=== PATIENT | female | born 1975 | race American Indian/Alaskan Native ===

== ENCOUNTER 2017-11-25 07:09 | Emergency (ER) | payer SELFPAY ==
[2017-11-25] MEDS ORDERED: ZOFRAN ONE (07:28)
[2017-11-25] MEDS ORDERED: ZOFRAN IV ONE ×2 (07:34→10:17)
[2017-11-25 08:11] LABS: Mean Corpuscular HGB Conc 28 % (30-34); Red Blood Count 4.53 M/mm3 (3.65-5.03)
[2017-11-25 08:12] LABS: Hemoglobin 8.2 gm/dl (10.1-14.3); Mean Corpuscular Hemoglobin 18 pg (28-32); Mean Corpuscular Volume 64 fl (79-97); Red Cell Distribution Width 37.1 % (13.2-15.2)
[2017-11-25 08:18] LABS: Platelet Count 347 K/mm3 (140-440)
[2017-11-25 08:20] LABS: INR 0.92 (0.87-1.13)
[2017-11-25 08:36] LABS: Alanine Aminotransferase 6 units/L (7-56); Albumin 2.3 g/dL (3.9-5); BUN/Creatinine Ratio 25; Blood Urea Nitrogen 15 mg/dL (7-17); Hemolysis Index 5
[2017-11-25 09:10] LABS: Basophils % (Manual) 0 % (0.0-1.8); Eosinophils % (Manual) 0 % (0.0-4.3); Total Cells Counted 100
[2017-11-25 09:11] LABS: Anisocytosis 3+; Hypochromasia 2+; Platelet Estimate Consistent w Auto; Schistocytes Few
[2017-11-25 10:11] LABS: Bilirubin,Urine NEG (Negative); Blood,Urine SM (Negative); Color,Urine Yellow (Yellow); Hyaline Casts,Urine 1 /LPF; Mucus,Urine FEW /HPF; Urobilinogen,Urine < 2.0 mg/dL (<2.0)
[2017-11-25 10:12] LABS: Protein,Urine >500 mg/dL (Negative)
[2017-11-25] MEDS ORDERED: BENADRYL IV ONE (10:17)
[2017-11-25] MEDS ORDERED: SUBLIMAZE IV ONE (10:17)
--- NOTE | 2017-11-25 10:25 | Emergency Department Report ---
HPI - General Chief Complaint: Headache Time Seen by Provider: 11/25/17 10:14 - HPI HPI: Room 4 The patient is a 42-year-old female presenting with a chief complaint of headache. Patient states her symptoms began this morning at approximately 05: 40 severe pain to the right head. Patient denies any preceding trauma. Patient denies any history of fever. Patient admits to nausea and vomiting. Patient gives her pain score of 10/10 Location: Head Duration: Constant since 05:40 Quality: Headache Severity: 10/10 Modifying factors: [see above] Context: [see above] Mode of transportation: [not driving] ED Past Medical Hx - Past Medical History Previous Medical History?: Yes Additional medical history: Fibroids - Surgical History Past Surgical History?: No - Family History Family history: no significant - Social History Smoking Status: Current Every Day Smoker (1/3 pack per day) Substance Use Type: None (denies illicit drug use) - Medications Home Medications: Home Medications Medication Instructions Recorded Confirmed Last Taken Type Butalb/Acetamin/Caff 50-325-40 2 tab PO Q8HR PRN #20 tablet 11/25/17 Unknown Rx [Fioricet] Promethazine [Phenergan TAB] 25 mg PO Q6HR PRN #20 tab 11/25/17 Unknown Rx Promethazine [Phenergan] 25 mg [place] Q6HR PRN #5 supp.rect 11/25/17 Unknown Rx Sulfamethoxazole/Trimethoprim 1 each PO BID #14 tablet 11/25/17 Unknown Rx [Bactrim DS TAB] predniSONE [Deltasone] 80 mg PO QDAY #20 tab 11/25/17 Unknown Rx ED Review of Systems ROS: Stated complaint: R SIDE HEAD PAIN Other details as noted in HPI Constitutional: denies: fever Gastrointestinal: nausea, vomiting Neurological: headache Physical Exam - Physical Exam Vital Signs: Vital Signs 11/25/17 11/25/17 11/25/17 07:43 07:51 08:00 Temperature 97.5 F L 97.5 F L Pulse Rate 55 L 55 L Respiratory 16 16 16 Rate Blood Pressure 185/76 Blood Pressure 185/76 [Right] O2 Sat by Pulse 99 99 99 Oximetry Physical Exam: GENERAL: The patient is well-developed well-nourished female bending over cleaning on bed. Pain moderate discomfort. [] HEENT: Normocephalic. Atraumatic. Extraocular motions are intact. Patient has moist mucous membranes. No nystagmus. There is mild tenderness to palpation in the right temporal region NECK: Supple. No meningitic signs are noted. Trachea midline CHEST/LUNGS: Clear to auscultation. There is no respiratory distress noted. HEART/CARDIOVASCULAR: Regular. There is no tachycardia. There is no gallop rub or murmur. ABDOMEN: Abdomen is soft, nontender. Patient has normal bowel sounds. There is no abdominal distention. SKIN: There is no rash. There is no edema. There is no diaphoresis. NEURO: The patient is awake, alert, and oriented. The patient is cooperative. The patient has no focal neurologic deficits. The patient has normal speech. Cranial nerves II through XII grossly intact, no drift MUSCULOSKELETAL: There is no evidence of acute injury. ED Course Vital Signs 11/25/17 11/25/17 11/25/17 07:43 07:51 08:00 Temperature 97.5 F L 97.5 F L Pulse Rate 55 L 55 L Respiratory 16 16 16 Rate Blood Pressure 185/76 Blood Pressure 185/76 [Right] O2 Sat by Pulse 99 99 99 Oximetry - Reevaluation(s) Reevaluation #1: 11/25/17 13:26 Patient states her pain is improved and she is comfortable enough to go home. Potential diagnosis of temporal arteritis discussed with patient and the importance of follow-up with ophthalmology and compliance with steroid medication stressed. Patient verbalized understanding ED Medical Decision Making - Lab Data Result diagrams: 11/25/17 07:56 11/25/17 07:56 Laboratory Tests 11/25/17 11/25/17 11/25/17 07:56 07:56 07:56 WBC 10.2 RBC 4.53 Hgb 8.2 L Hct 29.0 L MCV 64 L MCH 18 L MCHC 28 L RDW 37.1 H Plt Count 347 Add Manual Diff Complete Total Counted 100 Seg Neuts % (Manual) 88.0 H Band Neutrophils % 0 Lymphocytes % (Manual) 8.0 L Reactive Lymphs % (Man) 0 Monocytes % (Manual) 4.0 Eosinophils % (Manual) 0 Basophils % (Manual) 0 Metamyelocytes % 0 Myelocytes % 0 Promyelocytes % 0 Blast Cells % 0 Nucleated RBC % Not Reportable Seg Neutrophils # Man 9.0 H Band Neutrophils # 0.0 Lymphocytes # (Manual) 0.8 L Abs React Lymphs (Man) 0.0 Monocytes # (Manual) 0.4 Eosinophils # (Manual) 0.0 Basophils # (Manual) 0.0 Metamyelocytes # 0.0 Myelocytes # 0.0 Promyelocytes # 0.0 Blast Cells # 0.0 WBC Morphology Not Reportable Hypersegmented Neuts Not Reportable Hyposegmented Neuts Not Reportable Hypogranular Neuts Not Reportable Smudge Cells Not Reportable Toxic Granulation Not Reportable Toxic Vacuolation Not Reportable Dohle Bodies Not Reportable Pelger-Huet Anomaly Not Reportable Kaela Rods Not Reportable Platelet Estimate Consistent w auto Clumped Platelets Not Reportable Plt Clumps, EDTA Not Reportable Large Platelets Not Reportable Giant Platelets Not Reportable Platelet Satelliting Not Reportable Plt Morphology Comment Not Reportable RBC Morphology Not Reportable Dimorphic RBCs Not Reportable Polychromasia Not Reportable Hypochromasia 2+ Poikilocytosis Not Reportable Anisocytosis 3+ Microcytosis 2+ Macrocytosis Not Reportable Spherocytes Not Reportable Pappenheimer Bodies Not Reportable Sickle Cells Not Reportable Target Cells Not Reportable Tear Drop Cells Not Reportable Ovalocytes Not Reportable Helmet Cells Not Reportable Hernanedz-Oral Bodies Not Reportable [place] Rings Not Reportable Malabar Cells Not Reportable Bite Cells Not Reportable Crenated Cell Not Reportable Elliptocytes Not Reportable Acanthocytes (Spur) Not Reportable Rouleaux Not Reportable Hemoglobin C Crystals Not Reportable Schistocytes Few Malaria parasites Not Reportable Ignacio Bodies Not Reportable Hem Pathologist Commnt No PT 12.8 INR 0.92 Sodium 141 Potassium 3.6 Chloride 105.6 Carbon Dioxide 23 Anion Gap 16 BUN 15 Creatinine 0.6 L Estimated GFR > 60 BUN/Creatinine Ratio 25 Glucose 117 H Calcium 8.0 L Total Bilirubin 0.30 AST 12 ALT 6 L Alkaline Phosphatase 72 Total Protein 6.3 Albumin 2.3 L Albumin/Globulin Ratio 0.6 HCG, Qual Urine Color Urine Turbidity Urine pH Ur Specific Dingess Urine Protein Urine Glucose (UA) Urine Ketones Urine Blood Urine Nitrite Urine Bilirubin Urine Urobilinogen Ur Leukocyte Esterase Urine WBC (Auto) Urine RBC (Auto) U Epithel Cells (Auto) Hyaline Casts Urine Mucus 11/25/17 11/25/17 07:56 09:26 WBC RBC Hgb Hct MCV MCH MCHC RDW Plt Count Add Manual Diff Total Counted Seg Neuts % (Manual) Band Neutrophils % Lymphocytes % (Manual) Reactive Lymphs % (Man) Monocytes % (Manual) Eosinophils % (Manual) Basophils % (Manual) Metamyelocytes % Myelocytes % Promyelocytes % Blast Cells % Nucleated RBC % Seg Neutrophils # Man Band Neutrophils # Lymphocytes # (Manual) Abs React Lymphs (Man) Monocytes # (Manual) Eosinophils # (Manual) Basophils # (Manual) Metamyelocytes # Myelocytes # Promyelocytes # Blast Cells # WBC Morphology Hypersegmented Neuts Hyposegmented Neuts Hypogranular Neuts Smudge Cells Toxic Granulation Toxic Vacuolation Dohle Bodies Pelger-Huet Anomaly Kaela Rods Platelet Estimate Clumped Platelets Plt Clumps, EDTA Large Platelets Giant Platelets Platelet Satelliting Plt Morphology Comment RBC Morphology Dimorphic RBCs Polychromasia Hypochromasia Poikilocytosis Anisocytosis Microcytosis Macrocytosis Spherocytes Pappenheimer Bodies Sickle Cells Target Cells Tear Drop Cells Ovalocytes Helmet Cells Hernandez-Oral Bodies [place] Rings Malabar Cells Bite Cells Crenated Cell Elliptocytes Acanthocytes (Spur) Rouleaux Hemoglobin C Crystals Schistocytes Malaria parasites Ignacio Bodies Hem Pathologist Commnt PT INR Sodium Potassium Chloride Carbon Dioxide Anion Gap BUN Creatinine Estimated GFR BUN/Creatinine Ratio Glucose Calcium Total Bilirubin AST ALT Alkaline Phosphatase Total Protein Albumin Albumin/Globulin Ratio HCG, Qual Negative Urine Color Yellow Urine Turbidity Clear Urine pH 6.0 Ur Specific Dingess 1.028 Urine Protein >500 Urine Glucose (UA) Neg Urine Ketones Neg Urine Blood Sm Urine Nitrite Neg Urine Bilirubin Neg Urine Urobilinogen < 2.0 Ur Leukocyte Esterase Tr Urine WBC (Auto) 16.0 H Urine RBC (Auto) 26.0 U Epithel Cells (Auto) 3.0 Hyaline Casts 1 Urine Mucus Few - Radiology Data Radiology results: report reviewed (CT head), image reviewed (CT head) [facility] [address] [place] [address] Cat Scan Report Signed Patient: REGLA TALBERT MR#: [id number] : 1975 Acct:[id number] Age/Sex: 42 / F ADM Date: 11/25/17 Loc: ED Attending Dr: Ordering Physician: RIAN SARGENT MD Date of Service: 11/25/17 Procedure(s): CT head/brain wo con Accession Number(s): [id number] cc: RIAN SARGENT MD CT HEAD WITHOUT CONTRAST INDICATION: Headache, HTN. COMPARISON: None similar at this institution. FINDINGS: Noncontrast head CT demonstrates normal ventricles and sulci without acute or recent infarct, hemorrhage, mass effect or midline shift. No abnormal extra-axial fluid collections. Posterior fossa structures and basilar cisterns appear within normal limits. Symmetric eye globes. Hypoplastic/aplastic frontal sinuses laterally. Clear aerated paranasal sinuses and mastoid air cells. Intact calvarium. Normal overlying scalp soft tissues. Small radiopaque dental material incidentally noted. CONCLUSION: No acute intracranial CT abnormality, as described. Thank you for the opportunity to participate in this patient's care. Transcribed By: RS Dictated By: CONSUELO HEART MD Electronically Authenticated By: CONSUELO HEART MD Signed Date/Time: 11/25/17 1022 DD/ 1021 TD/TT: 11/25/17 1022 - Differential Diagnosis ICH, migraine, headache, Critical care attestation.: If time is entered above; I have spent that time in minutes in the direct care of this critically ill patient, excluding procedure time. ED Disposition Clinical Impression: Headache, UTI (urinary tract infection) Disposition: DC- TO HOME OR SELFCARE Is pt being admited?: No Does the pt Need Aspirin: No Condition: Stable Instructions: Temporal Arteritis (ED), Migraine Headache (ED) Additional Instructions: Return to the emergency department immediately should you develop worsening symptoms, fever, inability to tolerate food or liquid or any other concerns. Prescriptions: Butalb/Acetamin/Caff 50-325-40 [Fioricet] 2 tab PO Q8HR PRN #20 tablet PRN Reason: Headache predniSONE [Deltasone] 80 mg PO QDAY #20 tab Promethazine [Phenergan TAB] 25 mg PO Q6HR PRN #20 tab PRN Reason: Nausea Promethazine [Phenergan] 25 mg [place] Q6HR PRN #5 supp.rect PRN Reason: Vomiting Sulfamethoxazole/Trimethoprim [Bactrim DS TAB] 1 each PO BID #14 tablet Referrals: PRESTON MARRERO MD [Staff Physician] - JOANN (Dr. Marrero is an shingle packer. It is important that you follow-up with him for further evaluation before U complete your prescription for prednisone) RICK GARCIA MD [Staff Physician] - 2-3 Days (Dr. Garcia is a neurologist. Please follow up with him for further evaluation) Time of Disposition: 13:35
--- NOTE | 2017-11-25 10:28 | Cat Scan Report ---
CT HEAD WITHOUT CONTRAST INDICATION: Headache, HTN. COMPARISON: None similar at this institution. FINDINGS: Noncontrast head CT demonstrates normal ventricles and sulci without acute or recent infarct, hemorrhage, mass effect or midline shift. No abnormal extra-axial fluid collections. Posterior fossa structures and basilar cisterns appear within normal limits. Symmetric eye globes. Hypoplastic/aplastic frontal sinuses laterally. Clear aerated paranasal sinuses and mastoid air cells. Intact calvarium. Normal overlying scalp soft tissues. Small radiopaque dental material incidentally noted. CONCLUSION: No acute intracranial CT abnormality, as described. Thank you for the opportunity to participate in this patient's care.
[2017-11-25] MEDS ORDERED: CATAPRES PO ONE (10:42)
[2017-11-25] MEDS ORDERED: FIORICET PO ONE (11:56)
[2017-11-25] MEDS ORDERED: APRESOLINE IV ONE (12:04)
[2017-11-25 13:38] VITALS: BP 168/84
== END 2017-11-25 13:59 | disposition home or self-care (01) ==
LOC: ED 07:09
DX: N39.0 Urinary tract infection, site not specified (principal); R51 Headache; F17.200 Nicotine dependence, unspecified, uncomplicated
CPT/HCPCS: 36415; 70450; 80053; 81001; 84703; 85007; 85025; 85610; 85652; 96374; 96375; 96376; 99285; J0360; J1200; J2405; J3010

== ENCOUNTER 2017-11-26 18:51 | Emergency (ER) | payer SELFPAY ==
[2017-11-26 19:58] LABS: Mean Corpuscular HGB Conc 29 % (30-34); Red Blood Count 4.58 M/mm3 (3.65-5.03)
[2017-11-26 19:59] LABS: Hematocrit 28.8 % (30.3-42.9); Hemoglobin 8.3 gm/dl (10.1-14.3); Mean Corpuscular Hemoglobin 18 pg (28-32); Mean Corpuscular Volume 63 fl (79-97); Red Cell Distribution Width 37.6 % (13.2-15.2)
[2017-11-26 20:00] LABS: Platelet Count 328 K/mm3 (140-440)
[2017-11-26] MEDS ORDERED: KEPPRA 1,000 MG/NS 0.75% 100ML 1,000 MG/100 ML BAG IV SCH (20:00)
[2017-11-26 20:31] LABS: BUN/Creatinine Ratio 20; Blood Urea Nitrogen 14 mg/dL (7-17); Calcium 7.8 mg/dL (8.4-10.2); Hemolysis Index 4
[2017-11-26] MEDS ORDERED: KEPPRA 1,000 MG/NS 0.75% 100ML 1,000 MG/100 ML BAG IV ONE (20:31)
--- NOTE | 2017-11-26 20:46 | Emergency Department Report ---
ED Seizure HPI - General Chief Complaint: Seizure Stated Complaint: SEIZURE Time Seen by Provider: 11/26/17 20:03 Source: patient, EMS Mode of arrival: Stretcher Limitations: No Limitations - History of Present Illness Initial Comments: pt. had another seizure which was witnessed by EMS and they gave versed 5mg. pt. was seen yesterday for temporal arteritis,migraine and uti and placed on prednisone and bactrim and fioricet.she says that when she sits next to the tv she gets headache yesterday and tioday before she came in however she denies any headache presently MD Complaint: seizure -: Sudden Time: 18:30 Description of Episode: loss of consciousness, tonic-clonic movement Duration of Episode: 1 (min) -: minutes(s) Witnessed:: Yes Trauma: No Seizure History: none Place: home Possible Precipitating Event: none Associated Symptoms: tongue injury Treatments Prior to Arrival: benzodiazepines - Related Data Previous Rx's Medication Instructions Recorded Last Taken Type Butalb/Acetamin/Caff 50-325-40 2 tab PO Q8HR PRN #20 tablet 11/25/17 Unknown Rx [Fioricet] Promethazine [Phenergan TAB] 25 mg PO Q6HR PRN #20 tab 11/25/17 Unknown Rx Promethazine [Phenergan] 25 mg [place] Q6HR PRN #5 supp.rect 11/25/17 Unknown Rx Sulfamethoxazole/Trimethoprim 1 each PO BID #14 tablet 11/25/17 Unknown Rx [Bactrim DS TAB] predniSONE [Deltasone] 80 mg PO QDAY #20 tab 11/25/17 Unknown Rx levETIRAcetam [Keppra] 500 mg PO BID #60 tablet 11/26/17 Unknown Rx Allergies Allergy/AdvReac Type Severity Reaction Status Date / Time No Known Allergies Allergy Verified 11/25/17 07:42 ED Review of Systems ROS: Stated complaint: SEIZURE Other details as noted in HPI Comment: All other systems reviewed and negative ED Past Medical Hx - Past Medical History Previous Medical History?: Yes Additional medical history: Fibroids - Social History Smoking Status: Current Every Day Smoker Substance Use Type: None - Medications Home Medications: Home Medications Medication Instructions Recorded Confirmed Last Taken Type Butalb/Acetamin/Caff 50-325-40 2 tab PO Q8HR PRN #20 tablet 11/25/17 Unknown Rx [Fioricet] Promethazine [Phenergan TAB] 25 mg PO Q6HR PRN #20 tab 11/25/17 Unknown Rx Promethazine [Phenergan] 25 mg [place] Q6HR PRN #5 supp.rect 11/25/17 Unknown Rx Sulfamethoxazole/Trimethoprim 1 each PO BID #14 tablet 11/25/17 Unknown Rx [Bactrim DS TAB] predniSONE [Deltasone] 80 mg PO QDAY #20 tab 11/25/17 Unknown Rx levETIRAcetam [Keppra] 500 mg PO BID #60 tablet 11/26/17 Unknown Rx ED Physical Exam - General Limitations: No Limitations General appearance: alert, in no apparent distress - Eye Eye exam: Present: normal appearance - ENT ENT exam: Present: mucous membranes moist, other (brusing of the tongue) - Neck Neck exam: Present: normal inspection - Respiratory Respiratory exam: Present: normal lung sounds bilaterally. Absent: respiratory distress - Cardiovascular Cardiovascular Exam: Present: regular rate, normal rhythm. Absent: systolic murmur, diastolic murmur, rubs, gallop - GI/Abdominal GI/Abdominal exam: Present: soft, normal bowel sounds - Rectal Rectal exam: Present: deferred - Extremities Exam Extremities exam: Present: normal inspection - Back Exam Back exam: Present: normal inspection - Neurological Exam Neurological exam: Present: alert, oriented X3, CN II-XII intact - Psychiatric Psychiatric exam: Present: normal affect, normal mood - Skin Skin exam: Present: warm, dry, intact, normal color. Absent: rash ED Course Vital Signs 11/26/17 11/26/17 11/26/17 19:22 19:29 19:30 Temperature 97.2 F L Pulse Rate 94 H 90 86 Respiratory 21 18 21 Rate Blood Pressure 144/87 144/87 Blood Pressure 144/87 [Right] O2 Sat by Pulse 99 98 98 Oximetry 11/26/17 11/26/17 11/26/17 19:46 20:00 20:09 Temperature Pulse Rate 85 84 Respiratory 20 24 18 Rate Blood Pressure 137/80 137/80 Blood Pressure [Right] O2 Sat by Pulse 99 99 98 Oximetry 11/26/17 11/26/17 11/26/17 20:16 20:30 20:45 Temperature Pulse Rate 73 76 68 Respiratory 14 21 21 Rate Blood Pressure 147/86 147/86 169/93 Blood Pressure [Right] O2 Sat by Pulse 100 100 100 Oximetry 11/26/17 11/26/17 21:00 21:15 Temperature Pulse Rate 64 70 Respiratory 19 17 Rate Blood Pressure 169/93 167/94 Blood Pressure [Right] O2 Sat by Pulse 100 100 Oximetry ED Medical Decision Making - Lab Data Result diagrams: 11/26/17 19:45 11/26/17 19:45 - Radiology Data Radiology results: report reviewed (ct head done yesterday) - Medical Decision Making patient hemoglobin is similar to yesterday result.will ahve her follow up with outpatient neurology and they can determine if they will like to continue keppra Critical care attestation.: If time is entered above; I have spent that time in minutes in the direct care of this critically ill patient, excluding procedure time. ED Disposition Clinical Impression: Seizure Disposition: DC-01 TO HOME OR SELFCARE Is pt being admited?: No Does the pt Need Aspirin: No Condition: Stable Instructions: New-Onset Seizure in Adults (ED) Additional Instructions: avoid driving or operating heavy machinery until given clearance by neurologists. continue the medications you were prescribed yesterday Prescriptions: levETIRAcetam [Keppra] 500 mg PO BID #60 tablet Referrals: ANDREA LANGFORD MD [Primary Care Provider] - 3-5 Days JUS LYMAN MD [Staff Physician] - 3-5 Days Time of Disposition: 22:59 Print Language: INDONESIAN
[2017-11-26] MEDS ORDERED: NACL 0.9% 1000 ML 1,000 ML IV ONE (21:35)
[2017-11-26] MEDS ORDERED: KEPPRA 1,000 MG in D5W 100 ML IV SCH (22:00)
[2017-11-26 22:52] LABS: Albumin 2.2 g/dL (3.9-5)
[2017-11-26 23:09] VITALS: BP 176/101
== END 2017-11-26 23:21 | disposition home or self-care (01) ==
LOC: ED 18:51
DX: R56.9 Unspecified convulsions (principal); D21.9 Benign neoplasm of connective and other soft tissue, unspecified; F17.200 Nicotine dependence, unspecified, uncomplicated; G43.909 Migraine, unspecified, not intractable, without status migrainosus
CPT/HCPCS: 36415; 80048; 82040; 83735; 84100; 85027; 96361; 96365; 99284; J1953; J7030

== ENCOUNTER 2021-03-09 10:44 | Inpatient (IN) | payer MEDICAID ==
[2021-03-09] MEDS ORDERED: LORazepam 2 MG/ML VIAL IV ONE (11:13)
--- NOTE | 2021-03-09 11:21 | Cat Scan Report ---
CT HEAD WITHOUT CONTRAST INDICATION / CLINICAL INFORMATION: CODE STROKE Stroke symptoms PT IS UNRESPONSIVE #[id number]. TECHNIQUE: All CT scans at this location are performed using CT dose reduction for ALARA by means of automated e xposure control. COMPARISON: 12/17/2019 FINDINGS: No acute intracranial hemorrhage. Ventricles are normal in size without midline shift or mass effect. No extra-axial fluid collection is seen. There is some encephalitis along the cortex and left pariet al lobe. All left basal ganglia infarct. ADDITIONAL FINDINGS: None. IMPRESSION: 1. No acute findings. Chronic changes in the left parietal lobe and basal ganglia region. CODE STROKE: Time of Communication (MEDICAL ASSISTANT PER DIEM/CDT): 1015 Licensed Practitioner Receiving Report: Sahni Signer Name: Jose Tirado MD Signed: 03/09/2021 11:16 AM Workstation Name: [id number]
[2021-03-09 11:30] LABS: Hematocrit 39.7 % (30.3-42.9); Hemoglobin 12.7 gm/dl (10.1-14.3); Mean Corpuscular HGB Conc 32 % (30-34); Mean Corpuscular Volume 81 fl (79-97); Platelet Count 203 K/mm3 (140-440); Red Blood Count 4.93 M/mm3 (3.65-5.03); Red Cell Distribution Width 19.8 % (13.2-15.2)
[2021-03-09 11:44] LABS: INR 1.01 (0.87-1.13)
[2021-03-09 11:45] LABS: Partial Thromboplastin Time 34.2 Sec. (24.2-36.6); Thrombin Time 20.6 Sec. (15.1-19.6)
[2021-03-09 11:46] LABS: Creatine Kinase MB 8.4 ng/mL (0.0-4.0)
[2021-03-09 11:47] LABS: Albumin 3.7 g/dL (3.9-5); Calcium 11.6 mg/dL (8.4-10.2)
--- NOTE | 2021-03-09 12:53 | Emergency Department Report ---
Blank Doc - Documentation Documentation: [facility] Consult Note # Demographics Consult Type: Acute Stroke Level 2 (4.5-24 hrs) Patient Location: Emergency Room First Name: nina Last Name: emily Gender: Female Time of Initial Page ( Time): 03/09/2021, 10:58 Time of Return Call ( Time): 03/09/2021, 10:58 # HPI History: pt found unresponsive. her left eye is pulled in, her head is turned to the left. she was last normal last night. Last Known Normal: I have collected independent history specific to time last normal or last known well. We have collaborated with the provider and at this time, we have the most current timeline with the information that is available. # Scores Time of exam and NIHSS ( Time): 03/09/2021, 11:02 Level of Consciousness 1a: [0] = Alert; keenly responsive LOC Questions 1b: [2] = Answers neither correctly LOC Commands 1c: [2] = Performs neither correctly Best Gaze 2: [0] = Normal Visual 3: [0] = No visual loss Facial Palsy 4: [0] = Normal symmetrical movements Motor Arm Left 5a: [3] = No effort against gravity Motor Arm Right 5b: [4] = No movement Motor Leg Left 6a: [0] = No drift Motor Leg Right 6b: [4] = No movement Limb Ataxia 7: [0] = Absent Sensory 8: [2] = Severe to total sensory loss Best Language 9: [3] = Mute Dysarthria 10: [2] = Severe dysarthria Extinction and Inattention 11: [0] = No abnormality NIHSS Total: 22 # PMH-FH-SH Past Medical History: seizure SLE Medications: chemo. unknown AEDs # Assessment Impression: seizure vs stroke # Plan Thrombolytic/Intervention: NOT IV Thrombolysis or IA Intervention candidate Thrombolytic Exclusion: > 4.5 hours Intraarterial Exclusion: clinically consistent with small vessel disease Imaging: (urgency: STAT): CT Angiogram Head and CT Angiogram Neck AND call back with results if abnormal Diagnostic Test: EEG Medication: ativan 2mg now while CTA being done. if negative needs aggressive treatment for seizure (fosphenytoin 20mg/kg load) Other: seizure precautions I have discussed my recommendations with the referring provider Disposition: admit # Logistics Telemedicine: Interactive 2 way audio and visual telecommunication technology was utilized during this visit
--- NOTE | 2021-03-09 13:45 | Cat Scan Report ---
CT angio neck HISTORY: severe stroke symptoms OMNIPAQUE 350 100ML COMPARISON: CT head same day. TECHNIQUE: CTA of the neck and head is performed after IV contrast. 3-D/MIP reformats were postproces sed. Percentage stenosis is determined by direct quantitative measurements of diseased internal stroud tid artery diameter compared with normal distal internal carotid artery reference segments or by crit eria similar to NASCET where applicable. All CT scans at this location are performed using CT dose re duction for ALARA by means of automated exposure control. FINDINGS: CTA NECK: Aortic arch: No significant abnormality. Cervical vertebral arteries: No occlusion or hemodynamically significant stenosis. Common Carotid arteries: No occlusion or hemodynamically significant stenosis. Internal carotid arteries: No occlusion or hemodynamically significant stenosis. CTA HEAD: Intracranial internal carotid arteries: No occlusion or significant stenosis. Anterior cerebral arteries: No occlusion or significant stenosis. Middle cerebral arteries: No occlusion or significant stenosis. Intracranial vertebral arteries: No occlusion or significant stenosis. Basilar artery: No occlusion or significant stenosis. Posterior cerebral arteries: No occlusion or significant stenosis. No aneurysm. Additional findings: CC CT head for intracranial findings.. IMPRESSION: 1. CTA NECK: No occlusion or significant stenosis of the carotid or vertebral arteries. 2. CTA HEAD: No occlusion or significant stenosis of the major intracranial vasculature. Signer Name: Víctor Ac MD Signed: 03/09/2021 1:41 PM Workstation Name: [id number]
[2021-03-09 13:46] LABS: Mucus,Urine FEW /HPF
--- NOTE | 2021-03-09 13:46 | Cat Scan Report ---
CT angio head HISTORY: severe stroke symptoms #[id number] COMPARISON: CT head same day. TECHNIQUE: CTA of the neck and head is performed after IV contrast. 3-D/MIP reformats were postproces sed. Percentage stenosis is determined by direct quantitative measurements of diseased internal stroud tid artery diameter compared with normal distal internal carotid artery reference segments or by crit eria similar to NASCET where applicable. All CT scans at this location are performed using CT dose re duction for ALARA by means of automated exposure control. FINDINGS: CTA NECK: Aortic arch: No significant abnormality. Cervical vertebral arteries: No occlusion or hemodynamically significant stenosis. Common Carotid arteries: No occlusion or hemodynamically significant stenosis. Internal carotid arteries: No occlusion or hemodynamically significant stenosis. CTA HEAD: Intracranial internal carotid arteries: No occlusion or significant stenosis. Anterior cerebral arteries: No occlusion or significant stenosis. Middle cerebral arteries: No occlusion or significant stenosis. Intracranial vertebral arteries: No occlusion or significant stenosis. Basilar artery: No occlusion or significant stenosis. Posterior cerebral arteries: No occlusion or significant stenosis. No aneurysm. Additional findings: CC CT head for intracranial findings.. IMPRESSION: 1. CTA NECK: No occlusion or significant stenosis of the carotid or vertebral arteries. 2. CTA HEAD: No occlusion or significant stenosis of the major intracranial vasculature. Signer Name: Víctor Ac MD Signed: 03/09/2021 1:42 PM Workstation Name: [id number]
[2021-03-09 13:47] LABS: Bilirubin,Urine NEG (Negative); Blood,Urine MOD (Negative); Color,Urine Amber (Yellow); Protein,Urine >500 mg/dL (Negative); Urobilinogen,Urine < 2.0 mg/dL (<2.0)
--- NOTE | 2021-03-09 14:06 | Emergency Department Report ---
ED Neuro Deficit HPI - General Chief Complaint: Neuro Symptoms/Deficit Stated Complaint: POSS CVA Time Seen by Provider: 03/09/21 10:53 Source: EMS Mode of arrival: Stretcher Limitations: Altered Mental Status, Physical Limitation - History of Present Illness Initial Comments: Patient is a 45-year-old F [place] female with past medical history of hyper tension end-stage renal disease who is on dialysis Wednesday and Wednesday who also has had a previous CVA but normally walks and talks without issue presenting with altered mental status. Last known well time was approximately 10PM last night. She was found today at 10AM lying on the ground unresponsive. Patient's eyes are open but her eyes are deviated to the left. She does have a left-sided facial droop and is showing complete neglect of her right side. Patient is nonverbal at this time. No other history is known at this time what transpired in between 10 PM and 10 AM. During her chart review it appears as though the patient has a history of seizures as well. Uncertain which medication the patient takes if she takes any at all. Patient had a witnessed tonic-clonic seizure during 2019 and received Ativan. At the time did not appear as though the patient was on dialysis. - Related Data Home Medications: Home Medications Medication Instructions Recorded Confirmed Last Taken Hydromorphone HCl [Exalgo] 8 mg PO 12/18/19 Unknown NIFEdipine [Nifedipine ER] 60 mg PO 12/18/19 Unknown Torsemide [Demadex] 12/18/19 Unknown Venlafaxine [Effexor 37.5mg tab] 12/18/19 Unknown chlorproMAZINE [Thorazine] 25 mg PO Q4H PRN 12/18/19 12/18/19 Unknown oxyCODONE /ACETAMINOPHEN [Percocet 1 tab PO Q6HR PRN 12/18/19 12/18/19 Unknown 5/325 mg] Previous Rx's Medication Instructions Recorded Last Taken Type Butalb/Acetamin/Caff 50-325-40 2 tab PO Q8HR PRN #20 tablet 11/25/17 Unknown Rx [Fioricet 50-325-40] predniSONE [Deltasone] 80 mg PO QDAY #20 tab 11/25/17 Unknown Rx Metoprolol [Lopressor TAB] 100 mg PO BID #60 tablet 12/20/19 Unknown Rx Nystas/Diphen/Xyl Visc/Mylanta 30 ml MM Q4H PRN 14 Days 12/20/19 Unknown Rx [Magic Mouthwash] hydrALAZINE [Apresoline TAB] 25 mg PO Q8HR #90 tablet 12/20/19 Unknown Rx levETIRAcetam [Keppra TAB] 500 mg PO BID #60 tablet 12/20/19 Unknown Rx oxyCODONE /ACETAMINOPHEN [Percocet 1 tab PO QHS PRN #7 tablet 12/20/19 Unknown Rx 5/325] Allergies/Adverse Reactions: Allergies Allergy/AdvReac Type Severity Reaction Status Date / Time No Known Allergies Allergy Verified 03/09/21 13:06 ED Review of Systems ROS: Stated complaint: POSS CVA Other details as noted in HPI Comment: Unobtainable due to pts medical conditions ED Past Medical Hx - Past Medical History Hx Hypertension: Yes Hx CVA: Yes Hx Diabetes: Yes Hx Seizures: Yes Additional medical history: Fibroids, lupus - Social History Smoking Status: Never Smoker - Medications Home Medications: Home Medications Medication Instructions Recorded Confirmed Last Taken Type Butalb/Acetamin/Caff 50-325-40 2 tab PO Q8HR PRN #20 tablet 11/25/17 Unknown Rx [Fioricet 50-325-40] predniSONE [Deltasone] 80 mg PO QDAY #20 tab 11/25/17 Unknown Rx Hydromorphone HCl [Exalgo] 8 mg PO 12/18/19 Unknown History NIFEdipine [Nifedipine ER] 60 mg PO 12/18/19 Unknown History Torsemide [Demadex] 12/18/19 Unknown History Venlafaxine [Effexor 37.5mg tab] 12/18/19 Unknown History chlorproMAZINE [Thorazine] 25 mg PO Q4H PRN 12/18/19 12/18/19 Unknown History oxyCODONE /ACETAMINOPHEN [Percocet 1 tab PO Q6HR PRN 12/18/19 12/18/19 Unknown History 5/325 mg] Metoprolol [Lopressor TAB] 100 mg PO BID #60 tablet 12/20/19 Unknown Rx Nystas/Diphen/Xyl Visc/Mylanta 30 ml MM Q4H PRN 14 Days 12/20/19 Unknown Rx [Magic Mouthwash] hydrALAZINE [Apresoline TAB] 25 mg PO Q8HR #90 tablet 12/20/19 Unknown Rx levETIRAcetam [Keppra TAB] 500 mg PO BID #60 tablet 12/20/19 Unknown Rx oxyCODONE /ACETAMINOPHEN [Percocet 1 tab PO QHS PRN #7 tablet 12/20/19 Unknown Rx 5/325] ED Neuro Physical Exam - General Limitations: Altered Mental Status, Physical Limitation General appearance: alert, in no apparent distress Suspected Stroke: Yes - Head Head exam: Present: normocephalic. Absent: atraumatic (Patient with blood around her mouth from a possible in her mouth abrasion. ) - Eye Eye exam: Absent: normal appearance (Right eye appears normal left eye does have some scleral edema and a subconjunctival hemorrhage no hyphema present. Eyes are fixated to the left.) - ENT ENT exam: Present: mucous membranes moist - Neck Neck exam: Present: normal inspection - Respiratory Respiratory exam: Present: normal lung sounds bilaterally, other (Right subclavian line which appears to be used for dialysis). Absent: respiratory distress, wheezes, rales, rhonchi - Cardiovascular Cardiovascular Exam: Present: regular rate, normal rhythm, normal heart sounds. Absent: systolic murmur, diastolic murmur, rubs, gallop - GI/Abdominal GI/Abdominal exam: Present: soft, normal bowel sounds. Absent: distended, tenderness, guarding - Extremities Exam Extremities exam: Present: normal inspection - Back Exam Back exam: Present: normal inspection - Neurological Exam Neurological exam: Present: altered, motor sensory deficit - NIHSS Assessment Interval: Baseline 1a. Level of Consciousness: arousable/minor stimuli (Patient will move her left arm to pain) 1b. LOC Questions: answers no questions correctly 1c. LOC Commands: performs no tasks correctly 2. Best Gaze: forced deviation 3. Visual: no visual loss 4. Facial Palsy: minor paralysis 5b. Motor Arm Right: no movement 5a. Motor Arm Left: some gravity effort 6a. Motor Leg Left: no gravity effort (We will move her feet spontaneously bilaterally) 6b. Motor Leg Right: no gravity effort 7. Limb Ataxia: absent 8. Sensory: severe/total sensory loss 9. Best Language: mute/global aphasia 10. Dysarthria: mute/anarrthric 11. Extinction/Inattention: no abnormality Total Score: 27 Stroke Severity: Severe Stroke - Psychiatric Psychiatric exam: Present: normal affect, normal mood - Skin Skin exam: Present: warm, dry, intact, normal color. Absent: rash ED Course Vital Signs 03/09/21 03/09/21 03/09/21 10:53 11:30 12:16 Temperature 97.9 F Pulse Rate 74 90 Respiratory 14 22 Rate Blood Pressure 170/110 Blood Pressure 183/108 [Left] O2 Sat by Pulse 98 96 97 Oximetry 03/09/21 03/09/21 03/09/21 12:30 13:10 13:16 Temperature Pulse Rate 82 92 H 90 Respiratory 21 21 Rate Blood Pressure 170/110 174/115 172/104 Blood Pressure [Left] O2 Sat by Pulse 95 94 Oximetry 03/09/21 03/09/21 03/09/21 13:30 13:46 14:00 Temperature Pulse Rate 85 84 87 Respiratory 15 18 23 Rate Blood Pressure 164/103 174/115 175/116 Blood Pressure [Left] O2 Sat by Pulse 97 96 97 Oximetry - Lab Data Result diagrams: 03/09/21 11:21 03/09/21 11:21 Lab Results 03/09/21 03/09/21 03/09/21 Range/Units 11:21 11:21 11:21 WBC 13.0 H (4.5-11.0) K/mm3 RBC 4.93 (3.65-5.03) M/mm3 Hgb 12.7 (10.1-14.3) gm/dl Hct 39.7 (30.3-42.9) % MCV 81 (79-97) fl MCH 26 L (28-32) pg MCHC 32 (30-34) % RDW 19.8 H (13.2-15.2) % Plt Count 203 (140-440) K/mm3 PT 13.9 (12.2-14.9) Sec. INR 1.01 (0.87-1.13) APTT 34.2 (24.2-36.6) Sec. Thrombin Time 20.6 H (15.1-19.6) Sec. Sodium 145 (137-145) mmol/L Potassium 3.4 L (3.6-5.0) mmol/L Chloride 97.2 L (98-107) mmol/L Carbon Dioxide 25 (22-30) mmol/L Anion Gap 26 mmol/L BUN 41 H (7-17) mg/dL Creatinine 6.5 H (0.6-1.2) mg/dL Estimated GFR 8 ml/min BUN/Creatinine Ratio 6 % Glucose 79 (65-100) mg/dL Calcium 11.6 H (8.4-10.2) mg/dL Total Bilirubin 0.20 (0.1-1.2) mg/dL AST 29 (5-40) units/L ALT 9 (7-56) units/L Alkaline Phosphatase 157 H (35-129) units/L Total Creatine Kinase 403 H (30-135) units/L CK-MB (CK-2) 8.4 H (0.0-4.0) ng/mL CK-MB (CK-2) Rel Index 2.0 (0-4) Troponin T 0.473 H* (0.00-0.029) ng/mL Total Protein 7.7 (6.3-8.2) g/dL Albumin 3.7 L (3.9-5) g/dL Albumin/Globulin Ratio 0.9 % Urine Color (Yellow) Urine Turbidity (Clear) Urine pH (5.0-7.0) Ur Specific Gardner (1.003-1.030) Urine Protein (Negative) mg/dL Urine Glucose (UA) (Negative) mg/dL Urine Ketones (Negative) mg/dL Urine Blood (Negative) Urine Nitrite (Negative) Ur Reducing Substances Urine Bilirubin (Negative) Urine Ictotest Urine Urobilinogen (<2.0) mg/dL Ur Leukocyte Esterase (Negative) Urine WBC (Auto) (0.0-6.0) /HPF Urine RBC (Auto) (0.0-6.0) /HPF U Epithel Cells (Auto) (0-13.0) /HPF Urine WBC Clumps /HPF Urine Mucus /HPF Urine Yeast (Budding) /HPF Plasma/Serum Alcohol (0-0.07) % 03/09/21 03/09/21 Range/Units 11:21 11:50 WBC (4.5-11.0) K/mm3 RBC (3.65-5.03) M/mm3 Hgb (10.1-14.3) gm/dl Hct (30.3-42.9) % MCV (79-97) fl MCH (28-32) pg MCHC (30-34) % RDW (13.2-15.2) % Plt Count (140-440) K/mm3 PT (12.2-14.9) Sec. INR (0.87-1.13) APTT (24.2-36.6) Sec. Thrombin Time (15.1-19.6) Sec. Sodium (137-145) mmol/L Potassium (3.6-5.0) mmol/L Chloride (98-107) mmol/L Carbon Dioxide (22-30) mmol/L Anion Gap mmol/L BUN (7-17) mg/dL Creatinine (0.6-1.2) mg/dL Estimated GFR ml/min BUN/Creatinine Ratio % Glucose (65-100) mg/dL Calcium (8.4-10.2) mg/dL Total Bilirubin (0.1-1.2) mg/dL AST (5-40) units/L ALT (7-56) units/L Alkaline Phosphatase (35-129) units/L Total Creatine Kinase (30-135) units/L CK-MB (CK-2) (0.0-4.0) ng/mL CK-MB (CK-2) Rel Index (0-4) Troponin T (0.00-0.029) ng/mL Total Protein (6.3-8.2) g/dL Albumin (3.9-5) g/dL Albumin/Globulin Ratio % Urine Color Farnaz (Yellow) Urine Turbidity Cloudy (Clear) Urine pH 5.0 (5.0-7.0) Ur Specific Gardner 1.023 (1.003-1.030) Urine Protein >500 (Negative) mg/dL Urine Glucose (UA) Neg (Negative) mg/dL Urine Ketones Tr (Negative) mg/dL Urine Blood Mod (Negative) Urine Nitrite Neg (Negative) Ur Reducing Substances Not Reportable Urine Bilirubin Neg (Negative) Urine Ictotest Not Reportable Urine Urobilinogen < 2.0 (<2.0) mg/dL Ur Leukocyte Esterase Neg (Negative) Urine WBC (Auto) 20.0 H (0.0-6.0) /HPF Urine RBC (Auto) 9.0 (0.0-6.0) /HPF U Epithel Cells (Auto) 2.0 (0-13.0) /HPF Urine WBC Clumps 2+ /HPF Urine Mucus Few /HPF Urine Yeast (Budding) 3+ /HPF Plasma/Serum Alcohol < 0.01 (0-0.07) % - EKG Data -: EKG Interpreted by Me EKG shows normal: sinus rhythm, axis, intervals, QRS complexes, ST-T waves Rate: normal Interpretation: normal EKG - Radiology Data [facility] [address] [place] [address] Cat Scan Report Signed Patient: REGLA TALBERT MR# : [id number] : 1975 Acct:[id number] Age/Sex: 45 / F ADM Date: 03/09/21 Loc: ED Attending Dr: Ordering Physician: DANUTA ROBIN MD Date of Service: 03/09/21 Procedure(s): CT head/brain wo con Accession Number(s): [id number] cc: DANUTA ROBIN MD CT HEAD WITHOUT CONTRAST INDICATION / CLINICAL INFORMATION: CODE STROKE Stroke symptoms PT IS UNRESPONSIVE #[id number]. TECHNIQUE: All CT scans at this location are performed using CT dose reduction for ALARA by means of automated exposure control. COMPARISON: 12/17/2019 FINDINGS: No acute intracranial hemorrhage. Ventricles are normal in size without midline shift or mass effect. No extra-axial fluid collection is seen. There is some encephalitis along the cortex and left parietal lobe. All left basal ganglia infarct. ADDITIONAL FINDINGS: None. IMPRESSION: 1. No acute findings. Chronic changes in the left parietal lobe and basal ganglia region. CODE STROKE: Time of Communication (TUNNEL HEADING INSPECTOR/CDT): 1015 Licensed Practitioner Receiving Report: Bora Signer Name: Jose Tirado MD Signed: 03/09/2021 11:16 AM Workstation Name: [id number] CT angio head HISTORY: severe stroke symptoms #[id number] COMPARISON: CT head same day. TECHNIQUE: CTA of the neck and head is performed after IV contrast. 3-D/MIP reformats were postprocessed. Percentage stenosis is determined by direct quantitative measurements of diseased internal carotid artery diameter compared with normal distal internal carotid artery reference segments or by criteria similar to NASCET where applicable. All CT scans at this location are performed using CT dose reduction for ALARA by means of automated exposure control. FINDINGS: CTA NECK: Aortic arch: No significant abnormality. Cervical vertebral arteries: No occlusion or hemodynamically significant stenosis. Common Carotid arteries: No occlusion or hemodynamically significant stenosis. Internal carotid arteries: No occlusion or hemodynamically significant stenosi s. CTA HEAD: Intracranial internal carotid arteries: No occlusion or significant stenosis. Anterior cerebral arteries: No occlusion or significant stenosis. Middle cerebral arteries: No occlusion or significant stenosis. Intracranial vertebral arteries: No occlusion or significant stenosis. Basilar artery: No occlusion or significant stenosis. Posterior cerebral arteries: No occlusion or significant stenosis. No aneurysm. Additional findings: CC CT head for intracranial findings.. IMPRESSION: 1. CTA NECK: No occlusion or significant stenosis of the carotid or vertebral arteries. 2. CTA HEAD: No occlusion or significant stenosis of the major intracranial vasculature. Signer Name: Víctor Ac MD Signed: 03/09/2021 1:42 PM Workstation Name: [id number] - Medical Decision Making Patient is a 45-year-old F [place] female with lupus history of seizures who is presenting with significant strokelike symptoms. Patient appears "locked in". She has left gaze preference is only moving the left arm with pain. Patient completely nonverbal and mute. There also appears to be some facial droop as well. She is spontaneously moving both feet but will not keep her legs off of the bed and has had no effort against gravity on either leg off of the bed. No hemorrhage was seen on CT. CTAs were negative for acute occlusion. We have allowed permissive hypertension. Patient does not appear to be seizing at this time but is a precaution we have loaded the patient with Dilantin. Patient will be admitted to the hospitalist service for further management. - Thrombolytic Inclusion/Exclusion Thrombolytic Exclusion Criteria: Symptom Onset > 3 Hours Critical care attestation.: If time is entered above; I have spent that time in minutes in the direct care of this critically ill patient, excluding procedure time. ED Disposition Clinical Impression: Acute CVA (cerebrovascular accident), ESRD (end stage renal disease), Elevated troponin, Hypertensive urgency, malignant Disposition: -09 OP ADMIT IP TO THIS HOSP Is pt being admited?: Yes Does the pt Need Aspirin: No Condition: Stable Time of Disposition: 14:27
[2021-03-09] MEDS ORDERED: PHENYTOIN 1,000 MG in SODIUM CHLORIDE 0.9% 250ML 250 ML IV ONE (14:17)
--- NOTE | 2021-03-09 14:25 | History and Physical Report ---
History of Present Illness Chief complaint: She is getting weaker History of present illness: 45 YO Female with HTN, Seizure Disorder, SLE, Nicotine Dependence, Malnutrition presents to ED for evaluation. Patient is nonverbal with diminished cognition and is unable to provide history at the time my evaluation. Patient history taken from EMS staff, ED staff, as well as the patient's family who was made available by telephone interview. As per family the patient was found to have increased confusion as well as 2 witnessed seizures while at home. EMS was notified and upon arrival the patient was found to be in distress with a neurologic deficit. A code stroke was called and the patient was subsequently transported to [facility] for further care and evaluation of the aforementioned symptoms. The patient was seen and evaluated in the emergency department. All lab and imaging studies reviewed. Patient found to have clinical symptoms consistent with CVA, as well as UTI, volume depletion, metabolic encephalopathy, end-stage renal disease, and accelerated hypertension. Patient placed in observation status and admitted to telemetry and initiated on stroke protocol. Teleneurology team consulted in ED. Nephrology team consulted in ED. No further history is obtainable. No reports of fever, chills, chest pain, palpitation, productive cough, skin rash, recent ill contacts, or known exposure to COVID-19. Prior admission on 12/18/2019 reviewed. All medication listed at time of admission has been reconciled. Advanced care planning conducted in ED. Past History Past Medical History: ESRD, hypertension, seizures, other (See HPI) Past Surgical History: Other (Dialysis access) Social history: single, smoking. denies: alcohol abuse, prescription drug abuse Family history: diabetes, hypertension Medications and Allergies Allergies Allergy/AdvReac Type Severity Reaction Status Date / Time No Known Allergies Allergy Verified 03/09/21 13:06 Home Medications Medication Instructions Recorded Confirmed Last Taken Type Butalb/Acetamin/Caff 50-325-40 2 tab PO Q8HR PRN #20 tablet 11/25/17 Unknown Rx [Fioricet 50-325-40] predniSONE [Deltasone] 80 mg PO QDAY #20 tab 11/25/17 Unknown Rx Hydromorphone HCl [Exalgo] 8 mg PO 12/18/19 Unknown History NIFEdipine [Nifedipine ER] 60 mg PO 12/18/19 Unknown History Torsemide [Demadex] 12/18/19 Unknown History Venlafaxine [Effexor 37.5mg tab] 12/18/19 Unknown History chlorproMAZINE [Thorazine] 25 mg PO Q4H PRN 12/18/19 12/18/19 Unknown History oxyCODONE /ACETAMINOPHEN [Percocet 1 tab PO Q6HR PRN 12/18/19 12/18/19 Unknown History 5/325 mg] Metoprolol [Lopressor TAB] 100 mg PO BID #60 tablet 12/20/19 Unknown Rx Nystas/Diphen/Xyl Visc/Mylanta 30 ml MM Q4H PRN 14 Days 12/20/19 Unknown Rx [Magic Mouthwash] hydrALAZINE [Apresoline TAB] 25 mg PO Q8HR #90 tablet 12/20/19 Unknown Rx levETIRAcetam [Keppra TAB] 500 mg PO BID #60 tablet 12/20/19 Unknown Rx oxyCODONE /ACETAMINOPHEN [Percocet 1 tab PO QHS PRN #7 tablet 12/20/19 Unknown Rx 5/325] Active Meds: Active Medications Phenytoin 1,000 mg/ Sodium (Chloride) 270 mls @ 500 mls/hr IV ONCE ONE Stop: 03/09/21 14:49 Review of Systems ROS unobtainable: due to mental status Exam - Constitutional Vitals: Temp Pulse Resp BP Pulse Ox 97.9 F 87 23 175/116 97 03/09/21 10:53 03/09/21 14:00 03/09/21 14:00 03/09/21 14:00 03/09/21 14:00 General appearance: Present: mild distress, cachectic - EENT Eyes: Present: PERRL ENT: clear oral mucosa, hearing decreased - Neck Neck: Present: supple, normal ROM - Respiratory Respiratory effort: normal Respiratory: bilateral: CTA - Cardiovascular Heart Sounds: Present: S1 & S2. Absent: rub, click - Extremities Extremities: pulses symmetrical, No edema Peripheral Pulses: within normal limits - Abdominal General gastrointestinal: Present: soft, non-tender, non-distended, normal bowel sounds Female genitourinary: Present: normal - Rectal Rectal Exam: normal exam-external/orifice - Integumentary Integumentary: Present: clear, warm, dry - Musculoskeletal Musculoskeletal: gait normal, strength equal bilaterally - Psychiatric Psychiatric: no appropriate mood/affect, no intact judgment & insight, no memory intact, other (Nonverbal) - Neurologic Neurologic: CNII-XII intact, moves all extremities, no gait normal HEART Score - HEART Score Troponin: Troponin T 0.473 ng/mL (0.00-0.029) H* 03/09/21 11:21 Results - Labs CBC & Chem 7: 03/09/21 11:21 03/09/21 11:21 Labs: Abnormal lab results 03/09/21 03/09/21 03/09/21 Range/Units 11:21 11:21 11:21 WBC 13.0 H (4.5-11.0) K/mm3 MCH 26 L (28-32) pg RDW 19.8 H (13.2-15.2) % Thrombin Time 20.6 H (15.1-19.6) Sec. Potassium 3.4 L (3.6-5.0) mmol/L Chloride 97.2 L (98-107) mmol/L BUN 41 H (7-17) mg/dL Creatinine 6.5 H (0.6-1.2) mg/dL Calcium 11.6 H (8.4-10.2) mg/dL Alkaline Phosphatase 157 H (35-129) units/L Total Creatine Kinase 403 H (30-135) units/L CK-MB (CK-2) 8.4 H (0.0-4.0) ng/mL Troponin T 0.473 H* (0.00-0.029) ng/mL Albumin 3.7 L (3.9-5) g/dL Urine WBC (Auto) (0.0-6.0) /HPF 03/09/21 Range/Units 11:50 WBC (4.5-11.0) K/mm3 MCH (28-32) pg RDW (13.2-15.2) % Thrombin Time (15.1-19.6) Sec. Potassium (3.6-5.0) mmol/L Chloride (98-107) mmol/L BUN (7-17) mg/dL Creatinine (0.6-1.2) mg/dL Calcium (8.4-10.2) mg/dL Alkaline Phosphatase (35-129) units/L Total Creatine Kinase (30-135) units/L CK-MB (CK-2) (0.0-4.0) ng/mL Troponin T (0.00-0.029) ng/mL Albumin (3.9-5) g/dL Urine WBC (Auto) 20.0 H (0.0-6.0) /HPF Assessment and Plan - Patient Problems (1) Acute CVA (cerebrovascular accident) Current Visit: Yes Status: Acute Plan to address problem: CVA protocol: CT head, CTA head, CTA neck, carotid Doppler, echocardiogram, antiplatelet therapy, physical therapy consulted, Occupational Therapy consulted, speech therapy consulted, telemetry neurology consulted in ED, lipid panel, antiplatelet therapy, permissive hypertension overnight. (2) UTI (urinary tract infection) Current Visit: Yes Status: Acute Qualifiers: Encounter type: initial encounter Plan to address problem: CBC, urinalysis, IV antibiotic therapy, supportive care (3) Metabolic encephalopathy Current Visit: Yes Status: Acute Plan to address problem: CT head, neuro check, seizure precautions, supportive care. (4) ESRD (end stage renal disease) Current Visit: Yes Status: Acute Plan to address problem: Nephrology team consulted in ED. Dialysis and further care as per nephrology team. (5) Hypertensive urgency, malignant Current Visit: Yes Status: Acute Plan to address problem: Monitor blood pressure every shift, continue medical management, urgent dialysis. (6) Severe malnutrition Current Visit: Yes Status: Acute Plan to address problem: Increase protein intake when awake and alert only, dietary supplementation (7) Acute kidney injury Current Visit: No Status: Acute Plan to address problem: IV fluid resuscitation therapy as clinically indicated, BMP, repeat BMP in a.m., strict I's/O, monitor fluid balance. (8) DVT prophylaxis Current Visit: No Status: Acute Plan to address problem: SCD to bilateral lower extremities while in bed, prophylactic anticoagulation (9) Advance care planning Current Visit: Yes Status: Acute Plan to address problem: Disease education conducted, care plan discussed, diagnosis discussed, prognosis discussed, patient family knowledges understanding agree with care plan, case management consulted for discharge planning/assisted with placement.
[2021-03-09] MEDS ORDERED: MAGIC MOUTHWASH 30ML MM PRN (14:28)
[2021-03-09 14:38] LABS: Hypochromasia 1+; Platelet Estimate Consistent w Auto; Total Cells Counted 100
[2021-03-09 14:39] LABS: Schistocytes Rare; Tear Drop Cells Rare
[2021-03-09] MEDS ORDERED: METOCLOPRAMIDE 10 MG TAB PO PRN (14:52)
[2021-03-09] MEDS ORDERED: HYDROcodone/ACETAMINOPHEN 5-325 MG TAB PO PRN (14:52)
[2021-03-09] MEDS ORDERED: ONDANSETRON 4 MG/2 ML INJ IV PRN (14:52)
[2021-03-09] MEDS ORDERED: MAGNESIUM HYDROXIDE (MOM) ORAL LIQD UDC PO PRN (14:52)
[2021-03-09] MEDS ORDERED: PROMETHAZINE 25 MG RECT SUPP PR PRN (14:52)
[2021-03-09] MEDS: cefTRIAXone/NS 1 GM/50 ML 1 GM/50 ML BAG IV SCH (14:56)
--- NOTE | 2021-03-09 15:07 | XRay Report ---
CHEST 1 VIEW 1433 INDICATION / CLINICAL INFORMATION: stroke assessment COMPARISON: None available. FINDINGS: SUPPORT DEVICES: A large more central line is seen on the right with tip appearing to be in near the right atrium HEART / MEDIASTINUM: No significant abnormality. LUNGS / PLEURA: No significant pulmonary or pleural abnormality. No pneumothorax. ADDITIONAL FINDINGS: No significant additional findings. IMPRESSION: No significant acute abnormality Signer Name: Delmer Oliveira MD Signed: 03/09/2021 3:02 PM Workstation Name: [id number]
[2021-03-09] MEDS ORDERED: levETIRAcetam 500 MG TAB PO SCH (22:00)
[2021-03-09] MEDS: HEPARIN 5,000 UNIT/1 ML VIAL SUB-Q SCH (23:18)
[2021-03-09] MEDS: levETIRAcetam 500 MG in DEXTROSE 5% IN WATER 100 ML IV SCH (23:52)
--- NOTE | 2021-03-10 08:23 | Progress Note ---
Assessment and Plan The patient is a 45 YO female with history significant for HTN, Seizure Disorder, SLE, Nicotine Dependence, Malnutrition and ESRD on hemodialysis (MWF) who presented to [facility] ED 03/09 with increased confusion as well as 2 witnessed seizures while at home. A code stroke was called and the patient was subsequently transported to [facility] for further care. The patient was found to have UTI, metabolic encephalopathy, end-stage renal disease, and accelerated hypertension. Patient was admitted to telemetry and initiated on stroke protocol. Teleneurology team consulted in ED. Nephrology team consulted for ESRD management. A/P -- Acute CVA (cerebrovascular accident) Admitted with CVA protocol: CT head, CTA head, CTA neck, showed no acute process ordered antiplatelet and statin therapy, physical therapy consulted, Occupational Therapy consulted, speech therapy consulted, telemetry neurology consulted in ED, s/p permissive hypertension overnight. MRI brain is pending -we will follow result Patient unable to speak and has significant dysphagia clinically: We will place on D10W until cleared by speech -- UTI (urinary tract infection) IV antibiotic therapy, supportive care --Seizure disorder Continue IV Keppra, await for MRI result --SIRS, with elevated white count, tachycardia and tachypnea cont to monitor for now, likely aspiration pneumonitis -- Metabolic encephalopathy Likely due to acute seizure and possible CVA, continue neuro check, seizure precautions, supportive care. -- ESRD (end stage renal disease) Nephrology team consulted in ED. Dialysis and further care as per nephrology team. -- Hypertensive urgency, malignant Monitor blood pressure every shift, continue medical management, adjust with medications as needed -- Severe malnutrition Increase protein intake when awake and alert only, dietary supplementation D10W for now -- DVT prophylaxis SCD to bilateral lower extremities while in bed, prophylactic anticoagulation --Full CODE STATUS Daily clinical course: 03/10/21: Patient with significant aphasia/nonverbal, unable to move right side, wait for nephrology evaluation for hemodialysis, MRI pending, will initiate D10W at 42 mils per hour as patient with history of end-stage dialysis will minimize IV fluid. Ordered for speech PT OT eval. will consult neurology following MRI results. Patient is unable to swallow so we will change aspirin per rectal. Subjective Date of service: 03/10/21 Interval history: Patient seen and examined patient nonverbal and unable to provide any history MRI pending Discussed plan of care at bedside with RN Objective - Exam Narrative Exam: General appearance: Present: mild distress, cachectic - EENT Eyes: Present: PERRL ENT: clear oral mucosa, hearing decreased - Neck Neck: Present: supple, normal ROM - Respiratory Respiratory effort: normal Respiratory: bilateral: CTA - Cardiovascular Heart Sounds: Present: S1 & S2. Absent: rub, click - Extremities Extremities: pulses symmetrical, No edema Peripheral Pulses: within normal limits - Abdominal General gastrointestinal: Present: soft, non-tender, non-distended, normal bowel sounds Female genitourinary: Present: normal - Rectal Rectal Exam: normal exam-external/orifice - Integumentary Integumentary: Present: clear, warm, dry - Musculoskeletal Musculoskeletal: no joint swelling - Psychiatric Psychiatric: no appropriate mood/affect, no intact judgment & insight, no memory intact, other (Nonverbal) - Neurologic Neurologic: noted right sided weakness, no gait normal - Constitutional Vitals: Vital Signs - 12hr 03/09/21 03/10/21 03/10/21 21:27 04:52 07:59 Temperature 99.5 F 98.5 F 98.6 F Pulse Rate 90 84 Respiratory 17 16 20 Rate Blood Pressure 176/112 181/120 201/118 O2 Sat by Pulse 95 94 Oximetry - Labs CBC & Chem 7: 03/10/21 10:46 03/10/21 10:46 Labs: Abnormal lab results 03/09/21 03/09/21 03/09/21 Range/Units 11:21 11:21 11:21 WBC 13.0 H (4.5-11.0) K/mm3 MCH 26 L (28-32) pg RDW 19.8 H (13.2-15.2) % Seg Neuts % (Manual) 89.0 H (40.0-70.0) % Lymphocytes % (Manual) 9.0 L (13.4-35.0) % Seg Neutrophils # Man 11.6 H (1.8-7.7) K/mm3 Thrombin Time 20.6 H (15.1-19.6) Sec. Potassium 3.4 L (3.6-5.0) mmol/L Chloride 97.2 L (98-107) mmol/L BUN 41 H (7-17) mg/dL Creatinine 6.5 H (0.6-1.2) mg/dL Calcium 11.6 H (8.4-10.2) mg/dL Alkaline Phosphatase 157 H (35-129) units/L Total Creatine Kinase 403 H (30-135) units/L CK-MB (CK-2) 8.4 H (0.0-4.0) ng/mL Troponin T 0.473 H* (0.00-0.029) ng/mL Albumin 3.7 L (3.9-5) g/dL Urine WBC (Auto) (0.0-6.0) /HPF 03/09/21 Range/Units 11:50 WBC (4.5-11.0) K/mm3 MCH (28-32) pg RDW (13.2-15.2) % Seg Neuts % (Manual) (40.0-70.0) % Lymphocytes % (Manual) (13.4-35.0) % Seg Neutrophils # Man (1.8-7.7) K/mm3 Thrombin Time (15.1-19.6) Sec. Potassium (3.6-5.0) mmol/L Chloride (98-107) mmol/L BUN (7-17) mg/dL Creatinine (0.6-1.2) mg/dL Calcium (8.4-10.2) mg/dL Alkaline Phosphatase (35-129) units/L Total Creatine Kinase (30-135) units/L CK-MB (CK-2) (0.0-4.0) ng/mL Troponin T (0.00-0.029) ng/mL Albumin (3.9-5) g/dL Urine WBC (Auto) 20.0 H (0.0-6.0) /HPF HEART Score - HEART Score Troponin: Troponin T 0.473 ng/mL (0.00-0.029) H* 03/09/21 11:21
[2021-03-10 11:26] LABS: Hematocrit 40.2 % (30.3-42.9); Hemoglobin 12.8 gm/dl (10.1-14.3); Mean Corpuscular HGB Conc 32 % (30-34); Mean Corpuscular Volume 81 fl (79-97); Platelet Count 203 K/mm3 (140-440); Red Blood Count 4.96 M/mm3 (3.65-5.03); Red Cell Distribution Width 19.9 % (13.2-15.2)
[2021-03-10 11:38] LABS: Calcium 10.7 mg/dL (8.4-10.2)
--- NOTE | 2021-03-10 11:52 | Electrocardiograph Report ---
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
[2021-03-10] MEDS ORDERED: DEXTROSE 50% IN WATER (25GM) 50 ML SYRINGE IV ONE (12:19)
[2021-03-10] MEDS ORDERED: DEXTROSE 50% IN WATER (25GM) 50 ML VIAL IV ONE (12:25)
[2021-03-10] MEDS: levETIRAcetam 500 MG in DEXTROSE 5% IN WATER 100 ML IV SCH ×2 (12:30→22:01)
[2021-03-10] MEDS: ASPIRIN 325 MG TAB PO SCH (12:37)
[2021-03-10] MEDS: HEPARIN 5,000 UNIT/1 ML VIAL SUB-Q SCH ×2 (12:37→22:01)
[2021-03-10] MEDS ORDERED: hydrALAZINE 20 MG/1 ML INJ IV ONE (13:00)
--- NOTE | 2021-03-10 17:17 | Vascular Lab Report ---
DUPLEX DOPPLER ULTRASOUND CAROTID, BILATERAL INDICATION / CLINICAL INFORMATION: stroke. COMPARISON: None available. FINDINGS: RIGHT CAROTID: - PLAQUE ESTIMATE (%): < 50% - CCA velocity: 69 cm/sec. - ICA peak systolic velocity: 61 cm/sec. - ICA/CCA PSV Ratio: 0.89 Right Vertebral Artery: Antegrade flow. LEFT CAROTID: - PLAQUE ESTIMATE: < 50% - CCA velocity: 64 cm/sec. - ICA peak systolic velocity: 58 cm/sec. - ICA/CCA PSV Ratio: 0.91 Left Vertebral Artery: Antegrade flow. IMPRESSION: 1. Right Internal Carotid Artery: Less than 50% diameter stenosis. 2. Left Internal Carotid Artery: Less than 50% diameter stenosis. Velocity criteria are extrapolated from diameter data as defined by the Society of Radiologists in [employer] [facility] [employer] Consensus Conference, Radiology 2003; 229;340-346. NO STENOSIS (NORMAL) * Plaque = none; ICA PSV < 125 cm/sec; ICA/CCA PSV Ratio < 2.0 <50% STENOSIS * Plaque < 50%; ICA PSV < 125 cm/sec; ICA/CCA PSV Ratio < 2.0 50-69% STENOSIS * Plaque > 50%; ICA PSV = 125-230 cm/sec; ICA/CCA PSV Ratio = 2.0-4.0 >70% BUT <100% STENOSIS * Plaque > 50%; ICA PSV > 230 cm/sec; ICA/CCA PSV Ratio > 4.0 NEAR OCCLUSION * Plaque = visible lumen; ICA PSV = high/low/none; ICA/CCA PSV Ratio = variable TOTAL OCCLUSION * Plaque = no lumen; ICA PSV = none; ICA/CCA PSV Ratio = N/A Signer Name: Jose Tirado MD Signed: 03/10/2021 5:13 PM Workstation Name: [id number]
[2021-03-10] MEDS: cefTRIAXone/NS 1 GM/50 ML 1 GM/50 ML BAG IV SCH (17:57)
[2021-03-10] MEDS: hydrALAZINE 20 MG/1 ML INJ IV PRN (22:01)
[2021-03-11] MEDS: hydrALAZINE 20 MG/1 ML INJ IV PRN ×2 (05:50→15:38)
--- NOTE | 2021-03-11 10:48 | Magnetic Resonance Report ---
MR brain wo con INDICATION / CLINICAL INFORMATION: possible CVA. TECHNIQUE: Multiplanar, multisequence MR images of the brain were obtained. COMPARISON: None available March 09, 2021. FINDINGS: INTRACRANIAL: Slight DWI hyperintensity with associated T2 signal hyperintensity involving the left t halamus and medial left temporal lobe. ADC is normalized. Encephalomalacia from remote left putamen a nd parietal infarctions. There are couple of foci of hemosiderin seen within the left basal ganglia a nd left parietal lobe in the regions of encephalomalacia. There is also hemosiderin seen in the high right parietal lobe. Ventricular caliber is normal. No extra-axial collection. No mass. No herniatio n. Major intracranial vascular flow voids are preserved. ORBITS: No significant abnormality of visualized orbits. SINUSES / MASTOIDS: No significant abnormality of visualized sinuses and mastoid air cells. ADDITIONAL FINDINGS: None. IMPRESSION: 1. Findings suggesting subacute infarction in the left thalamus and medial left temporal lobe. No acu te abnormality identified. Signer Name: Víctor Ac MD Signed: 03/11/2021 10:43 AM Workstation Name: [id number]
[2021-03-11] MEDS: levETIRAcetam 500 MG in DEXTROSE 5% IN WATER 100 ML IV SCH ×2 (11:23→22:03)
[2021-03-11] MEDS: ASPIRIN 325 MG TAB PO SCH (11:23)
[2021-03-11] MEDS: HEPARIN 5,000 UNIT/1 ML VIAL SUB-Q SCH ×2 (11:23→22:04)
[2021-03-11] MEDS: ASPIRIN 300 MG RECT SUPP PR SCH (14:04)
--- NOTE | 2021-03-11 14:22 | Consultation ---
History of Present Illness - Reason for Consult Consult date: 03/11/21 end stage renal disease - History of Present Illness The patient is a 45 YO female with history significant for HTN, Seizure Disorder, SLE, Nicotine Dependence, Malnutrition and ESRD on hemodialysis (MWF) who presented to [facility] ED 03/09 with increased confusion as well as 2 witnessed seizures while at home. Patient is nonverbal with diminished cognition and is unable to provide history at the time my evaluation. A code stroke was called and the patient was subsequently transported to [facility] for further care. The patient was found to have UTI, metabolic encephalopathy, end-stage renal disease, and accelerated hypertension. Patient was admitted to telemetry and initiated on stroke protocol. Teleneurology team consulted in ED. MRI showed L thalamus and L temporal area subacute infarct. Nephrology team consulted for ESRD management. Past History Past Medical History: ESRD, hypertension, seizures, other (See HPI) Past Surgical History: Other (Dialysis access) Social history: single, smoking. denies: alcohol abuse, prescription drug abuse Family history: diabetes, hypertension Medications and Allergies Allergies Allergy/AdvReac Type Severity Reaction Status Date / Time No Known Allergies Allergy Verified 03/09/21 13:06 Home Medications Medication Instructions Recorded Confirmed Last Taken Type Butalb/Acetamin/Caff 50-325-40 2 tab PO Q8HR PRN #20 tablet 11/25/17 Unknown Rx [Fioricet 50-325-40] predniSONE [Deltasone] 80 mg PO QDAY #20 tab 11/25/17 Unknown Rx Hydromorphone HCl [Exalgo] 8 mg PO 12/18/19 Unknown History NIFEdipine [Nifedipine ER] 60 mg PO 12/18/19 Unknown History Torsemide [Demadex] 12/18/19 Unknown History Venlafaxine [Effexor 37.5mg tab] 12/18/19 Unknown History chlorproMAZINE [Thorazine] 25 mg PO Q4H PRN 12/18/19 12/18/19 Unknown History oxyCODONE /ACETAMINOPHEN [Percocet 1 tab PO Q6HR PRN 12/18/19 12/18/19 Unknown History 5/325 mg] Metoprolol [Lopressor TAB] 100 mg PO BID #60 tablet 12/20/19 Unknown Rx Nystas/Diphen/Xyl Visc/Mylanta 30 ml MM Q4H PRN 14 Days 12/20/19 Unknown Rx [Magic Mouthwash] hydrALAZINE [Apresoline TAB] 25 mg PO Q8HR #90 tablet 12/20/19 Unknown Rx levETIRAcetam [Keppra TAB] 500 mg PO BID #60 tablet 12/20/19 Unknown Rx oxyCODONE /ACETAMINOPHEN [Percocet 1 tab PO QHS PRN #7 tablet 12/20/19 Unknown Rx 5/325] Active Meds: Active Medications Acetaminophen (Acetaminophen 325 Mg Tab) 650 mg PO Q4H PRN PRN Reason: Pain, Mild (1-3) Acetaminophen/Butalbital/Caffeine (Butalb/Acetaminophen/Caffeine Tab) 2 tab PO Q8H PRN PRN Reason: Headache Hydrocodone Bitart/Acetaminophen (Hydrocodone/Acetaminophen 5-325 Mg Tab) 1 each PO Q12H PRN PRN Reason: Pain, Moderate (4-6) Aspirin (Aspirin 325 Mg Tab) 325 mg PO QDAY [facility] Last Admin: 03/11/21 11:23 Dose: 325 mg Documented by: Aspirin (Aspirin 300 Mg Rect Supp) 300 mg MO QDAY [facility] Last Admin: 03/11/21 14:04 Dose: Not Given Documented by: Atorvastatin Calcium (Atorvastatin 40 Mg Tab) 40 mg PO QHS [facility] Last Admin: 03/10/21 22:01 Dose: 40 mg Documented by: Bisacodyl (Bisacodyl 10 Mg Rect Supp) 10 mg MO QDAY PRN PRN Reason: Constipation Clonidine HCl (Clonidine Tts 0.3 Mg/24 Hr Patch) 0.3 mg TD Mo [facility] Heparin Sodium (Porcine) (Heparin 5,000 Unit/1 Ml Vial) 5,000 unit SUB-Q Q12HR [facility] Last Admin: 03/11/21 11:23 Dose: 5,000 unit Documented by: Hydralazine HCl (Hydralazine 20 Mg/1 Ml Inj) 10 mg IV Q30MIN PRN PRN Reason: Hypertension Last Admin: 03/11/21 05:50 Dose: 10 mg Documented by: Hydromorphone HCl (Hydromorphone 1 Mg/1 Ml Inj) 0.5 mg IV Q12H PRN PRN Reason: Pain , Severe (7-10) Ceftriaxone Sodium (Rocephin/Ns 1 Gm/50 Ml) 1 gm in 50 mls @ 100 mls/hr IV Q24H [facility]; Protocol Stop: 03/15/21 15:29 Last Admin: 03/10/21 17:57 Dose: 100 mls/hr Documented by: Levetiracetam 500 mg/ Dextrose 105 mls @ 400 mls/hr IV BID [facility] Last Admin: 03/11/21 11:23 Dose: 400 mls/hr Documented by: Dextrose (D10w) 1,000 mls @ 42 mls/hr IV DIRECT [facility] Lidocaine HCl (Magic Mouthwash 30ml) 30 ml MM Q4H PRN PRN Reason: Sore Throat Magnesium Hydroxide (Magnesium Hydroxide (Mom) Oral Liqd Udc) 30 ml PO Q4H PRN PRN Reason: Constipation Metoclopramide HCl (Metoclopramide 10 Mg Tab) 10 mg PO Q6H PRN PRN Reason: Nausea And Vomiting Ondansetron HCl (Ondansetron 4 Mg/2 Ml Inj) 4 mg IV Q8H PRN PRN Reason: Nausea And Vomiting Promethazine HCl (Promethazine 25 Mg Rect Supp) 25 mg MO Q6H PRN PRN Reason: Nausea And Vomiting Sodium Chloride (Sodium Chloride 0.9% 10 Ml Flush Syringe) 10 ml IV PRN PRN PRN Reason: LINE FLUSH Last Admin: 03/10/21 12:22 Dose: 10 ml Documented by: Review of Systems ROS unobtainable: due to mental status Exam - Vital Signs Vital signs: Vital Signs Temp Pulse Resp BP Pulse Ox 97.9 F 74 14 183/108 98 03/09/21 10:53 03/09/21 10:53 03/09/21 10:53 03/09/21 10:53 03/09/21 10:53 Results - Lab Results 03/10/21 10:46 03/10/21 10:46 Most recent lab results Calcium 10.7 mg/dL (8.4-10.2) H 03/10/21 10:46 Assessment and Plan 1. ESRD: Patient is on maintenance hemodialysis three times a week, MWF schedule. Meds dosage based on GFR. Hemodialysis: 03/11. 2. FEN: Hypercalemia, low Ca bath with HD. Monitor lytes and volume status. 3. Acute metabolic encephalopathy, POA: Likely 2/2 CVA. Monitor. 4. Acute CVA: Per primary. 5. UTI, POA: Abx. Follow cultures. 6. Hypertensive urgency: Adjust meds. Monitor BP. 7. Malnutrition / AFTT. 8. Hypoglycemia. Subjective: Patient was seen and examined at the bedside. General Appearance: General appearance: well-developed, appears stated age, appears emaciated, not in distress HEENT: ATNC, pupils equal, b/l conjunctival erythema noted Neck: trachea midline Respiratory: ctab Heart: regular, S1S2, no murmur Abdomen: soft, bowel sounds heard, not tender Integumentary: no rash, warm and dry Neurologic: lethargic, not following any command, not conversing Ext: no edema Hemodialysis access: R IJ tunnel catheter
[2021-03-11] MEDS ORDERED: SODIUM CHLORIDE 0.9% 100 ML IV PRN (14:25)
[2021-03-11] MEDS ORDERED: HEPARIN 10,000 UNITS/10 ML VIAL IV PRN (14:25)
[2021-03-11] MEDS: cefTRIAXone/NS 1 GM/50 ML 1 GM/50 ML BAG IV SCH (14:48)
--- NOTE | 2021-03-11 16:53 | Progress Note ---
Assessment and Plan The patient is a 45 YO female with history significant for HTN, Seizure Disorder, SLE, Nicotine Dependence, Malnutrition and ESRD on hemodialysis (MWF) who presented to [facility] ED 03/09 with increased confusion as well as 2 witnessed seizures while at home. A code stroke was called and the patient was found to have UTI, metabolic encephalopathy, end-stage renal disease, and accelerated hypertension. Patient was admitted to telemetry and initiated on stroke protocol. Teleneurology team consulted in ED. Nephrology team consulted for ESR D management. A/P -- Acute CVA (cerebrovascular accident) Admitted with CVA protocol: CT head, CTA head, CTA neck, showed no acute process MRI showed L thalamus and L temporal area subacute infarct. 2d echo showed preserved EF, carotid doppler showed <50% ordered antiplatelet and statin therapy, physical therapy consulted, Occupational Therapy consulted, speech therapy consulted, telemetry neurology consulted in ED, s/p permissive hypertension overnight. Patient unable to speak and has significant dysphagia clinically: We will place on D10W until cleared by speech -- UTI (urinary tract infection) IV antibiotic therapy, supportive care --Seizure disorder Continue IV Keppra, await for MRI result --SIRS, with elevated white count, tachycardia and tachypnea cont to monitor for now, likely aspiration pneumonitis -- Metabolic encephalopathy Likely due to acute seizure and possible CVA, continue neuro check, seizure precautions, supportive care. -- ESRD (end stage renal disease) Nephrology team consulted in ED. Dialysis and further care as per nephrology team. -- Hypertensive urgency, malignant Monitor blood pressure every shift, continue medical management, adjust with medications as needed -- Severe malnutrition Increase protein intake when awake and alert only, dietary supplementation D10W for now -- DVT prophylaxis SCD to bilateral lower extremities while in bed, prophylactic anticoagulation --Full CODE STATUS Daily clinical course: 03/10/21: Patient with significant aphasia/nonverbal, unable to move right side, wait for nephrology evaluation for hemodialysis, MRI pending, will initiate D10W at 42 mils per hour as patient with history of end-stage dialysis will minimize IV fluid. Ordered for speech PT OT eval. will consult neurology following MRI results. Patient is unable to swallow so we will change aspirin per rectal. 03/11/21: MRI showed L thalamus and L temporal area subacute infarct. pending speech eval. cont iv fluid, order for Tf and dobhoff if fails speech eval. neuro consult. continue supportive care. HD per renal. monitor BP -adjust meds, follow BMP/CBC Subjective Date of service: 03/11/21 Interval history: Patient seen and examined patient nonverbal and unable to provide any history MRI pending Discussed plan of care at bedside with RN Objective - Exam Narrative Exam: General appearance: Present: mild distress, cachectic - EENT Eyes: Present: PERRL, congested conjunctiva ENT: clear oral mucosa, hearing decreased - Neck Neck: Present: supple, normal ROM - Respiratory Respiratory effort: normal Respiratory: bilateral: CTA - Cardiovascular Heart Sounds: Present: S1 & S2. Absent: rub, click - Extremities Extremities: pulses symmetrical, No edema Peripheral Pulses: within normal limits - Abdominal General gastrointestinal: Present: soft, non-tender, non-distended, normal bowel sounds Female genitourinary: Present: normal - Rectal Rectal Exam: normal exam-external/orifice - Integumentary Integumentary: Present: clear, warm, dry - Musculoskeletal Musculoskeletal: no joint swelling - Psychiatric Psychiatric: no appropriate mood/affect, no intact judgment & insight, no memory intact, other (Nonverbal) - Neurologic Neurologic: noted right sided weakness, no gait normal - Constitutional Vitals: Vital Signs - 12hr 03/11/21 03/11/21 03/11/21 05:14 07:47 09:02 Temperature 100.3 F H 98.9 F Pulse Rate 90 120 H Respiratory 14 20 Rate Blood Pressure 175/115 188/122 O2 Sat by Pulse 92 96 94 Oximetry 03/11/21 03/11/21 03/11/21 15:29 15:38 16:28 Temperature 98.0 F Pulse Rate 121 H 123 H 122 H Respiratory 20 Rate Blood Pressure 194/130 194/130 168/109 O2 Sat by Pulse 98 Oximetry - Labs CBC & Chem 7: 03/10/21 10:46 03/10/21 10:46 Labs: Abnormal lab results 03/10/21 03/11/21 03/11/21 Range/Units 21:17 09:18 12:20 POC Glucose 116 H 128 H 135 H (70-105) mg/dL HEART Score - HEART Score Troponin: Troponin T 0.473 ng/mL (0.00-0.029) H* 03/09/21 11:21
[2021-03-11 18:45] LABS: Hepatitis B Surface Antigen Reactive (Negative); Hepatitis C Virus Antibody Non-Reactive (NonReactive)
[2021-03-12] MEDS: DEXTROSE 10% IN WATER 1,000 ML IV SCH (01:20)
[2021-03-12] MEDS: hydrALAZINE 20 MG/1 ML INJ IV PRN ×2 (05:38→16:00)
[2021-03-12] MEDS ORDERED: LIPASE 10,500/PROTEASE 25,000/AMYLASE 43,750 (UNITS) DR CAP FEEDTUBE PRN (12:04)
[2021-03-12] MEDS ORDERED: SODIUM BICARBONATE 325 MG TAB FEEDTUBE PRN (12:04)
[2021-03-12] MEDS ORDERED: SIMPLE SYRUP 15 ML FEEDTUBE PRN ×2 (12:04)
--- NOTE | 2021-03-12 12:16 | Progress Note ---
Assessment and Plan 1. ESRD: Patient is on maintenance hemodialysis three times a week, MWF schedule. Meds dosage based on GFR. Hemodialysis: 03/11. 2. FEN: Hypercalemia, low Ca bath with HD. Monitor lytes and volume status. 3. Acute metabolic encephalopathy, POA: Likely 2/2 CVA. Monitor. 4. Acute CVA: Seen by Neuro. Per primary. 5. UTI, POA: Abx. Follow cultures. 6. Hypertensive urgency: Adjust meds. Monitor BP. 7. Malnutrition / AFTT. 8. Hypoglycemia. Subjective: Patient was seen and examined at the bedside. General Appearance: General appearance: well-developed, appears stated age, appears emaciated, not in distress HEENT: ATNC, pupils equal, b/l conjunctival erythema noted Neck: trachea midline Respiratory: ctab Heart: regular, S1S2, no murmur Abdomen: soft, bowel sounds heard, not tender Integumentary: no rash, warm and dry Neurologic: lethargic, not following any command, not conversing Ext: no edema Hemodialysis access: R IJ tunnel catheter Subjective Date of service: 03/12/21 Objective - Vital Signs Vital signs: Vital Signs - 12hr 03/12/21 03/12/21 03/12/21 01:54 03:32 07:30 Temperature 98.2 F 98.8 F Pulse Rate 115 H 120 H Respiratory 20 18 18 Rate Blood Pressure 191/126 177/108 O2 Sat by Pulse 100 96 92 Oximetry - Lab 03/10/21 10:46 03/10/21 10:46 Most recent lab results Calcium 10.7 mg/dL (8.4-10.2) H 03/10/21 10:46 Medications & Allergies - Medications Allergies/Adverse Reactions: Allergies No Known Allergies Allergy (Verified 03/09/21 13:06) Home Medications: Home Medications Medication Instructions Recorded Confirmed Last Taken Type Butalb/Acetamin/Caff 50-325-40 2 tab PO Q8HR PRN #20 tablet 11/25/17 Unknown Rx [Fioricet 50-325-40] predniSONE [Deltasone] 80 mg PO QDAY #20 tab 11/25/17 Unknown Rx Hydromorphone HCl [Exalgo] 8 mg PO 12/18/19 Unknown History NIFEdipine [Nifedipine ER] 60 mg PO 12/18/19 Unknown History Torsemide [Demadex] 12/18/19 Unknown History Venlafaxine [Effexor 37.5mg tab] 12/18/19 Unknown History chlorproMAZINE [Thorazine] 25 mg PO Q4H PRN 12/18/19 12/18/19 Unknown History oxyCODONE /ACETAMINOPHEN [Percocet 1 tab PO Q6HR PRN 12/18/19 12/18/19 Unknown History 5/325 mg] Metoprolol [Lopressor TAB] 100 mg PO BID #60 tablet 12/20/19 Unknown Rx Nystas/Diphen/Xyl Visc/Mylanta 30 ml MM Q4H PRN 14 Days 12/20/19 Unknown Rx [Magic Mouthwash] hydrALAZINE [Apresoline TAB] 25 mg PO Q8HR #90 tablet 12/20/19 Unknown Rx levETIRAcetam [Keppra TAB] 500 mg PO BID #60 tablet 12/20/19 Unknown Rx oxyCODONE /ACETAMINOPHEN [Percocet 1 tab PO QHS PRN #7 tablet 12/20/19 Unknown Rx 5/325] Active Medications: Generic Name Dose Route Start Last Admin Trade Name Freq PRN Reason Stop Dose Admin Acetaminophen 650 mg 03/09/21 14:52 Acetaminophen 325 Mg Tab PO Q4H PRN Pain, Mild (1-3) Acetaminophen/Butalbital/Caffeine 2 tab 03/09/21 14:28 Butalb/Acetaminophen/Caffeine Tab PO Q8H PRN Headache Hydrocodone Bitart/Acetaminophen 1 each 03/09/21 14:52 Hydrocodone/Acetaminophen 5-325 Mg Tab PO Q12H PRN Pain, Moderate (4-6) Lipase/Protease/Amylase 1 each 03/12/21 12:04 Lipase 10,500/Protease 25,000/Amylase 43,750 (Units) Dr Jesus BARNHARTTUBE PRN PRN For Clogged Feeding Tube Aspirin 325 mg 03/10/21 10:00 03/11/21 11:23 Aspirin 325 Mg Tab PO 325 mg QDAY LEOLA Administration Aspirin 300 mg 03/11/21 11:00 03/11/21 14:04 Aspirin 300 Mg Rect Supp ID Not Given QDAY LEOLA Atorvastatin Calcium 40 mg 03/09/21 22:00 03/11/21 22:04 Atorvastatin 40 Mg Tab PO 40 mg QHS LEOLA Administration Bisacodyl 10 mg 03/09/21 15:52 Bisacodyl 10 Mg Rect Supp ID QDAY PRN Constipation Clonidine HCl 0.3 mg 03/17/21 10:00 Clonidine Tts 0.3 Mg/24 Hr Patch TD Mo LEOLA Heparin Sodium (Porcine) 5,000 unit 03/09/21 22:00 03/11/21 22:04 Heparin 5,000 Unit/1 Ml Vial SUB-Q 5,000 unit Q12HR LEOLA Administration Heparin Sodium (Porcine) 2,000 unit 03/11/21 14:25 Heparin 10,000 Units/10 Ml Vial IV JUAN C PRN hemodialysis Hydralazine HCl 10 mg 03/10/21 13:00 03/12/21 05:38 Hydralazine 20 Mg/1 Ml Inj IV 10 mg Q30MIN PRN Administration Hypertension Hydromorphone HCl 0.5 mg 03/09/21 14:52 Hydromorphone 1 Mg/1 Ml Inj IV Q12H PRN Pain , Severe (7-10) Ceftriaxone Sodium 1 gm in 50 mls @ 100 mls/hr 03/09/21 15:00 03/11/21 14:48 Rocephin/Ns 1 Gm/50 Ml IV 03/15/21 15:29 100 mls/hr Q24H LEOLA Administration Protocol Levetiracetam 500 mg/ Dextrose 105 mls @ 400 mls/hr 03/09/21 23:21 03/11/21 22:03 IV 400 mls/hr BID LEOLA Administration Dextrose 1,000 mls @ 42 mls/hr 03/10/21 14:00 03/12/21 01:20 D10w IV 42 mls/hr DIRECT LEOLA Administration Sodium Chloride 100 mls @ 999 mls/hr 03/11/21 14:25 Nacl 0.9% IV JUAN C PRN Hypotension Lidocaine HCl 30 ml 03/09/21 14:28 Magic Mouthwash 30ml MM Q4H PRN Sore Throat Magnesium Hydroxide 30 ml 03/09/21 14:52 Magnesium Hydroxide (Mom) Oral Liqd Udc PO Q4H PRN Constipation Metoclopramide HCl 10 mg 03/09/21 14:52 Metoclopramide 10 Mg Tab PO Q6H PRN Nausea And Vomiting Ondansetron HCl 4 mg 03/09/21 14:52 Ondansetron 4 Mg/2 Ml Inj IV Q8H PRN Nausea And Vomiting Promethazine HCl 25 mg 03/09/21 14:52 Promethazine 25 Mg Rect Supp ID Q6H PRN Nausea And Vomiting Simple Syrup 15 ml 03/12/21 12:04 Simple Syrup 15 Ml FEEDTUBE PRN PRN Hypoglycemia Simple Syrup 30 ml 03/12/21 12:04 Simple Syrup 15 Ml FEEDTUBE PRN PRN Hypoglycemia Sodium Bicarbonate 325 mg 03/12/21 12:04 Sodium Bicarbonate 325 Mg Tab FEEDTUBE PRN PRN For Clogged Feeding Tube Sodium Chloride 10 ml 03/09/21 14:52 03/11/21 15:39 Sodium Chloride 0.9% 10 Ml Flush Syringe IV 10 ml PRN PRN Administration LINE FLUSH
--- NOTE | 2021-03-12 15:17 | History and Physical Report ---
History of Present Illness Date of examination: 03/12/21 Date of admission: 03/10/21 13:48 Chief complaint: Patient is a 45-year-old F [place] female with past medical history of hypertension end-stage renal disease who is on dialysis Wednesday and Wednesday who also has had a previous CVA but normally walks and talks without issue presenting with altered mental status. Last known well time was approximately 10PM last night. She was found today at 10AM lying on the ground unresponsive. Patient's eyes are open but her eyes are deviated to the left. She does have a left-sided facial droop and is showing complete neglect of her right side. Patient is nonverbal at this time. No other history is known at this time what transpired in between 10 PM and 10 AM. During her chart review it appears as though the patient has a history of seizures as well. Uncertain which medication the patient takes if she takes any at all. Patient had a witnessed tonic-clonic seizure during 2019 and received Ativan. At the time did not appear as though the patient was on dialysis. Overall no improvement in the last 24 hours , there is right sided weakness . Past History Past Medical History: ESRD, hypertension, seizures, other (See HPI) Past Surgical History: Other (Dialysis access) Social history: single, smoking. denies: alcohol abuse, prescription drug abuse Family history: diabetes, hypertension Medications and Allergies Allergies Allergy/AdvReac Type Severity Reaction Status Date / Time No Known Allergies Allergy Verified 03/09/21 13:06 Home Medications Medication Instructions Recorded Confirmed Last Taken Type Butalb/Acetamin/Caff 50-325-40 2 tab PO Q8HR PRN #20 tablet 11/25/17 Unknown Rx [Fioricet 50-325-40] predniSONE [Deltasone] 80 mg PO QDAY #20 tab 11/25/17 Unknown Rx Hydromorphone HCl [Exalgo] 8 mg PO 12/18/19 Unknown History NIFEdipine [Nifedipine ER] 60 mg PO 12/18/19 Unknown History Torsemide [Demadex] 12/18/19 Unknown History Venlafaxine [Effexor 37.5mg tab] 12/18/19 Unknown History chlorproMAZINE [Thorazine] 25 mg PO Q4H PRN 12/18/19 12/18/19 Unknown History oxyCODONE /ACETAMINOPHEN [Percocet 1 tab PO Q6HR PRN 12/18/19 12/18/19 Unknown History 5/325 mg] Metoprolol [Lopressor TAB] 100 mg PO BID #60 tablet 12/20/19 Unknown Rx Nystas/Diphen/Xyl Visc/Mylanta 30 ml MM Q4H PRN 14 Days 12/20/19 Unknown Rx [Magic Mouthwash] hydrALAZINE [Apresoline TAB] 25 mg PO Q8HR #90 tablet 12/20/19 Unknown Rx levETIRAcetam [Keppra TAB] 500 mg PO BID #60 tablet 12/20/19 Unknown Rx oxyCODONE /ACETAMINOPHEN [Percocet 1 tab PO QHS PRN #7 tablet 12/20/19 Unknown Rx 5/325] Active Meds: Active Medications Acetaminophen (Acetaminophen 325 Mg Tab) 650 mg PO Q4H PRN PRN Reason: Pain, Mild (1-3) Acetaminophen/Butalbital/Caffeine (Butalb/Acetaminophen/Caffeine Tab) 2 tab PO Q8H PRN PRN Reason: Headache Hydrocodone Bitart/Acetaminophen (Hydrocodone/Acetaminophen 5-325 Mg Tab) 1 each PO Q12H PRN PRN Reason: Pain, Moderate (4-6) Lipase/Protease/Amylase (Lipase 10,500/Protease 25,000/Amylase 43,750 (Units) Dr Lee) 1 each FEEDTUBE PRN PRN PRN Reason: For Clogged Feeding Tube Aspirin (Aspirin 325 Mg Tab) 325 mg PO QDAY [facility] Last Admin: 03/11/21 11:23 Dose: 325 mg Documented by: Aspirin (Aspirin 300 Mg Rect Supp) 300 mg PA QDAY [facility] Last Admin: 03/11/21 14:04 Dose: Not Given Documented by: Atorvastatin Calcium (Atorvastatin 40 Mg Tab) 40 mg PO QHS [facility] Last Admin: 03/11/21 22:04 Dose: 40 mg Documented by: Bisacodyl (Bisacodyl 10 Mg Rect Supp) 10 mg PA QDAY PRN PRN Reason: Constipation Clonidine HCl (Clonidine Tts 0.3 Mg/24 Hr Patch) 0.3 mg TD Mo [facility] Heparin Sodium (Porcine) (Heparin 5,000 Unit/1 Ml Vial) 5,000 unit SUB-Q Q12HR [facility] Last Admin: 03/11/21 22:04 Dose: 5,000 unit Documented by: Heparin Sodium (Porcine) (Heparin 10,000 Units/10 Ml Vial) 2,000 unit IV JUAN C PRN PRN Reason: hemodialysis Hydralazine HCl (Hydralazine 20 Mg/1 Ml Inj) 10 mg IV Q30MIN PRN PRN Reason: Hypertension Last Admin: 03/12/21 05:38 Dose: 10 mg Documented by: Hydromorphone HCl (Hydromorphone 1 Mg/1 Ml Inj) 0.5 mg IV Q12H PRN PRN Reason: Pain , Severe (7-10) Ceftriaxone Sodium (Rocephin/Ns 1 Gm/50 Ml) 1 gm in 50 mls @ 100 mls/hr IV Q24H LEOLA; Protocol Stop: 03/15/21 15:29 Last Admin: 03/11/21 14:48 Dose: 100 mls/hr Documented by: Levetiracetam 500 mg/ Dextrose 105 mls @ 400 mls/hr IV BID [facility] Last Admin: 03/11/21 22:03 Dose: 400 mls/hr Documented by: Dextrose (D10w) 1,000 mls @ 42 mls/hr IV DIRECT LEOLA Last Admin: 03/12/21 01:20 Dose: 42 mls/hr Documented by: Sodium Chloride (Nacl 0.9%) 100 mls @ 999 mls/hr IV JUAN C PRN PRN Reason: Hypotension Lidocaine HCl (Magic Mouthwash 30ml) 30 ml MM Q4H PRN PRN Reason: Sore Throat Magnesium Hydroxide (Magnesium Hydroxide (Mom) Oral Liqd Udc) 30 ml PO Q4H PRN PRN Reason: Constipation Metoclopramide HCl (Metoclopramide 10 Mg Tab) 10 mg PO Q6H PRN PRN Reason: Nausea And Vomiting Metoprolol Tartrate (Metoprolol Tartrate 50 Mg Tab) 50 mg PO BID [facility] Ondansetron HCl (Ondansetron 4 Mg/2 Ml Inj) 4 mg IV Q8H PRN PRN Reason: Nausea And Vomiting Promethazine HCl (Promethazine 25 Mg Rect Supp) 25 mg PA Q6H PRN PRN Reason: Nausea And Vomiting Simple Syrup (Simple Syrup 15 Ml) 15 ml FEEDTUBE PRN PRN PRN Reason: Hypoglycemia Simple Syrup (Simple Syrup 15 Ml) 30 ml FEEDTUBE PRN PRN PRN Reason: Hypoglycemia Sodium Bicarbonate (Sodium Bicarbonate 325 Mg Tab) 325 mg FEEDTUBE PRN PRN PRN Reason: For Clogged Feeding Tube Sodium Chloride (Sodium Chloride 0.9% 10 Ml Flush Syringe) 10 ml IV PRN PRN PRN Reason: LINE FLUSH Last Admin: 03/11/21 15:39 Dose: 10 ml Documented by: Physical Examination - Vital Signs Vital Signs: Vital Signs Temp Pulse Resp BP Pulse Ox 97.9 F 74 14 183/108 98 03/09/21 10:53 03/09/21 10:53 03/09/21 10:53 03/09/21 10:53 03/09/21 10:53 - Physical Exam Narrative exam: There is no major verbal communication, there is profound weakness in the right upper and lower extremity, there is movement seen in the left upper extremity . Results - Laboratory Findings CBC and BMP: 03/10/21 10:46 03/10/21 10:46 Abnormal Lab Findings: Abnormal Labs 03/09/21 03/09/21 03/09/21 11:21 11:21 11:21 WBC 13.0 H MCH 26 L RDW 19.8 H Seg Neuts % (Manual) 89.0 H Lymphocytes % (Manual) 9.0 L Seg Neutrophils # Man 11.6 H Thrombin Time 20.6 H Potassium 3.4 L Chloride 97.2 L BUN 41 H Creatinine 6.5 H POC Glucose Calcium 11.6 H Alkaline Phosphatase 157 H Total Creatine Kinase 403 H CK-MB (CK-2) 8.4 H Troponin T 0.473 H* Albumin 3.7 L Urine WBC (Auto) 03/09/21 03/10/21 03/10/21 11:50 10:46 10:46 WBC 14.0 H MCH 26 L RDW 19.9 H Seg Neuts % (Manual) Lymphocytes % (Manual) Seg Neutrophils # Man Thrombin Time Potassium Chloride 96.8 L BUN 50 H Creatinine 7.7 H POC Glucose Calcium 10.7 H Alkaline Phosphatase Total Creatine Kinase CK-MB (CK-2) Troponin T Albumin Urine WBC (Auto) 20.0 H 03/10/21 03/10/21 03/10/21 11:56 16:33 21:17 WBC MCH RDW Seg Neuts % (Manual) Lymphocytes % (Manual) Seg Neutrophils # Man Thrombin Time Potassium Chloride BUN Creatinine POC Glucose 57 L 109 H 116 H Calcium Alkaline Phosphatase Total Creatine Kinase CK-MB (CK-2) Troponin T Albumin Urine WBC (Auto) 03/11/21 03/11/21 09:18 12:20 WBC MCH RDW Seg Neuts % (Manual) Lymphocytes % (Manual) Seg Neutrophils # Man Thrombin Time Potassium Chloride BUN Creatinine POC Glucose 128 H 135 H Calcium Alkaline Phosphatase Total Creatine Kinase CK-MB (CK-2) Troponin T Albumin Urine WBC (Auto) Assessment and Plan 1. CVA ( given the CTA Brain and Neck is normal and MRI Suggestive of Left MCA territory CVA my clinical suspicion is more towards embolic CVA ). 2. Needs Out patient Holter / Event moniter . 3. Needs Inpatient PT / Speech / OT ./ 4. Continue Current Medications. 5. EEG is recommended . 6. Strongly Recommend Dual Therapt ( ASA 81 mg + Plavix 75 mg ). 7. Call Back with Questions . Dr. Vidal MEADE
[2021-03-12] MEDS: cefTRIAXone/NS 1 GM/50 ML 1 GM/50 ML BAG IV SCH (15:56)
[2021-03-12] MEDS: ASPIRIN 325 MG TAB PO SCH (16:05)
[2021-03-12] MEDS: BUTALB/ACETAMINOPHEN/CAFFEINE TAB PO PRN (16:05)
[2021-03-12] MEDS: levETIRAcetam 500 MG in DEXTROSE 5% IN WATER 100 ML IV SCH ×2 (16:07→23:51)
[2021-03-12] MEDS: HEPARIN 5,000 UNIT/1 ML VIAL SUB-Q SCH ×2 (16:08→23:53)
--- NOTE | 2021-03-12 16:52 | Progress Note ---
Assessment and Plan The patient is a 45 YO female with history significant for HTN, Seizure Disorder, SLE, Nicotine Dependence, Malnutrition and ESRD on hemodialysis (MWF) who presented [facility] with increased confusion as well as 2 witnessed seizures while at home. A code stroke was called and the patient was found to have UTI, metabolic encephalopathy, end-stage renal disease, and accelerated hypertension. Patient was admitted to telemetry and initiated on stroke protocol. Teleneurology team consulted in ED. Nephrology team consulted for ESR D management. A/P -- Acute CVA (cerebrovascular accident) Admitted with CVA protocol: CT head, CTA head, CTA neck, showed no acute process MRI showed L thalamus and L temporal area subacute infarct. 2d echo showed preserved EF, carotid doppler showed <50% ordered antiplatelet and statin therapy, physical therapy consulted, Occupational Therapy consulted, speech therapy consulted, telemetry neurology consulted in ED, s/p permissive hypertension overnight. --Dysphagia Patient unable to speak and has significant dysphagia clinically: placed on D10W Speech recommended PEG: GI consulted -- UTI (urinary tract infection) IV antibiotic therapy, supportive care --Seizure disorder Continue IV Keppra, await for MRI result --SIRS, with elevated white count, tachycardia and tachypnea cont to monitor for now, likely aspiration pneumonitis -- Metabolic encephalopathy Likely due to acute seizure and possible CVA, continue neuro check, seizure precautions, supportive care. -- ESRD (end stage renal disease) Nephrology team consulted in ED. Dialysis and further care as per nephrology team. -- Hypertensive urgency, malignant Monitor blood pressure every shift, continue medical management, adjust with medications as needed -- Severe malnutrition Increase protein intake when awake and alert only, dietary supplementation D10W for now, consulted GI for PEG placement --bacterial conjuctivitis: ordered erythromycin ointment -- DVT prophylaxis SCD to bilateral lower extremities while in bed, prophylactic anticoagulation --Full CODE STATUS Daily clinical course: 03/10/21: Patient with significant aphasia/nonverbal, unable to move right side, wait for nephrology evaluation for hemodialysis, MRI pending, will initiate D10W at 42 mils per hour as patient with history of end-stage dialysis will minimize IV fluid. Ordered for speech PT OT eval. will consult neurology following MRI results. Patient is unable to swallow so we will change aspirin per rectal. 03/11/21: MRI showed L thalamus and L temporal area subacute infarct. pending speech eval. cont iv fluid, order for Tf and dobhoff if fails speech eval. neuro consult. continue supportive care. HD per renal. monitor BP -adjust meds, follow BMP/CBC 03/12/21: pending TF, noted neuro recommendation: initiate aspirin with plavix. cont CO aspirin till dobhoff/peg placemnet. CM working on placement. Updated daughter for details by phone. follow BMP. monitor vitals Subjective Date of service: 03/12/21 Interval history: Patient seen and examined patient nonverbal and unable to provide any history TF has not started yet Discussed plan of care at bedside with RN Objective - Exam Narrative Exam: General appearance: Present: mild distress, cachectic - EENT Eyes: Present: PERRL, congested conjunctiva ENT: clear oral mucosa, hearing decreased - Neck Neck: Present: supple, normal ROM - Respiratory Respiratory effort: normal Respiratory: bilateral: CTA - Cardiovascular Heart Sounds: Present: S1 & S2. Absent: rub, click - Extremities Extremities: pulses symmetrical, No edema Peripheral Pulses: within normal limits - Abdominal General gastrointestinal: Present: soft, non-tender, non-distended, normal bowel sounds Female genitourinary: Present: normal - Rectal Rectal Exam: normal exam-external/orifice - Integumentary Integumentary: Present: clear, warm, dry. rightsided permcath - Musculoskeletal Musculoskeletal: no joint swelling - Psychiatric Psychiatric: no appropriate mood/affect, no intact judgment & insight, no memory intact, other (Nonverbal) - Neurologic Neurologic: noted right sided weakness, no gait normal - Constitutional Vitals: Vital Signs - 12hr 03/12/21 03/12/21 03/12/21 07:30 11:56 15:26 Temperature 98.8 F 99.3 F 98.7 F Pulse Rate 120 H 115 H 107 H Respiratory 18 18 18 Rate Blood Pressure 177/108 166/87 197/101 O2 Sat by Pulse 92 100 100 Oximetry 03/12/21 16:00 Temperature Pulse Rate 123 H Respiratory Rate Blood Pressure 181/98 O2 Sat by Pulse Oximetry - Labs CBC & Chem 7: 03/10/21 10:46 03/10/21 10:46 HEART Score - HEART Score Troponin: Troponin T 0.473 ng/mL (0.00-0.029) H* 03/09/21 11:21
[2021-03-12] MEDS ORDERED: ERYTHROMYCIN 5 MG/1 GM OPHTH OINT OU ONE (17:00)
[2021-03-12] MEDS: ASPIRIN 300 MG RECT SUPP PR SCH (18:03)
[2021-03-12] MEDS: METOPROLOL TARTRATE 50 MG TAB PO SCH ×2 (18:03→23:52)
--- NOTE | 2021-03-12 19:10 | XRay Report ---
ABDOMEN 1 VIEW(S) INDICATION / CLINICAL INFORMATION: gastric tube placement.. COMPARISON: None available. FINDINGS: TUBES / LINES: Feeding tube tip at the distal stomach. BOWEL GAS PATTERN: No significant abnormality. ADDITIONAL FINDINGS: No significant additional findings. Signer Name: Refugio Fang MD Signed: 03/12/2021 7:06 PM Workstation Name: [id number]
[2021-03-12] MEDS: ACETAMINOPHEN 325 MG TAB PO PRN (23:53)
--- NOTE | 2021-03-13 07:49 | XRay Report ---
ABDOMEN 1 VIEW(S) INDICATION / CLINICAL INFORMATION: dobhoff placement. COMPARISON: Yesterday FINDINGS: TUBES / LINES: Feeding tube appears unchanged terminating in the distal stomach. BOWEL GAS PATTERN: No significant abnormality. FREE AIR / EXTRALUMINAL GAS: None seen. ADDITIONAL FINDINGS: No significant additional findings. IMPRESSION: No significant abnormality. The feeding tube terminates in the distal stomach, no significant change since since yesterday. Signer Name: Harish Da Silva Jr, MD Signed: 03/13/2021 7:45 AM Workstation Name: [id number]
[2021-03-13 07:58] LABS: Hematocrit 35.4 % (30.3-42.9); Hemoglobin 11.3 gm/dl (10.1-14.3); Mean Corpuscular HGB Conc 32 % (30-34); Mean Corpuscular Volume 82 fl (79-97); Platelet Count 176 K/mm3 (140-440); Red Cell Distribution Width 19.9 % (13.2-15.2)
[2021-03-13 08:20] LABS: Calcium 10.8 mg/dL (8.4-10.2)
[2021-03-13] MEDS ORDERED: ASPIRIN 81 MG TAB CHEW PO SCH (10:00)
[2021-03-13] MEDS ORDERED: CLOPIDOGREL 75 MG TAB PO SCH (10:00)
[2021-03-13] MEDS: levETIRAcetam 500 MG in DEXTROSE 5% IN WATER 100 ML IV SCH (10:41)
[2021-03-13] MEDS: METOPROLOL TARTRATE 50 MG TAB PO SCH (10:42)
[2021-03-13] MEDS: HEPARIN 5,000 UNIT/1 ML VIAL SUB-Q SCH (10:42)
[2021-03-13] MEDS ORDERED: SODIUM CHLORIDE 0.9% 1000 ML 1,000 ML IV SCH (11:00)
[2021-03-13 11:14] LABS: Total Cells Counted 100
[2021-03-13 11:15] LABS: Anisocytosis 2+; Platelet Estimate Consistent w Auto
--- NOTE | 2021-03-13 12:02 | Progress Note ---
Assessment and Plan 1. ESRD: Patient on maintenance hemodialysis three times a week, outpatinet schedule, MWF. Meds dosage based on GFR. Hemodialysis: 03/11, 03/13. 2. FEN: Hypercalemia, low Ca bath with HD. Monitor lytes and volume status. 3. Acute metabolic encephalopathy, POA: Likely 2/2 CVA. Monitor. 4. Acute CVA: Seen by Neuro. Per primary. 5. UTI, POA: Abx. Follow cultures. 6. Hypertensive urgency: Adjust meds. Monitor BP. 7. Malnutrition / AFTT. 8. Hypoglycemia. Subjective: Patient was seen and examined at the bedside. General Appearance: General appearance: well-developed, appears stated age, appears emaciated, not in distress HEENT: ATNC, pupils equal, b/l conjunctival erythema noted Neck: trachea midline Respiratory: ctab Heart: regular, S1S2, no murmur Abdomen: soft, bowel sounds heard, not tender Integumentary: no rash, warm and dry Neurologic: lethargic, not following any command, not conversing Ext: no edema Hemodialysis access: R IJ tunnel catheter Subjective Date of service: 03/13/21 Objective - Vital Signs Vital signs: Vital Signs - 12hr 03/13/21 03/13/21 03/13/21 00:57 01:00 04:07 Temperature 100.9 F H 99.8 F H Pulse Rate 84 129 H 103 H Respiratory 18 17 Rate Blood Pressure 145/100 145/96 O2 Sat by Pulse 97 94 Oximetry O2 Sat by Pulse Oximetry [ Bilateral] 03/13/21 03/13/21 03/13/21 08:24 09:30 09:45 Temperature 98.6 F 98.6 F Pulse Rate 91 H 84 84 Respiratory 20 16 Rate Blood Pressure 139/90 168/108 168/108 O2 Sat by Pulse 100 Oximetry O2 Sat by Pulse 2 L Oximetry [ Bilateral] 03/13/21 03/13/21 03/13/21 10:00 10:15 10:30 Temperature Pulse Rate 97 H 96 H 101 H Respiratory Rate Blood Pressure 167/106 166/106 162/103 O2 Sat by Pulse Oximetry O2 Sat by Pulse Oximetry [ Bilateral] 03/13/21 03/13/21 03/13/21 10:45 11:00 11:15 Temperature Pulse Rate 75 91 H 90 Respiratory Rate Blood Pressure 136/70 167/93 159/96 O2 Sat by Pulse Oximetry O2 Sat by Pulse Oximetry [ Bilateral] 03/13/21 03/13/21 11:30 11:45 Temperature Pulse Rate 76 98 H Respiratory Rate Blood Pressure 122/64 179/97 O2 Sat by Pulse Oximetry O2 Sat by Pulse Oximetry [ Bilateral] - Lab 03/13/21 07:37 03/13/21 07:37 Most recent lab results Calcium 10.8 mg/dL (8.4-10.2) H 03/13/21 07:37 Phosphorus 5.90 mg/dL (2.5-4.5) H 03/13/21 07:37 Medications & Allergies - Medications Allergies/Adverse Reactions: Allergies No Known Allergies Allergy (Verified 03/09/21 13:06) Home Medications: Home Medications Medication Instructions Recorded Confirmed Last Taken Type Butalb/Acetamin/Caff 50-325-40 2 tab PO Q8HR PRN #20 tablet 11/25/17 Unknown Rx [Fioricet 50-325-40] predniSONE [Deltasone] 80 mg PO QDAY #20 tab 11/25/17 Unknown Rx Hydromorphone HCl [Exalgo] 8 mg PO 12/18/19 Unknown History NIFEdipine [Nifedipine ER] 60 mg PO 12/18/19 Unknown History Torsemide [Demadex] 12/18/19 Unknown History Venlafaxine [Effexor 37.5mg tab] 12/18/19 Unknown History chlorproMAZINE [Thorazine] 25 mg PO Q4H PRN 12/18/19 12/18/19 Unknown History oxyCODONE /ACETAMINOPHEN [Percocet 1 tab PO Q6HR PRN 12/18/19 12/18/19 Unknown History 5/325 mg] Metoprolol [Lopressor TAB] 100 mg PO BID #60 tablet 12/20/19 Unknown Rx Nystas/Diphen/Xyl Visc/Mylanta 30 ml MM Q4H PRN 14 Days 12/20/19 Unknown Rx [Magic Mouthwash] hydrALAZINE [Apresoline TAB] 25 mg PO Q8HR #90 tablet 12/20/19 Unknown Rx levETIRAcetam [Keppra TAB] 500 mg PO BID #60 tablet 12/20/19 Unknown Rx oxyCODONE /ACETAMINOPHEN [Percocet 1 tab PO QHS PRN #7 tablet 12/20/19 Unknown Rx 5/325] Active Medications: Generic Name Dose Route Start Last Admin Trade Name Freq PRN Reason Stop Dose Admin Acetaminophen 650 mg 03/09/21 14:52 03/12/21 23:53 Acetaminophen 325 Mg Tab PO 650 mg Q4H PRN Administration Pain, Mild (1-3) Acetaminophen/Butalbital/Caffeine 2 tab 03/09/21 14:28 03/12/21 16:05 Butalb/Acetaminophen/Caffeine Tab PO 2 tab Q8H PRN Administration Headache Lipase/Protease/Amylase 1 each 03/12/21 12:04 Lipase 10,500/Protease 25,000/Amylase 43,750 (Units) Dr Lee FEEDTUBE PRN PRN For Clogged Feeding Tube Atorvastatin Calcium 40 mg 03/09/21 22:00 03/12/21 23:52 Atorvastatin 40 Mg Tab PO 40 mg QHS LEOLA Administration Bisacodyl 10 mg 03/09/21 15:52 03/12/21 16:11 Bisacodyl 10 Mg Rect Supp CA 10 mg QDAY PRN Administration Constipation Clonidine HCl 0.3 mg 03/17/21 10:00 Clonidine Tts 0.3 Mg/24 Hr Patch TD Mo LEOLA Heparin Sodium (Porcine) 5,000 unit 03/09/21 22:00 03/13/21 10:42 Heparin 5,000 Unit/1 Ml Vial SUB-Q Not Given Q12HR [facility] Heparin Sodium (Porcine) 2,000 unit 03/11/21 14:25 Heparin 10,000 Units/10 Ml Vial IV JUAN C PRN hemodialysis Hydralazine HCl 10 mg 03/10/21 13:00 03/12/21 16:00 Hydralazine 20 Mg/1 Ml Inj IV 10 mg Q30MIN PRN Administration Hypertension Hydromorphone HCl 0.5 mg 03/09/21 14:52 Hydromorphone 1 Mg/1 Ml Inj IV Q12H PRN Pain , Severe (7-10) Ceftriaxone Sodium 1 gm in 50 mls @ 100 mls/hr 03/09/21 15:00 03/12/21 15:56 Rocephin/Ns 1 Gm/50 Ml IV 03/15/21 15:29 100 mls/hr Q24H LEOLA Administration Protocol Levetiracetam 500 mg/ Dextrose 105 mls @ 400 mls/hr 03/09/21 23:21 03/13/21 10:41 IV Not Given BID LEOLA Dextrose 1,000 mls @ 42 mls/hr 03/10/21 14:00 03/12/21 01:20 D10w IV 42 mls/hr DIRECT LEOLA Administration Sodium Chloride 100 mls @ 999 mls/hr 03/11/21 14:25 Nacl 0.9% IV JUAN C PRN Hypotension Cefazolin Sodium 2 gm in 20 mls @ 80 mls/hr 03/13/21 12:30 Ancef/Sterile Water 2 Gm/20 Ml IV 03/13/21 16:00 PREOP NR Protocol Sodium Chloride 1,000 mls @ 50 mls/hr 03/13/21 11:00 Nacl 0.9% 1000 Ml IV DIRECT LEOLA Lidocaine HCl 30 ml 03/09/21 14:28 Magic Mouthwash 30ml MM Q4H PRN Sore Throat Magnesium Hydroxide 30 ml 03/09/21 14:52 Magnesium Hydroxide (Mom) Oral Liqd Udc PO Q4H PRN Constipation Metoclopramide HCl 10 mg 03/09/21 14:52 Metoclopramide 10 Mg Tab PO Q6H PRN Nausea And Vomiting Metoprolol Tartrate 50 mg 03/12/21 13:00 03/13/21 10:42 Metoprolol Tartrate 50 Mg Tab PO Not Given BID LEOLA Ondansetron HCl 4 mg 03/09/21 14:52 Ondansetron 4 Mg/2 Ml Inj IV Q8H PRN Nausea And Vomiting Promethazine HCl 25 mg 03/09/21 14:52 Promethazine 25 Mg Rect Supp CA Q6H PRN Nausea And Vomiting Simple Syrup 15 ml 03/12/21 12:04 Simple Syrup 15 Ml FEEDTUBE PRN PRN Hypoglycemia Simple Syrup 30 ml 03/12/21 12:04 Simple Syrup 15 Ml FEEDTUBE PRN PRN Hypoglycemia Sodium Bicarbonate 325 mg 03/12/21 12:04 Sodium Bicarbonate 325 Mg Tab FEEDTUBE PRN PRN For Clogged Feeding Tube Sodium Chloride 10 ml 03/09/21 14:52 03/11/21 15:39 Sodium Chloride 0.9% 10 Ml Flush Syringe IV 10 ml PRN PRN Administration LINE FLUSH
[2021-03-13] MEDS ORDERED: ceFAZolin/Water 2 GM/20 ML 2 GM/20 ML SYRINGE IV NR (12:30)
[2021-03-13] MEDS ORDERED: LIDOCAINE MPF (2%) 20 MG/1 ML VIAL 5 ML ONE (14:48)
[2021-03-13] MEDS ORDERED: propofoL 200 MG/20 ML VIAL IV ONE ×2 (14:49→16:07)
[2021-03-13] MEDS: cefTRIAXone/NS 1 GM/50 ML 1 GM/50 ML BAG IV SCH (15:30)
--- NOTE | 2021-03-13 15:50 | Anesthesia Day of Surgery ---
Anesthesia Day of Surgery - Day of Surgery Patient Examined: Yes Patient H&P Reviewed: Yes Patient is NPO: Yes
--- NOTE | 2021-03-13 15:50 | Progress Note ---
Assessment and Plan - Acute CVA (cerebrovascular accident) Admitted with CVA protocol: CT head, CTA head, CTA neck, showed no acute process MRI showed L thalamus and L temporal area subacute infarct. 2d echo showed preserved EF, carotid doppler showed <50% ordered antiplatelet and statin therapy, physical therapy consulted, Occupational Therapy consulted, speech therapy consulted, telemetry neurology consulted in ED, s/p permissive hypertension overnight. Now could be more aggressive with BP. PT to evaluate for half-way facility --Dysphagia Patient unable to speak and has significant dysphagia clinically: placed on D10W Patient to receive PEG tube today. Will be to give medications via PEG. Still with significant dysphagia -- UTI (urinary tract infection) IV antibiotic therapy, supportive care --Seizure disorder Continue IV Keppra, No active seizure. Increased risk secondary to CVA. --SIRS, with elevated white count, tachycardia and tachypnea cont to monitor for now, likely aspiration pneumonitis No evidence of sepsis at this time. -- Metabolic encephalopathy Secondary to CVA continue neuro check, seizure precautions, supportive care. Remains encephalopathic at this time. Will follow with eyes not speaking. -- ESRD (end stage renal disease) Nephrology team consulted in ED. Patient actively being dialyzed today.. Was complicated by episode of hypotension requiring a bolus. -- Hypertensive urgency, malignant Should improve medical management once PEG tube has been placed we can use metoprolol through the tube. Should improve. Did not add any medication secondary to hypotension today after hemodialysis. -- Severe malnutrition Increase protein intake when awake and alert only, dietary supplementation D10W for now, consulted GI for PEG placement --bacterial conjuctivitis: ordered erythromycin ointment -- DVT prophylaxis SCD to bilateral lower extremities while in bed, prophylactic anticoagulation Subjective Date of service: 03/13/21 Principal diagnosis: CVA Interval history: The patient is a 45 YO female with history significant for HTN, Seizure Disorder, SLE, Nicotine Dependence, Malnutrition and ESRD on hemodialysis (MWF) who presented to [facility] ED 03/09 with increased confusion as well as 2 witnessed s eizures while at home. A code stroke was called and the patient was found to have UTI, metabolic encephalopathy, end-stage renal disease, and accelerated hypertension. Patient was admitted to telemetry and initiated on stroke protocol. At present patient actively being hemodialyzed. Still evidence of increased confusion. Patient found to have urinary tract infection actively being treated. : Patient with significant aphasia/nonverbal, unable to move right side, wait for nephrology evaluation for hemodialysis, MRI pending, will initiate D10W at 42 mils per hour as patient with history of end-stage dialysis will minimize IV fluid. Ordered for speech PT OT eval. will consult neurology following MRI results. Patient is unable to swallow so we will change aspirin per rectal. 03/11/21: MRI showed L thalamus and L temporal area subacute infarct. pending speech eval. cont iv fluid, order for Tf and dobhoff if fails speech eval. neuro consult. continue supportive care. HD per renal. monitor BP -adjust meds, follow BMP/CBC 03/12/21: pending TF, noted neuro recommendation: initiate aspirin with plavix. cont VT aspirin till dobhoff/peg placemnet. CM working on placement. Updated brian joaquin for details by phone. follow BMP. monitor vitals 03/13/2021 patient today actively receiving hemodialysis. Patient was nonverbal not answering any questions. Could not complete hemodialysis secondary to hypotension in which patient required a bolus. Patient is now planning on going down to receive PEG placement. Will update daughter after procedure complete. Objective - Constitutional Vitals: Vital Signs - 12hr 03/13/21 03/13/21 03/13/21 04:07 08:24 09:30 Temperature 99.8 F H 98.6 F 98.6 F Pulse Rate 103 H 91 H 84 Respiratory 17 20 16 Rate Blood Pressure 145/96 139/90 168/108 O2 Sat by Pulse 94 100 Oximetry O2 Sat by Pulse 2 L Oximetry [ Bilateral] 03/13/21 03/13/21 03/13/21 09:45 10:00 10:15 Temperature Pulse Rate 84 97 H 96 H Respiratory Rate Blood Pressure 168/108 167/106 166/106 O2 Sat by Pulse Oximetry O2 Sat by Pulse Oximetry [ Bilateral] 03/13/21 03/13/21 03/13/21 10:30 10:45 11:00 Temperature Pulse Rate 101 H 75 91 H Respiratory Rate Blood Pressure 162/103 136/70 167/93 O2 Sat by Pulse Oximetry O2 Sat by Pulse Oximetry [ Bilateral] 03/13/21 03/13/21 03/13/21 11:15 11:30 11:45 Temperature Pulse Rate 90 76 98 H Respiratory Rate Blood Pressure 159/96 122/64 179/97 O2 Sat by Pulse Oximetry O2 Sat by Pulse Oximetry [ Bilateral] 03/13/21 03/13/21 03/13/21 12:00 12:15 12:30 Temperature Pulse Rate 98 H 103 H 83 Respiratory Rate Blood Pressure 198/99 155/99 166/85 O2 Sat by Pulse Oximetry O2 Sat by Pulse Oximetry [ Bilateral] 03/13/21 03/13/21 12:45 12:58 Temperature 98.6 F Pulse Rate 81 81 Respiratory 16 Rate Blood Pressure 165/90 174/98 O2 Sat by Pulse Oximetry O2 Sat by Pulse 2 L Oximetry [ Bilateral] General appearance: Present: no acute distress - EENT Eyes: PERRL, EOM intact ENT: hearing intact, clear oral mucosa - Neck Neck: supple, normal ROM - Respiratory Respiratory effort: normal Respiratory: bilateral: rhonchi (Basis only) - Cardiovascular Rhythm: regular Heart Sounds: Present: S1 & S2. Absent: gallop, rub Extremity abnormal: other (Right side permacath moves extremities) - Gastrointestinal General gastrointestinal: Present: soft, non-tender, non-distended, normal bowel sounds - Integumentary Integumentary: clear, warm, dry - Musculoskeletal Musculoskeletal: right sided weakness - Neurologic Neurologic: focal deficits, other (Nonverbal) - Psychiatric Psychiatric: other (Nonverbal. Patient will just look around.) - Labs CBC & Chem 7: 03/13/21 07:37 03/13/21 07:37 Labs: Abnormal lab results 03/13/21 03/13/21 Range/Units 07:37 07:37 MCH 26 L (28-32) pg RDW 19.9 H (13.2-15.2) % Seg Neuts % (Manual) 77.0 H (40.0-70.0) % Lymphocytes # (Manual) 1.0 L (1.2-5.4) K/mm3 Sodium 132 L D (137-145) mmol/L Potassium 3.1 L D (3.6-5.0) mmol/L Chloride 89.6 L (98-107) mmol/L BUN 39 H (7-17) mg/dL Creatinine 7.0 H (0.6-1.2) mg/dL Calcium 10.8 H (8.4-10.2) mg/dL Phosphorus 5.90 H (2.5-4.5) mg/dL HEART Score - HEART Score Troponin: Troponin T 0.473 ng/mL (0.00-0.029) H* 03/09/21 11:21
--- NOTE | 2021-03-13 15:52 | Anesthesia Consultation ---
Anesthesia Consult and Med Hx Date of service: 03/13/21 - Airway Anesthetic Teeth Evaluation: Poor ROM Head & Neck: Adequate Mental/Hyoid Distance: Adequate Mallampati Class: Class II Intubation Access Assessment: Probably Good - Pre-Operative Health Status ASA Pre-Surgery Classification: ASA4 Proposed Anesthetic Plan: MAC - Pulmonary Hx Smoking: Yes - Cardiovascular System Hx Hypertension: Yes - Central Nervous System Hx Seizures: Yes CVA: Yes (Nonverbal) Hx Psychiatric Problems: No - Endocrine Hx Renal Disease: Yes (SLE (lupus)) Hx End Stage Renal Disease: Yes (HD this AM) - Hematic Hx Anemia: No - Other Systems Hx Obesity: No
--- NOTE | 2021-03-13 16:27 | Post Operative Note ---
Pre-op diagnosis: dysphagia Post-op diagnosis: same Findings: EGD: hiatal; hernia - mild gastritis - negative other - 20 F pull peg placed, bumper at 3 cm Procedure: EGD/peg Anesthesia: MAC Surgeon: BRITTANEY VENTURA Estimated blood loss: none Pathology: list Specimen disposition: to lab Condition: stable Disposition: floor
--- NOTE | 2021-03-13 16:57 | Post Anesthesia Evaluation ---
- Post Anesthesia Evaluation Patient Participated: Yes Airway Patent: Yes Stable Respiratory Function: Yes Nausea/Vomiting: No Temp > 96.8F: Yes Pain Manageable: Yes Adequeate Hydration: Yes Anesthesia Complications: No Block Receding Appropriately: Not Applicable Patient on Ventilator: No
[2021-03-13] MEDS ORDERED: DEXTROSE 50% IN WATER (25GM) 50 ML SYRINGE IV ONE ×2 (17:06→17:12)
--- NOTE | 2021-03-13 18:35 | Operative Report ---
DATE OF SURGERY: 03/13/2021 PROCEDURE: EGD with PEG tube placement. INDICATION: 1. Dysphagia. 2. Weight loss. 3. Malnutrition. MEDICATION: Propofol per HOSPITAL INSURANCE REPRESENTATIVE. COMPLICATION: None. DESCRIPTION OF PROCEDURE: The patient was brought to the procedure suite. The patient had the procedure discussed with her family at length. All risks, complications, and benefits were discussed after which consent was given for the procedure to be performed. The patient was placed in supine position. Mouth block placed in the patient's oral cavity. After adequate sedation with medication as above, the endoscope placed in the mouth and brought to the level of the second portion of duodenum. Retroflexion view performed. The patient's vital signs remained stable during the procedure. FINDINGS: Small hiatal hernia at the GE junction. The esophagus otherwise appeared to be normal. Mild gastritis in the stomach. Stomach otherwise appeared to be normal. Duodenum appeared to be normal. Retroflexion view performed in the stomach revealed no other pathology other than noted above. After this inspection, using standard technique and transillumination, the area for adequate placement of the PEG tube was found in the gastric body. Using standard technique, a 20-Kyrgy[place] pull PEG was then placed. Bumper was noted to be at 3 cm. Postprocedure appearance was satisfactory. The patient tolerated the procedure well. No complications during this procedure. IMPRESSION: 1. Hiatal hernia. 2. Mild gastritis. 3. Otherwise, normal esophagogastroduodenoscopy. 4. Percutaneous endoscopic gastrostomy tube placed without obvious complications. RECOMMENDATIONS: 1. Standard PEG tube orders, see chart. 2. Watch for signs of bleeding or infection. 3. Nutrition consult. 4. We will follow up in a.m. TID: [id number] RECEIPT: [id number] [facility]
[2021-03-14] MEDS: METOPROLOL TARTRATE 100 MG TAB PO SCH ×3 (00:26→22:06)
[2021-03-14] MEDS: hydrALAZINE 20 MG/1 ML INJ IV PRN (00:33)
[2021-03-14] MEDS: levETIRAcetam 500 MG in DEXTROSE 5% IN WATER 100 ML IV SCH ×3 (00:34→22:10)
[2021-03-14] MEDS: HEPARIN 5,000 UNIT/1 ML VIAL SUB-Q SCH ×3 (00:34→22:05)
--- NOTE | 2021-03-14 02:00 | Consultation ---
DATE OF CONSULTATION: 03/12/2021 REFERRING PHYSICIAN: Dr. Willi Guy INDICATION: 1. Dysphagia. 2. Malnutrition. HISTORY OF PRESENT ILLNESS: The patient is a 45-year-old female with history of seizure disorder, SLE, nicotine dependence, end-stage renal disease, on dialysis now with poor p.o. intake and has been seen for PEG tube placement. The patient is status post recent CVA, unable to eat. The patient unable to speak at this time and unable to eat. Reported weight loss. No other specific complaints. PAST MEDICAL HISTORY: Includes hypertension, end-stage renal disease on dialysis, seizure disorder. MEDICATIONS: Reviewed and updated in chart. ALLERGIES: No known drug allergies. SOCIAL HISTORY: Denies alcohol. Positive tobacco. FAMILY HISTORY: Negative for colon cancer. PHYSICAL EXAMINATION: GENERAL: Weakness. HEENT: No visual complaints or tinnitus. PULMONARY: Rhonchi. CARDIAC: Regular rate and rhythm. Normal S1, S2. ABDOMEN: Soft. SKIN: No rashes. LABORATORY DATA: Pertinent for white count 6.9, hemoglobin and hematocrit of 11.3 and 35.4, platelet count of 176. Chem-7, sodium 132, potassium 3.1, chloride 90, CO2 of 24, BUN and creatinine 39 and 7. Coags within normal limits. ASSESSMENT: A 45-year-old status post recent cerebrovascular accident with multiple medical problems, now for PEG tube placement. PLAN: 1. N.p.o. after midnight. 2. Avoid NSAIDs and aspirin. 3. Hold heparin. 4. Plan PEG tube in a.m. TID: [id number] RECEIPT: [id number] [facility]
[2021-03-14 06:02] LABS: Calcium 10.5 mg/dL (8.4-10.2)
[2021-03-14 06:25] LABS: Hematocrit 40.3 % (30.3-42.9); Hemoglobin 12.5 gm/dl (10.1-14.3); Mean Corpuscular HGB Conc 31 % (30-34); Mean Corpuscular Volume 82 fl (79-97); Platelet Count 226 K/mm3 (140-440); Red Blood Count 4.91 M/mm3 (3.65-5.03); Red Cell Distribution Width 19.7 % (13.2-15.2)
[2021-03-14 06:59] LABS: Band Neutrophils # (Manual) 0.1 K/mm3; Hypochromasia 1+; Total Cells Counted 100; Toxic Granulation 1+
[2021-03-14 07:00] LABS: Anisocytosis 1+; Poikilocytosis 1+
[2021-03-14 07:01] LABS: Platelet Estimate Consistent w Auto
[2021-03-14] MEDS ORDERED: POTASSIUM CHLORIDE 20 MEQ PACKET FEEDTUBE SCH (09:00)
[2021-03-14] MEDS: predniSONE 20 MG TAB PO SCH (09:27)
[2021-03-14] MEDS: DEXTROSE 10% IN WATER 1,000 ML IV SCH (11:45)
--- NOTE | 2021-03-14 13:14 | Progress Note ---
Assessment and Plan 1. ESRD: Patient on maintenance hemodialysis three times a week, outpatinet schedule, MWF. Meds dosage based on GFR. Hemodialysis: 03/11, 03/13. 2. FEN: Hypercalemia, low Ca bath with HD. Low PTH level. Monitor lytes and volume status. 3. Acute metabolic encephalopathy, POA: Likely 2/2 CVA. Monitor. 4. Acute CVA: Seen by Neuro. Per primary. 5. UTI, POA: Abx. Follow cultures. 6. Hypertensive urgency: Adjust meds. Monitor BP. 7. Dysphagia / Malnutrition / AFTT: S/p PEG tube. 8. Hypoglycemia. Subjective: Patient was seen and examined at the bedside. Father at the bedside. General Appearance: General appearance: well-developed, appears stated age, appears emaciated, not in distress HEENT: ATNC, pupils equal, b/l conjunctival erythema noted Neck: trachea midline Respiratory: ctab Heart: regular, S1S2, no murmur Abdomen: soft, bowel sounds heard, not tender, PEG tube Integumentary: no rash, warm and dry Neurologic: lethargic, not following any command, not conversing, moving legs and L UE Ext: no edema Hemodialysis access: R IJ tunnel catheter Subjective Date of service: 03/14/21 Principal diagnosis: CVA Objective - Vital Signs Vital signs: Vital Signs - 12hr 03/14/21 03/14/21 03/14/21 01:18 05:29 08:24 Temperature 98.3 F 97.8 F Pulse Rate 97 H 91 H Respiratory 18 18 Rate Blood Pressure 159/95 156/103 Blood Pressure [Left] O2 Sat by Pulse 99 98 100 Oximetry 03/14/21 03/14/21 08:39 10:55 Temperature 98.7 F Pulse Rate 82 Respiratory 20 Rate Blood Pressure 165/100 Blood Pressure 165/100 [Left] O2 Sat by Pulse 98 Oximetry - Lab 03/14/21 05:33 03/14/21 05:33 Most recent lab results Calcium 10.5 mg/dL (8.4-10.2) H 03/14/21 05:33 Phosphorus 5.90 mg/dL (2.5-4.5) H 03/13/21 07:37 Medications & Allergies - Medications Allergies/Adverse Reactions: Allergies No Known Allergies Allergy (Verified 03/09/21 13:06) Home Medications: Home Medications Medication Instructions Recorded Confirmed Last Taken Type Butalb/Acetamin/Caff 50-325-40 2 tab PO Q8HR PRN #20 tablet 11/25/17 Unknown Rx [Fioricet 50-325-40] predniSONE [Deltasone] 80 mg PO QDAY #20 tab 11/25/17 Unknown Rx Hydromorphone HCl [Exalgo] 8 mg PO 12/18/19 Unknown History NIFEdipine [Nifedipine ER] 60 mg PO 12/18/19 Unknown History Torsemide [Demadex] 12/18/19 Unknown History Venlafaxine [Effexor 37.5mg tab] 12/18/19 Unknown History chlorproMAZINE [Thorazine] 25 mg PO Q4H PRN 12/18/19 12/18/19 Unknown History oxyCODONE /ACETAMINOPHEN [Percocet 1 tab PO Q6HR PRN 12/18/19 12/18/19 Unknown History 5/325 mg] Metoprolol [Lopressor TAB] 100 mg PO BID #60 tablet 12/20/19 Unknown Rx Nystas/Diphen/Xyl Visc/Mylanta 30 ml MM Q4H PRN 14 Days 12/20/19 Unknown Rx [Magic Mouthwash] hydrALAZINE [Apresoline TAB] 25 mg PO Q8HR #90 tablet 12/20/19 Unknown Rx levETIRAcetam [Keppra TAB] 500 mg PO BID #60 tablet 12/20/19 Unknown Rx oxyCODONE /ACETAMINOPHEN [Percocet 1 tab PO QHS PRN #7 tablet 12/20/19 Unknown Rx 5/325] Active Medications: Generic Name Dose Route Start Last Admin Trade Name Freq PRN Reason Stop Dose Admin Acetaminophen 650 mg 03/09/21 14:52 03/12/21 23:53 Acetaminophen 325 Mg Tab PO 650 mg Q4H PRN Administration Pain, Mild (1-3) Acetaminophen/Butalbital/Caffeine 2 tab 03/09/21 14:28 03/12/21 16:05 Butalb/Acetaminophen/Caffeine Tab PO 2 tab Q8H PRN Administration Headache Lipase/Protease/Amylase 1 each 03/12/21 12:04 Lipase 10,500/Protease 25,000/Amylase 43,750 (Units) Dr Lee FEEDTUBE PRN PRN For Clogged Feeding Tube Atorvastatin Calcium 40 mg 03/09/21 22:00 03/14/21 00:27 Atorvastatin 40 Mg Tab PO Not Given QHS LEOLA Bisacodyl 10 mg 03/09/21 15:52 03/12/21 16:11 Bisacodyl 10 Mg Rect Supp SC 10 mg QDAY PRN Administration Constipation Clonidine HCl 0.3 mg 03/17/21 10:00 Clonidine Tts 0.3 Mg/24 Hr Patch TD Mo LEOLA Heparin Sodium (Porcine) 5,000 unit 03/09/21 22:00 03/14/21 10:55 Heparin 5,000 Unit/1 Ml Vial SUB-Q 5,000 unit Q12HR LEOLA Administration Heparin Sodium (Porcine) 2,000 unit 03/11/21 14:25 Heparin 10,000 Units/10 Ml Vial IV JUAN C PRN hemodialysis Hydralazine HCl 10 mg 03/10/21 13:00 03/14/21 00:33 Hydralazine 20 Mg/1 Ml Inj IV 10 mg Q30MIN PRN Administration Hypertension Hydromorphone HCl 0.5 mg 03/09/21 14:52 Hydromorphone 1 Mg/1 Ml Inj IV Q12H PRN Pain , Severe (7-10) Ceftriaxone Sodium 1 gm in 50 mls @ 100 mls/hr 03/09/21 15:00 03/13/21 15:30 Rocephin/Ns 1 Gm/50 Ml IV 03/15/21 15:29 Not Given Q24H [facility] Protocol Levetiracetam 500 mg/ Dextrose 105 mls @ 400 mls/hr 03/09/21 23:21 03/14/21 11:30 IV 400 mls/hr BID LEOLA Administration Dextrose 1,000 mls @ 42 mls/hr 03/10/21 14:00 03/14/21 11:45 D10w IV 42 mls/hr DIRECT LEOLA Administration Sodium Chloride 100 mls @ 999 mls/hr 03/11/21 14:25 Nacl 0.9% IV JUAN C PRN Hypotension Sodium Chloride 1,000 mls @ 50 mls/hr 03/13/21 11:00 Nacl 0.9% 1000 Ml IV DIRECT LEOLA Lidocaine HCl 30 ml 03/09/21 14:28 Magic Mouthwash 30ml MM Q4H PRN Sore Throat Magnesium Hydroxide 30 ml 03/09/21 14:52 Magnesium Hydroxide (Mom) Oral Liqd Udc PO Q4H PRN Constipation Metoclopramide HCl 10 mg 03/09/21 14:52 Metoclopramide 10 Mg Tab PO Q6H PRN Nausea And Vomiting Metoprolol Tartrate 100 mg 03/13/21 18:00 03/14/21 10:55 Metoprolol Tartrate 100 Mg Tab PO 100 mg BID LEOLA Administration Ondansetron HCl 4 mg 03/09/21 14:52 Ondansetron 4 Mg/2 Ml Inj IV Q8H PRN Nausea And Vomiting Prednisone 80 mg 03/14/21 10:00 03/14/21 09:27 Prednisone 20 Mg Tab PO 80 mg QDAY LEOLA Administration Promethazine HCl 25 mg 03/09/21 14:52 Promethazine 25 Mg Rect Supp SC Q6H PRN Nausea And Vomiting Simple Syrup 15 ml 03/12/21 12:04 03/14/21 05:38 Simple Syrup 15 Ml FEEDTUBE 15 ml PRN PRN Administration Hypoglycemia Simple Syrup 30 ml 03/12/21 12:04 Simple Syrup 15 Ml FEEDTUBE PRN PRN Hypoglycemia Sodium Bicarbonate 325 mg 03/12/21 12:04 Sodium Bicarbonate 325 Mg Tab FEEDTUBE PRN PRN For Clogged Feeding Tube Sodium Chloride 10 ml 03/09/21 14:52 03/14/21 00:34 Sodium Chloride 0.9% 10 Ml Flush Syringe IV 10 ml PRN PRN Administration LINE FLUSH
[2021-03-14] MEDS: cefTRIAXone/NS 1 GM/50 ML 1 GM/50 ML BAG IV SCH (14:10)
[2021-03-14] MEDS ORDERED: amLODIPine 5 MG TAB PO ONE (14:26)
--- NOTE | 2021-03-14 14:26 | Progress Note ---
Assessment and Plan - Acute CVA (cerebrovascular accident) Admitted with CVA protocol: CT head, CTA head, CTA neck, showed no acute process MRI showed L thalamus and L temporal area subacute infarct. 2d echo showed preserved EF, carotid doppler showed <50% ordered antiplatelet and statin therapy, physical therapy consulted, Occupational Therapy consulted, speech therapy consulted, telemetry neurology consulted in ED, s/p permissive hypertension overnight. Now could be more aggressive with BP. PT to evaluate for snf facility --Dysphagia Patient unable to speak and has significant dysphagia clinically: placed on D10W Patient to receive PEG tube today. Patient tolerating PEG tube feedings well. -- UTI (urinary tract infection) IV antibiotic therapy, supportive care --Seizure disorder Continue IV Keppra, No active seizure. Increased risk secondary to CVA. --SIRS, with elevated white count, tachycardia and tachypnea cont to monitor for now, likely aspiration pneumonitis No evidence of sepsis at this time. Has resolved now. -- Metabolic encephalopathy Secondary to CVA continue neuro check, seizure precautions, supportive care. Remains encephalopathic at this time. Will follow with eyes not speaking. -- ESRD (end stage renal disease) Nephrology team consulted in ED. Patient actively being dialyzed today.. Was complicated by episode of hypotension requiring a bolus. -- Hypertensive urgency, malignant Should improve medical management once PEG tube has been placed we can use metoprolol through the tube. Remain suboptimal will advance metoprolol. Add amlodipine. After hemodialysis. -- Severe malnutrition Increase protein intake when awake and alert only, dietary supplementation D10W for now, consulted GI for PEG placement --bacterial conjuctivitis: ordered erythromycin ointment -- DVT prophylaxis SCD to bilateral lower extremities while in bed, prophylactic anticoagulation Subjective Date of service: 03/14/21 Principal diagnosis: CVA Interval history: The patient is a 45 YO female with history significant for HTN, Seizure Disorder, SLE, Nicotine Dependence, Malnutrition and ESRD on hemodialysis (MWF) who presented to [facility] ED 03/09 with increased confusion as well as 2 witnessed seizures while at home. A code stroke was called and the patient was found to have UTI, metabolic encephalopathy, end-stage renal disease, and accelerated hypertension. Patient was admitted to telemetry and initiated on stroke protocol. At present patient actively being hemodialyzed. Still evidence of increased confusion. Patient found to have urinary tract infection actively being treated. : Patient with significant aphasia/nonverbal, unable to move right side, wait for nephrology evaluation for hemodialysis, MRI pending, will initiate D10W at 42 mils per hour as patient with history of end-stage dialysis will minimize IV fluid. Ordered for speech PT OT eval. will consult neurology following MRI results. Patient is unable to swallow so we will change aspirin per rectal. 03/11/21: MRI showed L thalamus and L temporal area subacute infarct. pending speech eval. cont iv fluid, order for Tf and dobhoff if fails speech eval. neuro consult. continue supportive care. HD per renal. monitor BP -adjust meds, follow BMP/CBC 03/12/21: pending TF, noted neuro recommendation: initiate aspirin with plavix. cont [place] aspirin till dobhoff/peg placemnet. CM working on placement. Updated daughter for details by phone. follow BMP. monitor vitals 03/13/2021 patient today actively receiving hemodialysis. Patient was nonverbal not answering any questions. Could not complete hemodialysis secondary to hypotension in which patient required a bolus. Patient is now planning on going down to receive PEG placement. Will update daughter after procedure complete. 03/14/2021. Patient remains nonverbal encephalopathic today. Does move all extremities. Tolerated PEG tube feedings well. Objective - Constitutional Vitals: Vital Signs - 12hr 03/14/21 03/14/21 03/14/21 05:29 08:24 08:39 Temperature 97.8 F 98.7 F Pulse Rate 91 H 82 Respiratory 18 20 Rate Blood Pressure 156/103 Blood Pressure 165/100 [Left] O2 Sat by Pulse 98 100 98 Oximetry 03/14/21 10:55 Temperature Pulse Rate Respiratory Rate Blood Pressure 165/100 Blood Pressure [Left] O2 Sat by Pulse Oximetry General appearance: Present: no acute distress, well-nourished - EENT Eyes: PERRL, EOM intact ENT: hearing intact, clear oral mucosa Ears: bilateral: normal - Neck Neck: supple, normal ROM - Respiratory Respiratory effort: normal Respiratory: bilateral: CTA - Breasts Breasts: normal - Cardiovascular Rhythm: regular Heart Sounds: Present: S1 & S2. Absent: gallop, rub Extremities: pulses intact, No edema, normal color, Full ROM Extremity abnormal: edema - Gastrointestinal General gastrointestinal: Present: soft, non-tender, non-distended, normal bowel sounds, other (PEG tube functional) - Genitourinary Female genitourinary: normal - Integumentary Integumentary: clear, warm, dry - Musculoskeletal Musculoskeletal: 1, strength equal bilaterally - Neurologic Neurologic: moves all extremities - Psychiatric Psychiatric: other (Encephalopathic.) - Labs CBC & Chem 7: 03/14/21 05:33 03/14/21 05:33 Labs: Abnormal lab results 03/13/21 03/13/21 03/14/21 Range/Units 17:04 17:43 05:31 MCH (28-32) pg RDW (13.2-15.2) % Seg Neuts % (Manual) (40.0-70.0) % Lymphocytes % (Manual) (13.4-35.0) % Lymphocytes # (Manual) (1.2-5.4) K/mm3 Potassium (3.6-5.0) mmol/L Chloride (98-107) mmol/L BUN (7-17) mg/dL Creatinine (0.6-1.2) mg/dL POC Glucose 49 L 181 H 63 L (70-105) mg/dL Calcium (8.4-10.2) mg/dL 03/14/21 03/14/21 Range/Units 05:33 05:33 MCH 26 L (28-32) pg RDW 19.7 H (13.2-15.2) % Seg Neuts % (Manual) 81.0 H (40.0-70.0) % Lymphocytes % (Manual) 8.0 L (13.4-35.0) % Lymphocytes # (Manual) 0.7 L (1.2-5.4) K/mm3 Potassium 3.1 L (3.6-5.0) mmol/L Chloride 96.0 L (98-107) mmol/L BUN 18 H (7-17) mg/dL Creatinine 4.7 H (0.6-1.2) mg/dL POC Glucose (70-105) mg/dL Calcium 10.5 H (8.4-10.2) mg/dL HEART Score - HEART Score Troponin: Troponin T 0.473 ng/mL (0.00-0.029) H* 03/09/21 11:21
--- NOTE | 2021-03-14 16:27 | Gastroenterology Progress Note ---
Assessment and Plan 1. GI: s/p peg placement w/o obvious complications - ok to use as needed - no need further GI input at this time, call if needed Subjective Date of service: 03/14/21 Principal diagnosis: CVA Interval history: - no GI issues overnight after Epeg placement Objective - Constitutional Vitals: Temp Pulse Resp BP Pulse Ox 97.8 F 76 22 167/107 98 03/14/21 14:51 03/14/21 14:51 03/14/21 14:51 03/14/21 14:51 03/14/21 14:51 General appearance: no acute distress - EENT Eyes: PERRL - Respiratory Respiratory: bilateral: CTA - Cardiovascular Rhythm: regular Heart Sounds: Present: S1 & S2 - Gastrointestinal General gastrointestinal: Present: soft, non-tender, non-distended - Labs CBC & Chem 7: 03/14/21 05:33 03/14/21 05:33 Labs: Laboratory Results - last 24 hr 03/13/21 03/13/21 03/13/21 08:30 17:04 17:43 WBC RBC Hgb Hct MCV MCH MCHC RDW Plt Count Add Manual Diff Total Counted Seg Neuts % (Manual) Band Neutrophils % Lymphocytes % (Manual) Monocytes % (Manual) Eosinophils % (Manual) Nucleated RBC % Seg Neutrophils # Man Band Neutrophils # Lymphocytes # (Manual) Abs React Lymphs (Man) Monocytes # (Manual) Eosinophils # (Manual) Basophils # (Manual) Metamyelocytes # Myelocytes # Promyelocytes # Blast Cells # WBC Morphology Hypersegmented Neuts Hyposegmented Neuts Hypogranular Neuts Smudge Cells Toxic Granulation Toxic Vacuolation Dohle Bodies Pelger-Huet Anomaly Kaela Rods Platelet Estimate Clumped Platelets Plt Clumps, EDTA Large Platelets Giant Platelets Platelet Satelliting Plt Morphology Comment RBC Morphology Dimorphic RBCs Polychromasia Hypochromasia Poikilocytosis Anisocytosis Microcytosis Macrocytosis Spherocytes Pappenheimer Bodies Sickle Cells Target Cells Tear Drop Cells Ovalocytes Helmet Cells [place] Bodies [place] Rings Kervin Cells Bite Cells Crenated Cell Elliptocytes Acanthocytes (Spur) Rouleaux Hemoglobin C Crystals Schistocytes Malaria parasites Ignacio Bodies Hem Pathologist Commnt Sodium Potassium Chloride Carbon Dioxide Anion Gap BUN Creatinine Estimated GFR BUN/Creatinine Ratio Glucose POC Glucose 49 L 181 H Calcium PTH Intact Coronavirus (PCR) Negative 03/14/21 03/14/21 03/14/21 00:53 04:38 05:31 WBC RBC Hgb Hct MCV MCH MCHC RDW Plt Count Add Manual Diff Total Counted Seg Neuts % (Manual) Band Neutrophils % Lymphocytes % (Manual) Monocytes % (Manual) Eosinophils % (Manual) Nucleated RBC % Seg Neutrophils # Man Band Neutrophils # Lymphocytes # (Manual) Abs React Lymphs (Man) Monocytes # (Manual) Eosinophils # (Manual) Basophils # (Manual) Metamyelocytes # Myelocytes # Promyelocytes # Blast Cells # WBC Morphology Hypersegmented Neuts Hyposegmented Neuts Hypogranular Neuts Smudge Cells Toxic Granulation Toxic Vacuolation Dohle Bodies Pelger-Huet Anomaly Kaela Rods Platelet Estimate Clumped Platelets Plt Clumps, EDTA Large Platelets Giant Platelets Platelet Satelliting Plt Morphology Comment RBC Morphology Dimorphic RBCs Polychromasia Hypochromasia Poikilocytosis Anisocytosis Microcytosis Macrocytosis Spherocytes Pappenheimer Bodies Sickle Cells Target Cells Tear Drop Cells Ovalocytes Helmet Cells Hernandez[place] Bodies [place] Rings [place] Cells Bite Cells Crenated Cell Elliptocytes Acanthocytes (Spur) Rouleaux Hemoglobin C Crystals Schistocytes Malaria parasites Ignacio Bodies Hem Pathologist Commnt Sodium Potassium Chloride Carbon Dioxide Anion Gap BUN Creatinine Estimated GFR BUN/Creatinine Ratio Glucose POC Glucose 74 63 L Calcium PTH Intact 19.00 Coronavirus (PCR) 03/14/21 03/14/21 03/14/21 05:33 05:33 06:59 WBC 8.7 RBC 4.91 Hgb 12.5 Hct 40.3 MCV 82 MCH 26 L MCHC 31 RDW 19.7 H Plt Count 226 Add Manual Diff Complete Total Counted 100 Seg Neuts % (Manual) 81.0 H Band Neutrophils % 1.0 Lymphocytes % (Manual) 8.0 L Monocytes % (Manual) 6.0 Eosinophils % (Manual) 4.0 Nucleated RBC % Not Reportable Seg Neutrophils # Man 7.0 Band Neutrophils # 0.1 Lymphocytes # (Manual) 0.7 L Abs React Lymphs (Man) 0.0 Monocytes # (Manual) 0.5 Eosinophils # (Manual) 0.3 Basophils # (Manual) 0.0 Metamyelocytes # 0.0 Myelocytes # 0.0 Promyelocytes # 0.0 Blast Cells # 0.0 WBC Morphology Not Reportable Hypersegmented Neuts Not Reportable Hyposegmented Neuts Not Reportable Hypogranular Neuts Not Reportable Smudge Cells Not Reportable Toxic Granulation 1+ Toxic Vacuolation Not Reportable Dohle Bodies Not Reportable Pelger-Huet Anomaly Not Reportable Kaela Rods Not Reportable Platelet Estimate Consistent w auto Clumped Platelets Not Reportable Plt Clumps, EDTA Not Reportable Large Platelets Not Reportable Giant Platelets Not Reportable Platelet Satelliting Not Reportable Plt Morphology Comment Not Reportable RBC Morphology Not Reportable Dimorphic RBCs Not Reportable Polychromasia Not Reportable Hypochromasia 1+ Poikilocytosis 1+ Anisocytosis 1+ Microcytosis Few Macrocytosis Not Reportable Spherocytes Not Reportable Pappenheimer Bodies Not Reportable Sickle Cells Not Reportable Target Cells Not Reportable Tear Drop Cells Not Reportable Ovalocytes Not Reportable Helmet Cells Not Reportable Hernandez-[place] Bodies Not Reportable [place] Rings Not Reportable [place] Cells Not Reportable Bite Cells Not Reportable Crenated Cell Not Reportable Elliptocytes Not Reportable Acanthocytes (Spur) Not Reportable Rouleaux Not Reportable Hemoglobin C Crystals Not Reportable Schistocytes Not Reportable Malaria parasites Not Reportable Ignacio Bodies Not Reportable Hem Pathologist Commnt No Sodium 138 Potassium 3.1 L Chloride 96.0 L Carbon Dioxide 23 Anion Gap 22 BUN 18 H Creatinine 4.7 H Estimated GFR 12 BUN/Creatinine Ratio 4 Glucose 71 POC Glucose 73 Calcium 10.5 H PTH Intact Coronavirus (PCR) 03/14/21 14:27 WBC RBC Hgb Hct MCV MCH MCHC RDW Plt Count Add Manual Diff Total Counted Seg Neuts % (Manual) Band Neutrophils % Lymphocytes % (Manual) Monocytes % (Manual) Eosinophils % (Manual) Nucleated RBC % Seg Neutrophils # Man Band Neutrophils # Lymphocytes # (Manual) Abs React Lymphs (Man) Monocytes # (Manual) Eosinophils # (Manual) Basophils # (Manual) Metamyelocytes # Myelocytes # Promyelocytes # Blast Cells # WBC Morphology Hypersegmented Neuts Hyposegmented Neuts Hypogranular Neuts Smudge Cells Toxic Granulation Toxic Vacuolation Dohle Bodies Pelger-Huet Anomaly Kaela Rods Platelet Estimate Clumped Platelets Plt Clumps, EDTA Large Platelets Giant Platelets Platelet Satelliting Plt Morphology Comment RBC Morphology Dimorphic RBCs Polychromasia Hypochromasia Poikilocytosis Anisocytosis Microcytosis Macrocytosis Spherocytes Pappenheimer Bodies Sickle Cells Target Cells Tear Drop Cells Ovalocytes Helmet Cells Hernandez[place] Bodies [place] Rings Kervin Cells Bite Cells Crenated Cell Elliptocytes Acanthocytes (Spur) Rouleaux Hemoglobin C Crystals Schistocytes Malaria parasites Ignacio Bodies Hem Pathologist Commnt Sodium Potassium Chloride Carbon Dioxide Anion Gap BUN Creatinine Estimated GFR BUN/Creatinine Ratio Glucose POC Glucose 124 H Calcium PTH Intact Coronavirus (PCR)
[2021-03-14] MEDS: ACETAMINOPHEN 325 MG TAB PO PRN (22:04)
[2021-03-14] MEDS: BUTALB/ACETAMINOPHEN/CAFFEINE TAB PO PRN (22:10)
--- NOTE | 2021-03-15 09:54 | Progress Note ---
Assessment and Plan 1. ESRD: Patient on maintenance hemodialysis three times a week, outpatinet schedule, MWF. Meds dosage based on GFR. Hemodialysis: 03/11, 03/13, 03/15. 2. FEN: Hypercalemia, low Ca bath with HD. Low PTH level. Monitor lytes and volume status. 3. Acute metabolic encephalopathy, POA: Likely 2/2 CVA. Monitor. 4. Acute CVA: Seen by Neuro. Per primary. 5. UTI, POA: Abx. Follow cultures. 6. Hypertensive urgency: Adjust meds. Monitor BP. 7. Dysphagia / Malnutrition / AFTT: S/p PEG tube. 8. Hypoglycemia. Subjective: Patient was seen and examined at the bedside. Dialysis nurse at the bedside. General Appearance: General appearance: well-developed, appears stated age, appears emaciated, not in distress HEENT: ATNC, pupils equal, b/l conjunctival erythema noted Neck: trachea midline Respiratory: ctab Heart: regular, S1S2, no murmur Abdomen: soft, bowel sounds heard, not tender, PEG tube Integumentary: no rash, warm and dry Neurologic: lethargic, not following any command, not conversing, moving LEs and L UE Ext: no edema Hemodialysis access: R IJ tunnel catheter Subjective Date of service: 03/15/21 Principal diagnosis: CVA Objective - Vital Signs Vital signs: Vital Signs - 12hr 03/14/21 03/14/21 03/14/21 22:00 22:04 22:06 Temperature Pulse Rate 94 H Respiratory 16 18 Rate Blood Pressure 166/112 O2 Sat by Pulse 99 Oximetry 03/14/21 03/15/21 03/15/21 22:10 00:42 01:00 Temperature 98.4 F Pulse Rate 66 66 Respiratory 20 18 Rate Blood Pressure 175/118 O2 Sat by Pulse 95 Oximetry 03/15/21 03/15/21 03/15/21 05:17 08:23 09:08 Temperature 98.0 F 97.5 F L Pulse Rate 71 72 Respiratory 16 18 Rate Blood Pressure 165/105 177/115 O2 Sat by Pulse 100 98 97 Oximetry - Lab 03/14/21 05:33 03/14/21 05:33 Most recent lab results Calcium 10.5 mg/dL (8.4-10.2) H 03/14/21 05:33 Phosphorus 5.90 mg/dL (2.5-4.5) H 03/13/21 07:37 Medications & Allergies - Medications Allergies/Adverse Reactions: Allergies No Known Allergies Allergy (Verified 03/09/21 13:06) Home Medications: Home Medications Medication Instructions Recorded Confirmed Last Taken Type Butalb/Acetamin/Caff 50-325-40 2 tab PO Q8HR PRN #20 tablet 11/25/17 Unknown Rx [Fioricet 50-325-40] predniSONE [Deltasone] 80 mg PO QDAY #20 tab 11/25/17 Unknown Rx Hydromorphone HCl [Exalgo] 8 mg PO 12/18/19 Unknown History NIFEdipine [Nifedipine ER] 60 mg PO 12/18/19 Unknown History Torsemide [Demadex] 12/18/19 Unknown History Venlafaxine [Effexor 37.5mg tab] 12/18/19 Unknown History chlorproMAZINE [Thorazine] 25 mg PO Q4H PRN 12/18/19 12/18/19 Unknown History oxyCODONE /ACETAMINOPHEN [Percocet 1 tab PO Q6HR PRN 12/18/19 12/18/19 Unknown History 5/325 mg] Metoprolol [Lopressor TAB] 100 mg PO BID #60 tablet 12/20/19 Unknown Rx Nystas/Diphen/Xyl Visc/Mylanta 30 ml MM Q4H PRN 14 Days 12/20/19 Unknown Rx [Magic Mouthwash] hydrALAZINE [Apresoline TAB] 25 mg PO Q8HR #90 tablet 12/20/19 Unknown Rx levETIRAcetam [Keppra TAB] 500 mg PO BID #60 tablet 12/20/19 Unknown Rx oxyCODONE /ACETAMINOPHEN [Percocet 1 tab PO QHS PRN #7 tablet 12/20/19 Unknown Rx 5/325] Active Medications: Generic Name Dose Route Start Last Admin Trade Name Freq PRN Reason Stop Dose Admin Acetaminophen 650 mg 03/09/21 14:52 03/14/21 22:04 Acetaminophen 325 Mg Tab PO 650 mg Q4H PRN Administration Pain, Mild (1-3) Acetaminophen/Butalbital/Caffeine 2 tab 03/09/21 14:28 03/14/21 22:10 Butalb/Acetaminophen/Caffeine Tab PO 2 tab Q8H PRN Administration Headache Lipase/Protease/Amylase 1 each 03/12/21 12:04 Lipase 10,500/Protease 25,000/Amylase 43,750 (Units) Dr Lee FEEDTUBE PRN PRN For Clogged Feeding Tube Atorvastatin Calcium 40 mg 03/09/21 22:00 03/14/21 22:06 Atorvastatin 40 Mg Tab PO 40 mg QHS LEOLA Administration Bisacodyl 10 mg 03/09/21 15:52 03/12/21 16:11 Bisacodyl 10 Mg Rect Supp AR 10 mg QDAY PRN Administration Constipation Clonidine HCl 0.3 mg 03/17/21 10:00 Clonidine Tts 0.3 Mg/24 Hr Patch TD Mo LEOLA Heparin Sodium (Porcine) 5,000 unit 03/09/21 22:00 03/14/21 22:05 Heparin 5,000 Unit/1 Ml Vial SUB-Q 5,000 unit Q12HR LEOLA Administration Heparin Sodium (Porcine) 2,000 unit 03/11/21 14:25 Heparin 10,000 Units/10 Ml Vial IV JUAN C PRN hemodialysis Hydralazine HCl 10 mg 03/10/21 13:00 03/14/21 00:33 Hydralazine 20 Mg/1 Ml Inj IV 10 mg Q30MIN PRN Administration Hypertension Hydromorphone HCl 0.5 mg 03/09/21 14:52 Hydromorphone 1 Mg/1 Ml Inj IV Q12H PRN Pain , Severe (7-10) Ceftriaxone Sodium 1 gm in 50 mls @ 100 mls/hr 03/09/21 15:00 03/14/21 14:10 Rocephin/Ns 1 Gm/50 Ml IV 03/15/21 15:29 100 mls/hr Q24H LEOLA Administration Protocol Levetiracetam 500 mg/ Dextrose 105 mls @ 400 mls/hr 03/09/21 23:21 03/14/21 22:10 IV 400 mls/hr BID LEOLA Administration Dextrose 1,000 mls @ 42 mls/hr 03/10/21 14:00 03/14/21 11:45 D10w IV 42 mls/hr DIRECT LEOLA Administration Sodium Chloride 100 mls @ 999 mls/hr 03/11/21 14:25 Nacl 0.9% IV JUAN C PRN Hypotension Sodium Chloride 1,000 mls @ 50 mls/hr 03/13/21 11:00 Nacl 0.9% 1000 Ml IV DIRECT LEOLA Lidocaine HCl 30 ml 03/09/21 14:28 Magic Mouthwash 30ml MM Q4H PRN Sore Throat Magnesium Hydroxide 30 ml 03/09/21 14:52 Magnesium Hydroxide (Mom) Oral Liqd Udc PO Q4H PRN Constipation Metoclopramide HCl 10 mg 03/09/21 14:52 Metoclopramide 10 Mg Tab PO Q6H PRN Nausea And Vomiting Metoprolol Tartrate 100 mg 03/13/21 18:00 03/14/21 22:06 Metoprolol Tartrate 100 Mg Tab PO 100 mg BID LEOLA Administration Ondansetron HCl 4 mg 03/09/21 14:52 Ondansetron 4 Mg/2 Ml Inj IV Q8H PRN Nausea And Vomiting Prednisone 80 mg 03/14/21 10:00 03/14/21 09:27 Prednisone 20 Mg Tab PO 80 mg QDAY LEOLA Administration Promethazine HCl 25 mg 03/09/21 14:52 Promethazine 25 Mg Rect Supp AR Q6H PRN Nausea And Vomiting Simple Syrup 15 ml 03/12/21 12:04 03/14/21 05:38 Simple Syrup 15 Ml FEEDTUBE 15 ml PRN PRN Administration Hypoglycemia Simple Syrup 30 ml 03/12/21 12:04 Simple Syrup 15 Ml FEEDTUBE PRN PRN Hypoglycemia Sodium Bicarbonate 325 mg 03/12/21 12:04 Sodium Bicarbonate 325 Mg Tab FEEDTUBE PRN PRN For Clogged Feeding Tube Sodium Chloride 10 ml 03/09/21 14:52 03/14/21 22:13 Sodium Chloride 0.9% 10 Ml Flush Syringe IV 10 ml PRN PRN Administration LINE FLUSH
[2021-03-15] MEDS: predniSONE 20 MG TAB PO SCH (12:02)
[2021-03-15] MEDS: METOPROLOL TARTRATE 100 MG TAB PO SCH ×2 (12:02→22:21)
[2021-03-15] MEDS: HEPARIN 5,000 UNIT/1 ML VIAL SUB-Q SCH ×2 (12:03→22:21)
[2021-03-15] MEDS: levETIRAcetam 500 MG in DEXTROSE 5% IN WATER 100 ML IV SCH (12:03)
--- NOTE | 2021-03-15 12:17 | Progress Note ---
Assessment and Plan - Acute CVA (cerebrovascular accident) Admitted with CVA protocol: CT head, CTA head, CTA neck, showed no acute process MRI showed L thalamus and L temporal area subacute infarct. 2d echo showed preserved EF, carotid doppler showed <50% ordered antiplatelet and statin therapy, physical therapy consulted, Occupational Therapy consulted, speech therapy consulted, telemetry neurology consulted in ED, s/p permissive hypertension overnight. Now could be more aggressive with BP. PT to evaluate for shelter facility --Dysphagia Patient unable to speak and has significant dysphagia clinically: placed on D10W Patient to receive PEG tube today. Patient tolerating PEG tube feedings well. No abdominal pain bowel sounds unremarkable. -- UTI (urinary tract infection) IV antibiotic therapy, resolved. Stable to go to nursing facility without antibiotics. --Seizure disorder Continue Keppra can change to p.o. now No active seizure. Increased risk secondary to CVA. --SIRS, with elevated white count, tachycardia and tachypnea cont to monitor for now, likely aspiration pneumonitis No evidence of sepsis at this time. Has resolved now. -- Metabolic encephalopathy Secondary to CVA continue neuro check, seizure precautions, supportive care. Remains encephalopathic at this time. Will follow with eyes not speaking. -- ESRD (end stage renal disease) Nephrology team consulted in ED. Patient actively being dialyzed today.. Was complicated by episode of hypotension requiring a bolus. -- Hypertensive urgency, malignant Should improve medical management once PEG tube has been placed we can use metoprolol through the tube. Remain suboptimal will advance metoprolol. Add amlodipine. After hemodialysis. -- Severe malnutrition Increase protein intake when awake and alert only, dietary supplementation D10W for now, consulted GI for PEG placement --bacterial conjuctivitis: ordered erythromycin ointment -- DVT prophylaxis SCD to bilateral lower extremities while in bed, prophylactic anticoagulation Subjective Date of service: 03/15/21 Principal diagnosis: CVA Interval history: The patient is a 45 YO female with history significant for HTN, Seizure Disorder, SLE, Nicotine Dependence, Malnutrition and ESRD on hemodialysis (MWF) who presented to [facility] ED 03/09 with increased confusion as well as 2 witnessed seizures while at home. A code stroke was called and the patient was found to have UTI, metabolic encephalopathy, end-stage renal disease, and accelerated hypertension. Patient was admitted to telemetry and initiated on stroke protocol. At present patient actively being hemodialyzed. Still evidence of increased confusion. Patient found to have urinary tract infection actively being treated. : Patient with significant aphasia/nonverbal, unable to move right side, wait for nephrology evaluation for hemodialysis, MRI pending, will initiate D10W at 42 mils per hour as patient with history of end-stage dialysis will minimize IV fluid. Ordered for speech PT OT eval. will consult neurology following MRI results. Patient is unable to swallow so we will change aspirin per rectal. 03/11/21: MRI showed L thalamus and L temporal area subacute infarct. pending speech eval. cont iv fluid, order for Tf and dobhoff if fails speech eval. neuro consult. continue supportive care. HD per renal. monitor BP -adjust meds, follow BMP/CBC 03/12/21: pending TF, noted neuro recommendation: initiate aspirin with plavix. cont [place] aspirin till dobhoff/peg placemnet. CM working on placement. Updated daughter for details by phone. follow BMP. monitor vitals 03/13/2021 patient today actively receiving hemodialysis. Patient was nonverbal not answering any questions. Could not complete hemodialysis secondary to hypotension in which patient required a bolus. Patient is now planning on going down to receive PEG placement. Will update daughter after procedure complete. 03/14/2021. Patient remains nonverbal encephalopathic today. Does move all extremities. Tolerated PEG tube feedings well. 03/15/21 patient actively being dialyzed today. Remains encephalopathic. A bit more attentive today. Patient did follow me with eyes. PEG tube functioning well. Objective - Constitutional Vitals: Vital Signs - 12hr 03/15/21 03/15/21 03/15/21 00:42 01:00 05:17 Temperature 98.4 F 98.0 F Pulse Rate 66 66 71 Respiratory 18 16 Rate Blood Pressure 175/118 165/105 O2 Sat by Pulse 95 100 Oximetry 03/15/21 03/15/21 08:23 09:08 Temperature 97.5 F L Pulse Rate 72 Respiratory 18 Rate Blood Pressure 177/115 O2 Sat by Pulse 98 97 Oximetry General appearance: Present: no acute distress - EENT Eyes: PERRL, EOM intact - Respiratory Respiratory: bilateral: CTA - Breasts Breasts: normal - Cardiovascular Rhythm: regular Extremities: pulses intact, No edema, normal color, Full ROM - Gastrointestinal General gastrointestinal: Present: soft, non-tender, non-distended, normal bowel sounds, other (PEG tube) - Musculoskeletal Musculoskeletal: right sided weakness, generalized weakness - Neurologic Neurologic: other (Encephalopathic) - Labs CBC & Chem 7: 03/14/21 05:33 03/14/21 05:33 Labs: Abnormal lab results 03/14/21 03/14/21 Range/Units 14:27 17:18 POC Glucose 124 H 110 H (70-105) mg/dL HEART Score - HEART Score Troponin: Troponin T 0.473 ng/mL (0.00-0.029) H* 03/09/21 11:21
[2021-03-15] MEDS: levETIRAcetam 500 MG/5 ML ORAL LIQD PO SCH ×2 (13:57→22:21)
[2021-03-15] MEDS: cefTRIAXone/NS 1 GM/50 ML 1 GM/50 ML BAG IV SCH (15:18)
[2021-03-16] MEDS: hydrALAZINE 20 MG/1 ML INJ IV PRN (06:12)
[2021-03-16] MEDS: hydrALAZINE 25 MG TAB PO SCH ×3 (06:21→22:25)
[2021-03-16] MEDS: levETIRAcetam 500 MG/5 ML ORAL LIQD PO SCH ×2 (10:55→22:22)
[2021-03-16] MEDS: METOPROLOL TARTRATE 100 MG TAB PO SCH ×2 (10:55→22:25)
[2021-03-16] MEDS: HEPARIN 5,000 UNIT/1 ML VIAL SUB-Q SCH ×2 (10:55→22:22)
[2021-03-16] MEDS: predniSONE 20 MG TAB PO SCH (10:55)
[2021-03-16] MEDS: NIFEdipine XL 60 MG TAB PO SCH (10:55)
--- NOTE | 2021-03-16 11:05 | Progress Note ---
Assessment and Plan 1. ESRD: Patient on maintenance hemodialysis three times a week, outpatinet schedule, MWF. Meds dosage based on GFR. Hemodialysis: 03/11, 03/13, 03/15. 2. FEN: Hypercalemia, low Ca bath with HD. Low PTH level. Monitor lytes and volume status. 3. Acute metabolic encephalopathy, POA: Likely 2/2 CVA. Monitor. 4. Acute CVA: Seen by Neuro. Per primary. 5. UTI, POA: S/p Abx. 6. Hypertensive urgency: Adjust meds. Monitor BP. 7. Dysphagia / Malnutrition / AFTT: S/p PEG tube. 8. Hypoglycemia. Subjective: Patient was seen and examined at the bedside. General Appearance: General appearance: well-developed, appears stated age, appears emaciated, not in distress HEENT: ATNC, pupils equal, b/l conjunctival erythema noted Neck: trachea midline Respiratory: ctab Heart: regular, S1S2, no murmur Abdomen: soft, bowel sounds heard, not tender, PEG tube Integumentary: no rash, warm and dry Neurologic: lethargic, not following any command, not conversing, moving LEs and L UE Ext: no edema Hemodialysis access: R IJ tunnel catheter Subjective Date of service: 03/16/21 Principal diagnosis: CVA Objective - Vital Signs Vital signs: Vital Signs - 12hr 03/16/21 03/16/21 03/16/21 02:00 04:28 05:03 Temperature 98.6 F Pulse Rate 76 63 Respiratory 18 Rate Blood Pressure 187/117 Blood Pressure 187/117 [Left] O2 Sat by Pulse 89 Oximetry 03/16/21 03/16/21 07:56 10:55 Temperature 98.3 F Pulse Rate 90 90 Respiratory 20 Rate Blood Pressure 159/99 159/99 Blood Pressure [Left] O2 Sat by Pulse 98 Oximetry - Lab 03/14/21 05:33 03/14/21 05:33 Most recent lab results Calcium 10.5 mg/dL (8.4-10.2) H 03/14/21 05:33 Phosphorus 5.90 mg/dL (2.5-4.5) H 03/13/21 07:37 Medications & Allergies - Medications Allergies/Adverse Reactions: Allergies No Known Allergies Allergy (Verified 03/09/21 13:06) Home Medications: Home Medications Medication Instructions Recorded Confirmed Last Taken Type predniSONE [Deltasone] 80 mg PO QDAY #20 tab 11/25/17 Unknown Rx Hydromorphone HCl [Exalgo] 8 mg PO 12/18/19 Unknown History Torsemide [Demadex] 12/18/19 Unknown History Venlafaxine [Effexor 37.5mg tab] 12/18/19 Unknown History Nystas/Diphen/Xyl Visc/Mylanta 30 ml MM Q4H PRN 14 Days 12/20/19 Unknown Rx [Magic Mouthwash] levETIRAcetam [Keppra TAB] 500 mg PO BID #60 tablet 12/20/19 Unknown Rx oxyCODONE /ACETAMINOPHEN [Percocet 1 tab PO QHS PRN #7 tablet 12/20/19 Unknown Rx 5/325 mg] AtorvaSTATin [Lipitor] 40 mg PO QHS #30 tablet 03/16/21 Unknown Rx Butalb/Acetamin/Caff 50-325-40 2 tab PO Q8HR PRN #20 tablet 03/16/21 Unknown Rx [Fioricet 50-325-40] Metoclopramide [Reglan TAB] 10 mg PO Q6H PRN #14 tablet 03/16/21 Unknown Rx Metoprolol [Lopressor TAB] 100 mg PO BID #60 tablet 03/16/21 Unknown Rx NIFEdipine XL [Procardia Xl] 60 mg PO DAILY #30 tablet 03/16/21 Unknown Rx bisacodyL [Dulcolax suppos] 10 mg MI QDAY PRN #10 supp.rect 03/16/21 Unknown Rx chlorproMAZINE [Thorazine] 25 mg PO Q4H PRN #10 03/16/21 Unknown Rx hydrALAZINE [Apresoline TAB] 50 mg PO Q8HR #90 tablet 03/16/21 Unknown Rx levETIRAcetam [Keppra] 500 mg PO BID 30 Days oral.liqd 03/16/21 Unknown Rx oxyCODONE /ACETAMINOPHEN [Percocet 1 tab PO Q6HR PRN #14 03/16/21 Unknown Rx 5/325 mg] Active Medications: Generic Name Dose Route Start Last Admin Trade Name Freq PRN Reason Stop Dose Admin Acetaminophen 650 mg 03/09/21 14:52 03/14/21 22:04 Acetaminophen 325 Mg Tab PO 650 mg Q4H PRN Administration Pain, Mild (1-3) Acetaminophen/Butalbital/Caffeine 2 tab 03/09/21 14:28 03/14/21 22:10 Butalb/Acetaminophen/Caffeine Tab PO 2 tab Q8H PRN Administration Headache Lipase/Protease/Amylase 1 each 03/12/21 12:04 Lipase 10,500/Protease 25,000/Amylase 43,750 (Units) Dr Lee FEEDTUBE PRN PRN For Clogged Feeding Tube Atorvastatin Calcium 40 mg 03/09/21 22:00 03/15/21 22:21 Atorvastatin 40 Mg Tab PO 40 mg QHS LEOLA Administration Bisacodyl 10 mg 03/09/21 15:52 03/12/21 16:11 Bisacodyl 10 Mg Rect Supp MI 10 mg QDAY PRN Administration Constipation Clonidine HCl 0.3 mg 03/17/21 10:00 Clonidine Tts 0.3 Mg/24 Hr Patch TD Mo LEOLA Heparin Sodium (Porcine) 5,000 unit 03/09/21 22:00 03/16/21 10:55 Heparin 5,000 Unit/1 Ml Vial SUB-Q 5,000 unit Q12HR LEOLA Administration Heparin Sodium (Porcine) 2,000 unit 03/11/21 14:25 Heparin 10,000 Units/10 Ml Vial IV JUAN C PRN hemodialysis Hydralazine HCl 10 mg 03/16/21 05:41 03/16/21 06:12 Hydralazine 20 Mg/1 Ml Inj IV 10 mg Q6HR PRN Administration Hypertension Hydralazine HCl 25 mg 03/16/21 06:00 03/16/21 06:21 Hydralazine 25 Mg Tab PO Not Given Q8HR LEOLA Hydromorphone HCl 0.5 mg 03/09/21 14:52 Hydromorphone 1 Mg/1 Ml Inj IV Q12H PRN Pain , Severe (7-10) Sodium Chloride 100 mls @ 999 mls/hr 03/11/21 14:25 Nacl 0.9% IV JUAN C PRN Hypotension Sodium Chloride 1,000 mls @ 50 mls/hr 03/13/21 11:00 03/15/21 12:09 Nacl 0.9% 1000 Ml IV 50 mls/hr DIRECT LELOA Administration Levetiracetam 500 mg 03/15/21 13:00 03/16/21 10:55 Levetiracetam 500 Mg/5 Ml Oral Liqd PO 500 mg BID LEOLA Administration Lidocaine HCl 30 ml 03/09/21 14:28 Magic Mouthwash 30ml MM Q4H PRN Sore Throat Magnesium Hydroxide 30 ml 03/09/21 14:52 Magnesium Hydroxide (Mom) Oral Liqd Udc PO Q4H PRN Constipation Metoclopramide HCl 10 mg 03/09/21 14:52 Metoclopramide 10 Mg Tab PO Q6H PRN Nausea And Vomiting Metoprolol Tartrate 100 mg 03/13/21 18:00 03/16/21 10:55 Metoprolol Tartrate 100 Mg Tab PO 100 mg BID LEOLA Administration Nifedipine 60 mg 03/16/21 10:00 03/16/21 10:55 Nifedipine Xl 60 Mg Tab PO 60 mg DAILY LEOLA Administration Ondansetron HCl 4 mg 03/09/21 14:52 Ondansetron 4 Mg/2 Ml Inj IV Q8H PRN Nausea And Vomiting Prednisone 80 mg 03/14/21 10:00 03/16/21 10:55 Prednisone 20 Mg Tab PO 80 mg QDAY LEOLA Administration Promethazine HCl 25 mg 03/09/21 14:52 Promethazine 25 Mg Rect Supp MI Q6H PRN Nausea And Vomiting Simple Syrup 15 ml 03/12/21 12:04 03/14/21 05:38 Simple Syrup 15 Ml FEEDTUBE 15 ml PRN PRN Administration Hypoglycemia Simple Syrup 30 ml 03/12/21 12:04 Simple Syrup 15 Ml FEEDTUBE PRN PRN Hypoglycemia Sodium Bicarbonate 325 mg 03/12/21 12:04 Sodium Bicarbonate 325 Mg Tab FEEDTUBE PRN PRN For Clogged Feeding Tube Sodium Chloride 10 ml 03/09/21 14:52 03/14/21 22:13 Sodium Chloride 0.9% 10 Ml Flush Syringe IV 10 ml PRN PRN Administration LINE FLUSH
--- NOTE | 2021-03-16 12:29 | Progress Note ---
Assessment and Plan Assessment and plan: - Acute CVA (cerebrovascular accident) Admitted with CVA protocol: CT head, CTA head, CTA neck, showed no acute process MRI showed L thalamus and L temporal area subacute infarct. 2d echo showed preserved EF, carotid doppler showed <50% ordered antiplatelet and statin therapy, physical therapy consulted, Occupational Therapy consulted, speech therapy consulted, telemetry neurology consulted in ED, s/p permissive hypertension overnight. Now could be more aggressive with BP. PT to evaluate for fpc facility --Dysphagia Patient unable to speak and has significant dysphagia clinically: placed on D10W Patient to receive PEG tube today. Patient tolerating PEG tube feedings well. No abdominal pain bowel sounds unremarkable. -- UTI (urinary tract infection) IV antibiotic therapy, resolved. Stable to go to nursing facility without antibiotics. --Seizure disorder Continue Keppra can change to p.o. now No active seizure. Increased risk secondary to CVA. --SIRS, with elevated white count, tachycardia and tachypnea cont to monitor for now, likely aspiration pneumonitis No evidence of sepsis at this time. Has resolved now. -- Metabolic encephalopathy Secondary to CVA continue neuro check, seizure precautions, supportive care. Remains encephalopathic at this time. Will follow with eyes not speaking. -- ESRD (end stage renal disease) Nephrology team consulted in ED. Patient actively being dialyzed today.. Was complicated by episode of hypotension requiring a bolus. -- Hypertensive urgency, malignant Should improve medical management once PEG tube has been placed we can use metoprolol through the tube. Remain suboptimal will advance metoprolol. Add amlodipine. After hemodialysis. -- Severe malnutrition Increase protein intake when awake and alert only, dietary supplementation D10W for now, consulted GI for PEG placement --bacterial conjuctivitis: ordered erythromycin ointment -- DVT prophylaxis SCD to bilateral lower extremities while in bed, prophylactic anticoagulation The patient is a 45 YO female with history significant for HTN, Seizure Disorder, SLE, Nicotine Dependence, Malnutrition and ESRD on hemodialysis (MWF) who presented to [facility] ED 03/09 with increased confusion as well as 2 witnessed seizures while at home. A code stroke was called and the patient was found to have UTI, metabolic encephalopathy, end-stage renal disease, and accelerated hypertension. Patient was admitted to telemetry and initiated on stroke protocol. At present patient actively being hemodialyzed. Still evidence of increased confusion. Patient found to have urinary tract infection actively being treated. /26/21: Patient with significant aphasia/nonverbal, unable to move right side, wait for nephrology evaluation for hemodialysis, MRI pending, will initiate D10W at 42 mils per hour as patient with history of end-stage dialysis will minimize IV fluid. Ordered for speech PT OT eval. will consult neurology following MRI results. Patient is unable to swallow so we will change aspirin per rectal. 03/11/21: MRI showed L thalamus and L temporal area subacute infarct. pending speech eval. cont iv fluid, order for Tf and dobhoff if fails speech eval. neuro consult. continue supportive care. HD per renal. monitor BP -adjust meds, follow BMP/CBC 03/12/21: pending TF, noted neuro recommendation: initiate aspirin with plavix. cont [place] aspirin till dobhoff/peg placemnet. CM working on placement. Updated daughter for details by phone. follow BMP. monitor vitals 03/13/2021 patient today actively receiving hemodialysis. Patient was nonverbal not answering any questions. Could not complete hemodialysis secondary to hypotension in which patient required a bolus. Patient is now planning on going down to receive PEG placement. Will update daughter after procedure complete. 03/14/2021. Patient remains nonverbal encephalopathic today. Does move all extremities. Tolerated PEG tube feedings well. 03/15/21 patient actively being dialyzed today. Remains encephalopathic. A bit more attentive today. Patient did follow me with eyes. PEG tube functioning well. 03/16: Continue supportive care, awaiting Hospice per family request as documented by case management, repeat BMP AND CBC History Interval history: Patient seen and examined, no new distress. Hospitalist Physical - Physical exam Narrative exam: General appearance: Present: no acute distress - EENT Eyes: PERRL, EOM intact - Respiratory Respiratory: bilateral: CTA - Breasts Breasts: normal - Cardiovascular Rhythm: regular Extremities: pulses intact, No edema, normal color, Full ROM - Gastrointestinal General gastrointestinal: Present: soft, non-tender, non-distended, normal bowel sounds, other (PEG tube) - Musculoskeletal Musculoskeletal: right sided weakness, generalized weakness - Neurologic Neurologic: other (Encephalopathic) - Constitutional Vitals: Temp Pulse Resp BP Pulse Ox 98.3 F 90 20 159/99 98 03/16/21 07:56 03/16/21 10:55 03/16/21 07:56 03/16/21 10:55 03/16/21 07:56 General appearance: Present: no acute distress HEART Score - HEART Score Troponin: Troponin T 0.473 ng/mL (0.00-0.029) H* 03/09/21 11:21 Results - Labs CBC & Chem 7: 03/14/21 05:33 03/14/21 05:33 Labs: Laboratory Last Values WBC 8.7 K/mm3 (4.5-11.0) 03/14/21 05:33 RBC 4.91 M/mm3 (3.65-5.03) 03/14/21 05:33 Hgb 12.5 gm/dl (10.1-14.3) 03/14/21 05:33 Hct 40.3 % (30.3-42.9) 03/14/21 05:33 MCV 82 fl (79-97) 03/14/21 05:33 MCH 26 pg (28-32) L 03/14/21 05:33 MCHC 31 % (30-34) 03/14/21 05:33 RDW 19.7 % (13.2-15.2) H 03/14/21 05:33 Plt Count 226 K/mm3 (140-440) 03/14/21 05:33 Add Manual Diff Complete 03/14/21 05:33 Total Counted 100 03/14/21 05:33 Seg Neuts % (Manual) 81.0 % (40.0-70.0) H 03/14/21 05:33 Band Neutrophils % 1.0 % 03/14/21 05:33 Lymphocytes % (Manual) 8.0 % (13.4-35.0) L 03/14/21 05:33 Monocytes % (Manual) 6.0 % (0.0-7.3) 03/14/21 05:33 Eosinophils % (Manual) 4.0 % (0.0-4.3) 03/14/21 05:33 Nucleated RBC % Not Reportable 03/14/21 05:33 Seg Neutrophils # Man 7.0 K/mm3 (1.8-7.7) 03/14/21 05:33 Band Neutrophils # 0.1 K/mm3 03/14/21 05:33 Lymphocytes # (Manual) 0.7 K/mm3 (1.2-5.4) L 03/14/21 05:33 Abs React Lymphs (Man) 0.0 K/mm3 03/14/21 05:33 Monocytes # (Manual) 0.5 K/mm3 (0.0-0.8) 03/14/21 05:33 Eosinophils # (Manual) 0.3 K/mm3 (0.0-0.4) 03/14/21 05:33 Basophils # (Manual) 0.0 K/mm3 (0.0-0.1) 03/14/21 05:33 Metamyelocytes # 0.0 K/mm3 03/14/21 05:33 Myelocytes # 0.0 K/mm3 03/14/21 05:33 Promyelocytes # 0.0 K/mm3 03/14/21 05:33 Blast Cells # 0.0 K/mm3 03/14/21 05:33 WBC Morphology Not Reportable 03/14/21 05:33 Hypersegmented Neuts Not Reportable 03/14/21 05:33 Hyposegmented Neuts Not Reportable 03/14/21 05:33 Hypogranular Neuts Not Reportable 03/14/21 05:33 Smudge Cells Not Reportable 03/14/21 05:33 Toxic Granulation 1+ 03/14/21 05:33 Toxic Vacuolation Not Reportable 03/14/21 05:33 Dohle Bodies Not Reportable 03/14/21 05:33 Pelger-Huet Anomaly Not Reportable 03/14/21 05:33 Kaela Rods Not Reportable 03/14/21 05:33 Platelet Estimate Consistent w auto 03/14/21 05:33 Clumped Platelets Not Reportable 03/14/21 05:33 Plt Clumps, EDTA Not Reportable 03/14/21 05:33 Large Platelets Not Reportable 03/14/21 05:33 Giant Platelets Not Reportable 03/14/21 05:33 Platelet Satelliting Not Reportable 03/14/21 05:33 Plt Morphology Comment Not Reportable 03/14/21 05:33 RBC Morphology Not Reportable 03/14/21 05:33 Dimorphic RBCs Not Reportable 03/14/21 05:33 Polychromasia Not Reportable 03/14/21 05:33 Hypochromasia 1+ 03/14/21 05:33 Poikilocytosis 1+ 03/14/21 05:33 Anisocytosis 1+ 03/14/21 05:33 Microcytosis Few 03/14/21 05:33 Macrocytosis Not Reportable 03/14/21 05:33 Spherocytes Not Reportable 03/14/21 05:33 Pappenheimer Bodies Not Reportable 03/14/21 05:33 Sickle Cells Not Reportable 03/14/21 05:33 Target Cells Not Reportable 03/14/21 05:33 Tear Drop Cells Not Reportable 03/14/21 05:33 Ovalocytes Not Reportable 03/14/21 05:33 Helmet Cells Not Reportable 03/14/21 05:33 Hernandez-Seeley Bodies Not Reportable 03/14/21 05:33 [place] Rings Not Reportable 03/14/21 05:33 [place] Cells Not Reportable 03/14/21 05:33 Bite Cells Not Reportable 03/14/21 05:33 Crenated Cell Not Reportable 03/14/21 05:33 Elliptocytes Not Reportable 03/14/21 05:33 Acanthocytes (Spur) Not Reportable 03/14/21 05:33 Rouleaux Not Reportable 03/14/21 05:33 Hemoglobin C Crystals Not Reportable 03/14/21 05:33 Schistocytes Not Reportable 03/14/21 05:33 Malaria parasites Not Reportable 03/14/21 05:33 Ignacio Bodies Not Reportable 03/14/21 05:33 Hem Pathologist Commnt No 03/14/21 05:33 PT 13.9 Sec. (12.2-14.9) 03/09/21 11:21 INR 1.01 (0.87-1.13) 03/09/21 11:21 APTT 34.2 Sec. (24.2-36.6) 03/09/21 11:21 Thrombin Time 20.6 Sec. (15.1-19.6) H 03/09/21 11:21 Sodium 138 mmol/L (137-145) 03/14/21 05:33 Potassium 3.1 mmol/L (3.6-5.0) L 03/14/21 05:33 Chloride 96.0 mmol/L (98-107) L 03/14/21 05:33 Carbon Dioxide 23 mmol/L (22-30) 03/14/21 05:33 Anion Gap 22 mmol/L 03/14/21 05:33 BUN 18 mg/dL (7-17) H 03/14/21 05:33 Creatinine 4.7 mg/dL (0.6-1.2) H 03/14/21 05:33 Estimated GFR 12 ml/min 03/14/21 05:33 BUN/Creatinine Ratio 4 % 03/14/21 05:33 Glucose 71 mg/dL (65-100) 03/14/21 05:33 POC Glucose 88 mg/dL (70-105) 03/16/21 10:25 Calcium 10.5 mg/dL (8.4-10.2) H 03/14/21 05:33 Phosphorus 5.90 mg/dL (2.5-4.5) H 03/13/21 07:37 Total Bilirubin 0.20 mg/dL (0.1-1.2) 03/09/21 11:21 AST 29 units/L (5-40) 03/09/21 11:21 ALT 9 units/L (7-56) 03/09/21 11:21 Alkaline Phosphatase 157 units/L (35-129) H 03/09/21 11:21 Total Creatine Kinase 403 units/L (30-135) H 03/09/21 11:21 CK-MB (CK-2) 8.4 ng/mL (0.0-4.0) H 03/09/21 11:21 CK-MB (CK-2) Rel Index 2.0 (0-4) 03/09/21 11:21 Troponin T 0.473 ng/mL (0.00-0.029) H* 03/09/21 11:21 Total Protein 7.7 g/dL (6.3-8.2) 03/09/21 11:21 Albumin 3.7 g/dL (3.9-5) L 03/09/21 11:21 Albumin/Globulin Ratio 0.9 % 03/09/21 11:21 HCG, Qual Negative (Negative) 03/13/21 14:21 PTH Intact 19.00 pg/mL (15-65) 03/14/21 04:38 Urine Color Farnaz (Yellow) 03/09/21 11:50 Urine Turbidity Cloudy (Clear) 03/09/21 11:50 Urine pH 5.0 (5.0-7.0) 03/09/21 11:50 Ur Specific Stewart 1.023 (1.003-1.030) 03/09/21 11:50 Urine Protein >500 mg/dL (Negative) 03/09/21 11:50 Urine Glucose (UA) Neg mg/dL (Negative) 03/09/21 11:50 Urine Ketones Tr mg/dL (Negative) 03/09/21 11:50 Urine Blood Mod (Negative) 03/09/21 11:50 Urine Nitrite Neg (Negative) 03/09/21 11:50 Ur Reducing Substances Not Reportable 03/09/21 11:50 Urine Bilirubin Neg (Negative) 03/09/21 11:50 Urine Ictotest Not Reportable 03/09/21 11:50 Urine Urobilinogen < 2.0 mg/dL (<2.0) 03/09/21 11:50 Ur Leukocyte Esterase Neg (Negative) 03/09/21 11:50 Urine WBC (Auto) 20.0 /HPF (0.0-6.0) H 03/09/21 11:50 Urine RBC (Auto) 9.0 /HPF (0.0-6.0) 03/09/21 11:50 U Epithel Cells (Auto) 2.0 /HPF (0-13.0) 03/09/21 11:50 Urine WBC Clumps 2+ /HPF 03/09/21 11:50 Urine Mucus Few /HPF 03/09/21 11:50 Urine Yeast (Budding) 3+ /HPF 03/09/21 11:50 Plasma/Serum Alcohol < 0.01 % (0-0.07) 03/09/21 11:21 Coronavirus (PCR) Negative (Negative) 03/13/21 08:30 Hepatitis A IgM Ab Non-reactive (NonReactive) 03/11/21 16:28 Hep Bs Antigen Reactive (Negative) 03/11/21 16:28 Hep B Core IgM Ab Non-reactive (NonReactive) 03/11/21 16:28 Hepatitis C Antibody Non-reactive (NonReactive) 03/11/21 16:28 Robertson/IV: Voiding Method Incontinent Active Medications - Current Medications Current Medications: Generic Name Dose Route Start Last Admin Trade Name Freq PRN Reason Stop Dose Admin Acetaminophen 650 mg 03/09/21 14:52 03/14/21 22:04 Acetaminophen 325 Mg Tab PO 650 mg Q4H PRN Administration Pain, Mild (1-3) Acetaminophen/Butalbital/Caffeine 2 tab 03/09/21 14:28 03/14/21 22:10 Butalb/Acetaminophen/Caffeine Tab PO 2 tab Q8H PRN Administration Headache Lipase/Protease/Amylase 1 each 03/12/21 12:04 Lipase 10,500/Protease 25,000/Amylase 43,750 (Units) Dr Lee FEEDTUBE PRN PRN For Clogged Feeding Tube Atorvastatin Calcium 40 mg 03/09/21 22:00 03/15/21 22:21 Atorvastatin 40 Mg Tab PO 40 mg QHS LEOLA Administration Bisacodyl 10 mg 03/09/21 15:52 03/12/21 16:11 Bisacodyl 10 Mg Rect Supp [place] 10 mg QDAY PRN Administration Constipation Clonidine HCl 0.3 mg 03/17/21 10:00 Clonidine Tts 0.3 Mg/24 Hr Patch TD Mo LEOLA Heparin Sodium (Porcine) 5,000 unit 03/09/21 22:00 03/16/21 10:55 Heparin 5,000 Unit/1 Ml Vial SUB-Q 5,000 unit Q12HR LEOLA Administration Heparin Sodium (Porcine) 2,000 unit 03/11/21 14:25 Heparin 10,000 Units/10 Ml Vial IV JUAN C PRN hemodialysis Hydralazine HCl 10 mg 03/16/21 05:41 03/16/21 06:12 Hydralazine 20 Mg/1 Ml Inj IV 10 mg Q6HR PRN Administration Hypertension Hydralazine HCl 25 mg 03/16/21 06:00 03/16/21 06:21 Hydralazine 25 Mg Tab PO Not Given Q8HR LEOLA Hydromorphone HCl 0.5 mg 03/09/21 14:52 Hydromorphone 1 Mg/1 Ml Inj IV Q12H PRN Pain , Severe (7-10) Sodium Chloride 100 mls @ 999 mls/hr 03/11/21 14:25 Nacl 0.9% IV JUAN C PRN Hypotension Sodium Chloride 1,000 mls @ 50 mls/hr 03/13/21 11:00 03/15/21 12:09 Nacl 0.9% 1000 Ml IV 50 mls/hr DIRECT LEOLA Administration Levetiracetam 500 mg 03/15/21 13:00 03/16/21 10:55 Levetiracetam 500 Mg/5 Ml Oral Liqd PO 500 mg BID LEOLA Administration Lidocaine HCl 30 ml 03/09/21 14:28 Magic Mouthwash 30ml MM Q4H PRN Sore Throat Magnesium Hydroxide 30 ml 03/09/21 14:52 Magnesium Hydroxide (Mom) Oral Liqd Udc PO Q4H PRN Constipation Metoclopramide HCl 10 mg 03/09/21 14:52 Metoclopramide 10 Mg Tab PO Q6H PRN Nausea And Vomiting Metoprolol Tartrate 100 mg 03/13/21 18:00 03/16/21 10:55 Metoprolol Tartrate 100 Mg Tab PO 100 mg BID LEOLA Administration Nifedipine 60 mg 03/16/21 10:00 03/16/21 10:55 Nifedipine Xl 60 Mg Tab PO 60 mg DAILY LEOLA Administration Ondansetron HCl 4 mg 03/09/21 14:52 Ondansetron 4 Mg/2 Ml Inj IV Q8H PRN Nausea And Vomiting Prednisone 80 mg 03/14/21 10:00 03/16/21 10:55 Prednisone 20 Mg Tab PO 80 mg QDAY LEOLA Administration Promethazine HCl 25 mg 03/09/21 14:52 Promethazine 25 Mg Rect Supp [place] Q6H PRN Nausea And Vomiting Simple Syrup 15 ml 03/12/21 12:04 03/14/21 05:38 Simple Syrup 15 Ml FEEDTUBE 15 ml PRN PRN Administration Hypoglycemia Simple Syrup 30 ml 03/12/21 12:04 Simple Syrup 15 Ml FEEDTUBE PRN PRN Hypoglycemia Sodium Bicarbonate 325 mg 03/12/21 12:04 Sodium Bicarbonate 325 Mg Tab FEEDTUBE PRN PRN For Clogged Feeding Tube Sodium Chloride 10 ml 03/09/21 14:52 03/14/21 22:13 Sodium Chloride 0.9% 10 Ml Flush Syringe IV 10 ml PRN PRN Administration LINE FLUSH Nutrition/Malnutrition Assess - Dietary Evaluation Nutrition/Malnutrition Findings: Nutrition Notes Start: 03/10/21 14:05 Freq: Status: Active Protocol: Document 03/14/21 14:02 AB (Rec: 03/14/21 14:03 AB [id number]) Nutrition Notes Need for Assessment generated from: MD Order Initial or Follow up Brief Note Current Diagnosis CKD (stage V CKD),Stroke Other Pertinent Diagnosis encephalopathy, SLE, seizure disorder, UTI Current Diet NPO Subjective/Other Information MD order for post PEG. RN states no orders to restart TF . Will reorder TF upon TF consult. Nutrition Intervention Nutrition Support: Nepro at 30 ml/hr with a free water flush of 130 ml q4h Kcal 1,296 Protein (gm) 58 Fluid (mL) 524 Follow-Up By: 03/17/21 Additional Comments FU for TF restart
[2021-03-16] MEDS: HYDROmorphone 1 MG/1 ML INJ IV PRN (16:09)
[2021-03-16] MEDS: BUTALB/ACETAMINOPHEN/CAFFEINE TAB PO PRN (22:22)
[2021-03-17] MEDS: hydrALAZINE 25 MG TAB PO SCH ×4 (06:03→22:37)
[2021-03-17] MEDS: hydrALAZINE 20 MG/1 ML INJ IV PRN (06:04)
--- NOTE | 2021-03-17 08:02 | Discharge Summary ---
Providers - Providers Date of Admission: 03/10/21 13:48 Attending physician: LAUREN CARTWRIGHT MD 03/09/21 14:52 Consult to Case Management [CONS] Routine Services Needed at Discharge: Outside Sales Professional Notified:: in am Additional Physician Instructions: D/C Planning/SNF Placement Occupational Therapy Evaluate and Treat [CONS] Routine Comment: Reason For Exam: Neuro deficits Physical Therapy Evaluation and Treat [CONS] Routine Comment: Reason For Exam: Neuro deficits 03/09/21 14:53 Speech Therapy Evaluation and Treat [CONS] Routine Reason For Exam: swallow eval 03/09/21 17:28 Consult to Physician [CONS] Routine Comment: Consulting Provider: SHRADDHA FRIAS Physician Instructions: Reason For Exam: esrd 03/12/21 12:04 Consult to Dietitian/Nutrition [CONS] Routine Physician Instructions: Assess nutrtn needs, initiate, modify, manage TF Reason For Exam: Reason for Consult: Write/Manage Tube Feeding Reason for Consult: Write/Manage Tube Feeding 03/12/21 12:05 Consult to Physician [CONS] Routine Comment: Consulting Provider: RICK GARNER Physician Instructions: Reason For Exam: dysphagia need PEG 03/12/21 12:26 Consult to Physician [CONS] Routine Comment: Consulting Provider: BOO LUU Physician Instructions: Reason For Exam: acute CVA 03/13/21 16:25 Consult to Dietitian/Nutrition [CONS] Routine Physician Instructions: Reason For Exam: Reason for Consult: post-peg Primary care physician: STOCK SHIPPER Hospitalization Reason for admission: CVA Condition: Stable Hospital course: The patient is a 45 YO female with history significant for HTN, Seizure Disorder, SLE, Nicotine Dependence, Malnutrition and ESRD on hemodialysis (MWF) who presented to [facility] ED 03/09 with increased confusion as well as 2 witnessed seizures while at home. A code stroke was called and the patient was found to have UTI, metabolic encephalopathy, end-stage renal disease, and accelerated hypertension. Patient was admitted to telemetry and initiated on stroke protocol. At present patient actively being hemodialyzed. Still evidence of increased confusion. Patient found to have urinary tract infection actively being treated. : Patient with significant aphasia/nonverbal, unable to move right side, wait for nephrology evaluation for hemodialysis, MRI pending, will initiate D10W at 42 mils per hour as patient with history of end-stage dialysis will minimize IV fluid. Ordered for speech PT OT eval. will consult neurology following MRI results. Patient is unable to swallow so we will change aspirin per rectal. 03/11/21: MRI showed L thalamus and L temporal area subacute infarct. pending speech eval. cont iv fluid, order for Tf and dobhoff if fails speech eval. neuro consult. continue supportive care. HD per renal. monitor BP -adjust meds, follow BMP/CBC 03/12/21: pending TF, noted neuro recommendation: initiate aspirin with plavix. cont [place] aspirin till dobhoff/peg placemnet. CM working on placement. Updated daughter for details by phone. follow BMP. monitor vitals 03/13/2021 patient today actively receiving hemodialysis. Patient was nonverbal not answering any questions. Could not complete hemodialysis secondary to hypotension in which patient required a bolus. Patient is now planning on going down to receive PEG placement. Will update daughter after procedure complete. 03/14/2021. Patient remains nonverbal encephalopathic today. Does move all extremities. Tolerated PEG tube feedings well. 03/15/21 patient actively being dialyzed today. Remains encephalopathic. A bit more attentive today. Patient did follow me with eyes. PEG tube functioning well. 03/16: Continue supportive care, awaiting Hospice per family request as documented by case management, repeat BMP AND CBC 03/17: Patient seen and examined again this morning definitely appears older than stated age emaciated not following any commands still speaking but moves around. Discussed with nursing staff at bedside patient not interactive with them. I have resumed the aspirin and the Plavix that was probably held for PEG tube. My understanding is that the family would like to take the patient home with home health but per case management they have requested hospice. I have tried to call them to see if they understand that this needs no dialysis with tube feeds unless approved by the hospice but unfortunately unable to get either the daughter or the father. Nevertheless blood pressure has improved patient needs to be monitored closely on dialysis days to ensure no hypotension. Clinical condition at this time is stable - Acute CVA (cerebrovascular accident) Admitted with CVA protocol: CT head, CTA head, CTA neck, showed no acute process MRI showed L thalamus and L temporal area subacute infarct. 2d echo showed preserved EF, carotid doppler showed <50% ordered antiplatelet and statin therapy, physical therapy consulted, Occupational Therapy consulted, speech therapy consulted, telemetry neurology consulted in ED, s/p permissive hypertension overnight. Now could be more aggressive with BP. PT to evaluate for care home facility --Dysphagia Patient unable to speak and has significant dysphagia clinically: placed on D10W Patient to receive PEG tube today. Patient tolerating PEG tube feedings well. No abdominal pain bowel sounds unremarkable. -- UTI (urinary tract infection) IV antibiotic therapy, resolved. Stable to go to nursing facility without antibiotics. --Seizure disorder Continue Keppra can change to p.o. now No active seizure. Increased risk secondary to CVA. --SIRS, with elevated white count, tachycardia and tachypnea cont to monitor for now, likely aspiration pneumonitis No evidence of sepsis at this time. Has resolved now. -- Metabolic encephalopathy Secondary to CVA continue neuro check, seizure precautions, supportive care. Remains encephalopathic at this time. Will follow with eyes not speaking. -- ESRD (end stage renal disease) Nephrology team consulted in ED. Patient actively being dialyzed today.. Was complicated by episode of hypotension requiring a bolus. -- Hypertensive urgency, malignant Should improve medical management once PEG tube has been placed we can use metoprolol through the tube. Remain suboptimal will advance metoprolol. Add amlodipine. After hemodialysis. -- Severe malnutrition Increase protein intake when awake and alert only, dietary supplementation D10W for now, consulted GI for PEG placement --bacterial conjuctivitis: ordered erythromycin ointment Disposition: [id number] HOME UNDER HOME [facility] Final Discharge Diagnosis (Prints w/discharge instructions): Acute CVA Time spent for discharge: 35 MINS Core Measure Documentation - Palliative Care Palliative Care/ Comfort Measures: Palliative Care/Comfort Measures - Core Measures Any of the following diagnoses?: none Exam - Physical Exam Narrative exam: General appearance: Present: no acute distress - EENT Eyes: PERRL, EOM intact - Respiratory Respiratory: bilateral: CTA - Breasts Breasts: normal - Cardiovascular Rhythm: regular Extremities: pulses intact, No edema, normal color, Full ROM - Gastrointestinal General gastrointestinal: Present: soft, non-tender, non-distended, normal bowel sounds, other (PEG tube) - Musculoskeletal Musculoskeletal: right sided weakness, generalized weakness - Neurologic Neurologic: other (Encephalopathic) - Constitutional Vitals: Temp Pulse Resp BP Pulse Ox 97.8 F 69 18 172/106 100 03/17/21 05:55 03/17/21 06:04 03/17/21 05:55 03/17/21 06:04 03/17/21 05:55 Plan Activity: advance as tolerated, fall precautions Diet: per dietitian instruction Special Instructions: record daily weights, record daily BP diary, record blood sugar diary, physical therapy, occupational therapy, home health RN Follow up with: PRIMARY CARE, [Primary Care Provider] - 7 Days SHRADDHA FRIAS MD [Staff Physician] - 7 Days YOANDY LEDEZMA MD [Staff Physician] - 7 Days MINE GLOVER MD [Staff Physician] - 7 Days Prescriptions: AtorvaSTATin [Lipitor] 40 mg PO QHS #30 tablet hydrALAZINE [Apresoline TAB] 50 mg PO Q8HR #90 tablet Aspirin [Aspirin BABY CHEW TAB] 81 mg PO QDAY #30 tab.chew cloNIDine [Catapres] 0.2 mg PO TID #90 tablet bisacodyL [Dulcolax suppos] 10 mg CA QDAY PRN #10 supp.rect PRN Reason: Constipation Butalb/Acetamin/Caff 50-325-40 [Fioricet 50-325-40] 2 tab PO Q8HR PRN #20 tablet PRN Reason: Headache Hydralazine HCl 50 mg PO TID #90 tablet levETIRAcetam [Keppra] 500 mg PO BID 30 Days oral.liqd Metoprolol [Lopressor TAB] 100 mg PO BID #60 tablet oxyCODONE /ACETAMINOPHEN [Percocet 5/325 mg] 1 tab PO Q6HR PRN #14 PRN Reason: Pain Clopidogrel [Plavix] 75 mg PO QDAY #30 tablet NIFEdipine XL [Procardia Xl] 60 mg PO DAILY #30 tablet Metoclopramide [Reglan TAB] 10 mg PO Q6H PRN #14 tablet PRN Reason: Nausea And Vomiting chlorproMAZINE [Thorazine] 25 mg PO Q4H PRN #10 PRN Reason: Itching
[2021-03-17 09:56] LABS: Hematocrit 39.1 % (30.3-42.9); Hemoglobin 12.4 gm/dl (10.1-14.3); Mean Corpuscular HGB Conc 32 % (30-34); Mean Corpuscular Volume 83 fl (79-97); Platelet Count 247 K/mm3 (140-440); Red Blood Count 4.73 M/mm3 (3.65-5.03); Red Cell Distribution Width 19.4 % (13.2-15.2)
[2021-03-17] MEDS ORDERED: cloNIDine TTS 0.3 MG/24 HR PATCH TD SCH (10:00)
[2021-03-17 10:18] LABS: Calcium 10.6 mg/dL (8.4-10.2)
[2021-03-17] MEDS: METOPROLOL TARTRATE 100 MG TAB PO SCH ×2 (10:20→22:38)
[2021-03-17] MEDS: NIFEdipine XL 60 MG TAB PO SCH (10:25)
[2021-03-17] MEDS: ASPIRIN 81 MG TAB CHEW PO SCH (10:25)
[2021-03-17] MEDS: levETIRAcetam 500 MG/5 ML ORAL LIQD PO SCH ×2 (10:25→22:38)
[2021-03-17] MEDS: predniSONE 20 MG TAB PO SCH (10:25)
[2021-03-17] MEDS: CLOPIDOGREL 75 MG TAB PO SCH (10:25)
[2021-03-17] MEDS: HEPARIN 5,000 UNIT/1 ML VIAL SUB-Q SCH ×2 (10:26→22:38)
--- NOTE | 2021-03-17 13:56 | Progress Note ---
Assessment and Plan 1. ESRD: Patient on maintenance hemodialysis three times a week, outpatinet schedule, MWF. Meds dosage based on GFR. Hemodialysis: 03/11, 03/13, 03/15. HD today. 2. FEN: Hypercalemia, low Ca bath with HD. Low PTH level. Monitor lytes and volume status. 3. Acute metabolic encephalopathy, POA: Likely 2/2 CVA. Monitor. 4. Acute CVA: Seen by Neuro. Per primary. 5. UTI, POA: S/p Abx. 6. Hypertensive urgency: Adjust meds. Monitor BP. 7. Dysphagia / Malnutrition / AFTT: S/p PEG tube. 8. Hypoglycemia. Subjective: Patient was seen and examined at the bedside. General Appearance: General appearance: well-developed, appears stated age, appears emaciated, not in distress HEENT: ATNC, pupils equal, b/l conjunctival erythema noted Neck: trachea midline Respiratory: ctab Heart: regular, S1S2, no murmur Abdomen: soft, bowel sounds heard, not tender, PEG tube Integumentary: no rash, warm and dry Neurologic: alert, not following any command, not conversing, moving LEs and L UE Ext: no edema Hemodialysis access: R IJ tunnel catheter Subjective Date of service: 03/17/21 Principal diagnosis: CVA Objective - Vital Signs Vital signs: Vital Signs - 12hr 03/17/21 03/17/21 03/17/21 05:55 06:03 06:04 Temperature 97.8 F Pulse Rate 69 69 69 Respiratory 18 Rate Blood Pressure 172/106 172/106 Blood Pressure 172/106 [Left] O2 Sat by Pulse 100 Oximetry 03/17/21 03/17/21 03/17/21 10:20 10:24 11:22 Temperature 98.4 F Pulse Rate 79 79 83 Respiratory 18 Rate Blood Pressure Blood Pressure 130/85 [Left] O2 Sat by Pulse 100 Oximetry - Lab 03/17/21 09:11 03/17/21 09:11 Most recent lab results Calcium 10.6 mg/dL (8.4-10.2) H 03/17/21 09:11 Phosphorus 5.90 mg/dL (2.5-4.5) H 03/13/21 07:37 Medications & Allergies - Medications Allergies/Adverse Reactions: Allergies No Known Allergies Allergy (Verified 03/09/21 13:06) Home Medications: Home Medications Medication Instructions Recorded Confirmed Last Taken Type predniSONE [Deltasone] 80 mg PO QDAY #20 tab 11/25/17 Unknown Rx Hydromorphone HCl [Exalgo] 8 mg PO 12/18/19 Unknown History Torsemide [Demadex] 12/18/19 Unknown History Venlafaxine [Effexor 37.5mg tab] 12/18/19 Unknown History Nystas/Diphen/Xyl Visc/Mylanta 30 ml MM Q4H PRN 14 Days 12/20/19 Unknown Rx [Magic Mouthwash] levETIRAcetam [Keppra TAB] 500 mg PO BID #60 tablet 12/20/19 Unknown Rx oxyCODONE /ACETAMINOPHEN [Percocet 1 tab PO QHS PRN #7 tablet 12/20/19 Unknown Rx 5/325 mg] AtorvaSTATin [Lipitor] 40 mg PO QHS #30 tablet 03/16/21 Unknown Rx Butalb/Acetamin/Caff 50-325-40 2 tab PO Q8HR PRN #20 tablet 03/16/21 Unknown Rx [Fioricet 50-325-40] Metoclopramide [Reglan TAB] 10 mg PO Q6H PRN #14 tablet 03/16/21 Unknown Rx Metoprolol [Lopressor TAB] 100 mg PO BID #60 tablet 03/16/21 Unknown Rx NIFEdipine XL [Procardia Xl] 60 mg PO DAILY #30 tablet 03/16/21 Unknown Rx bisacodyL [Dulcolax suppos] 10 mg UT QDAY PRN #10 supp.rect 03/16/21 Unknown Rx chlorproMAZINE [Thorazine] 25 mg PO Q4H PRN #10 03/16/21 Unknown Rx hydrALAZINE [Apresoline TAB] 50 mg PO Q8HR #90 tablet 03/16/21 Unknown Rx levETIRAcetam [Keppra] 500 mg PO BID 30 Days oral.liqd 03/16/21 Unknown Rx oxyCODONE /ACETAMINOPHEN [Percocet 1 tab PO Q6HR PRN #14 03/16/21 Unknown Rx 5/325 mg] Aspirin [Aspirin BABY CHEW TAB] 81 mg PO QDAY #30 tab.chew 03/17/21 Unknown Rx Clopidogrel [Plavix] 75 mg PO QDAY #30 tablet 03/17/21 Unknown Rx Hydralazine HCl 50 mg PO TID #90 tablet 03/17/21 Unknown Rx cloNIDine [Catapres] 0.2 mg PO TID #90 tablet 03/17/21 Unknown Rx Active Medications: Generic Name Dose Route Start Last Admin Trade Name Freq PRN Reason Stop Dose Admin Acetaminophen 650 mg 03/09/21 14:52 03/14/21 22:04 Acetaminophen 325 Mg Tab PO 650 mg Q4H PRN Administration Pain, Mild (1-3) Acetaminophen/Butalbital/Caffeine 2 tab 03/09/21 14:28 03/16/21 22:22 Butalb/Acetaminophen/Caffeine Tab PO 2 tab Q8H PRN Administration Headache Lipase/Protease/Amylase 1 each 03/12/21 12:04 Lipase 10,500/Protease 25,000/Amylase 43,750 (Units) Dr Lee FEEDTUBE PRN PRN For Clogged Feeding Tube Aspirin 81 mg 03/17/21 10:00 03/17/21 10:25 Aspirin 81 Mg Tab Chew PO 81 mg QDAY LEOLA Administration Atorvastatin Calcium 40 mg 03/09/21 22:00 03/16/21 22:22 Atorvastatin 40 Mg Tab PO 40 mg QHS LEOLA Administration Bisacodyl 10 mg 03/09/21 15:52 03/12/21 16:11 Bisacodyl 10 Mg Rect Supp UT 10 mg QDAY PRN Administration Constipation Clonidine HCl 0.2 mg 03/17/21 09:00 Clonidine 0.2 Mg Tab PO TID LEOLA Clopidogrel Bisulfate 75 mg 03/17/21 10:00 03/17/21 10:25 Clopidogrel 75 Mg Tab PO 75 mg QDAY LEOLA Administration Heparin Sodium (Porcine) 5,000 unit 03/09/21 22:00 03/17/21 10:26 Heparin 5,000 Unit/1 Ml Vial SUB-Q 5,000 unit Q12HR LEOLA Administration Heparin Sodium (Porcine) 2,000 unit 03/11/21 14:25 Heparin 10,000 Units/10 Ml Vial IV JUAN C PRN hemodialysis Hydralazine HCl 10 mg 03/16/21 05:41 03/17/21 06:04 Hydralazine 20 Mg/1 Ml Inj IV 10 mg Q6HR PRN Administration Hypertension Hydralazine HCl 50 mg 03/17/21 09:00 03/17/21 10:24 Hydralazine 25 Mg Tab PO 50 mg Q8HR LEOLA Administration Hydromorphone HCl 0.5 mg 03/09/21 14:52 03/16/21 16:09 Hydromorphone 1 Mg/1 Ml Inj IV 0.5 mg Q12H PRN Administration Pain , Severe (7-10) Sodium Chloride 100 mls @ 999 mls/hr 03/11/21 14:25 Nacl 0.9% IV JUAN C PRN Hypotension Sodium Chloride 1,000 mls @ 50 mls/hr 03/13/21 11:00 03/15/21 12:09 Nacl 0.9% 1000 Ml IV 50 mls/hr DIRECT LEOLA Administration Levetiracetam 500 mg 03/15/21 13:00 03/17/21 10:25 Levetiracetam 500 Mg/5 Ml Oral Liqd PO 500 mg BID LEOLA Administration Lidocaine HCl 30 ml 03/09/21 14:28 Magic Mouthwash 30ml MM Q4H PRN Sore Throat Magnesium Hydroxide 30 ml 03/09/21 14:52 Magnesium Hydroxide (Mom) Oral Liqd Udc PO Q4H PRN Constipation Metoclopramide HCl 10 mg 03/09/21 14:52 Metoclopramide 10 Mg Tab PO Q6H PRN Nausea And Vomiting Metoprolol Tartrate 100 mg 03/13/21 18:00 03/17/21 10:20 Metoprolol Tartrate 100 Mg Tab PO 100 mg BID LEOLA Administration Nifedipine 60 mg 03/16/21 10:00 03/17/21 10:25 Nifedipine Xl 60 Mg Tab PO 60 mg DAILY LEOLA Administration Ondansetron HCl 4 mg 03/09/21 14:52 Ondansetron 4 Mg/2 Ml Inj IV Q8H PRN Nausea And Vomiting Prednisone 80 mg 03/14/21 10:00 03/17/21 10:25 Prednisone 20 Mg Tab PO 80 mg QDAY LEOLA Administration Promethazine HCl 25 mg 03/09/21 14:52 Promethazine 25 Mg Rect Supp UT Q6H PRN Nausea And Vomiting Simple Syrup 15 ml 03/12/21 12:04 03/14/21 05:38 Simple Syrup 15 Ml FEEDTUBE 15 ml PRN PRN Administration Hypoglycemia Simple Syrup 30 ml 03/12/21 12:04 Simple Syrup 15 Ml FEEDTUBE PRN PRN Hypoglycemia Sodium Bicarbonate 325 mg 03/12/21 12:04 Sodium Bicarbonate 325 Mg Tab FEEDTUBE PRN PRN For Clogged Feeding Tube Sodium Chloride 10 ml 03/09/21 14:52 03/17/21 06:04 Sodium Chloride 0.9% 10 Ml Flush Syringe IV 10 ml PRN PRN Administration LINE FLUSH
[2021-03-17] MEDS: cloNIDine 0.2 MG TAB PO SCH ×3 (14:00→22:48)
[2021-03-18] MEDS: hydrALAZINE 25 MG TAB PO SCH ×3 (05:56→22:22)
[2021-03-18] MEDS: cloNIDine 0.2 MG TAB PO SCH ×3 (08:15→22:22)
--- NOTE | 2021-03-18 09:13 | Progress Note ---
Assessment and Plan 1. ESRD: Patient on maintenance hemodialysis three times a week, outpatinet schedule, MWF. Meds dosage based on GFR. Hemodialysis: 03/11, 03/13, 03/15, 03/17. 2. FEN: Hypercalemia, low Ca bath with HD. Low PTH level. Monitor lytes and volume status. 3. Acute metabolic encephalopathy, POA: Likely 2/2 CVA. Monitor. 4. Acute CVA: Seen by Neuro. Per primary. 5. UTI, POA: S/p Abx. 6. Hypertensive urgency: Adjust meds. Monitor BP. 7. Dysphagia / Malnutrition / AFTT: S/p PEG tube. 8. Hypoglycemia: Improved. Subjective: Patient was seen and examined at the bedside. General Appearance: General appearance: well-developed, appears stated age, appears emaciated, not in distress HEENT: ATNC, pupils equal, b/l conjunctival erythema noted Neck: trachea midline Respiratory: ctab Heart: regular, S1S2, no murmur Abdomen: soft, bowel sounds heard, not tender, PEG tube Integumentary: no rash, warm and dry Neurologic: alert, not following any command, not conversing, moving LEs and L UE Ext: no edema Hemodialysis access: R IJ tunnel catheter Subjective Date of service: 03/18/21 Principal diagnosis: CVA Objective - Vital Signs Vital signs: Vital Signs - 12hr 03/17/21 03/17/21 03/17/21 22:00 22:37 22:38 Temperature Pulse Rate 86 Respiratory Rate Blood Pressure 145/93 145/93 O2 Sat by Pulse 96 Oximetry 03/17/21 03/18/21 03/18/21 23:09 03:42 05:56 Temperature 98.4 F 98.2 F Pulse Rate 89 68 Respiratory 16 17 Rate Blood Pressure 137/84 152/92 152/92 O2 Sat by Pulse 98 97 Oximetry - Lab 03/17/21 09:11 03/17/21 09:11 Most recent lab results Calcium 10.6 mg/dL (8.4-10.2) H 03/17/21 09:11 Phosphorus 5.90 mg/dL (2.5-4.5) H 03/13/21 07:37 Medications & Allergies - Medications Allergies/Adverse Reactions: Allergies No Known Allergies Allergy (Verified 03/09/21 13:06) Home Medications: Home Medications Medication Instructions Recorded Confirmed Last Taken Type predniSONE [Deltasone] 80 mg PO QDAY #20 tab 11/25/17 Unknown Rx Hydromorphone HCl [Exalgo] 8 mg PO 12/18/19 Unknown History Torsemide [Demadex] 12/18/19 Unknown History Venlafaxine [Effexor 37.5mg tab] 12/18/19 Unknown History Nystas/Diphen/Xyl Visc/Mylanta 30 ml MM Q4H PRN 14 Days 12/20/19 Unknown Rx [Magic Mouthwash] levETIRAcetam [Keppra TAB] 500 mg PO BID #60 tablet 12/20/19 Unknown Rx oxyCODONE /ACETAMINOPHEN [Percocet 1 tab PO QHS PRN #7 tablet 12/20/19 Unknown Rx 5/325 mg] AtorvaSTATin [Lipitor] 40 mg PO QHS #30 tablet 03/16/21 Unknown Rx Butalb/Acetamin/Caff 50-325-40 2 tab PO Q8HR PRN #20 tablet 03/16/21 Unknown Rx [Fioricet 50-325-40] Metoclopramide [Reglan TAB] 10 mg PO Q6H PRN #14 tablet 03/16/21 Unknown Rx Metoprolol [Lopressor TAB] 100 mg PO BID #60 tablet 03/16/21 Unknown Rx NIFEdipine XL [Procardia Xl] 60 mg PO DAILY #30 tablet 03/16/21 Unknown Rx bisacodyL [Dulcolax suppos] 10 mg NE QDAY PRN #10 supp.rect 03/16/21 Unknown Rx chlorproMAZINE [Thorazine] 25 mg PO Q4H PRN #10 03/16/21 Unknown Rx hydrALAZINE [Apresoline TAB] 50 mg PO Q8HR #90 tablet 03/16/21 Unknown Rx levETIRAcetam [Keppra] 500 mg PO BID 30 Days oral.liqd 03/16/21 Unknown Rx oxyCODONE /ACETAMINOPHEN [Percocet 1 tab PO Q6HR PRN #14 03/16/21 Unknown Rx 5/325 mg] Aspirin [Aspirin BABY CHEW TAB] 81 mg PO QDAY #30 tab.chew 03/17/21 Unknown Rx Clopidogrel [Plavix] 75 mg PO QDAY #30 tablet 03/17/21 Unknown Rx Hydralazine HCl 50 mg PO TID #90 tablet 03/17/21 Unknown Rx cloNIDine [Catapres] 0.2 mg PO TID #90 tablet 03/17/21 Unknown Rx Active Medications: Generic Name Dose Route Start Last Admin Trade Name Freq PRN Reason Stop Dose Admin Acetaminophen 650 mg 03/09/21 14:52 03/14/21 22:04 Acetaminophen 325 Mg Tab PO 650 mg Q4H PRN Administration Pain, Mild (1-3) Acetaminophen/Butalbital/Caffeine 2 tab 03/09/21 14:28 03/16/21 22:22 Butalb/Acetaminophen/Caffeine Tab PO 2 tab Q8H PRN Administration Headache Lipase/Protease/Amylase 1 each 03/12/21 12:04 Lipase 10,500/Protease 25,000/Amylase 43,750 (Units) Dr Lee FEEDTUBE PRN PRN For Clogged Feeding Tube Aspirin 81 mg 03/17/21 10:00 03/17/21 10:25 Aspirin 81 Mg Tab Chew PO 81 mg QDAY LEOLA Administration Atorvastatin Calcium 40 mg 03/09/21 22:00 03/17/21 22:38 Atorvastatin 40 Mg Tab PO 40 mg QHS LEOLA Administration Bisacodyl 10 mg 03/09/21 15:52 03/12/21 16:11 Bisacodyl 10 Mg Rect Supp NE 10 mg QDAY PRN Administration Constipation Clonidine HCl 0.2 mg 03/17/21 09:00 03/17/21 22:48 Clonidine 0.2 Mg Tab PO Not Given TID LEOLA Clopidogrel Bisulfate 75 mg 03/17/21 10:00 03/17/21 10:25 Clopidogrel 75 Mg Tab PO 75 mg QDAY LEOLA Administration Heparin Sodium (Porcine) 5,000 unit 03/09/21 22:00 03/17/21 22:38 Heparin 5,000 Unit/1 Ml Vial SUB-Q 5,000 unit Q12HR LEOLA Administration Heparin Sodium (Porcine) 2,000 unit 03/11/21 14:25 Heparin 10,000 Units/10 Ml Vial IV JUAN C PRN hemodialysis Hydralazine HCl 10 mg 03/16/21 05:41 03/17/21 06:04 Hydralazine 20 Mg/1 Ml Inj IV 10 mg Q6HR PRN Administration Hypertension Hydralazine HCl 50 mg 03/17/21 09:00 03/18/21 05:56 Hydralazine 25 Mg Tab PO 50 mg Q8HR LEOLA Administration Hydromorphone HCl 0.5 mg 03/09/21 14:52 03/16/21 16:09 Hydromorphone 1 Mg/1 Ml Inj IV 0.5 mg Q12H PRN Administration Pain , Severe (7-10) Sodium Chloride 100 mls @ 999 mls/hr 03/11/21 14:25 Nacl 0.9% IV JUAN C PRN Hypotension Sodium Chloride 1,000 mls @ 50 mls/hr 03/13/21 11:00 03/15/21 12:09 Nacl 0.9% 1000 Ml IV 50 mls/hr DIRECT LEOLA Administration Levetiracetam 500 mg 03/15/21 13:00 03/17/21 22:38 Levetiracetam 500 Mg/5 Ml Oral Liqd PO 500 mg BID LEOLA Administration Lidocaine HCl 30 ml 03/09/21 14:28 Magic Mouthwash 30ml MM Q4H PRN Sore Throat Magnesium Hydroxide 30 ml 03/09/21 14:52 Magnesium Hydroxide (Mom) Oral Liqd Udc PO Q4H PRN Constipation Metoclopramide HCl 10 mg 03/09/21 14:52 Metoclopramide 10 Mg Tab PO Q6H PRN Nausea And Vomiting Metoprolol Tartrate 100 mg 03/13/21 18:00 03/17/21 22:38 Metoprolol Tartrate 100 Mg Tab PO 100 mg BID LEOLA Administration Nifedipine 60 mg 03/16/21 10:00 03/17/21 10:25 Nifedipine Xl 60 Mg Tab PO 60 mg DAILY LEOLA Administration Ondansetron HCl 4 mg 03/09/21 14:52 Ondansetron 4 Mg/2 Ml Inj IV Q8H PRN Nausea And Vomiting Prednisone 80 mg 03/14/21 10:00 03/17/21 10:25 Prednisone 20 Mg Tab PO 80 mg QDAY LEOLA Administration Promethazine HCl 25 mg 03/09/21 14:52 Promethazine 25 Mg Rect Supp NE Q6H PRN Nausea And Vomiting Simple Syrup 15 ml 03/12/21 12:04 03/14/21 05:38 Simple Syrup 15 Ml FEEDTUBE 15 ml PRN PRN Administration Hypoglycemia Simple Syrup 30 ml 03/12/21 12:04 Simple Syrup 15 Ml FEEDTUBE PRN PRN Hypoglycemia Sodium Bicarbonate 325 mg 03/12/21 12:04 Sodium Bicarbonate 325 Mg Tab FEEDTUBE PRN PRN For Clogged Feeding Tube Sodium Chloride 10 ml 03/09/21 14:52 03/17/21 06:04 Sodium Chloride 0.9% 10 Ml Flush Syringe IV 10 ml PRN PRN Administration LINE FLUSH
--- NOTE | 2021-03-18 09:56 | Progress Note ---
Assessment and Plan Assessment and plan: The patient is a 45 YO female with history significant for HTN, Seizure Disorder, SLE, Nicotine Dependence, Malnutrition and ESRD on hemodialysis (MWF) who [facility] with increased confusion as well as 2 witnessed seizures while at home. A code stroke was called and the patient was found to have UTI, metabolic encephalopathy, end-stage renal disease, and accelerated hypertension. Patient was admitted to telemetry and initiated on stroke protocol. At present patient actively being hemodialyzed. Still evidence of increased confusion. Patient found to have urinary tract infection actively being treated. : Patient with significant aphasia/nonverbal, unable to move right side, wait for nephrology evaluation for hemodialysis, MRI pending, will initiate D10W at 42 mils per hour as patient with history of end-stage dialysis will minimize IV fluid. Ordered for speech PT OT eval. will consult neurology following MRI results. Patient is unable to swallow so we will change aspirin per rectal. 03/11/21: MRI showed L thalamus and L temporal area subacute infarct. pending sp eech eval. cont iv fluid, order for Tf and dobhoff if fails speech eval. neuro consult. continue supportive care. HD per renal. monitor BP -adjust meds, follow BMP/CBC 03/12/21: pending TF, noted neuro recommendation: initiate aspirin with plavix. cont AR aspirin till dobhoff/peg placemnet. CM working on placement. Updated daughter for details by phone. follow BMP. monitor vitals 03/13/2021 patient today actively receiving hemodialysis. Patient was nonverbal not answering any questions. Could not complete hemodialysis secondary to hypotension in which patient required a bolus. Patient is now planning on going down to receive PEG placement. Will update daughter after procedure complete. 03/14/2021. Patient remains nonverbal encephalopathic today. Does move all extremities. Tolerated PEG tube feedings well. 03/15/21 patient actively being dialyzed today. Remains encephalopathic. A bit more attentive today. Patient did follow me with eyes. PEG tube functioning well. 03/16: Continue supportive care, awaiting Hospice per family request as documented by case management, repeat BMP AND CBC 03/17: Patient seen and examined again this morning definitely appears older than stated age emaciated not following any commands still speaking but moves around. Discussed with nursing staff at bedside patient not interactive with them. I have resumed the aspirin and the Plavix that was probably held for PEG tube. My understanding is that the family would like to take the patient home with home health but per case management they have requested hospice. I have tried to call them to see if they understand that this needs no dialysis with tube feeds unless approved by the hospice but unfortunately unable to get either the daughter or the father. Nevertheless blood pressure has improved patient needs to be monitored closely on dialysis days to ensure no hypotension. Clinical condition at this time is stable 03/18: Continue supportive care, no new complaints, awaiting discharge plan. Aspiration precautions. Patient answered some question for me today, moved ext. - Acute CVA (cerebrovascular accident) Admitted with CVA protocol: CT head, CTA head, CTA neck, showed no acute process MRI showed L thalamus and L temporal area subacute infarct. 2d echo showed preserved EF, carotid doppler showed <50% ordered antiplatelet and statin therapy, physical therapy consulted, Occupational Therapy consulted, speech therapy consulted, telemetry neurology consulted in ED, s/p permissive hypertension overnight. Now could be more aggressive with BP. PT to evaluate for residential facility --Dysphagia Patient unable to speak and has significant dysphagia clinically: placed on D10W Patient to receive PEG tube today. Patient tolerating PEG tube feedings well. No abdominal pain bowel sounds unremarkable. -- UTI (urinary tract infection) IV antibiotic therapy, resolved. Stable to go to nursing facility without antibiotics. --Seizure disorder Continue Keppra can change to p.o. now No active seizure. Increased risk secondary to CVA. --SIRS, with elevated white count, tachycardia and tachypnea cont to monitor for now, likely aspiration pneumonitis No evidence of sepsis at this time. Has resolved now. -- Metabolic encephalopathy Secondary to CVA continue neuro check, seizure precautions, supportive care. Remains encephalopathic at this time. Will follow with eyes not speaking. -- ESRD (end stage renal disease) Nephrology team consulted in ED. Patient actively being dialyzed today.. Was complicated by episode of hypotension requiring a bolus. -- Hypertensive urgency, malignant Should improve medical management once PEG tube has been placed we can use metoprolol through the tube. Remain suboptimal will advance metoprolol. Add amlodipine. After hemodialysis. -- Severe malnutrition Increase protein intake when awake and alert only, dietary supplementation D10W for now, consulted GI for PEG placement --bacterial conjuctivitis: ordered erythromycin ointment History Interval history: Patient seen and examined, no new distress. Hospitalist Physical - Physical exam Narrative exam: General appearance: Present: no acute distress - EENT Eyes: PERRL, EOM intact - Respiratory Respiratory: bilateral: CTA - Breasts Breasts: normal - Cardiovascular Rhythm: regular Extremities: pulses intact, No edema, normal color, Full ROM - Gastrointestinal General gastrointestinal: Present: soft, non-tender, non-distended, normal bowel sounds, other (PEG tube) - Musculoskeletal Musculoskeletal: right sided weakness, generalized weakness - Neurologic Neurologic: other (Encephalopathic) - Constitutional Vitals: Temp Pulse Resp BP Pulse Ox 98.2 F 68 17 152/92 97 03/18/21 03:42 03/18/21 03:42 03/18/21 03:42 03/18/21 05:56 03/18/21 03:42 General appearance: Present: no acute distress HEART Score - HEART Score Troponin: Troponin T 0.473 ng/mL (0.00-0.029) H* 03/09/21 11:21 Results - Labs CBC & Chem 7: 03/17/21 09:11 03/17/21 09:11 Labs: Laboratory Last Values WBC 7.5 K/mm3 (4.5-11.0) 03/17/21 09:11 RBC 4.73 M/mm3 (3.65-5.03) 03/17/21 09:11 Hgb 12.4 gm/dl (10.1-14.3) 03/17/21 09:11 Hct 39.1 % (30.3-42.9) 03/17/21 09:11 MCV 83 fl (79-97) 03/17/21 09:11 MCH 26 pg (28-32) L 03/17/21 09:11 MCHC 32 % (30-34) 03/17/21 09:11 RDW 19.4 % (13.2-15.2) H 03/17/21 09:11 Plt Count 247 K/mm3 (140-440) 03/17/21 09:11 Add Manual Diff Complete 03/14/21 05:33 Total Counted 100 03/14/21 05:33 Seg Neuts % (Manual) 81.0 % (40.0-70.0) H 03/14/21 05:33 Band Neutrophils % 1.0 % 03/14/21 05:33 Lymphocytes % (Manual) 8.0 % (13.4-35.0) L 03/14/21 05:33 Monocytes % (Manual) 6.0 % (0.0-7.3) 03/14/21 05:33 Eosinophils % (Manual) 4.0 % (0.0-4.3) 03/14/21 05:33 Nucleated RBC % Not Reportable 03/14/21 05:33 Seg Neutrophils # Man 7.0 K/mm3 (1.8-7.7) 03/14/21 05:33 Band Neutrophils # 0.1 K/mm3 03/14/21 05:33 Lymphocytes # (Manual) 0.7 K/mm3 (1.2-5.4) L 03/14/21 05:33 Abs React Lymphs (Man) 0.0 K/mm3 03/14/21 05:33 Monocytes # (Manual) 0.5 K/mm3 (0.0-0.8) 03/14/21 05:33 Eosinophils # (Manual) 0.3 K/mm3 (0.0-0.4) 03/14/21 05:33 Basophils # (Manual) 0.0 K/mm3 (0.0-0.1) 03/14/21 05:33 Metamyelocytes # 0.0 K/mm3 03/14/21 05:33 Myelocytes # 0.0 K/mm3 03/14/21 05:33 Promyelocytes # 0.0 K/mm3 03/14/21 05:33 Blast Cells # 0.0 K/mm3 03/14/21 05:33 WBC Morphology Not Reportable 03/14/21 05:33 Hypersegmented Neuts Not Reportable 03/14/21 05:33 Hyposegmented Neuts Not Reportable 03/14/21 05:33 Hypogranular Neuts Not Reportable 03/14/21 05:33 Smudge Cells Not Reportable 03/14/21 05:33 Toxic Granulation 1+ 03/14/21 05:33 Toxic Vacuolation Not Reportable 03/14/21 05:33 Dohle Bodies Not Reportable 03/14/21 05:33 Pelger-Huet Anomaly Not Reportable 03/14/21 05:33 Kaela Rods Not Reportable 03/14/21 05:33 Platelet Estimate Consistent w auto 03/14/21 05:33 Clumped Platelets Not Reportable 03/14/21 05:33 Plt Clumps, EDTA Not Reportable 03/14/21 05:33 Large Platelets Not Reportable 03/14/21 05:33 Giant Platelets Not Reportable 03/14/21 05:33 Platelet Satelliting Not Reportable 03/14/21 05:33 Plt Morphology Comment Not Reportable 03/14/21 05:33 RBC Morphology Not Reportable 03/14/21 05:33 Dimorphic RBCs Not Reportable 03/14/21 05:33 Polychromasia Not Reportable 03/14/21 05:33 Hypochromasia 1+ 03/14/21 05:33 Poikilocytosis 1+ 03/14/21 05:33 Anisocytosis 1+ 03/14/21 05:33 Microcytosis Few 03/14/21 05:33 Macrocytosis Not Reportable 03/14/21 05:33 Spherocytes Not Reportable 03/14/21 05:33 Pappenheimer Bodies Not Reportable 03/14/21 05:33 Sickle Cells Not Reportable 03/14/21 05:33 Target Cells Not Reportable 03/14/21 05:33 Tear Drop Cells Not Reportable 03/14/21 05:33 Ovalocytes Not Reportable 03/14/21 05:33 Helmet Cells Not Reportable 03/14/21 05:33 Hernandez-[place] Bodies Not Reportable 03/14/21 05:33 [place] Rings Not Reportable 03/14/21 05:33 Dilliner Cells Not Reportable 03/14/21 05:33 Bite Cells Not Reportable 03/14/21 05:33 Crenated Cell Not Reportable 03/14/21 05:33 Elliptocytes Not Reportable 03/14/21 05:33 Acanthocytes (Spur) Not Reportable 03/14/21 05:33 Rouleaux Not Reportable 03/14/21 05:33 Hemoglobin C Crystals Not Reportable 03/14/21 05:33 Schistocytes Not Reportable 03/14/21 05:33 Malaria parasites Not Reportable 03/14/21 05:33 Ignacio Bodies Not Reportable 03/14/21 05:33 Hem Pathologist Commnt No 03/14/21 05:33 PT 13.9 Sec. (12.2-14.9) 03/09/21 11:21 INR 1.01 (0.87-1.13) 03/09/21 11:21 APTT 34.2 Sec. (24.2-36.6) 03/09/21 11:21 Thrombin Time 20.6 Sec. (15.1-19.6) H 03/09/21 11:21 Sodium 138 mmol/L (137-145) 03/17/21 09:11 Potassium 4.0 mmol/L (3.6-5.0) D 03/17/21 09:11 Chloride 98.1 mmol/L (98-107) 03/17/21 09:11 Carbon Dioxide 24 mmol/L (22-30) 03/17/21 09:11 Anion Gap 20 mmol/L 03/17/21 09:11 BUN 44 mg/dL (7-17) H 03/17/21 09:11 Creatinine 5.6 mg/dL (0.6-1.2) H 03/17/21 09:11 Estimated GFR 10 ml/min 03/17/21 09:11 BUN/Creatinine Ratio 8 % 03/17/21 09:11 Glucose 82 mg/dL (65-100) 03/17/21 09:11 POC Glucose 97 mg/dL (70-105) 03/18/21 05:50 Calcium 10.6 mg/dL (8.4-10.2) H 03/17/21 09:11 Phosphorus 5.90 mg/dL (2.5-4.5) H 03/13/21 07:37 Total Bilirubin 0.20 mg/dL (0.1-1.2) 03/09/21 11:21 AST 29 units/L (5-40) 03/09/21 11:21 ALT 9 units/L (7-56) 03/09/21 11:21 Alkaline Phosphatase 157 units/L (35-129) H 03/09/21 11:21 Total Creatine Kinase 403 units/L (30-135) H 03/09/21 11:21 CK-MB (CK-2) 8.4 ng/mL (0.0-4.0) H 03/09/21 11:21 CK-MB (CK-2) Rel Index 2.0 (0-4) 03/09/21 11:21 Troponin T 0.473 ng/mL (0.00-0.029) H* 03/09/21 11:21 Total Protein 7.7 g/dL (6.3-8.2) 03/09/21 11:21 Albumin 3.7 g/dL (3.9-5) L 03/09/21 11:21 Albumin/Globulin Ratio 0.9 % 03/09/21 11:21 HCG, Qual Negative (Negative) 03/13/21 14:21 PTH Intact 19.00 pg/mL (15-65) 03/14/21 04:38 Urine Color [place] (Yellow) 03/09/21 11:50 Urine Turbidity Cloudy (Clear) 03/09/21 11:50 Urine pH 5.0 (5.0-7.0) 03/09/21 11:50 Ur Specific [place] 1.023 (1.003-1.030) 03/09/21 11:50 Urine Protein >500 mg/dL (Negative) 03/09/21 11:50 Urine Glucose (UA) Neg mg/dL (Negative) 03/09/21 11:50 Urine Ketones Tr mg/dL (Negative) 03/09/21 11:50 Urine Blood Mod (Negative) 03/09/21 11:50 Urine Nitrite Neg (Negative) 03/09/21 11:50 Ur Reducing Substances Not Reportable 03/09/21 11:50 Urine Bilirubin Neg (Negative) 03/09/21 11:50 Urine Ictotest Not Reportable 03/09/21 11:50 Urine Urobilinogen < 2.0 mg/dL (<2.0) 03/09/21 11:50 Ur Leukocyte Esterase Neg (Negative) 03/09/21 11:50 Urine WBC (Auto) 20.0 /HPF (0.0-6.0) H 03/09/21 11:50 Urine RBC (Auto) 9.0 /HPF (0.0-6.0) 03/09/21 11:50 U Epithel Cells (Auto) 2.0 /HPF (0-13.0) 03/09/21 11:50 Urine WBC Clumps 2+ /HPF 03/09/21 11:50 Urine Mucus Few /HPF 03/09/21 11:50 Urine Yeast (Budding) 3+ /HPF 03/09/21 11:50 Plasma/Serum Alcohol < 0.01 % (0-0.07) 03/09/21 11:21 Coronavirus (PCR) Negative (Negative) 03/13/21 08:30 Hepatitis A IgM Ab Non-reactive (NonReactive) 03/11/21 16:28 Hep Bs Antigen Reactive (Negative) 03/11/21 16:28 Hep B Core IgM Ab Non-reactive (NonReactive) 03/11/21 16:28 Hepatitis C Antibody Non-reactive (NonReactive) 03/11/21 16:28 Robertson/IV: Voiding Method Incontinent Active Medications - Current Medications Current Medications: Generic Name Dose Route Start Last Admin Trade Name Freq PRN Reason Stop Dose Admin Acetaminophen 650 mg 03/09/21 14:52 03/14/21 22:04 Acetaminophen 325 Mg Tab PO 650 mg Q4H PRN Administration Pain, Mild (1-3) Acetaminophen/Butalbital/Caffeine 2 tab 03/09/21 14:28 03/16/21 22:22 Butalb/Acetaminophen/Caffeine Tab PO 2 tab Q8H PRN Administration Headache Lipase/Protease/Amylase 1 each 03/12/21 12:04 Lipase 10,500/Protease 25,000/Amylase 43,750 (Units) Dr Lee FEEDTUBE PRN PRN For Clogged Feeding Tube Aspirin 81 mg 03/17/21 10:00 03/17/21 10:25 Aspirin 81 Mg Tab Chew PO 81 mg QDAY LEOLA Administration Atorvastatin Calcium 40 mg 03/09/21 22:00 03/17/21 22:38 Atorvastatin 40 Mg Tab PO 40 mg QHS LEOLA Administration Bisacodyl 10 mg 03/09/21 15:52 03/12/21 16:11 Bisacodyl 10 Mg Rect Supp AR 10 mg QDAY PRN Administration Constipation Clonidine HCl 0.2 mg 03/17/21 09:00 03/17/21 22:48 Clonidine 0.2 Mg Tab PO Not Given TID LEOLA Clopidogrel Bisulfate 75 mg 03/17/21 10:00 03/17/21 10:25 Clopidogrel 75 Mg Tab PO 75 mg QDAY LEOLA Administration Heparin Sodium (Porcine) 5,000 unit 03/09/21 22:00 03/17/21 22:38 Heparin 5,000 Unit/1 Ml Vial SUB-Q 5,000 unit Q12HR LEOLA Administration Heparin Sodium (Porcine) 2,000 unit 03/11/21 14:25 Heparin 10,000 Units/10 Ml Vial IV JUAN C PRN hemodialysis Hydralazine HCl 10 mg 03/16/21 05:41 03/17/21 06:04 Hydralazine 20 Mg/1 Ml Inj IV 10 mg Q6HR PRN Administration Hypertension Hydralazine HCl 50 mg 03/17/21 09:00 03/18/21 05:56 Hydralazine 25 Mg Tab PO 50 mg Q8HR LEOLA Administration Hydromorphone HCl 0.5 mg 03/09/21 14:52 03/16/21 16:09 Hydromorphone 1 Mg/1 Ml Inj IV 0.5 mg Q12H PRN Administration Pain , Severe (7-10) Sodium Chloride 100 mls @ 999 mls/hr 03/11/21 14:25 Nacl 0.9% IV JUAN C PRN Hypotension Sodium Chloride 1,000 mls @ 50 mls/hr 03/13/21 11:00 03/15/21 12:09 Nacl 0.9% 1000 Ml IV 50 mls/hr DIRECT LEOLA Administration Levetiracetam 500 mg 03/15/21 13:00 03/17/21 22:38 Levetiracetam 500 Mg/5 Ml Oral Liqd PO 500 mg BID LEOLA Administration Lidocaine HCl 30 ml 03/09/21 14:28 Magic Mouthwash 30ml MM Q4H PRN Sore Throat Magnesium Hydroxide 30 ml 03/09/21 14:52 Magnesium Hydroxide (Mom) Oral Liqd Udc PO Q4H PRN Constipation Metoclopramide HCl 10 mg 03/09/21 14:52 Metoclopramide 10 Mg Tab PO Q6H PRN Nausea And Vomiting Metoprolol Tartrate 100 mg 03/13/21 18:00 03/17/21 22:38 Metoprolol Tartrate 100 Mg Tab PO 100 mg BID LEOLA Administration Nifedipine 60 mg 03/16/21 10:00 03/17/21 10:25 Nifedipine Xl 60 Mg Tab PO 60 mg DAILY LEOLA Administration Ondansetron HCl 4 mg 03/09/21 14:52 Ondansetron 4 Mg/2 Ml Inj IV Q8H PRN Nausea And Vomiting Prednisone 80 mg 03/14/21 10:00 03/17/21 10:25 Prednisone 20 Mg Tab PO 80 mg QDAY LEOLA Administration Promethazine HCl 25 mg 03/09/21 14:52 Promethazine 25 Mg Rect Supp AR Q6H PRN Nausea And Vomiting Simple Syrup 15 ml 03/12/21 12:04 03/14/21 05:38 Simple Syrup 15 Ml FEEDTUBE 15 ml PRN PRN Administration Hypoglycemia Simple Syrup 30 ml 03/12/21 12:04 Simple Syrup 15 Ml FEEDTUBE PRN PRN Hypoglycemia Sodium Bicarbonate 325 mg 03/12/21 12:04 Sodium Bicarbonate 325 Mg Tab FEEDTUBE PRN PRN For Clogged Feeding Tube Sodium Chloride 10 ml 03/09/21 14:52 03/17/21 06:04 Sodium Chloride 0.9% 10 Ml Flush Syringe IV 10 ml PRN PRN Administration LINE FLUSH Nutrition/Malnutrition Assess - Dietary Evaluation Nutrition/Malnutrition Findings: Nutrition Notes Start: 03/10/21 14:05 Freq: Status: Active Protocol: Document 03/17/21 09:07 AB (Rec: 03/17/21 09:12 AB [id number]) Nutrition Notes Need for Assessment generated from: MD Order Initial or Follow up Reassessment Current Diagnosis CKD (stage V CKD),Stroke Other Pertinent Diagnosis encephalopathy, SLE, seizure disorder, UTI Current Diet NPO Labs/Tests K 3.1 BUN 18 Cr 4.7 Pertinent Medications Reviewed Height 5 ft 3 in Weight 48 kg [place] Body Weight (kg) 52.27 BMI 18.7 Weight Status Underweight Subjective/Other Information MD consult for TF. Pt continues with hypokalemia. Pt does not need Nepro at this time. Burn Absent Trauma Absent GI Symptoms None Difficulty In Swallowing Current % PO Negligible Minimum of two criteria No physical signs of malnutrition #1 Nutrition Diagnosis Inadequate oral intake Diagnosis Progress(for reassessment Continues documentation) Is patient on ventilator? No Is Patient Ambulatory and/or Out of Bed No REE-([place] Jeor-confined to bed) [phone] Calculation Used for Recommendations [place] Je[place] Additional Notes Protein: >1.2g/kg (>54g) Fluid: 1 ml/kcal or per MD Nutrition Intervention Change Diet Order: Start TF Nutrition Support: Jevity 1.2 at 50 ml/hr Flush 75 ml q4h Kcal 1,440 Protein (gm) 67 Fluid (mL) 968 Goal #1 Meet at least 75% of energy and protein needs via TF Anticipated Discharge Needs: Jevity 1.2 at 50 ml/hr Flush 75 ml q4h Follow-Up By: 03/19/21 Additional Comments F/u: TF tolerance
[2021-03-18] MEDS: NIFEdipine XL 60 MG TAB PO SCH (10:47)
[2021-03-18] MEDS: predniSONE 20 MG TAB PO SCH (10:47)
[2021-03-18] MEDS: HEPARIN 5,000 UNIT/1 ML VIAL SUB-Q SCH ×2 (10:48→22:23)
[2021-03-18] MEDS: ASPIRIN 81 MG TAB CHEW PO SCH (10:48)
[2021-03-18] MEDS: CLOPIDOGREL 75 MG TAB PO SCH (10:48)
[2021-03-18] MEDS: METOPROLOL TARTRATE 100 MG TAB PO SCH ×2 (10:48→22:22)
[2021-03-18] MEDS: levETIRAcetam 500 MG/5 ML ORAL LIQD PO SCH ×2 (10:48→22:23)
[2021-03-19] MEDS: hydrALAZINE 25 MG TAB PO SCH ×3 (06:40→21:57)
--- NOTE | 2021-03-19 08:54 | Progress Note ---
Assessment and Plan 1. ESRD: Patient on maintenance hemodialysis three times a week, outpatinet schedule, MWF. Meds dosage based on GFR. Hemodialysis: 03/11, 03/13, 03/15, 03/17, 03/19. 2. FEN: Hypercalemia, low Ca bath with HD. Low PTH level. Monitor lytes and volume status. 3. Acute metabolic encephalopathy, POA: Likely 2/2 CVA. Monitor. 4. Acute CVA: Seen by Neuro. Per primary. 5. UTI, POA: S/p Abx. 6. Hypertensive urgency: Adjust meds. Monitor BP. 7. Dysphagia / Malnutrition / AFTT: S/p PEG tube. 8. Hypoglycemia: Improved. Subjective: Patient was seen and examined at the bedside. General Appearance: General appearance: well-developed, appears stated age, appears emaciated, not in distress HEENT: ATNC, pupils equal, slight L conjunctival erythema noted Neck: trachea midline Respiratory: ctab Heart: regular, S1S2, no murmur Abdomen: soft, bowel sounds heard, not tender, PEG tube Integumentary: no rash, warm and dry Neurologic: AO, follows command, able to move extremities Ext: no edema Hemodialysis access: R IJ tunnel catheter Subjective Date of service: 03/19/21 Principal diagnosis: CVA Objective - Vital Signs Vital signs: Vital Signs - 12hr 03/18/21 03/18/21 22:00 22:22 Pulse Rate 80 108 H Blood Pressure 147/114 O2 Sat by Pulse 97 Oximetry - Lab 03/17/21 09:11 03/17/21 09:11 Most recent lab results Calcium 10.6 mg/dL (8.4-10.2) H 03/17/21 09:11 Phosphorus 5.90 mg/dL (2.5-4.5) H 03/13/21 07:37 Medications & Allergies - Medications Allergies/Adverse Reactions: Allergies No Known Allergies Allergy (Verified 03/09/21 13:06) Home Medications: Home Medications Medication Instructions Recorded Confirmed Last Taken Type predniSONE [Deltasone] 80 mg PO QDAY #20 tab 11/25/17 Unknown Rx Hydromorphone HCl [Exalgo] 8 mg PO 12/18/19 Unknown History Torsemide [Demadex] 12/18/19 Unknown History Venlafaxine [Effexor 37.5mg tab] 12/18/19 Unknown History Nystas/Diphen/Xyl Visc/Mylanta 30 ml MM Q4H PRN 14 Days 12/20/19 Unknown Rx [Magic Mouthwash] levETIRAcetam [Keppra TAB] 500 mg PO BID #60 tablet 12/20/19 Unknown Rx oxyCODONE /ACETAMINOPHEN [Percocet 1 tab PO QHS PRN #7 tablet 12/20/19 Unknown Rx 5/325 mg] AtorvaSTATin [Lipitor] 40 mg PO QHS #30 tablet 03/16/21 Unknown Rx Butalb/Acetamin/Caff 50-325-40 2 tab PO Q8HR PRN #20 tablet 03/16/21 Unknown Rx [Fioricet 50-325-40] Metoclopramide [Reglan TAB] 10 mg PO Q6H PRN #14 tablet 03/16/21 Unknown Rx Metoprolol [Lopressor TAB] 100 mg PO BID #60 tablet 03/16/21 Unknown Rx NIFEdipine XL [Procardia Xl] 60 mg PO DAILY #30 tablet 03/16/21 Unknown Rx bisacodyL [Dulcolax suppos] 10 mg GA QDAY PRN #10 supp.rect 03/16/21 Unknown Rx chlorproMAZINE [Thorazine] 25 mg PO Q4H PRN #10 03/16/21 Unknown Rx hydrALAZINE [Apresoline TAB] 50 mg PO Q8HR #90 tablet 03/16/21 Unknown Rx levETIRAcetam [Keppra] 500 mg PO BID 30 Days oral.liqd 03/16/21 Unknown Rx oxyCODONE /ACETAMINOPHEN [Percocet 1 tab PO Q6HR PRN #14 03/16/21 Unknown Rx 5/325 mg] Aspirin [Aspirin BABY CHEW TAB] 81 mg PO QDAY #30 tab.chew 03/17/21 Unknown Rx Clopidogrel [Plavix] 75 mg PO QDAY #30 tablet 03/17/21 Unknown Rx Hydralazine HCl 50 mg PO TID #90 tablet 03/17/21 Unknown Rx cloNIDine [Catapres] 0.2 mg PO TID #90 tablet 03/17/21 Unknown Rx Active Medications: Generic Name Dose Route Start Last Admin Trade Name Freq PRN Reason Stop Dose Admin Acetaminophen 650 mg 03/09/21 14:52 03/14/21 22:04 Acetaminophen 325 Mg Tab PO 650 mg Q4H PRN Administration Pain, Mild (1-3) Acetaminophen/Butalbital/Caffeine 2 tab 03/09/21 14:28 03/16/21 22:22 Butalb/Acetaminophen/Caffeine Tab PO 2 tab Q8H PRN Administration Headache Lipase/Protease/Amylase 1 each 03/12/21 12:04 Lipase 10,500/Protease 25,000/Amylase 43,750 (Units) Dr Lee FEEDTUBE PRN PRN For Clogged Feeding Tube Aspirin 81 mg 03/17/21 10:00 03/18/21 10:48 Aspirin 81 Mg Tab Chew PO 81 mg QDAY LEOLA Administration Atorvastatin Calcium 40 mg 03/09/21 22:00 03/18/21 22:22 Atorvastatin 40 Mg Tab PO 40 mg QHS LEOLA Administration Bisacodyl 10 mg 03/09/21 15:52 03/12/21 16:11 Bisacodyl 10 Mg Rect Supp GA 10 mg QDAY PRN Administration Constipation Clonidine HCl 0.2 mg 03/17/21 09:00 03/18/21 22:22 Clonidine 0.2 Mg Tab PO 0.2 mg TID LEOLA Administration Clopidogrel Bisulfate 75 mg 03/17/21 10:00 03/18/21 10:48 Clopidogrel 75 Mg Tab PO 75 mg QDAY LEOLA Administration Heparin Sodium (Porcine) 5,000 unit 03/09/21 22:00 03/18/21 22:23 Heparin 5,000 Unit/1 Ml Vial SUB-Q 5,000 unit Q12HR LEOLA Administration Heparin Sodium (Porcine) 2,000 unit 03/11/21 14:25 Heparin 10,000 Units/10 Ml Vial IV JUAN C PRN hemodialysis Hydralazine HCl 10 mg 03/16/21 05:41 03/17/21 06:04 Hydralazine 20 Mg/1 Ml Inj IV 10 mg Q6HR PRN Administration Hypertension Hydralazine HCl 50 mg 03/17/21 09:00 03/19/21 06:40 Hydralazine 25 Mg Tab PO 50 mg Q8HR LEOLA Administration Hydromorphone HCl 0.5 mg 03/09/21 14:52 03/16/21 16:09 Hydromorphone 1 Mg/1 Ml Inj IV 0.5 mg Q12H PRN Administration Pain , Severe (7-10) Sodium Chloride 100 mls @ 999 mls/hr 03/11/21 14:25 Nacl 0.9% IV JUAN C PRN Hypotension Levetiracetam 500 mg 03/15/21 13:00 03/18/21 22:23 Levetiracetam 500 Mg/5 Ml Oral Liqd PO 500 mg BID LEOLA Administration Lidocaine HCl 30 ml 03/09/21 14:28 Magic Mouthwash 30ml MM Q4H PRN Sore Throat Magnesium Hydroxide 30 ml 03/09/21 14:52 Magnesium Hydroxide (Mom) Oral Liqd Udc PO Q4H PRN Constipation Metoclopramide HCl 10 mg 03/09/21 14:52 Metoclopramide 10 Mg Tab PO Q6H PRN Nausea And Vomiting Metoprolol Tartrate 100 mg 03/13/21 18:00 03/18/21 22:22 Metoprolol Tartrate 100 Mg Tab PO 100 mg BID LEOLA Administration Nifedipine 60 mg 03/16/21 10:00 03/18/21 10:47 Nifedipine Xl 60 Mg Tab PO 60 mg DAILY LEOLA Administration Ondansetron HCl 4 mg 03/09/21 14:52 Ondansetron 4 Mg/2 Ml Inj IV Q8H PRN Nausea And Vomiting Prednisone 80 mg 03/14/21 10:00 03/18/21 10:47 Prednisone 20 Mg Tab PO 80 mg QDAY LEOLA Administration Promethazine HCl 25 mg 03/09/21 14:52 Promethazine 25 Mg Rect Supp GA Q6H PRN Nausea And Vomiting Simple Syrup 15 ml 03/12/21 12:04 03/14/21 05:38 Simple Syrup 15 Ml FEEDTUBE 15 ml PRN PRN Administration Hypoglycemia Simple Syrup 30 ml 03/12/21 12:04 Simple Syrup 15 Ml FEEDTUBE PRN PRN Hypoglycemia Sodium Bicarbonate 325 mg 03/12/21 12:04 Sodium Bicarbonate 325 Mg Tab FEEDTUBE PRN PRN For Clogged Feeding Tube Sodium Chloride 10 ml 03/09/21 14:52 03/18/21 22:23 Sodium Chloride 0.9% 10 Ml Flush Syringe IV 10 ml PRN PRN Administration LINE FLUSH
[2021-03-19] MEDS: ASPIRIN 81 MG TAB CHEW PO SCH ×2 (10:30→12:16)
[2021-03-19] MEDS: cloNIDine 0.2 MG TAB PO SCH ×3 (12:12→21:57)
[2021-03-19] MEDS: HEPARIN 5,000 UNIT/1 ML VIAL SUB-Q SCH ×2 (12:13→21:58)
[2021-03-19] MEDS: levETIRAcetam 500 MG/5 ML ORAL LIQD PO SCH ×2 (12:14→21:55)
[2021-03-19] MEDS: METOPROLOL TARTRATE 100 MG TAB PO SCH ×2 (12:14→21:56)
[2021-03-19] MEDS: predniSONE 20 MG TAB PO SCH (12:16)
[2021-03-19] MEDS: CLOPIDOGREL 75 MG TAB PO SCH (12:16)
[2021-03-19] MEDS: NIFEdipine XL 60 MG TAB PO SCH (12:17)
--- NOTE | 2021-03-19 14:47 | Progress Note ---
Assessment and Plan Assessment and plan: The patient is a 45 YO female with history significant for HTN, Seizure Disorder, SLE, Nicotine Dependence, Malnutrition and ESRD on hemodialysis (MWF) who presented to [facility] ED 03/09 with increased confusion as well as 2 witnessed seizures while at home. A code stroke was called and the patient was found to have UTI, metabolic encephalopathy, end-stage renal disease, and accelerated hypertension. Patient was admitted to telemetry and initiated on stroke protocol. At present patient actively being hemodialyzed. Still evidence of increased confusion. Patient found to have urinary tract infection actively being treated. : Patient with significant aphasia/nonverbal, unable to move right side, wait for nephrology evaluation for hemodialysis, MRI pending, will initiate D10W at 42 mils per hour as patient with history of end-stage dialysis will minimize IV fluid. Ordered for speech PT OT eval. will consult neurology following MRI results. Patient is unable to swallow so we will change aspirin per rectal. 03/11/21: MRI showed L thalamus and L temporal area subacute infarct. pending sp eech eval. cont iv fluid, order for Tf and dobhoff if fails speech eval. neuro consult. continue supportive care. HD per renal. monitor BP -adjust meds, follow BMP/CBC 03/12/21: pending TF, noted neuro recommendation: initiate aspirin with plavix. cont MD aspirin till dobhoff/peg placemnet. CM working on placement. Updated daughter for details by phone. follow BMP. monitor vitals 03/13/2021 patient today actively receiving hemodialysis. Patient was nonverbal not answering any questions. Could not complete hemodialysis secondary to hypotension in which patient required a bolus. Patient is now planning on going down to receive PEG placement. Will update daughter after procedure complete. 03/14/2021. Patient remains nonverbal encephalopathic today. Does move all extremities. Tolerated PEG tube feedings well. 03/15/21 patient actively being dialyzed today. Remains encephalopathic. A bit more attentive today. Patient did follow me with eyes. PEG tube functioning well. 03/16: Continue supportive care, awaiting Hospice per family request as documented by case management, repeat BMP AND CBC 03/17: Patient seen and examined again this morning definitely appears older than stated age emaciated not following any commands still speaking but moves around. Discussed with nursing staff at bedside patient not interactive with them. I have resumed the aspirin and the Plavix that was probably held for PEG tube. My understanding is that the family would like to take the patient home with home health but per case management they have requested hospice. I have tried to call them to see if they understand that this needs no dialysis with tube feeds unless approved by the hospice but unfortunately unable to get either the daughter or the father. Nevertheless blood pressure has improved patient needs to be monitored closely on dialysis days to ensure no hypotension. Clinical condition at this time is stable 03/18: Continue supportive care, no new complaints, awaiting discharge plan. Aspiration precautions. Patient answered some question for me today, moved ext. 03/19: Patient seen examined, tolerating tube feed. Continue supportive care. awaiting discharge home or placement. Family not coming for training, CM following up - Acute CVA (cerebrovascular accident) Admitted with CVA protocol: CT head, CTA head, CTA neck, showed no acute process MRI showed L thalamus and L temporal area subacute infarct. 2d echo showed preserved EF, carotid doppler showed <50% ordered antiplatelet and statin therapy, physical therapy consulted, Occupational Therapy consulted, speech therapy consulted, telemetry neurology consulted in ED, s/p permissive hypertension overnight. Now could be more aggressive with BP. PT to evaluate for nursing home facility --Dysphagia Patient unable to speak and has significant dysphagia clinically: placed on D10W Patient to receive PEG tube today. Patient tolerating PEG tube feedings well. No abdominal pain bowel sounds unremarkable. -- UTI (urinary tract infection) IV antibiotic therapy, resolved. Stable to go to nursing facility without antibiotics. --Seizure disorder Continue Keppra can change to p.o. now No active seizure. Increased risk secondary to CVA. --SIRS, with elevated white count, tachycardia and tachypnea cont to monitor for now, likely aspiration pneumonitis No evidence of sepsis at this time. Has resolved now. -- Metabolic encephalopathy Secondary to CVA continue neuro check, seizure precautions, supportive care. Remains encephalopathic at this time. Will follow with eyes not speaking. -- ESRD (end stage renal disease) Nephrology team consulted in ED. Patient actively being dialyzed today.. Was complicated by episode of hypotension requiring a bolus. -- Hypertensive urgency, malignant Should improve medical management once PEG tube has been placed we can use metoprolol through the tube. Remain suboptimal will advance metoprolol. Add amlodipine. After hemodialysis. -- Severe malnutrition Increase protein intake when awake and alert only, dietary supplementation D10W for now, consulted GI for PEG placement --bacterial conjuctivitis: ordered erythromycin ointment History Interval history: Patient seen and examined, no new distress. Answered some question Hospitalist Physical - Physical exam Narrative exam: General appearance: Present: no acute distress - EENT Eyes: PERRL, EOM intact - Respiratory Respiratory: bilateral: CTA - Breasts Breasts: normal - Cardiovascular Rhythm: regular Extremities: pulses intact, No edema, normal color, Full ROM - Gastrointestinal General gastrointestinal: Present: soft, non-tender, non-distended, normal bowel sounds, other (PEG tube) - Musculoskeletal Musculoskeletal: right sided weakness, generalized weakness - Neurologic Neurologic: other (Encephalopathic) - Constitutional Vitals: Temp Pulse Resp BP Pulse Ox 98.3 F 85 16 108/80 100 03/19/21 07:15 03/19/21 12:14 03/19/21 07:15 03/19/21 10:40 03/19/21 07:15 General appearance: Present: no acute distress HEART Score - HEART Score Troponin: Troponin T 0.473 ng/mL (0.00-0.029) H* 03/09/21 11:21 Results - Labs CBC & Chem 7: 03/17/21 09:11 03/17/21 09:11 Labs: Laboratory Last Values WBC 7.5 K/mm3 (4.5-11.0) 03/17/21 09:11 RBC 4.73 M/mm3 (3.65-5.03) 03/17/21 09:11 Hgb 12.4 gm/dl (10.1-14.3) 03/17/21 09:11 Hct 39.1 % (30.3-42.9) 03/17/21 09:11 MCV 83 fl (79-97) 03/17/21 09:11 MCH 26 pg (28-32) L 03/17/21 09:11 MCHC 32 % (30-34) 03/17/21 09:11 RDW 19.4 % (13.2-15.2) H 03/17/21 09:11 Plt Count 247 K/mm3 (140-440) 03/17/21 09:11 Add Manual Diff Complete 03/14/21 05:33 Total Counted 100 03/14/21 05:33 Seg Neuts % (Manual) 81.0 % (40.0-70.0) H 03/14/21 05:33 Band Neutrophils % 1.0 % 03/14/21 05:33 Lymphocytes % (Manual) 8.0 % (13.4-35.0) L 03/14/21 05:33 Monocytes % (Manual) 6.0 % (0.0-7.3) 03/14/21 05:33 Eosinophils % (Manual) 4.0 % (0.0-4.3) 03/14/21 05:33 Nucleated RBC % Not Reportable 03/14/21 05:33 Seg Neutrophils # Man 7.0 K/mm3 (1.8-7.7) 03/14/21 05:33 Band Neutrophils # 0.1 K/mm3 03/14/21 05:33 Lymphocytes # (Manual) 0.7 K/mm3 (1.2-5.4) L 03/14/21 05:33 Abs React Lymphs (Man) 0.0 K/mm3 03/14/21 05:33 Monocytes # (Manual) 0.5 K/mm3 (0.0-0.8) 03/14/21 05:33 Eosinophils # (Manual) 0.3 K/mm3 (0.0-0.4) 03/14/21 05:33 Basophils # (Manual) 0.0 K/mm3 (0.0-0.1) 03/14/21 05:33 Metamyelocytes # 0.0 K/mm3 03/14/21 05:33 Myelocytes # 0.0 K/mm3 03/14/21 05:33 Promyelocytes # 0.0 K/mm3 03/14/21 05:33 Blast Cells # 0.0 K/mm3 03/14/21 05:33 WBC Morphology Not Reportable 03/14/21 05:33 Hypersegmented Neuts Not Reportable 03/14/21 05:33 Hyposegmented Neuts Not Reportable 03/14/21 05:33 Hypogranular Neuts Not Reportable 03/14/21 05:33 Smudge Cells Not Reportable 03/14/21 05:33 Toxic Granulation 1+ 03/14/21 05:33 Toxic Vacuolation Not Reportable 03/14/21 05:33 Dohle Bodies Not Reportable 03/14/21 05:33 Pelger-Huet Anomaly Not Reportable 03/14/21 05:33 Kaela Rods Not Reportable 03/14/21 05:33 Platelet Estimate Consistent w auto 03/14/21 05:33 Clumped Platelets Not Reportable 03/14/21 05:33 Plt Clumps, EDTA Not Reportable 03/14/21 05:33 Large Platelets Not Reportable 03/14/21 05:33 Giant Platelets Not Reportable 03/14/21 05:33 Platelet Satelliting Not Reportable 03/14/21 05:33 Plt Morphology Comment Not Reportable 03/14/21 05:33 RBC Morphology Not Reportable 03/14/21 05:33 Dimorphic RBCs Not Reportable 03/14/21 05:33 Polychromasia Not Reportable 03/14/21 05:33 Hypochromasia 1+ 03/14/21 05:33 Poikilocytosis 1+ 03/14/21 05:33 Anisocytosis 1+ 03/14/21 05:33 Microcytosis Few 03/14/21 05:33 Macrocytosis Not Reportable 03/14/21 05:33 Spherocytes Not Reportable 03/14/21 05:33 Pappenheimer Bodies Not Reportable 03/14/21 05:33 Sickle Cells Not Reportable 03/14/21 05:33 Target Cells Not Reportable 03/14/21 05:33 Tear Drop Cells Not Reportable 03/14/21 05:33 Ovalocytes Not Reportable 03/14/21 05:33 Helmet Cells Not Reportable 03/14/21 05:33 [place] Bodies Not Reportable 03/14/21 05:33 [place] Rings Not Reportable 03/14/21 05:33 Kervin Cells Not Reportable 03/14/21 05:33 Bite Cells Not Reportable 03/14/21 05:33 Crenated Cell Not Reportable 03/14/21 05:33 Elliptocytes Not Reportable 03/14/21 05:33 Acanthocytes (Spur) Not Reportable 03/14/21 05:33 Rouleaux Not Reportable 03/14/21 05:33 Hemoglobin C Crystals Not Reportable 03/14/21 05:33 Schistocytes Not Reportable 03/14/21 05:33 Malaria parasites Not Reportable 03/14/21 05:33 Ignacio Bodies Not Reportable 03/14/21 05:33 Hem Pathologist Commnt No 03/14/21 05:33 PT 13.9 Sec. (12.2-14.9) 03/09/21 11:21 INR 1.01 (0.87-1.13) 03/09/21 11:21 APTT 34.2 Sec. (24.2-36.6) 03/09/21 11:21 Thrombin Time 20.6 Sec. (15.1-19.6) H 03/09/21 11:21 Sodium 138 mmol/L (137-145) 03/17/21 09:11 Potassium 4.0 mmol/L (3.6-5.0) D 03/17/21 09:11 Chloride 98.1 mmol/L (98-107) 03/17/21 09:11 Carbon Dioxide 24 mmol/L (22-30) 03/17/21 09:11 Anion Gap 20 mmol/L 03/17/21 09:11 BUN 44 mg/dL (7-17) H 03/17/21 09:11 Creatinine 5.6 mg/dL (0.6-1.2) H 03/17/21 09:11 Estimated GFR 10 ml/min 03/17/21 09:11 BUN/Creatinine Ratio 8 % 03/17/21 09:11 Glucose 82 mg/dL (65-100) 03/17/21 09:11 POC Glucose 92 mg/dL (70-105) 03/19/21 11:34 Calcium 10.6 mg/dL (8.4-10.2) H 03/17/21 09:11 Phosphorus 5.90 mg/dL (2.5-4.5) H 03/13/21 07:37 Total Bilirubin 0.20 mg/dL (0.1-1.2) 03/09/21 11:21 AST 29 units/L (5-40) 03/09/21 11:21 ALT 9 units/L (7-56) 03/09/21 11:21 Alkaline Phosphatase 157 units/L (35-129) H 03/09/21 11:21 Total Creatine Kinase 403 units/L (30-135) H 03/09/21 11:21 CK-MB (CK-2) 8.4 ng/mL (0.0-4.0) H 03/09/21 11:21 CK-MB (CK-2) Rel Index 2.0 (0-4) 03/09/21 11:21 Troponin T 0.473 ng/mL (0.00-0.029) H* 03/09/21 11:21 Total Protein 7.7 g/dL (6.3-8.2) 03/09/21 11:21 Albumin 3.7 g/dL (3.9-5) L 03/09/21 11:21 Albumin/Globulin Ratio 0.9 % 03/09/21 11:21 HCG, Qual Negative (Negative) 03/13/21 14:21 PTH Intact 19.00 pg/mL (15-65) 03/14/21 04:38 Urine Color [place] (Yellow) 03/09/21 11:50 Urine Turbidity Cloudy (Clear) 03/09/21 11:50 Urine pH 5.0 (5.0-7.0) 03/09/21 11:50 Ur Specific [place] 1.023 (1.003-1.030) 03/09/21 11:50 Urine Protein >500 mg/dL (Negative) 03/09/21 11:50 Urine Glucose (UA) Neg mg/dL (Negative) 03/09/21 11:50 Urine Ketones Tr mg/dL (Negative) 03/09/21 11:50 Urine Blood Mod (Negative) 03/09/21 11:50 Urine Nitrite Neg (Negative) 03/09/21 11:50 Ur Reducing Substances Not Reportable 03/09/21 11:50 Urine Bilirubin Neg (Negative) 03/09/21 11:50 Urine Ictotest Not Reportable 03/09/21 11:50 Urine Urobilinogen < 2.0 mg/dL (<2.0) 03/09/21 11:50 Ur Leukocyte Esterase Neg (Negative) 03/09/21 11:50 Urine WBC (Auto) 20.0 /HPF (0.0-6.0) H 03/09/21 11:50 Urine RBC (Auto) 9.0 /HPF (0.0-6.0) 03/09/21 11:50 U Epithel Cells (Auto) 2.0 /HPF (0-13.0) 03/09/21 11:50 Urine WBC Clumps 2+ /HPF 03/09/21 11:50 Urine Mucus Few /HPF 03/09/21 11:50 Urine Yeast (Budding) 3+ /HPF 03/09/21 11:50 Plasma/Serum Alcohol < 0.01 % (0-0.07) 03/09/21 11:21 Coronavirus (PCR) Negative (Negative) 03/13/21 08:30 Hepatitis A IgM Ab Non-reactive (NonReactive) 03/11/21 16:28 Hep Bs Antigen Reactive (Negative) 03/11/21 16:28 Hep B Core IgM Ab Non-reactive (NonReactive) 03/11/21 16:28 Hepatitis C Antibody Non-reactive (NonReactive) 03/11/21 16:28 Robertson/IV: Voiding Method Incontinent Active Medications - Current Medications Current Medications: Generic Name Dose Route Start Last Admin Trade Name Freq PRN Reason Stop Dose Admin Acetaminophen 650 mg 03/09/21 14:52 03/14/21 22:04 Acetaminophen 325 Mg Tab PO 650 mg Q4H PRN Administration Pain, Mild (1-3) Acetaminophen/Butalbital/Caffeine 2 tab 03/09/21 14:28 03/16/21 22:22 Butalb/Acetaminophen/Caffeine Tab PO 2 tab Q8H PRN Administration Headache Lipase/Protease/Amylase 1 each 03/12/21 12:04 Lipase 10,500/Protease 25,000/Amylase 43,750 (Units) Dr Lee FEEDTUBE PRN PRN For Clogged Feeding Tube Aspirin 81 mg 03/17/21 10:00 03/19/21 12:16 Aspirin 81 Mg Tab Chew PO 81 mg QDAY LEOLA Administration Atorvastatin Calcium 40 mg 03/09/21 22:00 03/18/21 22:22 Atorvastatin 40 Mg Tab PO 40 mg QHS LEOLA Administration Bisacodyl 10 mg 03/09/21 15:52 03/12/21 16:11 Bisacodyl 10 Mg Rect Supp MD 10 mg QDAY PRN Administration Constipation Clonidine HCl 0.2 mg 03/17/21 09:00 03/19/21 12:12 Clonidine 0.2 Mg Tab PO Not Given TID LEOLA Clopidogrel Bisulfate 75 mg 03/17/21 10:00 03/19/21 12:16 Clopidogrel 75 Mg Tab PO 75 mg QDAY LEOLA Administration Heparin Sodium (Porcine) 5,000 unit 03/09/21 22:00 03/19/21 12:13 Heparin 5,000 Unit/1 Ml Vial SUB-Q Not Given Q12HR LEOLA Heparin Sodium (Porcine) 2,000 unit 03/11/21 14:25 Heparin 10,000 Units/10 Ml Vial IV JUAN C PRN hemodialysis Hydralazine HCl 10 mg 03/16/21 05:41 03/17/21 06:04 Hydralazine 20 Mg/1 Ml Inj IV 10 mg Q6HR PRN Administration Hypertension Hydralazine HCl 50 mg 03/17/21 09:00 03/19/21 06:40 Hydralazine 25 Mg Tab PO 50 mg Q8HR LEOLA Administration Hydromorphone HCl 0.5 mg 03/09/21 14:52 03/16/21 16:09 Hydromorphone 1 Mg/1 Ml Inj IV 0.5 mg Q12H PRN Administration Pain , Severe (7-10) Sodium Chloride 100 mls @ 999 mls/hr 03/11/21 14:25 Nacl 0.9% IV JUAN C PRN Hypotension Levetiracetam 500 mg 03/15/21 13:00 03/19/21 12:14 Levetiracetam 500 Mg/5 Ml Oral Liqd PO 500 mg BID LEOLA Administration Lidocaine HCl 30 ml 03/09/21 14:28 Magic Mouthwash 30ml MM Q4H PRN Sore Throat Magnesium Hydroxide 30 ml 03/09/21 14:52 Magnesium Hydroxide (Mom) Oral Liqd Udc PO Q4H PRN Constipation Metoclopramide HCl 10 mg 03/09/21 14:52 Metoclopramide 10 Mg Tab PO Q6H PRN Nausea And Vomiting Metoprolol Tartrate 100 mg 03/13/21 18:00 03/19/21 12:14 Metoprolol Tartrate 100 Mg Tab PO 100 mg BID LEOLA Administration Nifedipine 60 mg 03/16/21 10:00 03/19/21 12:17 Nifedipine Xl 60 Mg Tab PO 60 mg DAILY LEOLA Administration Ondansetron HCl 4 mg 03/09/21 14:52 Ondansetron 4 Mg/2 Ml Inj IV Q8H PRN Nausea And Vomiting Prednisone 80 mg 03/14/21 10:00 03/19/21 12:16 Prednisone 20 Mg Tab PO 80 mg QDAY LEOLA Administration Promethazine HCl 25 mg 03/09/21 14:52 Promethazine 25 Mg Rect Supp MD Q6H PRN Nausea And Vomiting Simple Syrup 15 ml 03/12/21 12:04 03/14/21 05:38 Simple Syrup 15 Ml FEEDTUBE 15 ml PRN PRN Administration Hypoglycemia Simple Syrup 30 ml 03/12/21 12:04 Simple Syrup 15 Ml FEEDTUBE PRN PRN Hypoglycemia Sodium Bicarbonate 325 mg 03/12/21 12:04 Sodium Bicarbonate 325 Mg Tab FEEDTUBE PRN PRN For Clogged Feeding Tube Sodium Chloride 10 ml 03/09/21 14:52 03/18/21 22:23 Sodium Chloride 0.9% 10 Ml Flush Syringe IV 10 ml PRN PRN Administration LINE FLUSH Nutrition/Malnutrition Assess - Dietary Evaluation Nutrition/Malnutrition Findings: Nutrition Notes Start: 03/10/21 14:05 Freq: Status: Active Protocol: Document 03/17/21 09:07 AB (Rec: 03/17/21 09:12 AB [id number]) Nutrition Notes Need for Assessment generated from: MD Order Initial or Follow up Reassessment Current Diagnosis CKD (stage V CKD),Stroke Other Pertinent Diagnosis encephalopathy, SLE, seizure disorder, UTI Current Diet NPO Labs/Tests K 3.1 BUN 18 Cr 4.7 Pertinent Medications Reviewed Height 5 ft 3 in Weight 48 kg [place] Body Weight (kg) 52.27 BMI 18.7 Weight Status Underweight Subjective/Other Information MD consult for TF. Pt continues with hypokalemia. Pt does not need Nepro at this time. Burn Absent Trauma Absent GI Symptoms None Difficulty In Swallowing Current % PO Negligible Minimum of two criteria No physical signs of malnutrition #1 Nutrition Diagnosis Inadequate oral intake Diagnosis Progress(for reassessment Continues documentation) Is patient on ventilator? No Is Patient Ambulatory and/or Out of Bed No REE-([facility]-confined to bed) [phone] Calculation Used for Recommendations [facility] Additional Notes Protein: >1.2g/kg (>54g) Fluid: 1 ml/kcal or per MD Nutrition Intervention Change Diet Order: Start TF Nutrition Support: Jevity 1.2 at 50 ml/hr Flush 75 ml q4h Kcal 1,440 Protein (gm) 67 Fluid (mL) 968 Goal #1 Meet at least 75% of energy and protein needs via TF Anticipated Discharge Needs: Jevity 1.2 at 50 ml/hr Flush 75 ml q4h Follow-Up By: 03/19/21 Additional Comments F/u: TF tolerance
[2021-03-20] MEDS: hydrALAZINE 25 MG TAB PO SCH ×3 (05:48→23:12)
--- NOTE | 2021-03-20 10:14 | Progress Note ---
Assessment and Plan 1. ESRD: Patient on maintenance hemodialysis three times a week, outpatinet schedule, MWF. Meds dosage based on GFR. Hemodialysis: 03/11, 03/13, 03/15, 03/17, 03/19. 2. FEN: Hypercalemia, low Ca bath with HD. Low PTH level. Monitor lytes and volume status. 3. Acute metabolic encephalopathy, POA: Improving. Monitor. 4. Acute CVA: Seen by Neuro. Per primary. 5. UTI, POA: S/p Abx. 6. Hypertensive urgency: Adjust meds. Monitor BP. 7. Dysphagia / Malnutrition / AFTT: S/p PEG tube. 8. Hypoglycemia: Improved. Subjective: Patient was seen and examined at the bedside. General Appearance: General appearance: well-developed, appears stated age, appears emaciated, not in distress HEENT: ATNC, pupils equal, slight L conjunctival erythema noted Neck: trachea midline Respiratory: ctab Heart: regular, S1S2, no murmur Abdomen: soft, bowel sounds heard, not tender, PEG tube Integumentary: no rash, warm and dry Neurologic: AO, follows command, able to move extremities Ext: no edema Hemodialysis access: R IJ tunnel catheter Subjective Date of service: 03/20/21 Principal diagnosis: CVA Objective - Vital Signs Vital signs: Vital Signs - 12hr 03/20/21 03/20/21 03/20/21 05:15 05:48 07:18 Temperature 99.6 F 97.7 F Pulse Rate 70 70 72 Respiratory 20 16 Rate Blood Pressure 142/92 134/90 Blood Pressure 142/92 [Left] O2 Sat by Pulse 100 98 Oximetry - Lab 03/17/21 09:11 03/17/21 09:11 Most recent lab results Calcium 10.6 mg/dL (8.4-10.2) H 03/17/21 09:11 Phosphorus 5.90 mg/dL (2.5-4.5) H 03/13/21 07:37 Medications & Allergies - Medications Allergies/Adverse Reactions: Allergies No Known Allergies Allergy (Verified 03/09/21 13:06) Home Medications: Home Medications Medication Instructions Recorded Confirmed Last Taken Type predniSONE [Deltasone] 80 mg PO QDAY #20 tab 11/25/17 Unknown Rx Hydromorphone HCl [Exalgo] 8 mg PO 12/18/19 Unknown History Torsemide [Demadex] 12/18/19 Unknown History Venlafaxine [Effexor 37.5mg tab] 12/18/19 Unknown History Nystas/Diphen/Xyl Visc/Mylanta 30 ml MM Q4H PRN 14 Days 12/20/19 Unknown Rx [Magic Mouthwash] levETIRAcetam [Keppra TAB] 500 mg PO BID #60 tablet 12/20/19 Unknown Rx oxyCODONE /ACETAMINOPHEN [Percocet 1 tab PO QHS PRN #7 tablet 12/20/19 Unknown Rx 5/325 mg] AtorvaSTATin [Lipitor] 40 mg PO QHS #30 tablet 03/16/21 Unknown Rx Butalb/Acetamin/Caff 50-325-40 2 tab PO Q8HR PRN #20 tablet 03/16/21 Unknown Rx [Fioricet 50-325-40] Metoclopramide [Reglan TAB] 10 mg PO Q6H PRN #14 tablet 03/16/21 Unknown Rx Metoprolol [Lopressor TAB] 100 mg PO BID #60 tablet 03/16/21 Unknown Rx NIFEdipine XL [Procardia Xl] 60 mg PO DAILY #30 tablet 03/16/21 Unknown Rx bisacodyL [Dulcolax suppos] 10 mg MD QDAY PRN #10 supp.rect 03/16/21 Unknown Rx chlorproMAZINE [Thorazine] 25 mg PO Q4H PRN #10 03/16/21 Unknown Rx hydrALAZINE [Apresoline TAB] 50 mg PO Q8HR #90 tablet 03/16/21 Unknown Rx levETIRAcetam [Keppra] 500 mg PO BID 30 Days oral.liqd 03/16/21 Unknown Rx oxyCODONE /ACETAMINOPHEN [Percocet 1 tab PO Q6HR PRN #14 03/16/21 Unknown Rx 5/325 mg] Aspirin [Aspirin BABY CHEW TAB] 81 mg PO QDAY #30 tab.chew 03/17/21 Unknown Rx Clopidogrel [Plavix] 75 mg PO QDAY #30 tablet 03/17/21 Unknown Rx Hydralazine HCl 50 mg PO TID #90 tablet 03/17/21 Unknown Rx cloNIDine [Catapres] 0.2 mg PO TID #90 tablet 03/17/21 Unknown Rx Active Medications: Generic Name Dose Route Start Last Admin Trade Name Freq PRN Reason Stop Dose Admin Acetaminophen 650 mg 03/09/21 14:52 03/14/21 22:04 Acetaminophen 325 Mg Tab PO 650 mg Q4H PRN Administration Pain, Mild (1-3) Acetaminophen/Butalbital/Caffeine 2 tab 03/09/21 14:28 03/16/21 22:22 Butalb/Acetaminophen/Caffeine Tab PO 2 tab Q8H PRN Administration Headache Lipase/Protease/Amylase 1 each 03/12/21 12:04 Lipase 10,500/Protease 25,000/Amylase 43,750 (Units) Dr Lee FEEDTUBE PRN PRN For Clogged Feeding Tube Aspirin 81 mg 03/17/21 10:00 03/19/21 12:16 Aspirin 81 Mg Tab Chew PO 81 mg QDAY LEOLA Administration Atorvastatin Calcium 40 mg 03/09/21 22:00 03/19/21 21:56 Atorvastatin 40 Mg Tab PO 40 mg QHS LEOLA Administration Bisacodyl 10 mg 03/09/21 15:52 03/12/21 16:11 Bisacodyl 10 Mg Rect Supp MD 10 mg QDAY PRN Administration Constipation Clonidine HCl 0.2 mg 03/17/21 09:00 03/19/21 21:57 Clonidine 0.2 Mg Tab PO 0.2 mg TID LEOLA Administration Clopidogrel Bisulfate 75 mg 03/17/21 10:00 03/19/21 12:16 Clopidogrel 75 Mg Tab PO 75 mg QDAY LEOLA Administration Heparin Sodium (Porcine) 5,000 unit 03/09/21 22:00 03/19/21 21:58 Heparin 5,000 Unit/1 Ml Vial SUB-Q 5,000 unit Q12HR LEOLA Administration Heparin Sodium (Porcine) 2,000 unit 03/11/21 14:25 Heparin 10,000 Units/10 Ml Vial IV JUAN C PRN hemodialysis Hydralazine HCl 10 mg 03/16/21 05:41 03/17/21 06:04 Hydralazine 20 Mg/1 Ml Inj IV 10 mg Q6HR PRN Administration Hypertension Hydralazine HCl 50 mg 03/17/21 09:00 03/20/21 05:48 Hydralazine 25 Mg Tab PO 50 mg Q8HR LEOLA Administration Hydromorphone HCl 0.5 mg 03/09/21 14:52 03/16/21 16:09 Hydromorphone 1 Mg/1 Ml Inj IV 0.5 mg Q12H PRN Administration Pain , Severe (7-10) Sodium Chloride 100 mls @ 999 mls/hr 03/11/21 14:25 Nacl 0.9% IV JUAN C PRN Hypotension Levetiracetam 500 mg 03/15/21 13:00 03/19/21 21:55 Levetiracetam 500 Mg/5 Ml Oral Liqd PO 500 mg BID LEOLA Administration Lidocaine HCl 30 ml 03/09/21 14:28 Magic Mouthwash 30ml MM Q4H PRN Sore Throat Magnesium Hydroxide 30 ml 03/09/21 14:52 Magnesium Hydroxide (Mom) Oral Liqd Udc PO Q4H PRN Constipation Metoclopramide HCl 10 mg 03/09/21 14:52 Metoclopramide 10 Mg Tab PO Q6H PRN Nausea And Vomiting Metoprolol Tartrate 100 mg 03/13/21 18:00 03/19/21 21:56 Metoprolol Tartrate 100 Mg Tab PO 100 mg BID LEOLA Administration Nifedipine 60 mg 03/16/21 10:00 03/19/21 12:17 Nifedipine Xl 60 Mg Tab PO 60 mg DAILY LEOLA Administration Ondansetron HCl 4 mg 03/09/21 14:52 Ondansetron 4 Mg/2 Ml Inj IV Q8H PRN Nausea And Vomiting Prednisone 80 mg 03/14/21 10:00 03/19/21 12:16 Prednisone 20 Mg Tab PO 80 mg QDAY LEOLA Administration Promethazine HCl 25 mg 03/09/21 14:52 Promethazine 25 Mg Rect Supp MD Q6H PRN Nausea And Vomiting Simple Syrup 15 ml 03/12/21 12:04 03/14/21 05:38 Simple Syrup 15 Ml FEEDTUBE 15 ml PRN PRN Administration Hypoglycemia Simple Syrup 30 ml 03/12/21 12:04 Simple Syrup 15 Ml FEEDTUBE PRN PRN Hypoglycemia Sodium Bicarbonate 325 mg 03/12/21 12:04 Sodium Bicarbonate 325 Mg Tab FEEDTUBE PRN PRN For Clogged Feeding Tube Sodium Chloride 10 ml 03/09/21 14:52 03/19/21 21:55 Sodium Chloride 0.9% 10 Ml Flush Syringe IV 10 ml PRN PRN Administration LINE FLUSH
[2021-03-20] MEDS: levETIRAcetam 500 MG/5 ML ORAL LIQD PO SCH ×2 (13:25→23:12)
[2021-03-20] MEDS: ASPIRIN 81 MG TAB CHEW PO SCH (13:25)
[2021-03-20] MEDS: predniSONE 20 MG TAB PO SCH (13:25)
[2021-03-20] MEDS: NIFEdipine XL 60 MG TAB PO SCH (13:25)
[2021-03-20] MEDS: BUTALB/ACETAMINOPHEN/CAFFEINE TAB PO PRN (13:26)
[2021-03-20] MEDS: CLOPIDOGREL 75 MG TAB PO SCH (13:26)
[2021-03-20] MEDS: HEPARIN 5,000 UNIT/1 ML VIAL SUB-Q SCH ×2 (13:27→23:14)
[2021-03-20] MEDS: cloNIDine 0.2 MG TAB PO SCH ×3 (13:27→23:11)
--- NOTE | 2021-03-20 14:30 | Progress Note ---
Assessment and Plan Assessment and plan: The patient is a 45 YO female with history significant for HTN, Seizure Disorder, SLE, Nicotine Dependence, Malnutrition and ESRD on hemodialysis (MWF) who presented to [facility] ED 03/09 with increased confusion as well as 2 witnessed seizures while at home. A code stroke was called and the patient was found to have UTI, metabolic encephalopathy, end-stage renal disease, and accelerated hypertension. Patient was admitted to telemetry and initiated on stroke protocol. At present patient actively being hemodialyzed. Still evidence of increased confusion. Patient found to have urinary tract infection actively being treated. : Patient with significant aphasia/nonverbal, unable to move right side, wait for nephrology evaluation for hemodialysis, MRI pending, will initiate D10W at 42 mils per hour as patient with history of end-stage dialysis will minimize IV fluid. Ordered for speech PT OT eval. will consult neurology following MRI results. Patient is unable to swallow so we will change aspirin per rectal. 03/11/21: MRI showed L thalamus and L temporal area subacute infarct. pending sp eech eval. cont iv fluid, order for Tf and dobhoff if fails speech eval. neuro consult. continue supportive care. HD per renal. monitor BP -adjust meds, follow BMP/CBC 03/12/21: pending TF, noted neuro recommendation: initiate aspirin with plavix. cont SD aspirin till dobhoff/peg placemnet. CM working on placement. Updated daughter for details by phone. follow BMP. monitor vitals 03/13/2021 patient today actively receiving hemodialysis. Patient was nonverbal not answering any questions. Could not complete hemodialysis secondary to hypotension in which patient required a bolus. Patient is now planning on going down to receive PEG placement. Will update daughter after procedure complete. 03/14/2021. Patient remains nonverbal encephalopathic today. Does move all extremities. Tolerated PEG tube feedings well. 03/15/21 patient actively being dialyzed today. Remains encephalopathic. A bit more attentive today. Patient did follow me with eyes. PEG tube functioning well. 03/16: Continue supportive care, awaiting Hospice per family request as documented by case management, repeat BMP AND CBC 03/17: Patient seen and examined again this morning definitely appears older than stated age emaciated not following any commands still speaking but moves around. Discussed with nursing staff at bedside patient not interactive with them. I have resumed the aspirin and the Plavix that was probably held for PEG tube. My understanding is that the family would like to take the patient home with home health but per case management they have requested hospice. I have tried to call them to see if they understand that this needs no dialysis with tube feeds unless approved by the hospice but unfortunately unable to get either the daughter or the father. Nevertheless blood pressure has improved patient needs to be monitored closely on dialysis days to ensure no hypotension. Clinical condition at this time is stable 03/18: Continue supportive care, no new complaints, awaiting discharge plan. Aspiration precautions. Patient answered some question for me today, moved ext. 03/19: Patient seen examined, tolerating tube feed. Continue supportive care. awaiting discharge home or placement. Family not coming for training, following up 03/20: Patient shows remarkable clinical improvement she is answering questions following commands. Speech reevaluated approved for regular diet with thin liquids. This has been ordered. Still cannot reach family for disposition Case management is following otherwise continue current management we will discontinue tube feeding at this time. - Acute CVA (cerebrovascular accident) Admitted with CVA protocol: CT head, CTA head, CTA neck, showed no acute process MRI showed L thalamus and L temporal area subacute infarct. 2d echo showed preserved EF, carotid doppler showed <50% ordered antiplatelet and statin therapy, physical therapy consulted, Occupational Therapy consulted, speech therapy consulted, telemetry neurology consulted in ED, s/p permissive hypertension overnight. Now could be more aggressive with BP. PT to evaluate for shelter facility --Dysphagia Patient unable to speak and has significant dysphagia clinically: placed on D10W Patient to receive PEG tube today. Patient tolerating PEG tube feedings well. No abdominal pain bowel sounds unremarkable. -- UTI (urinary tract infection) IV antibiotic therapy, resolved. Stable to go to nursing facility without antibiotics. --Seizure disorder Continue Keppra can change to p.o. now No active seizure. Increased risk secondary to CVA. --SIRS, with elevated white count, tachycardia and tachypnea cont to monitor for now, likely aspiration pneumonitis No evidence of sepsis at this time. Has resolved now. -- Metabolic encephalopathy Secondary to CVA continue neuro check, seizure precautions, supportive care. Remains encephalopathic at this time. Will follow with eyes not speaking. -- ESRD (end stage renal disease) Nephrology team consulted in ED. Patient actively being dialyzed today.. Was complicated by episode of hypotension requiring a bolus. -- Hypertensive urgency, malignant Should improve medical management once PEG tube has been placed we can use metoprolol through the tube. Remain suboptimal will advance metoprolol. Add amlodipine. After hemodialysis. -- Severe malnutrition Increase protein intake when awake and alert only, dietary supplementation D10W for now, consulted GI for PEG placement --bacterial conjuctivitis: ordered erythromycin ointment History Interval history: Patient seen and examined, no new distress. Much improved answering questions following commands. Hospitalist Physical - Physical exam Narrative exam: General appearance: Present: no acute distress - EENT Eyes: PERRL, EOM intact - Respiratory Respiratory: bilateral: CTA - Breasts Breasts: normal - Cardiovascular Rhythm: regular Extremities: pulses intact, No edema, normal color, Full ROM - Gastrointestinal General gastrointestinal: Present: soft, non-tender, non-distended, normal bowel sounds, other (PEG tube) - Musculoskeletal Musculoskeletal: right sided weakness, generalized weakness - Neurologic Neurologic: Awake alert oriented following commands and answering questions - Constitutional Vitals: Temp Pulse Resp BP Pulse Ox 97.7 F 72 16 134/90 98 03/20/21 07:18 03/20/21 13:27 03/20/21 07:18 03/20/21 07:18 03/20/21 07:18 General appearance: Present: no acute distress HEART Score - HEART Score Troponin: Troponin T 0.473 ng/mL (0.00-0.029) H* 03/09/21 11:21 Results - Labs CBC & Chem 7: 03/17/21 09:11 03/17/21 09:11 Labs: Laboratory Last Values WBC 7.5 K/mm3 (4.5-11.0) 03/17/21 09:11 RBC 4.73 M/mm3 (3.65-5.03) 03/17/21 09:11 Hgb 12.4 gm/dl (10.1-14.3) 03/17/21 09:11 Hct 39.1 % (30.3-42.9) 03/17/21 09:11 MCV 83 fl (79-97) 03/17/21 09:11 MCH 26 pg (28-32) L 03/17/21 09:11 MCHC 32 % (30-34) 03/17/21 09:11 RDW 19.4 % (13.2-15.2) H 03/17/21 09:11 Plt Count 247 K/mm3 (140-440) 03/17/21 09:11 Add Manual Diff Complete 03/14/21 05:33 Total Counted 100 03/14/21 05:33 Seg Neuts % (Manual) 81.0 % (40.0-70.0) H 03/14/21 05:33 Band Neutrophils % 1.0 % 03/14/21 05:33 Lymphocytes % (Manual) 8.0 % (13.4-35.0) L 03/14/21 05:33 Monocytes % (Manual) 6.0 % (0.0-7.3) 03/14/21 05:33 Eosinophils % (Manual) 4.0 % (0.0-4.3) 03/14/21 05:33 Nucleated RBC % Not Reportable 03/14/21 05:33 Seg Neutrophils # Man 7.0 K/mm3 (1.8-7.7) 03/14/21 05:33 Band Neutrophils # 0.1 K/mm3 03/14/21 05:33 Lymphocytes # (Manual) 0.7 K/mm3 (1.2-5.4) L 03/14/21 05:33 Abs React Lymphs (Man) 0.0 K/mm3 03/14/21 05:33 Monocytes # (Manual) 0.5 K/mm3 (0.0-0.8) 03/14/21 05:33 Eosinophils # (Manual) 0.3 K/mm3 (0.0-0.4) 03/14/21 05:33 Basophils # (Manual) 0.0 K/mm3 (0.0-0.1) 03/14/21 05:33 Metamyelocytes # 0.0 K/mm3 03/14/21 05:33 Myelocytes # 0.0 K/mm3 03/14/21 05:33 Promyelocytes # 0.0 K/mm3 03/14/21 05:33 Blast Cells # 0.0 K/mm3 03/14/21 05:33 WBC Morphology Not Reportable 03/14/21 05:33 Hypersegmented Neuts Not Reportable 03/14/21 05:33 Hyposegmented Neuts Not Reportable 03/14/21 05:33 Hypogranular Neuts Not Reportable 03/14/21 05:33 Smudge Cells Not Reportable 03/14/21 05:33 Toxic Granulation 1+ 03/14/21 05:33 Toxic Vacuolation Not Reportable 03/14/21 05:33 Dohle Bodies Not Reportable 03/14/21 05:33 Pelger-Huet Anomaly Not Reportable 03/14/21 05:33 Kaela Rods Not Reportable 03/14/21 05:33 Platelet Estimate Consistent w auto 03/14/21 05:33 Clumped Platelets Not Reportable 03/14/21 05:33 Plt Clumps, EDTA Not Reportable 03/14/21 05:33 Large Platelets Not Reportable 03/14/21 05:33 Giant Platelets Not Reportable 03/14/21 05:33 Platelet Satelliting Not Reportable 03/14/21 05:33 Plt Morphology Comment Not Reportable 03/14/21 05:33 RBC Morphology Not Reportable 03/14/21 05:33 Dimorphic RBCs Not Reportable 03/14/21 05:33 Polychromasia Not Reportable 03/14/21 05:33 Hypochromasia 1+ 03/14/21 05:33 Poikilocytosis 1+ 03/14/21 05:33 Anisocytosis 1+ 03/14/21 05:33 Microcytosis Few 03/14/21 05:33 Macrocytosis Not Reportable 03/14/21 05:33 Spherocytes Not Reportable 03/14/21 05:33 Pappenheimer Bodies Not Reportable 03/14/21 05:33 Sickle Cells Not Reportable 03/14/21 05:33 Target Cells Not Reportable 03/14/21 05:33 Tear Drop Cells Not Reportable 03/14/21 05:33 Ovalocytes Not Reportable 03/14/21 05:33 Helmet Cells Not Reportable 03/14/21 05:33 Hernandez-Charlack Bodies Not Reportable 03/14/21 05:33 [place] Rings Not Reportable 03/14/21 05:33 [place] Cells Not Reportable 03/14/21 05:33 Bite Cells Not Reportable 03/14/21 05:33 Crenated Cell Not Reportable 03/14/21 05:33 Elliptocytes Not Reportable 03/14/21 05:33 Acanthocytes (Spur) Not Reportable 03/14/21 05:33 Rouleaux Not Reportable 03/14/21 05:33 Hemoglobin C Crystals Not Reportable 03/14/21 05:33 Schistocytes Not Reportable 03/14/21 05:33 Malaria parasites Not Reportable 03/14/21 05:33 Ignacio Bodies Not Reportable 03/14/21 05:33 Hem Pathologist Commnt No 03/14/21 05:33 PT 13.9 Sec. (12.2-14.9) 03/09/21 11:21 INR 1.01 (0.87-1.13) 03/09/21 11:21 APTT 34.2 Sec. (24.2-36.6) 03/09/21 11:21 Thrombin Time 20.6 Sec. (15.1-19.6) H 03/09/21 11:21 Sodium 138 mmol/L (137-145) 03/17/21 09:11 Potassium 4.0 mmol/L (3.6-5.0) D 03/17/21 09:11 Chloride 98.1 mmol/L (98-107) 03/17/21 09:11 Carbon Dioxide 24 mmol/L (22-30) 03/17/21 09:11 Anion Gap 20 mmol/L 03/17/21 09:11 BUN 44 mg/dL (7-17) H 03/17/21 09:11 Creatinine 5.6 mg/dL (0.6-1.2) H 03/17/21 09:11 Estimated GFR 10 ml/min 03/17/21 09:11 BUN/Creatinine Ratio 8 % 03/17/21 09:11 Glucose 82 mg/dL (65-100) 03/17/21 09:11 POC Glucose 103 mg/dL (70-105) 03/20/21 13:12 Calcium 10.6 mg/dL (8.4-10.2) H 03/17/21 09:11 Phosphorus 5.90 mg/dL (2.5-4.5) H 03/13/21 07:37 Total Bilirubin 0.20 mg/dL (0.1-1.2) 03/09/21 11:21 AST 29 units/L (5-40) 03/09/21 11:21 ALT 9 units/L (7-56) 03/09/21 11:21 Alkaline Phosphatase 157 units/L (35-129) H 03/09/21 11:21 Total Creatine Kinase 403 units/L (30-135) H 03/09/21 11:21 CK-MB (CK-2) 8.4 ng/mL (0.0-4.0) H 03/09/21 11:21 CK-MB (CK-2) Rel Index 2.0 (0-4) 03/09/21 11:21 Troponin T 0.473 ng/mL (0.00-0.029) H* 03/09/21 11:21 Total Protein 7.7 g/dL (6.3-8.2) 03/09/21 11:21 Albumin 3.7 g/dL (3.9-5) L 03/09/21 11:21 Albumin/Globulin Ratio 0.9 % 03/09/21 11:21 HCG, Qual Negative (Negative) 03/13/21 14:21 PTH Intact 19.00 pg/mL (15-65) 03/14/21 04:38 Urine Color [place] (Yellow) 03/09/21 11:50 Urine Turbidity Cloudy (Clear) 03/09/21 11:50 Urine pH 5.0 (5.0-7.0) 03/09/21 11:50 Ur Specific [place] 1.023 (1.003-1.030) 03/09/21 11:50 Urine Protein >500 mg/dL (Negative) 03/09/21 11:50 Urine Glucose (UA) Neg mg/dL (Negative) 03/09/21 11:50 Urine Ketones Tr mg/dL (Negative) 03/09/21 11:50 Urine Blood Mod (Negative) 03/09/21 11:50 Urine Nitrite Neg (Negative) 03/09/21 11:50 Ur Reducing Substances Not Reportable 03/09/21 11:50 Urine Bilirubin Neg (Negative) 03/09/21 11:50 Urine Ictotest Not Reportable 03/09/21 11:50 Urine Urobilinogen < 2.0 mg/dL (<2.0) 03/09/21 11:50 Ur Leukocyte Esterase Neg (Negative) 03/09/21 11:50 Urine WBC (Auto) 20.0 /HPF (0.0-6.0) H 03/09/21 11:50 Urine RBC (Auto) 9.0 /HPF (0.0-6.0) 03/09/21 11:50 U Epithel Cells (Auto) 2.0 /HPF (0-13.0) 03/09/21 11:50 Urine WBC Clumps 2+ /HPF 03/09/21 11:50 Urine Mucus Few /HPF 03/09/21 11:50 Urine Yeast (Budding) 3+ /HPF 03/09/21 11:50 Plasma/Serum Alcohol < 0.01 % (0-0.07) 03/09/21 11:21 Coronavirus (PCR) Negative (Negative) 03/13/21 08:30 Hepatitis A IgM Ab Non-reactive (NonReactive) 03/11/21 16:28 Hep Bs Antigen Reactive (Negative) 03/11/21 16:28 Hep B Core IgM Ab Non-reactive (NonReactive) 03/11/21 16:28 Hepatitis C Antibody Non-reactive (NonReactive) 03/11/21 16:28 Robertson/IV: Voiding Method Incontinent Active Medications - Current Medications Current Medications: Generic Name Dose Route Start Last Admin Trade Name Freq PRN Reason Stop Dose Admin Acetaminophen 650 mg 03/09/21 14:52 03/14/21 22:04 Acetaminophen 325 Mg Tab PO 650 mg Q4H PRN Administration Pain, Mild (1-3) Acetaminophen/Butalbital/Caffeine 2 tab 03/09/21 14:28 03/20/21 13:26 Butalb/Acetaminophen/Caffeine Tab PO 2 tab Q8H PRN Administration Headache Lipase/Protease/Amylase 1 each 03/12/21 12:04 Lipase 10,500/Protease 25,000/Amylase 43,750 (Units) Dr Lee FEEDTUBE PRN PRN For Clogged Feeding Tube Aspirin 81 mg 03/17/21 10:00 03/20/21 13:25 Aspirin 81 Mg Tab Chew PO 81 mg QDAY LEOLA Administration Atorvastatin Calcium 40 mg 03/09/21 22:00 03/19/21 21:56 Atorvastatin 40 Mg Tab PO 40 mg QHS LEOLA Administration Bisacodyl 10 mg 03/09/21 15:52 03/12/21 16:11 Bisacodyl 10 Mg Rect Supp SD 10 mg QDAY PRN Administration Constipation Clonidine HCl 0.2 mg 03/17/21 09:00 03/20/21 13:27 Clonidine 0.2 Mg Tab PO 0.2 mg TID LEOLA Administration Clopidogrel Bisulfate 75 mg 03/17/21 10:00 03/20/21 13:26 Clopidogrel 75 Mg Tab PO 75 mg QDAY LEOLA Administration Heparin Sodium (Porcine) 5,000 unit 03/09/21 22:00 03/20/21 13:27 Heparin 5,000 Unit/1 Ml Vial SUB-Q 5,000 unit Q12HR LEOLA Administration Heparin Sodium (Porcine) 2,000 unit 03/11/21 14:25 Heparin 10,000 Units/10 Ml Vial IV JUAN C PRN hemodialysis Hydralazine HCl 10 mg 03/16/21 05:41 03/17/21 06:04 Hydralazine 20 Mg/1 Ml Inj IV 10 mg Q6HR PRN Administration Hypertension Hydralazine HCl 50 mg 03/17/21 09:00 03/20/21 05:48 Hydralazine 25 Mg Tab PO 50 mg Q8HR LEOLA Administration Hydromorphone HCl 0.5 mg 03/09/21 14:52 03/16/21 16:09 Hydromorphone 1 Mg/1 Ml Inj IV 0.5 mg Q12H PRN Administration Pain , Severe (7-10) Sodium Chloride 100 mls @ 999 mls/hr 03/11/21 14:25 Nacl 0.9% IV JUAN C PRN Hypotension Levetiracetam 500 mg 03/15/21 13:00 03/20/21 13:25 Levetiracetam 500 Mg/5 Ml Oral Liqd PO 500 mg BID LEOLA Administration Lidocaine HCl 30 ml 03/09/21 14:28 Magic Mouthwash 30ml MM Q4H PRN Sore Throat Magnesium Hydroxide 30 ml 03/09/21 14:52 Magnesium Hydroxide (Mom) Oral Liqd Udc PO Q4H PRN Constipation Metoclopramide HCl 10 mg 03/09/21 14:52 Metoclopramide 10 Mg Tab PO Q6H PRN Nausea And Vomiting Metoprolol Tartrate 100 mg 03/13/21 18:00 03/19/21 21:56 Metoprolol Tartrate 100 Mg Tab PO 100 mg BID LEOLA Administration Nifedipine 60 mg 03/16/21 10:00 03/20/21 13:25 Nifedipine Xl 60 Mg Tab PO 60 mg DAILY LEOLA Administration Ondansetron HCl 4 mg 03/09/21 14:52 Ondansetron 4 Mg/2 Ml Inj IV Q8H PRN Nausea And Vomiting Prednisone 80 mg 03/14/21 10:00 03/20/21 13:25 Prednisone 20 Mg Tab PO 80 mg QDAY LEOLA Administration Promethazine HCl 25 mg 03/09/21 14:52 Promethazine 25 Mg Rect Supp SD Q6H PRN Nausea And Vomiting Simple Syrup 15 ml 03/12/21 12:04 03/14/21 05:38 Simple Syrup 15 Ml FEEDTUBE 15 ml PRN PRN Administration Hypoglycemia Simple Syrup 30 ml 03/12/21 12:04 Simple Syrup 15 Ml FEEDTUBE PRN PRN Hypoglycemia Sodium Bicarbonate 325 mg 03/12/21 12:04 Sodium Bicarbonate 325 Mg Tab FEEDTUBE PRN PRN For Clogged Feeding Tube Sodium Chloride 10 ml 03/09/21 14:52 03/19/21 21:55 Sodium Chloride 0.9% 10 Ml Flush Syringe IV 10 ml PRN PRN Administration LINE FLUSH Nutrition/Malnutrition Assess - Dietary Evaluation Nutrition/Malnutrition Findings: Nutrition Notes Start: 03/10/21 14:05 Freq: Status: Active Protocol: Document 03/19/21 15:39 JUSTICE (Rec: 03/19/21 15:40 [facility] [id number]) Nutrition Notes Initial or Follow up Brief Note Current Diet TF - Jevity 1.2 at 50ml/hr Subjective/Other Information Per RN, pt tolerating TF at goal rate. Nutrition Intervention Follow-Up By: 03/26/21 Additional Comments F/U: stable TF, wt
[2021-03-20] MEDS: METOPROLOL TARTRATE 100 MG TAB PO SCH ×2 (16:59→23:13)
[2021-03-21] MEDS: hydrALAZINE 25 MG TAB PO SCH ×3 (05:48→22:58)
--- NOTE | 2021-03-21 08:52 | Progress Note ---
Assessment and Plan 1. ESRD: Patient on maintenance hemodialysis three times a week, outpatinet schedule, MWF. Meds dosage based on GFR. Hemodialysis: 03/11, 03/13, 03/15, 03/17, 03/19, 03/21. 2. FEN: Hypercalemia, low Ca bath with HD. Low PTH level. Monitor lytes and volume status. 3. Acute metabolic encephalopathy, POA: Improving. Monitor. 4. Acute CVA: Seen by Neuro. Per primary. 5. UTI, POA: S/p Abx. 6. Hypertensive urgency: Adjust meds. Monitor BP. 7. Dysphagia / Malnutrition / AFTT: S/p PEG tube. 8. Hypoglycemia: Improved. Subjective: Patient was seen and examined at the bedside. General Appearance: General appearance: well-developed, appears stated age, appears emaciated, not in distress HEENT: ATNC, pupils equal, slight L conjunctival erythema noted Neck: trachea midline Respiratory: ctab Heart: regular, S1S2, no murmur Abdomen: soft, bowel sounds heard, not tender, PEG tube Integumentary: no rash, warm and dry Neurologic: AO, follows command, able to move extremities Ext: no edema Hemodialysis access: R IJ tunnel catheter Subjective Date of service: 03/21/21 Principal diagnosis: CVA Objective - Vital Signs Vital signs: Vital Signs - 12hr 03/20/21 03/20/21 03/20/21 22:00 23:11 23:12 Temperature Pulse Rate 78 75 Respiratory Rate Blood Pressure 129/65 106/66 O2 Sat by Pulse 99 Oximetry 03/20/21 03/20/21 03/21/21 23:13 23:55 00:34 Temperature 98.1 F Pulse Rate 75 68 64 Respiratory 16 Rate Blood Pressure 106/66 137/71 O2 Sat by Pulse 100 Oximetry 03/21/21 03/21/21 03/21/21 05:30 05:48 08:14 Temperature 98.3 F 98.5 F Pulse Rate 68 68 79 Respiratory 16 16 Rate Blood Pressure 148/95 148/95 119/86 O2 Sat by Pulse 100 100 Oximetry - Lab 03/17/21 09:11 03/17/21 09:11 Most recent lab results Calcium 10.6 mg/dL (8.4-10.2) H 03/17/21 09:11 Phosphorus 5.90 mg/dL (2.5-4.5) H 03/13/21 07:37 Medications & Allergies - Medications Allergies/Adverse Reactions: Allergies No Known Allergies Allergy (Verified 03/09/21 13:06) Home Medications: Home Medications Medication Instructions Recorded Confirmed Last Taken Type predniSONE [Deltasone] 80 mg PO QDAY #20 tab 11/25/17 03/21/21 Unknown Rx levETIRAcetam [Keppra TAB] 500 mg PO BID #60 tablet 12/20/19 03/21/21 Unknown Rx oxyCODONE /ACETAMINOPHEN [Percocet 1 tab PO QHS PRN #7 tablet 12/20/19 03/21/21 Unknown Rx 5/325 mg] AtorvaSTATin [Lipitor] 40 mg PO QHS #30 tablet 03/16/21 Unknown Rx Butalb/Acetamin/Caff 50-325-40 2 tab PO Q8HR PRN #20 tablet 03/16/21 Unknown Rx [Fioricet 50-325-40] Metoclopramide [Reglan TAB] 10 mg PO Q6H PRN #14 tablet 03/16/21 Unknown Rx Metoprolol [Lopressor TAB] 100 mg PO BID #60 tablet 03/16/21 Unknown Rx NIFEdipine XL [Procardia Xl] 60 mg PO DAILY #30 tablet 03/16/21 Unknown Rx bisacodyL [Dulcolax suppos] 10 mg OR QDAY PRN #10 supp.rect 03/16/21 Unknown Rx chlorproMAZINE [Thorazine] 25 mg PO Q4H PRN #10 03/16/21 Unknown Rx hydrALAZINE [Apresoline TAB] 50 mg PO Q8HR #90 tablet 03/16/21 Unknown Rx levETIRAcetam [Keppra] 500 mg PO BID 30 Days oral.liqd 03/16/21 Unknown Rx oxyCODONE /ACETAMINOPHEN [Percocet 1 tab PO Q6HR PRN #14 03/16/21 Unknown Rx 5/325 mg] Aspirin [Aspirin BABY CHEW TAB] 81 mg PO QDAY #30 tab.chew 03/17/21 Unknown Rx Clopidogrel [Plavix] 75 mg PO QDAY #30 tablet 03/17/21 Unknown Rx Hydralazine HCl 50 mg PO TID #90 tablet 03/17/21 Unknown Rx cloNIDine [Catapres] 0.2 mg PO TID #90 tablet 03/17/21 Unknown Rx Active Medications: Generic Name Dose Route Start Last Admin Trade Name Freq PRN Reason Stop Dose Admin Acetaminophen 650 mg 03/09/21 14:52 03/14/21 22:04 Acetaminophen 325 Mg Tab PO 650 mg Q4H PRN Administration Pain, Mild (1-3) Acetaminophen/Butalbital/Caffeine 2 tab 03/09/21 14:28 03/20/21 13:26 Butalb/Acetaminophen/Caffeine Tab PO 2 tab Q8H PRN Administration Headache Lipase/Protease/Amylase 1 each 03/12/21 12:04 Lipase 10,500/Protease 25,000/Amylase 43,750 (Units) Dr Lee FEEDTUBE PRN PRN For Clogged Feeding Tube Aspirin 81 mg 03/17/21 10:00 03/20/21 13:25 Aspirin 81 Mg Tab Chew PO 81 mg QDAY LEOLA Administration Atorvastatin Calcium 40 mg 03/09/21 22:00 03/20/21 23:12 Atorvastatin 40 Mg Tab PO 40 mg QHS LEOLA Administration Bisacodyl 10 mg 03/09/21 15:52 03/12/21 16:11 Bisacodyl 10 Mg Rect Supp OR 10 mg QDAY PRN Administration Constipation Clonidine HCl 0.2 mg 03/17/21 09:00 03/20/21 23:11 Clonidine 0.2 Mg Tab PO 0.2 mg TID LEOLA Administration Clopidogrel Bisulfate 75 mg 03/17/21 10:00 03/20/21 13:26 Clopidogrel 75 Mg Tab PO 75 mg QDAY LEOLA Administration Heparin Sodium (Porcine) 5,000 unit 03/09/21 22:00 03/20/21 23:14 Heparin 5,000 Unit/1 Ml Vial SUB-Q 5,000 unit Q12HR LEOLA Administration Heparin Sodium (Porcine) 2,000 unit 03/11/21 14:25 Heparin 10,000 Units/10 Ml Vial IV JUAN C PRN hemodialysis Hydralazine HCl 10 mg 03/16/21 05:41 03/17/21 06:04 Hydralazine 20 Mg/1 Ml Inj IV 10 mg Q6HR PRN Administration Hypertension Hydralazine HCl 50 mg 03/17/21 09:00 03/21/21 05:48 Hydralazine 25 Mg Tab PO 50 mg Q8HR LEOLA Administration Hydromorphone HCl 0.5 mg 03/09/21 14:52 03/16/21 16:09 Hydromorphone 1 Mg/1 Ml Inj IV 0.5 mg Q12H PRN Administration Pain , Severe (7-10) Sodium Chloride 100 mls @ 999 mls/hr 03/11/21 14:25 Nacl 0.9% IV JUAN C PRN Hypotension Levetiracetam 500 mg 03/15/21 13:00 03/20/21 23:12 Levetiracetam 500 Mg/5 Ml Oral Liqd PO 500 mg BID LEOLA Administration Lidocaine HCl 30 ml 03/09/21 14:28 Magic Mouthwash 30ml MM Q4H PRN Sore Throat Magnesium Hydroxide 30 ml 03/09/21 14:52 Magnesium Hydroxide (Mom) Oral Liqd Udc PO Q4H PRN Constipation Metoclopramide HCl 10 mg 03/09/21 14:52 Metoclopramide 10 Mg Tab PO Q6H PRN Nausea And Vomiting Metoprolol Tartrate 100 mg 03/13/21 18:00 03/20/21 23:13 Metoprolol Tartrate 100 Mg Tab PO 100 mg BID LEOLA Administration Nifedipine 60 mg 03/16/21 10:00 03/20/21 13:25 Nifedipine Xl 60 Mg Tab PO 60 mg DAILY LEOLA Administration Ondansetron HCl 4 mg 03/09/21 14:52 Ondansetron 4 Mg/2 Ml Inj IV Q8H PRN Nausea And Vomiting Prednisone 80 mg 03/14/21 10:00 03/20/21 13:25 Prednisone 20 Mg Tab PO 80 mg QDAY LEOLA Administration Promethazine HCl 25 mg 03/09/21 14:52 Promethazine 25 Mg Rect Supp OR Q6H PRN Nausea And Vomiting Simple Syrup 15 ml 03/12/21 12:04 03/14/21 05:38 Simple Syrup 15 Ml FEEDTUBE 15 ml PRN PRN Administration Hypoglycemia Simple Syrup 30 ml 03/12/21 12:04 Simple Syrup 15 Ml FEEDTUBE PRN PRN Hypoglycemia Sodium Bicarbonate 325 mg 03/12/21 12:04 Sodium Bicarbonate 325 Mg Tab FEEDTUBE PRN PRN For Clogged Feeding Tube Sodium Chloride 10 ml 03/09/21 14:52 03/20/21 23:14 Sodium Chloride 0.9% 10 Ml Flush Syringe IV 10 ml PRN PRN Administration LINE FLUSH
[2021-03-21] MEDS: cloNIDine 0.2 MG TAB PO SCH ×3 (09:06→22:56)
[2021-03-21] MEDS: ASPIRIN 81 MG TAB CHEW PO SCH (09:07)
[2021-03-21] MEDS: predniSONE 20 MG TAB PO SCH (09:07)
[2021-03-21] MEDS: HEPARIN 5,000 UNIT/1 ML VIAL SUB-Q SCH ×2 (09:07→22:58)
[2021-03-21] MEDS: levETIRAcetam 500 MG/5 ML ORAL LIQD PO SCH ×2 (09:07→22:58)
[2021-03-21] MEDS: CLOPIDOGREL 75 MG TAB PO SCH (09:08)
[2021-03-21] MEDS: METOPROLOL TARTRATE 100 MG TAB PO SCH ×2 (09:08→22:58)
[2021-03-21] MEDS: NIFEdipine XL 60 MG TAB PO SCH (09:08)
--- NOTE | 2021-03-21 09:53 | Progress Note ---
Assessment and Plan Assessment and plan: The patient is a 45 YO female with history significant for HTN, Seizure Disorder, SLE, Nicotine Dependence, Malnutrition and ESRD on hemodialysis (MWF) who presented to [facility] ED 03/09 with increased confusion as well as 2 witnessed seizures while at home. A code stroke was called and the patient was found to have UTI, metabolic encephalopathy, end-stage renal disease, and accelerated hypertension. Patient was admitted to telemetry and initiated on stroke protocol. At present patient actively being hemodialyzed. Still evidence of increased confusion. Patient found to have urinary tract infection actively being treated. : Patient with significant aphasia/nonverbal, unable to move right side, wait for nephrology evaluation for hemodialysis, MRI pending, will initiate D10W at 42 mils per hour as patient with history of end-stage dialysis will minimize IV fluid. Ordered for speech PT OT eval. will consult neurology following MRI results. Patient is unable to swallow so we will change aspirin per rectal. 03/11/21: MRI showed L thalamus and L temporal area subacute infarct. pending sp eech eval. cont iv fluid, order for Tf and dobhoff if fails speech eval. neuro consult. continue supportive care. HD per renal. monitor BP -adjust meds, follow BMP/CBC 03/12/21: pending TF, noted neuro recommendation: initiate aspirin with plavix. cont [place] aspirin till dobhoff/peg placemnet. CM working on placement. Updated daughter for details by phone. follow BMP. monitor vitals 03/13/2021 patient today actively receiving hemodialysis. Patient was nonverbal not answering any questions. Could not complete hemodialysis secondary to hypotension in which patient required a bolus. Patient is now planning on going down to receive PEG placement. Will update daughter after procedure complete. 03/14/2021. Patient remains nonverbal encephalopathic today. Does move all extremities. Tolerated PEG tube feedings well. 03/15/21 patient actively being dialyzed today. Remains encephalopathic. A bit more attentive today. Patient did follow me with eyes. PEG tube functioning well. 03/16: Continue supportive care, awaiting Hospice per family request as documented by case management, repeat BMP AND CBC 03/17: Patient seen and examined again this morning definitely appears older than stated age emaciated not following any commands still speaking but moves around. Discussed with nursing staff at bedside patient not interactive with them. I have resumed the aspirin and the Plavix that was probably held for PEG tube. My understanding is that the family would like to take the patient home with home health but per case management they have requested hospice. I have tried to call them to see if they understand that this needs no dialysis with tube feeds unless approved by the hospice but unfortunately unable to get either the daughter or the father. Nevertheless blood pressure has improved patient needs to be monitored closely on dialysis days to ensure no hypotension. Clinical condition at this time is stable 03/18: Continue supportive care, no new complaints, awaiting discharge plan. Aspiration precautions. Patient answered some question for me today, moved ext. 03/19: Patient seen examined, tolerating tube feed. Continue supportive care. awaiting discharge home or placement. Family not coming for training, following up 03/20: Patient shows remarkable clinical improvement she is answering questions following commands. Speech reevaluated approved for regular diet with thin liquids. This has been ordered. Still cannot reach family for disposition Case management is following otherwise continue current management we will discontinue tube feeding at this time. 03/21: Continue supportive care awaiting placement. We will continue hemodialysis at this time. - Acute CVA (cerebrovascular accident) Admitted with CVA protocol: CT head, CTA head, CTA neck, showed no acute process MRI showed L thalamus and L temporal area subacute infarct. 2d echo showed preserved EF, carotid doppler showed <50% ordered antiplatelet and statin therapy, physical therapy consulted, Occupational Therapy consulted, speech therapy consulted, telemetry neurology consulted in ED, s/p permissive hypertension overnight. Now could be more aggressive with BP. PT to evaluate for custodial facility --Dysphagia Patient unable to speak and has significant dysphagia clinically: placed on D10W Patient to receive PEG tube today. Patient tolerating PEG tube feedings well. No abdominal pain bowel sounds unremarkable. -- UTI (urinary tract infection) IV antibiotic therapy, resolved. Stable to go to nursing facility without antibiotics. --Seizure disorder Continue Keppra can change to p.o. now No active seizure. Increased risk secondary to CVA. --SIRS, with elevated white count, tachycardia and tachypnea cont to monitor for now, likely aspiration pneumonitis No evidence of sepsis at this time. Has resolved now. -- Metabolic encephalopathy Secondary to CVA continue neuro check, seizure precautions, supportive care. Remains encephalopathic at this time. Will follow with eyes not speaking. -- ESRD (end stage renal disease) Nephrology team consulted in ED. Patient actively being dialyzed today.. Was complicated by episode of hypotension requiring a bolus. -- Hypertensive urgency, malignant Should improve medical management once PEG tube has been placed we can use metoprolol through the tube. Remain suboptimal will advance metoprolol. Add amlodipine. After hemodialysis. -- Severe malnutrition Increase protein intake when awake and alert only, dietary supplementation D10W for now, consulted GI for PEG placement --bacterial conjuctivitis: ordered erythromycin ointment History Interval history: Patient seen and examined, no new distress. Much improved answering questions following commands. HD ongoing today. Hospitalist Physical - Physical exam Narrative exam: General appearance: Present: no acute distress - EENT Eyes: PERRL, EOM intact - Respiratory Respiratory: bilateral: CTA - Breasts Breasts: normal - Cardiovascular Rhythm: regular Extremities: pulses intact, No edema, normal color, Full ROM - Gastrointestinal General gastrointestinal: Present: soft, non-tender, non-distended, normal bowel sounds, other (PEG tube) - Musculoskeletal Musculoskeletal: right sided weakness, generalized weakness - Neurologic Neurologic: Awake alert oriented following commands and answering questions - Constitutional Vitals: Temp Pulse Resp BP Pulse Ox 98.5 F 79 16 119/86 100 03/21/21 08:14 03/21/21 08:14 03/21/21 08:14 03/21/21 08:14 03/21/21 08:14 General appearance: Present: no acute distress HEART Score - HEART Score Troponin: Troponin T 0.473 ng/mL (0.00-0.029) H* 03/09/21 11:21 Results - Labs CBC & Chem 7: 03/17/21 09:11 03/17/21 09:11 Labs: Laboratory Last Values WBC 7.5 K/mm3 (4.5-11.0) 03/17/21 09:11 RBC 4.73 M/mm3 (3.65-5.03) 03/17/21 09:11 Hgb 12.4 gm/dl (10.1-14.3) 03/17/21 09:11 Hct 39.1 % (30.3-42.9) 03/17/21 09:11 MCV 83 fl (79-97) 03/17/21 09:11 MCH 26 pg (28-32) L 03/17/21 09:11 MCHC 32 % (30-34) 03/17/21 09:11 RDW 19.4 % (13.2-15.2) H 03/17/21 09:11 Plt Count 247 K/mm3 (140-440) 03/17/21 09:11 Add Manual Diff Complete 03/14/21 05:33 Total Counted 100 03/14/21 05:33 Seg Neuts % (Manual) 81.0 % (40.0-70.0) H 03/14/21 05:33 Band Neutrophils % 1.0 % 03/14/21 05:33 Lymphocytes % (Manual) 8.0 % (13.4-35.0) L 03/14/21 05:33 Monocytes % (Manual) 6.0 % (0.0-7.3) 03/14/21 05:33 Eosinophils % (Manual) 4.0 % (0.0-4.3) 03/14/21 05:33 Nucleated RBC % Not Reportable 03/14/21 05:33 Seg Neutrophils # Man 7.0 K/mm3 (1.8-7.7) 03/14/21 05:33 Band Neutrophils # 0.1 K/mm3 03/14/21 05:33 Lymphocytes # (Manual) 0.7 K/mm3 (1.2-5.4) L 03/14/21 05:33 Abs React Lymphs (Man) 0.0 K/mm3 03/14/21 05:33 Monocytes # (Manual) 0.5 K/mm3 (0.0-0.8) 03/14/21 05:33 Eosinophils # (Manual) 0.3 K/mm3 (0.0-0.4) 03/14/21 05:33 Basophils # (Manual) 0.0 K/mm3 (0.0-0.1) 03/14/21 05:33 Metamyelocytes # 0.0 K/mm3 03/14/21 05:33 Myelocytes # 0.0 K/mm3 03/14/21 05:33 Promyelocytes # 0.0 K/mm3 03/14/21 05:33 Blast Cells # 0.0 K/mm3 03/14/21 05:33 WBC Morphology Not Reportable 03/14/21 05:33 Hypersegmented Neuts Not Reportable 03/14/21 05:33 Hyposegmented Neuts Not Reportable 03/14/21 05:33 Hypogranular Neuts Not Reportable 03/14/21 05:33 Smudge Cells Not Reportable 03/14/21 05:33 Toxic Granulation 1+ 03/14/21 05:33 Toxic Vacuolation Not Reportable 03/14/21 05:33 Dohle Bodies Not Reportable 03/14/21 05:33 Pelger-Huet Anomaly Not Reportable 03/14/21 05:33 Kaela Rods Not Reportable 03/14/21 05:33 Platelet Estimate Consistent w auto 03/14/21 05:33 Clumped Platelets Not Reportable 03/14/21 05:33 Plt Clumps, EDTA Not Reportable 03/14/21 05:33 Large Platelets Not Reportable 03/14/21 05:33 Giant Platelets Not Reportable 03/14/21 05:33 Platelet Satelliting Not Reportable 03/14/21 05:33 Plt Morphology Comment Not Reportable 03/14/21 05:33 RBC Morphology Not Reportable 03/14/21 05:33 Dimorphic RBCs Not Reportable 03/14/21 05:33 Polychromasia Not Reportable 03/14/21 05:33 Hypochromasia 1+ 03/14/21 05:33 Poikilocytosis 1+ 03/14/21 05:33 Anisocytosis 1+ 03/14/21 05:33 Microcytosis Few 03/14/21 05:33 Macrocytosis Not Reportable 03/14/21 05:33 Spherocytes Not Reportable 03/14/21 05:33 Pappenheimer Bodies Not Reportable 03/14/21 05:33 Sickle Cells Not Reportable 03/14/21 05:33 Target Cells Not Reportable 03/14/21 05:33 Tear Drop Cells Not Reportable 03/14/21 05:33 Ovalocytes Not Reportable 03/14/21 05:33 Helmet Cells Not Reportable 03/14/21 05:33 [place] Bodies Not Reportable 03/14/21 05:33 [place] Rings Not Reportable 03/14/21 05:33 Kervin Cells Not Reportable 03/14/21 05:33 Bite Cells Not Reportable 03/14/21 05:33 Crenated Cell Not Reportable 03/14/21 05:33 Elliptocytes Not Reportable 03/14/21 05:33 Acanthocytes (Spur) Not Reportable 03/14/21 05:33 Rouleaux Not Reportable 03/14/21 05:33 Hemoglobin C Crystals Not Reportable 03/14/21 05:33 Schistocytes Not Reportable 03/14/21 05:33 Malaria parasites Not Reportable 03/14/21 05:33 Ignacio Bodies Not Reportable 03/14/21 05:33 Hem Pathologist Commnt No 03/14/21 05:33 PT 13.9 Sec. (12.2-14.9) 03/09/21 11:21 INR 1.01 (0.87-1.13) 03/09/21 11:21 APTT 34.2 Sec. (24.2-36.6) 03/09/21 11:21 Thrombin Time 20.6 Sec. (15.1-19.6) H 03/09/21 11:21 Sodium 138 mmol/L (137-145) 03/17/21 09:11 Potassium 4.0 mmol/L (3.6-5.0) D 03/17/21 09:11 Chloride 98.1 mmol/L (98-107) 03/17/21 09:11 Carbon Dioxide 24 mmol/L (22-30) 03/17/21 09:11 Anion Gap 20 mmol/L 03/17/21 09:11 BUN 44 mg/dL (7-17) H 03/17/21 09:11 Creatinine 5.6 mg/dL (0.6-1.2) H 03/17/21 09:11 Estimated GFR 10 ml/min 03/17/21 09:11 BUN/Creatinine Ratio 8 % 03/17/21 09:11 Glucose 82 mg/dL (65-100) 03/17/21 09:11 POC Glucose 93 mg/dL (70-105) 03/20/21 16:48 Calcium 10.6 mg/dL (8.4-10.2) H 03/17/21 09:11 Phosphorus 5.90 mg/dL (2.5-4.5) H 03/13/21 07:37 Total Bilirubin 0.20 mg/dL (0.1-1.2) 03/09/21 11:21 AST 29 units/L (5-40) 03/09/21 11:21 ALT 9 units/L (7-56) 03/09/21 11:21 Alkaline Phosphatase 157 units/L (35-129) H 03/09/21 11:21 Total Creatine Kinase 403 units/L (30-135) H 03/09/21 11:21 CK-MB (CK-2) 8.4 ng/mL (0.0-4.0) H 03/09/21 11:21 CK-MB (CK-2) Rel Index 2.0 (0-4) 03/09/21 11:21 Troponin T 0.473 ng/mL (0.00-0.029) H* 03/09/21 11:21 Total Protein 7.7 g/dL (6.3-8.2) 03/09/21 11:21 Albumin 3.7 g/dL (3.9-5) L 03/09/21 11:21 Albumin/Globulin Ratio 0.9 % 03/09/21 11:21 HCG, Qual Negative (Negative) 03/13/21 14:21 PTH Intact 19.00 pg/mL (15-65) 03/14/21 04:38 Urine Color Farnaz (Yellow) 03/09/21 11:50 Urine Turbidity Cloudy (Clear) 03/09/21 11:50 Urine pH 5.0 (5.0-7.0) 03/09/21 11:50 Ur Specific [place] 1.023 (1.003-1.030) 03/09/21 11:50 Urine Protein >500 mg/dL (Negative) 03/09/21 11:50 Urine Glucose (UA) Neg mg/dL (Negative) 03/09/21 11:50 Urine Ketones Tr mg/dL (Negative) 03/09/21 11:50 Urine Blood Mod (Negative) 03/09/21 11:50 Urine Nitrite Neg (Negative) 03/09/21 11:50 Ur Reducing Substances Not Reportable 03/09/21 11:50 Urine Bilirubin Neg (Negative) 03/09/21 11:50 Urine Ictotest Not Reportable 03/09/21 11:50 Urine Urobilinogen < 2.0 mg/dL (<2.0) 03/09/21 11:50 Ur Leukocyte Esterase Neg (Negative) 03/09/21 11:50 Urine WBC (Auto) 20.0 /HPF (0.0-6.0) H 03/09/21 11:50 Urine RBC (Auto) 9.0 /HPF (0.0-6.0) 03/09/21 11:50 U Epithel Cells (Auto) 2.0 /HPF (0-13.0) 03/09/21 11:50 Urine WBC Clumps 2+ /HPF 03/09/21 11:50 Urine Mucus Few /HPF 03/09/21 11:50 Urine Yeast (Budding) 3+ /HPF 03/09/21 11:50 Plasma/Serum Alcohol < 0.01 % (0-0.07) 03/09/21 11:21 Coronavirus (PCR) Negative (Negative) 03/13/21 08:30 Hepatitis A IgM Ab Non-reactive (NonReactive) 03/11/21 16:28 Hep Bs Antigen Reactive (Negative) 03/11/21 16:28 Hep B Core IgM Ab Non-reactive (NonReactive) 03/11/21 16:28 Hepatitis C Antibody Non-reactive (NonReactive) 03/11/21 16:28 Robertson/IV: Voiding Method Incontinent Active Medications - Current Medications Current Medications: Generic Name Dose Route Start Last Admin Trade Name Freq PRN Reason Stop Dose Admin Acetaminophen 650 mg 03/09/21 14:52 03/14/21 22:04 Acetaminophen 325 Mg Tab PO 650 mg Q4H PRN Administration Pain, Mild (1-3) Acetaminophen/Butalbital/Caffeine 2 tab 03/09/21 14:28 03/20/21 13:26 Butalb/Acetaminophen/Caffeine Tab PO 2 tab Q8H PRN Administration Headache Lipase/Protease/Amylase 1 each 03/12/21 12:04 Lipase 10,500/Protease 25,000/Amylase 43,750 (Units) Dr Lee FEEDTUBE PRN PRN For Clogged Feeding Tube Aspirin 81 mg 03/17/21 10:00 03/21/21 09:07 Aspirin 81 Mg Tab Chew PO Not Given QDAY LEOLA Atorvastatin Calcium 40 mg 03/09/21 22:00 03/20/21 23:12 Atorvastatin 40 Mg Tab PO 40 mg QHS LEOLA Administration Bisacodyl 10 mg 03/09/21 15:52 03/12/21 16:11 Bisacodyl 10 Mg Rect Supp [place] 10 mg QDAY PRN Administration Constipation Clonidine HCl 0.2 mg 03/17/21 09:00 03/21/21 09:06 Clonidine 0.2 Mg Tab PO Not Given TID [facility] Clopidogrel Bisulfate 75 mg 03/17/21 10:00 03/21/21 09:08 Clopidogrel 75 Mg Tab PO Not Given QDAY [facility] Heparin Sodium (Porcine) 5,000 unit 03/09/21 22:00 03/21/21 09:07 Heparin 5,000 Unit/1 Ml Vial SUB-Q Not Given Q12HR [facility] Heparin Sodium (Porcine) 2,000 unit 03/11/21 14:25 Heparin 10,000 Units/10 Ml Vial IV JUAN C PRN hemodialysis Hydralazine HCl 10 mg 03/16/21 05:41 03/17/21 06:04 Hydralazine 20 Mg/1 Ml Inj IV 10 mg Q6HR PRN Administration Hypertension Hydralazine HCl 50 mg 03/17/21 09:00 03/21/21 05:48 Hydralazine 25 Mg Tab PO 50 mg Q8HR LEOLA Administration Hydromorphone HCl 0.5 mg 03/09/21 14:52 03/16/21 16:09 Hydromorphone 1 Mg/1 Ml Inj IV 0.5 mg Q12H PRN Administration Pain , Severe (7-10) Sodium Chloride 100 mls @ 999 mls/hr 03/11/21 14:25 Nacl 0.9% IV JUAN C PRN Hypotension Levetiracetam 500 mg 03/15/21 13:00 03/21/21 09:07 Levetiracetam 500 Mg/5 Ml Oral Liqd PO Not Given BID [facility] Lidocaine HCl 30 ml 03/09/21 14:28 Magic Mouthwash 30ml MM Q4H PRN Sore Throat Magnesium Hydroxide 30 ml 03/09/21 14:52 Magnesium Hydroxide (Mom) Oral Liqd Udc PO Q4H PRN Constipation Metoclopramide HCl 10 mg 03/09/21 14:52 Metoclopramide 10 Mg Tab PO Q6H PRN Nausea And Vomiting Metoprolol Tartrate 100 mg 03/13/21 18:00 03/21/21 09:08 Metoprolol Tartrate 100 Mg Tab PO Not Given BID [facility] Nifedipine 60 mg 03/16/21 10:00 03/21/21 09:08 Nifedipine Xl 60 Mg Tab PO Not Given DAILY [facility] Ondansetron HCl 4 mg 03/09/21 14:52 Ondansetron 4 Mg/2 Ml Inj IV Q8H PRN Nausea And Vomiting Prednisone 80 mg 03/14/21 10:00 03/21/21 09:07 Prednisone 20 Mg Tab PO Not Given QDAY LEOLA Promethazine HCl 25 mg 03/09/21 14:52 Promethazine 25 Mg Rect Supp [place] Q6H PRN Nausea And Vomiting Simple Syrup 15 ml 03/12/21 12:04 03/14/21 05:38 Simple Syrup 15 Ml FEEDTUBE 15 ml PRN PRN Administration Hypoglycemia Simple Syrup 30 ml 03/12/21 12:04 Simple Syrup 15 Ml FEEDTUBE PRN PRN Hypoglycemia Sodium Bicarbonate 325 mg 03/12/21 12:04 Sodium Bicarbonate 325 Mg Tab FEEDTUBE PRN PRN For Clogged Feeding Tube Sodium Chloride 10 ml 03/09/21 14:52 03/20/21 23:14 Sodium Chloride 0.9% 10 Ml Flush Syringe IV 10 ml PRN PRN Administration LINE FLUSH Nutrition/Malnutrition Assess - Dietary Evaluation Nutrition/Malnutrition Findings: Nutrition Notes Start: 03/10/21 14:05 Freq: Status: Active Protocol: Document 03/19/21 15:39 JUSTICE (Rec: 03/19/21 15:40 JUSTICE [id number]) Nutrition Notes Initial or Follow up Brief Note Current Diet TF - Jevity 1.2 at 50ml/hr Subjective/Other Information Per RN, pt tolerating TF at goal rate. Nutrition Intervention Follow-Up By: 03/26/21 Additional Comments F/U: stable TF, wt
[2021-03-21] MEDS: BUTALB/ACETAMINOPHEN/CAFFEINE TAB PO PRN (22:56)
[2021-03-22] MEDS: hydrALAZINE 25 MG TAB PO SCH ×3 (06:16→21:51)
[2021-03-22] MEDS: CLOPIDOGREL 75 MG TAB PO SCH (09:43)
[2021-03-22] MEDS: cloNIDine 0.2 MG TAB PO SCH ×3 (09:43→21:51)
[2021-03-22] MEDS: ASPIRIN 81 MG TAB CHEW PO SCH (09:43)
[2021-03-22] MEDS: HEPARIN 5,000 UNIT/1 ML VIAL SUB-Q SCH ×2 (09:43→21:55)
[2021-03-22] MEDS: predniSONE 20 MG TAB PO SCH (09:43)
[2021-03-22] MEDS: METOPROLOL TARTRATE 100 MG TAB PO SCH ×2 (09:43→21:52)
[2021-03-22] MEDS: NIFEdipine XL 60 MG TAB PO SCH (09:43)
[2021-03-22] MEDS: levETIRAcetam 500 MG/5 ML ORAL LIQD PO SCH ×2 (09:43→21:55)
--- NOTE | 2021-03-22 12:21 | Progress Note ---
Assessment and Plan 1. ESRD: Patient on maintenance hemodialysis three times a week, outpatinet schedule, MWF. Meds dosage based on GFR. Hemodialysis: 03/11, 03/13, 03/15, 03/17, 03/19, 03/21. 2. FEN: Hypercalemia, low Ca bath with HD. Low PTH level. Monitor lytes and volume status. 3. Acute metabolic encephalopathy, POA: Improving. Monitor. 4. Acute CVA: Seen by Neuro. Per primary. 5. UTI, POA: S/p Abx. 6. Hypertensive urgency: Adjust meds. Monitor BP. 7. Dysphagia / Malnutrition / AFTT: S/p PEG tube. 8. Hypoglycemia: Improved. Subjective: Patient was seen and examined at the bedside. General Appearance: General appearance: well-developed, appears stated age, appears emaciated, not in distress HEENT: ATNC, pupils equal Neck: trachea midline Respiratory: ctab Heart: regular, S1S2, no murmur Abdomen: soft, bowel sounds heard, not tender, PEG tube Integumentary: no rash, warm and dry Neurologic: AO, follows command, able to move extremities Ext: no edema Hemodialysis access: R IJ tunnel catheter Subjective Date of service: 03/22/21 Principal diagnosis: CVA Objective - Vital Signs Vital signs: Vital Signs - 12hr 03/22/21 03/22/21 03/22/21 01:00 05:05 06:16 Temperature 98.9 F Pulse Rate 71 73 73 Respiratory 16 Rate Blood Pressure 144/81 144/81 O2 Sat by Pulse 99 Oximetry 03/22/21 03/22/21 08:08 08:09 Temperature Pulse Rate 68 67 Respiratory 18 Rate Blood Pressure 145/93 O2 Sat by Pulse 100 100 Oximetry - Lab 03/17/21 09:11 03/17/21 09:11 Most recent lab results Calcium 10.6 mg/dL (8.4-10.2) H 03/17/21 09:11 Phosphorus 5.90 mg/dL (2.5-4.5) H 03/13/21 07:37 Medications & Allergies - Medications Allergies/Adverse Reactions: Allergies No Known Allergies Allergy (Verified 03/09/21 13:06) Home Medications: Home Medications Medication Instructions Recorded Confirmed Last Taken Type predniSONE [Deltasone] 80 mg PO QDAY #20 tab 11/25/17 03/21/21 Unknown Rx levETIRAcetam [Keppra TAB] 500 mg PO BID #60 tablet 12/20/19 03/21/21 Unknown Rx oxyCODONE /ACETAMINOPHEN [Percocet 1 tab PO QHS PRN #7 tablet 12/20/19 03/21/21 Unknown Rx 5/325 mg] AtorvaSTATin [Lipitor] 40 mg PO QHS #30 tablet 03/16/21 Unknown Rx Butalb/Acetamin/Caff 50-325-40 2 tab PO Q8HR PRN #20 tablet 03/16/21 Unknown Rx [Fioricet 50-325-40] Metoclopramide [Reglan TAB] 10 mg PO Q6H PRN #14 tablet 03/16/21 Unknown Rx Metoprolol [Lopressor TAB] 100 mg PO BID #60 tablet 03/16/21 Unknown Rx NIFEdipine XL [Procardia Xl] 60 mg PO DAILY #30 tablet 03/16/21 Unknown Rx bisacodyL [Dulcolax suppos] 10 mg IA QDAY PRN #10 supp.rect 03/16/21 Unknown Rx chlorproMAZINE [Thorazine] 25 mg PO Q4H PRN #10 03/16/21 Unknown Rx hydrALAZINE [Apresoline TAB] 50 mg PO Q8HR #90 tablet 03/16/21 Unknown Rx levETIRAcetam [Keppra] 500 mg PO BID 30 Days oral.liqd 03/16/21 Unknown Rx oxyCODONE /ACETAMINOPHEN [Percocet 1 tab PO Q6HR PRN #14 03/16/21 Unknown Rx 5/325 mg] Aspirin [Aspirin BABY CHEW TAB] 81 mg PO QDAY #30 tab.chew 03/17/21 Unknown Rx Clopidogrel [Plavix] 75 mg PO QDAY #30 tablet 03/17/21 Unknown Rx Hydralazine HCl 50 mg PO TID #90 tablet 03/17/21 Unknown Rx cloNIDine [Catapres] 0.2 mg PO TID #90 tablet 03/17/21 Unknown Rx Active Medications: Generic Name Dose Route Start Last Admin Trade Name Freq PRN Reason Stop Dose Admin Acetaminophen 650 mg 03/09/21 14:52 03/14/21 22:04 Acetaminophen 325 Mg Tab PO 650 mg Q4H PRN Administration Pain, Mild (1-3) Acetaminophen/Butalbital/Caffeine 2 tab 03/09/21 14:28 03/21/21 22:56 Butalb/Acetaminophen/Caffeine Tab PO 2 tab Q8H PRN Administration Headache Lipase/Protease/Amylase 1 each 03/12/21 12:04 Lipase 10,500/Protease 25,000/Amylase 43,750 (Units) Dr Lee FEEDTUBE PRN PRN For Clogged Feeding Tube Aspirin 81 mg 03/17/21 10:00 03/22/21 09:43 Aspirin 81 Mg Tab Chew PO 81 mg QDAY LEOLA Administration Atorvastatin Calcium 40 mg 03/09/21 22:00 03/21/21 22:58 Atorvastatin 40 Mg Tab PO 40 mg QHS LEOLA Administration Bisacodyl 10 mg 03/09/21 15:52 03/12/21 16:11 Bisacodyl 10 Mg Rect Supp [place] 10 mg QDAY PRN Administration Constipation Clonidine HCl 0.2 mg 03/17/21 09:00 03/22/21 09:43 Clonidine 0.2 Mg Tab PO 0.2 mg TID LEOLA Administration Clopidogrel Bisulfate 75 mg 03/17/21 10:00 03/22/21 09:43 Clopidogrel 75 Mg Tab PO 75 mg QDAY LEOLA Administration Heparin Sodium (Porcine) 5,000 unit 03/09/21 22:00 03/22/21 09:43 Heparin 5,000 Unit/1 Ml Vial SUB-Q 5,000 unit Q12HR LEOLA Administration Heparin Sodium (Porcine) 2,000 unit 03/11/21 14:25 03/21/21 10:40 Heparin 10,000 Units/10 Ml Vial IV 2,000 unit JUAN C PRN Administration hemodialysis Hydralazine HCl 10 mg 03/16/21 05:41 03/17/21 06:04 Hydralazine 20 Mg/1 Ml Inj IV 10 mg Q6HR PRN Administration Hypertension Hydralazine HCl 50 mg 03/17/21 09:00 03/22/21 06:16 Hydralazine 25 Mg Tab PO 50 mg Q8HR LEOLA Administration Hydromorphone HCl 0.5 mg 03/09/21 14:52 03/16/21 16:09 Hydromorphone 1 Mg/1 Ml Inj IV 0.5 mg Q12H PRN Administration Pain , Severe (7-10) Sodium Chloride 100 mls @ 999 mls/hr 03/11/21 14:25 Nacl 0.9% IV JUAN C PRN Hypotension Levetiracetam 500 mg 03/15/21 13:00 03/22/21 09:43 Levetiracetam 500 Mg/5 Ml Oral Liqd PO 500 mg BID LEOLA Administration Lidocaine HCl 30 ml 03/09/21 14:28 Magic Mouthwash 30ml MM Q4H PRN Sore Throat Magnesium Hydroxide 30 ml 03/09/21 14:52 Magnesium Hydroxide (Mom) Oral Liqd Udc PO Q4H PRN Constipation Metoclopramide HCl 10 mg 03/09/21 14:52 Metoclopramide 10 Mg Tab PO Q6H PRN Nausea And Vomiting Metoprolol Tartrate 100 mg 03/13/21 18:00 03/22/21 09:43 Metoprolol Tartrate 100 Mg Tab PO 100 mg BID LEOLA Administration Nifedipine 60 mg 03/16/21 10:00 03/22/21 09:43 Nifedipine Xl 60 Mg Tab PO 60 mg DAILY LEOLA Administration Ondansetron HCl 4 mg 03/09/21 14:52 Ondansetron 4 Mg/2 Ml Inj IV Q8H PRN Nausea And Vomiting Prednisone 80 mg 03/14/21 10:00 03/22/21 09:43 Prednisone 20 Mg Tab PO 80 mg QDAY LEOLA Administration Promethazine HCl 25 mg 03/09/21 14:52 Promethazine 25 Mg Rect Supp [place] Q6H PRN Nausea And Vomiting Simple Syrup 15 ml 03/12/21 12:04 03/14/21 05:38 Simple Syrup 15 Ml FEEDTUBE 15 ml PRN PRN Administration Hypoglycemia Simple Syrup 30 ml 03/12/21 12:04 Simple Syrup 15 Ml FEEDTUBE PRN PRN Hypoglycemia Sodium Bicarbonate 325 mg 03/12/21 12:04 Sodium Bicarbonate 325 Mg Tab FEEDTUBE PRN PRN For Clogged Feeding Tube Sodium Chloride 10 ml 03/09/21 14:52 03/22/21 09:43 Sodium Chloride 0.9% 10 Ml Flush Syringe IV 10 ml PRN PRN Administration LINE FLUSH
--- NOTE | 2021-03-22 12:27 | Progress Note ---
Assessment and Plan Assessment and plan: The patient is a 45 YO female with history significant for HTN, Seizure Disorder, SLE, Nicotine Dependence, Malnutrition and ESRD on hemodialysis (MWF) who presented to [facility] ED 03/09 with increased confusion as well as 2 witnessed seizures while at home. A code stroke was called and the patient was found to have UTI, metabolic encephalopathy, end-stage renal disease, and accelerated hypertension. Patient was admitted to telemetry and initiated on stroke protocol. At present patient actively being hemodialyzed. Still evidence of increased confusion. Patient found to have urinary tract infection actively being treated. : Patient with significant aphasia/nonverbal, unable to move right side, wait for nephrology evaluation for hemodialysis, MRI pending, will initiate D10W at 42 mils per hour as patient with history of end-stage dialysis will minimize IV fluid. Ordered for speech PT OT eval. will consult neurology following MRI results. Patient is unable to swallow so we will change aspirin per rectal. 03/11/21: MRI showed L thalamus and L temporal area subacute infarct. pending sp eech eval. cont iv fluid, order for Tf and dobhoff if fails speech eval. neuro consult. continue supportive care. HD per renal. monitor BP -adjust meds, follow BMP/CBC 03/12/21: pending TF, noted neuro recommendation: initiate aspirin with plavix. cont MA aspirin till dobhoff/peg placemnet. CM working on placement. Updated daughter for details by phone. follow BMP. monitor vitals 03/13/2021 patient today actively receiving hemodialysis. Patient was nonverbal not answering any questions. Could not complete hemodialysis secondary to hypotension in which patient required a bolus. Patient is now planning on going down to receive PEG placement. Will update daughter after procedure complete. 03/14/2021. Patient remains nonverbal encephalopathic today. Does move all extremities. Tolerated PEG tube feedings well. 03/15/21 patient actively being dialyzed today. Remains encephalopathic. A bit more attentive today. Patient did follow me with eyes. PEG tube functioning well. 03/16: Continue supportive care, awaiting Hospice per family request as documented by case management, repeat BMP AND CBC 03/17: Patient seen and examined again this morning definitely appears older than stated age emaciated not following any commands still speaking but moves around. Discussed with nursing staff at bedside patient not interactive with them. I have resumed the aspirin and the Plavix that was probably held for PEG tube. My understanding is that the family would like to take the patient home with home health but per case management they have requested hospice. I have tried to call them to see if they understand that this needs no dialysis with tube feeds unless approved by the hospice but unfortunately unable to get either the daughter or the father. Nevertheless blood pressure has improved patient needs to be monitored closely on dialysis days to ensure no hypotension. Clinical condition at this time is stable 03/18: Continue supportive care, no new complaints, awaiting discharge plan. Aspiration precautions. Patient answered some question for me today, moved ext. 03/19: Patient seen examined, tolerating tube feed. Continue supportive care. awaiting discharge home or placement. Family not coming for training, following up 03/20: Patient shows remarkable clinical improvement she is answering questions following commands. Speech reevaluated approved for regular diet with thin liquids. This has been ordered. Still cannot reach family for disposition Case management is following otherwise continue current management we will discontinue tube feeding at this time. 03/21: Continue supportive care awaiting placement. We will continue hemodialysis at this time. 03/22: Continune supportive care, she is quite interactive. Awaiting placement - Acute CVA (cerebrovascular accident) Admitted with CVA protocol: CT head, CTA head, CTA neck, showed no acute process MRI showed L thalamus and L temporal area subacute infarct. 2d echo showed preserved EF, carotid doppler showed <50% ordered antiplatelet and statin therapy, physical therapy consulted, Occupational Therapy consulted, speech therapy consulted, telemetry neurology consulted in ED, s/p permissive hypertension overnight. Now could be more aggressive with BP. PT to evaluate for detention facility --Dysphagia Patient unable to speak and has significant dysphagia clinically: placed on D10W Patient to receive PEG tube today. Patient tolerating PEG tube feedings well. No abdominal pain bowel sounds unremarkable. -- UTI (urinary tract infection) IV antibiotic therapy, resolved. Stable to go to nursing facility without antibiotics. --Seizure disorder Continue Keppra can change to p.o. now No active seizure. Increased risk secondary to CVA. --SIRS, with elevated white count, tachycardia and tachypnea cont to monitor for now, likely aspiration pneumonitis No evidence of sepsis at this time. Has resolved now. -- Metabolic encephalopathy Secondary to CVA continue neuro check, seizure precautions, supportive care. Remains encephalopathic at this time. Will follow with eyes not speaking. -- ESRD (end stage renal disease) Nephrology team consulted in ED. Patient actively being dialyzed today.. Was complicated by episode of hypotension requiring a bolus. -- Hypertensive urgency, malignant Should improve medical management once PEG tube has been placed we can use metoprolol through the tube. Remain suboptimal will advance metoprolol. Add amlodipine. After hemodialysis. -- Severe malnutrition Increase protein intake when awake and alert only, dietary supplementation D10W for now, consulted GI for PEG placement --bacterial conjuctivitis: ordered erythromycin ointment History Interval history: Patient seen and examined, no new distress. Much improved answering questions following commands. She wanted a phone to speak to her family Hospitalist Physical - Physical exam Narrative exam: General appearance: Present: no acute distress - EENT Eyes: PERRL, EOM intact - Respiratory Respiratory: bilateral: CTA - Breasts Breasts: normal - Cardiovascular Rhythm: regular Extremities: pulses intact, No edema, normal color, Full ROM - Gastrointestinal General gastrointestinal: Present: soft, non-tender, non-distended, normal bowel sounds, other (PEG tube) - Musculoskeletal Musculoskeletal: right sided weakness, generalized weakness - Neurologic Neurologic: Awake alert oriented following commands and answering questions - Constitutional Vitals: Temp Pulse Resp BP Pulse Ox 98.9 F 67 18 145/93 100 03/22/21 05:05 03/22/21 08:09 03/22/21 08:08 03/22/21 08:08 03/22/21 10:00 General appearance: Present: no acute distress HEART Score - HEART Score Troponin: Troponin T 0.473 ng/mL (0.00-0.029) H* 03/09/21 11:21 Results - Labs CBC & Chem 7: 03/17/21 09:11 03/17/21 09:11 Labs: Laboratory Last Values WBC 7.5 K/mm3 (4.5-11.0) 03/17/21 09:11 RBC 4.73 M/mm3 (3.65-5.03) 03/17/21 09:11 Hgb 12.4 gm/dl (10.1-14.3) 03/17/21 09:11 Hct 39.1 % (30.3-42.9) 03/17/21 09:11 MCV 83 fl (79-97) 03/17/21 09:11 MCH 26 pg (28-32) L 03/17/21 09:11 MCHC 32 % (30-34) 03/17/21 09:11 RDW 19.4 % (13.2-15.2) H 03/17/21 09:11 Plt Count 247 K/mm3 (140-440) 03/17/21 09:11 Add Manual Diff Complete 03/14/21 05:33 Total Counted 100 03/14/21 05:33 Seg Neuts % (Manual) 81.0 % (40.0-70.0) H 03/14/21 05:33 Band Neutrophils % 1.0 % 03/14/21 05:33 Lymphocytes % (Manual) 8.0 % (13.4-35.0) L 03/14/21 05:33 Monocytes % (Manual) 6.0 % (0.0-7.3) 03/14/21 05:33 Eosinophils % (Manual) 4.0 % (0.0-4.3) 03/14/21 05:33 Nucleated RBC % Not Reportable 03/14/21 05:33 Seg Neutrophils # Man 7.0 K/mm3 (1.8-7.7) 03/14/21 05:33 Band Neutrophils # 0.1 K/mm3 03/14/21 05:33 Lymphocytes # (Manual) 0.7 K/mm3 (1.2-5.4) L 03/14/21 05:33 Abs React Lymphs (Man) 0.0 K/mm3 03/14/21 05:33 Monocytes # (Manual) 0.5 K/mm3 (0.0-0.8) 03/14/21 05:33 Eosinophils # (Manual) 0.3 K/mm3 (0.0-0.4) 03/14/21 05:33 Basophils # (Manual) 0.0 K/mm3 (0.0-0.1) 03/14/21 05:33 Metamyelocytes # 0.0 K/mm3 03/14/21 05:33 Myelocytes # 0.0 K/mm3 03/14/21 05:33 Promyelocytes # 0.0 K/mm3 03/14/21 05:33 Blast Cells # 0.0 K/mm3 03/14/21 05:33 WBC Morphology Not Reportable 03/14/21 05:33 Hypersegmented Neuts Not Reportable 03/14/21 05:33 Hyposegmented Neuts Not Reportable 03/14/21 05:33 Hypogranular Neuts Not Reportable 03/14/21 05:33 Smudge Cells Not Reportable 03/14/21 05:33 Toxic Granulation 1+ 03/14/21 05:33 Toxic Vacuolation Not Reportable 03/14/21 05:33 Dohle Bodies Not Reportable 03/14/21 05:33 Pelger-Huet Anomaly Not Reportable 03/14/21 05:33 Kaela Rods Not Reportable 03/14/21 05:33 Platelet Estimate Consistent w auto 03/14/21 05:33 Clumped Platelets Not Reportable 03/14/21 05:33 Plt Clumps, EDTA Not Reportable 03/14/21 05:33 Large Platelets Not Reportable 03/14/21 05:33 Giant Platelets Not Reportable 03/14/21 05:33 Platelet Satelliting Not Reportable 03/14/21 05:33 Plt Morphology Comment Not Reportable 03/14/21 05:33 RBC Morphology Not Reportable 03/14/21 05:33 Dimorphic RBCs Not Reportable 03/14/21 05:33 Polychromasia Not Reportable 03/14/21 05:33 Hypochromasia 1+ 03/14/21 05:33 Poikilocytosis 1+ 03/14/21 05:33 Anisocytosis 1+ 03/14/21 05:33 Microcytosis Few 03/14/21 05:33 Macrocytosis Not Reportable 03/14/21 05:33 Spherocytes Not Reportable 03/14/21 05:33 Pappenheimer Bodies Not Reportable 03/14/21 05:33 Sickle Cells Not Reportable 03/14/21 05:33 Target Cells Not Reportable 03/14/21 05:33 Tear Drop Cells Not Reportable 03/14/21 05:33 Ovalocytes Not Reportable 03/14/21 05:33 Helmet Cells Not Reportable 03/14/21 05:33 [place] Bodies Not Reportable 03/14/21 05:33 Sherman Rings Not Reportable 03/14/21 05:33 Kervin Cells Not Reportable 03/14/21 05:33 Bite Cells Not Reportable 03/14/21 05:33 Crenated Cell Not Reportable 03/14/21 05:33 Elliptocytes Not Reportable 03/14/21 05:33 Acanthocytes (Spur) Not Reportable 03/14/21 05:33 Rouleaux Not Reportable 03/14/21 05:33 Hemoglobin C Crystals Not Reportable 03/14/21 05:33 Schistocytes Not Reportable 03/14/21 05:33 Malaria parasites Not Reportable 03/14/21 05:33 Ignacio Bodies Not Reportable 03/14/21 05:33 Hem Pathologist Commnt No 03/14/21 05:33 PT 13.9 Sec. (12.2-14.9) 03/09/21 11:21 INR 1.01 (0.87-1.13) 03/09/21 11:21 APTT 34.2 Sec. (24.2-36.6) 03/09/21 11:21 Thrombin Time 20.6 Sec. (15.1-19.6) H 03/09/21 11:21 Sodium 138 mmol/L (137-145) 03/17/21 09:11 Potassium 4.0 mmol/L (3.6-5.0) D 03/17/21 09:11 Chloride 98.1 mmol/L (98-107) 03/17/21 09:11 Carbon Dioxide 24 mmol/L (22-30) 03/17/21 09:11 Anion Gap 20 mmol/L 03/17/21 09:11 BUN 44 mg/dL (7-17) H 03/17/21 09:11 Creatinine 5.6 mg/dL (0.6-1.2) H 03/17/21 09:11 Estimated GFR 10 ml/min 03/17/21 09:11 BUN/Creatinine Ratio 8 % 03/17/21 09:11 Glucose 82 mg/dL (65-100) 03/17/21 09:11 POC Glucose 93 mg/dL (70-105) 03/20/21 16:48 Calcium 10.6 mg/dL (8.4-10.2) H 03/17/21 09:11 Phosphorus 5.90 mg/dL (2.5-4.5) H 03/13/21 07:37 Total Bilirubin 0.20 mg/dL (0.1-1.2) 03/09/21 11:21 AST 29 units/L (5-40) 03/09/21 11:21 ALT 9 units/L (7-56) 03/09/21 11:21 Alkaline Phosphatase 157 units/L (35-129) H 03/09/21 11:21 Total Creatine Kinase 403 units/L (30-135) H 03/09/21 11:21 CK-MB (CK-2) 8.4 ng/mL (0.0-4.0) H 03/09/21 11:21 CK-MB (CK-2) Rel Index 2.0 (0-4) 03/09/21 11:21 Troponin T 0.473 ng/mL (0.00-0.029) H* 03/09/21 11:21 Total Protein 7.7 g/dL (6.3-8.2) 03/09/21 11:21 Albumin 3.7 g/dL (3.9-5) L 03/09/21 11:21 Albumin/Globulin Ratio 0.9 % 03/09/21 11:21 HCG, Qual Negative (Negative) 03/13/21 14:21 PTH Intact 19.00 pg/mL (15-65) 03/14/21 04:38 Urine Color Farnaz (Yellow) 03/09/21 11:50 Urine Turbidity Cloudy (Clear) 03/09/21 11:50 Urine pH 5.0 (5.0-7.0) 03/09/21 11:50 Ur Specific [place] 1.023 (1.003-1.030) 03/09/21 11:50 Urine Protein >500 mg/dL (Negative) 03/09/21 11:50 Urine Glucose (UA) Neg mg/dL (Negative) 03/09/21 11:50 Urine Ketones Tr mg/dL (Negative) 03/09/21 11:50 Urine Blood Mod (Negative) 03/09/21 11:50 Urine Nitrite Neg (Negative) 03/09/21 11:50 Ur Reducing Substances Not Reportable 03/09/21 11:50 Urine Bilirubin Neg (Negative) 03/09/21 11:50 Urine Ictotest Not Reportable 03/09/21 11:50 Urine Urobilinogen < 2.0 mg/dL (<2.0) 03/09/21 11:50 Ur Leukocyte Esterase Neg (Negative) 03/09/21 11:50 Urine WBC (Auto) 20.0 /HPF (0.0-6.0) H 03/09/21 11:50 Urine RBC (Auto) 9.0 /HPF (0.0-6.0) 03/09/21 11:50 U Epithel Cells (Auto) 2.0 /HPF (0-13.0) 03/09/21 11:50 Urine WBC Clumps 2+ /HPF 03/09/21 11:50 Urine Mucus Few /HPF 03/09/21 11:50 Urine Yeast (Budding) 3+ /HPF 03/09/21 11:50 Plasma/Serum Alcohol < 0.01 % (0-0.07) 03/09/21 11:21 Coronavirus (PCR) Negative (Negative) 03/13/21 08:30 Hepatitis A IgM Ab Non-reactive (NonReactive) 03/11/21 16:28 Hep Bs Antigen Reactive (Negative) 03/11/21 16:28 Hep B Core IgM Ab Non-reactive (NonReactive) 03/11/21 16:28 Hepatitis C Antibody Non-reactive (NonReactive) 03/11/21 16:28 Robertson/IV: Voiding Method Diaper Active Medications - Current Medications Current Medications: Generic Name Dose Route Start Last Admin Trade Name Freq PRN Reason Stop Dose Admin Acetaminophen 650 mg 03/09/21 14:52 03/14/21 22:04 Acetaminophen 325 Mg Tab PO 650 mg Q4H PRN Administration Pain, Mild (1-3) Acetaminophen/Butalbital/Caffeine 2 tab 03/09/21 14:28 03/21/21 22:56 Butalb/Acetaminophen/Caffeine Tab PO 2 tab Q8H PRN Administration Headache Lipase/Protease/Amylase 1 each 03/12/21 12:04 Lipase 10,500/Protease 25,000/Amylase 43,750 (Units) Dr Lee FEEDTUBE PRN PRN For Clogged Feeding Tube Aspirin 81 mg 03/17/21 10:00 03/22/21 09:43 Aspirin 81 Mg Tab Chew PO 81 mg QDAY LEOLA Administration Atorvastatin Calcium 40 mg 03/09/21 22:00 03/21/21 22:58 Atorvastatin 40 Mg Tab PO 40 mg QHS LEOLA Administration Bisacodyl 10 mg 03/09/21 15:52 03/12/21 16:11 Bisacodyl 10 Mg Rect Supp MA 10 mg QDAY PRN Administration Constipation Clonidine HCl 0.2 mg 03/17/21 09:00 03/22/21 09:43 Clonidine 0.2 Mg Tab PO 0.2 mg TID LEOLA Administration Clopidogrel Bisulfate 75 mg 03/17/21 10:00 03/22/21 09:43 Clopidogrel 75 Mg Tab PO 75 mg QDAY LEOLA Administration Heparin Sodium (Porcine) 5,000 unit 03/09/21 22:00 03/22/21 09:43 Heparin 5,000 Unit/1 Ml Vial SUB-Q 5,000 unit Q12HR LEOLA Administration Heparin Sodium (Porcine) 2,000 unit 03/11/21 14:25 03/21/21 10:40 Heparin 10,000 Units/10 Ml Vial IV 2,000 unit JUAN C PRN Administration hemodialysis Hydralazine HCl 10 mg 03/16/21 05:41 03/17/21 06:04 Hydralazine 20 Mg/1 Ml Inj IV 10 mg Q6HR PRN Administration Hypertension Hydralazine HCl 50 mg 03/17/21 09:00 03/22/21 06:16 Hydralazine 25 Mg Tab PO 50 mg Q8HR LEOLA Administration Hydromorphone HCl 0.5 mg 03/09/21 14:52 03/16/21 16:09 Hydromorphone 1 Mg/1 Ml Inj IV 0.5 mg Q12H PRN Administration Pain , Severe (7-10) Sodium Chloride 100 mls @ 999 mls/hr 03/11/21 14:25 Nacl 0.9% IV JUAN C PRN Hypotension Levetiracetam 500 mg 03/15/21 13:00 03/22/21 09:43 Levetiracetam 500 Mg/5 Ml Oral Liqd PO 500 mg BID LEOLA Administration Lidocaine HCl 30 ml 03/09/21 14:28 Magic Mouthwash 30ml MM Q4H PRN Sore Throat Magnesium Hydroxide 30 ml 03/09/21 14:52 Magnesium Hydroxide (Mom) Oral Liqd Udc PO Q4H PRN Constipation Metoclopramide HCl 10 mg 03/09/21 14:52 Metoclopramide 10 Mg Tab PO Q6H PRN Nausea And Vomiting Metoprolol Tartrate 100 mg 03/13/21 18:00 03/22/21 09:43 Metoprolol Tartrate 100 Mg Tab PO 100 mg BID LEOLA Administration Nifedipine 60 mg 03/16/21 10:00 03/22/21 09:43 Nifedipine Xl 60 Mg Tab PO 60 mg DAILY LEOLA Administration Ondansetron HCl 4 mg 03/09/21 14:52 Ondansetron 4 Mg/2 Ml Inj IV Q8H PRN Nausea And Vomiting Prednisone 80 mg 03/14/21 10:00 03/22/21 09:43 Prednisone 20 Mg Tab PO 80 mg QDAY LEOLA Administration Promethazine HCl 25 mg 03/09/21 14:52 Promethazine 25 Mg Rect Supp MA Q6H PRN Nausea And Vomiting Simple Syrup 15 ml 03/12/21 12:04 03/14/21 05:38 Simple Syrup 15 Ml FEEDTUBE 15 ml PRN PRN Administration Hypoglycemia Simple Syrup 30 ml 03/12/21 12:04 Simple Syrup 15 Ml FEEDTUBE PRN PRN Hypoglycemia Sodium Bicarbonate 325 mg 03/12/21 12:04 Sodium Bicarbonate 325 Mg Tab FEEDTUBE PRN PRN For Clogged Feeding Tube Sodium Chloride 10 ml 03/09/21 14:52 03/22/21 09:43 Sodium Chloride 0.9% 10 Ml Flush Syringe IV 10 ml PRN PRN Administration LINE FLUSH Nutrition/Malnutrition Assess - Dietary Evaluation Nutrition/Malnutrition Findings: Nutrition Notes Start: 03/10/21 14:05 Freq: Status: Active Protocol: Document 03/19/21 15:39 JUSTICE (Rec: 03/19/21 15:40 JUSTICE [id number]) Nutrition Notes Initial or Follow up Brief Note Current Diet TF - Jevity 1.2 at 50ml/hr Subjective/Other Information Per RN, pt tolerating TF at goal rate. Nutrition Intervention Follow-Up By: 03/26/21 Additional Comments F/U: stable TF, wt
[2021-03-22] MEDS: BUTALB/ACETAMINOPHEN/CAFFEINE TAB PO PRN (21:52)
[2021-03-23] MEDS: hydrALAZINE 25 MG TAB PO SCH ×3 (06:05→21:15)
[2021-03-23] MEDS: cloNIDine 0.2 MG TAB PO SCH ×4 (09:11→21:16)
[2021-03-23] MEDS: predniSONE 20 MG TAB PO SCH (09:12)
[2021-03-23] MEDS: NIFEdipine XL 60 MG TAB PO SCH (09:12)
[2021-03-23] MEDS: METOPROLOL TARTRATE 100 MG TAB PO SCH ×2 (09:12→21:15)
[2021-03-23] MEDS: CLOPIDOGREL 75 MG TAB PO SCH (09:12)
[2021-03-23] MEDS: levETIRAcetam 500 MG/5 ML ORAL LIQD PO SCH ×2 (09:12→21:16)
[2021-03-23] MEDS: ASPIRIN 81 MG TAB CHEW PO SCH (09:12)
[2021-03-23] MEDS: HEPARIN 5,000 UNIT/1 ML VIAL SUB-Q SCH ×2 (09:13→21:17)
--- NOTE | 2021-03-23 11:33 | Progress Note ---
Assessment and Plan Assessment and plan: The patient is a 45 YO female with history significant for HTN, Seizure Disorder, SLE, Nicotine Dependence, Malnutrition and ESRD on hemodialysis (MWF) who presented to [facility] ED 03/09 with increased confusion as well as 2 witnessed seizures while at home. A code stroke was called and the patient was found to have UTI, metabolic encephalopathy, end-stage renal disease, and accelerated hypertension. Patient was admitted to telemetry and initiated on stroke protocol. At present patient actively being hemodialyzed. Still evidence of increased confusion. Patient found to have urinary tract infection actively being treated. : Patient with significant aphasia/nonverbal, unable to move right side, wait for nephrology evaluation for hemodialysis, MRI pending, will initiate D10W at 42 mils per hour as patient with history of end-stage dialysis will minimize IV fluid. Ordered for speech PT OT eval. will consult neurology following MRI results. Patient is unable to swallow so we will change aspirin per rectal. 03/11/21: MRI showed L thalamus and L temporal area subacute infarct. pending sp eech eval. cont iv fluid, order for Tf and dobhoff if fails speech eval. neuro consult. continue supportive care. HD per renal. monitor BP -adjust meds, follow BMP/CBC 03/12/21: pending TF, noted neuro recommendation: initiate aspirin with plavix. cont AR aspirin till dobhoff/peg placemnet. CM working on placement. Updated daughter for details by phone. follow BMP. monitor vitals 03/13/2021 patient today actively receiving hemodialysis. Patient was nonverbal not answering any questions. Could not complete hemodialysis secondary to hypotension in which patient required a bolus. Patient is now planning on going down to receive PEG placement. Will update daughter after procedure complete. 03/14/2021. Patient remains nonverbal encephalopathic today. Does move all extremities. Tolerated PEG tube feedings well. 03/15/21 patient actively being dialyzed today. Remains encephalopathic. A bit more attentive today. Patient did follow me with eyes. PEG tube functioning well. 03/16: Continue supportive care, awaiting Hospice per family request as documented by case management, repeat BMP AND CBC 03/17: Patient seen and examined again this morning definitely appears older than stated age emaciated not following any commands still speaking but moves around. Discussed with nursing staff at bedside patient not interactive with them. I have resumed the aspirin and the Plavix that was probably held for PEG tube. My understanding is that the family would like to take the patient home with home health but per case management they have requested hospice. I have tried to call them to see if they understand that this needs no dialysis with tube feeds unless approved by the hospice but unfortunately unable to get either the daughter or the father. Nevertheless blood pressure has improved patient needs to be monitored closely on dialysis days to ensure no hypotension. Clinical condition at this time is stable 03/18: Continue supportive care, no new complaints, awaiting discharge plan. Aspiration precautions. Patient answered some question for me today, moved ext. 03/19: Patient seen examined, tolerating tube feed. Continue supportive care. awaiting discharge home or placement. Family not coming for training, following up 03/20: Patient shows remarkable clinical improvement she is answering questions following commands. Speech reevaluated approved for regular diet with thin liquids. This has been ordered. Still cannot reach family for disposition Case management is following otherwise continue current management we will discontinue tube feeding at this time. 03/21: Continue supportive care awaiting placement. We will continue hemodialysis at this time. 03/22: Continune supportive care, she is quite interactive. Awaiting placement 03/23: Patient stable at this time, continued supportive care, awaiting placement - Acute CVA (cerebrovascular accident) Admitted with CVA protocol: CT head, CTA head, CTA neck, showed no acute process MRI showed L thalamus and L temporal area subacute infarct. 2d echo showed preserved EF, carotid doppler showed <50% ordered antiplatelet and statin therapy, physical therapy consulted, Occupational Therapy consulted, speech therapy consulted, telemetry neurology consulted in ED, s/p permissive hypertension overnight. Now could be more aggressive with BP. PT to evaluate for pen[facility]ent[facility] facility --Dysphagia Patient unable to speak and has significant dysphagia clinically: placed on D10W Patient to receive PEG tube today. Patient tolerating PEG tube feedings well. No abdominal pain bowel sounds unremarkable. -- UTI (urinary tract infection) IV antibiotic therapy, resolved. Stable to go to nursing facility without antibiotics. --Seizure disorder Continue Keppra can change to p.o. now No active seizure. Increased risk secondary to CVA. --SIRS, with elevated white count, tachycardia and tachypnea cont to monitor for now, likely aspiration pneumonitis No evidence of sepsis at this time. Has resolved now. -- Metabolic encephalopathy Secondary to CVA continue neuro check, seizure precautions, supportive care. Remains encephalopathic at this time. Will follow with eyes not speaking. -- ESRD (end stage renal disease) Nephrology team consulted in ED. Patient actively being dialyzed today.. Was complicated by episode of hypotension requiring a bolus. -- Hypertensive urgency, malignant Should improve medical management once PEG tube has been placed we can use metoprolol through the tube. Remain suboptimal will advance metoprolol. Add amlodipine. After hemodialysis. -- Severe malnutrition Increase protein intake when awake and alert only, dietary supplementation D10W for now, consulted GI for PEG placement --bacterial conjuctivitis: ordered erythromycin ointment History Interval history: Patient seen and examined, no new distress. Much improved answering questions following commands. Hospitalist Physical - Physical exam Narrative exam: General appearance: Present: no acute distress - EENT Eyes: PERRL, EOM intact - Respiratory Respiratory: bilateral: CTA - Breasts Breasts: normal - Cardiovascular Rhythm: regular Extremities: pulses intact, No edema, normal color, Full ROM - Gastrointestinal General gastrointestinal: Present: soft, non-tender, non-distended, normal bowel sounds, other (PEG tube) - Musculoskeletal Musculoskeletal: right sided weakness, generalized weakness - Neurologic Neurologic: Awake alert oriented following commands and answering questions - Constitutional Vitals: Temp Pulse Resp BP Pulse Ox 98.0 F 70 18 139/90 99 03/23/21 04:14 03/23/21 09:11 03/23/21 04:14 03/23/21 09:12 03/23/21 04:14 General appearance: Present: no acute distress HEART Score - HEART Score Troponin: Troponin T 0.473 ng/mL (0.00-0.029) H* 03/09/21 11:21 Results - Labs CBC & Chem 7: 03/17/21 09:11 03/17/21 09:11 Labs: Laboratory Last Values WBC 7.5 K/mm3 (4.5-11.0) 03/17/21 09:11 RBC 4.73 M/mm3 (3.65-5.03) 03/17/21 09:11 Hgb 12.4 gm/dl (10.1-14.3) 03/17/21 09:11 Hct 39.1 % (30.3-42.9) 03/17/21 09:11 MCV 83 fl (79-97) 03/17/21 09:11 MCH 26 pg (28-32) L 03/17/21 09:11 MCHC 32 % (30-34) 03/17/21 09:11 RDW 19.4 % (13.2-15.2) H 03/17/21 09:11 Plt Count 247 K/mm3 (140-440) 03/17/21 09:11 Add Manual Diff Complete 03/14/21 05:33 Total Counted 100 03/14/21 05:33 Seg Neuts % (Manual) 81.0 % (40.0-70.0) H 03/14/21 05:33 Band Neutrophils % 1.0 % 03/14/21 05:33 Lymphocytes % (Manual) 8.0 % (13.4-35.0) L 03/14/21 05:33 Monocytes % (Manual) 6.0 % (0.0-7.3) 03/14/21 05:33 Eosinophils % (Manual) 4.0 % (0.0-4.3) 03/14/21 05:33 Nucleated RBC % Not Reportable 03/14/21 05:33 Seg Neutrophils # Man 7.0 K/mm3 (1.8-7.7) 03/14/21 05:33 Band Neutrophils # 0.1 K/mm3 03/14/21 05:33 Lymphocytes # (Manual) 0.7 K/mm3 (1.2-5.4) L 03/14/21 05:33 Abs React Lymphs (Man) 0.0 K/mm3 03/14/21 05:33 Monocytes # (Manual) 0.5 K/mm3 (0.0-0.8) 03/14/21 05:33 Eosinophils # (Manual) 0.3 K/mm3 (0.0-0.4) 03/14/21 05:33 Basophils # (Manual) 0.0 K/mm3 (0.0-0.1) 03/14/21 05:33 Metamyelocytes # 0.0 K/mm3 03/14/21 05:33 Myelocytes # 0.0 K/mm3 03/14/21 05:33 Promyelocytes # 0.0 K/mm3 03/14/21 05:33 Blast Cells # 0.0 K/mm3 03/14/21 05:33 WBC Morphology Not Reportable 03/14/21 05:33 Hypersegmented Neuts Not Reportable 03/14/21 05:33 Hyposegmented Neuts Not Reportable 03/14/21 05:33 Hypogranular Neuts Not Reportable 03/14/21 05:33 Smudge Cells Not Reportable 03/14/21 05:33 Toxic Granulation 1+ 03/14/21 05:33 Toxic Vacuolation Not Reportable 03/14/21 05:33 Dohle Bodies Not Reportable 03/14/21 05:33 Pelger-Huet Anomaly Not Reportable 03/14/21 05:33 Kaela Rods Not Reportable 03/14/21 05:33 Platelet Estimate Consistent w auto 03/14/21 05:33 Clumped Platelets Not Reportable 03/14/21 05:33 Plt Clumps, EDTA Not Reportable 03/14/21 05:33 Large Platelets Not Reportable 03/14/21 05:33 Giant Platelets Not Reportable 03/14/21 05:33 Platelet Satelliting Not Reportable 03/14/21 05:33 Plt Morphology Comment Not Reportable 03/14/21 05:33 RBC Morphology Not Reportable 03/14/21 05:33 Dimorphic RBCs Not Reportable 03/14/21 05:33 Polychromasia Not Reportable 03/14/21 05:33 Hypochromasia 1+ 03/14/21 05:33 Poikilocytosis 1+ 03/14/21 05:33 Anisocytosis 1+ 03/14/21 05:33 Microcytosis Few 03/14/21 05:33 Macrocytosis Not Reportable 03/14/21 05:33 Spherocytes Not Reportable 03/14/21 05:33 Pappenheimer Bodies Not Reportable 03/14/21 05:33 Sickle Cells Not Reportable 03/14/21 05:33 Target Cells Not Reportable 03/14/21 05:33 Tear Drop Cells Not Reportable 03/14/21 05:33 Ovalocytes Not Reportable 03/14/21 05:33 Helmet Cells Not Reportable 03/14/21 05:33 [place] Bodies Not Reportable 03/14/21 05:33 Cope Rings Not Reportable 03/14/21 05:33 [place] Cells Not Reportable 03/14/21 05:33 Bite Cells Not Reportable 03/14/21 05:33 Crenated Cell Not Reportable 03/14/21 05:33 Elliptocytes Not Reportable 03/14/21 05:33 Acanthocytes (Spur) Not Reportable 03/14/21 05:33 Rouleaux Not Reportable 03/14/21 05:33 Hemoglobin C Crystals Not Reportable 03/14/21 05:33 Schistocytes Not Reportable 03/14/21 05:33 Malaria parasites Not Reportable 03/14/21 05:33 Ignacio Bodies Not Reportable 03/14/21 05:33 Hem Pathologist Commnt No 03/14/21 05:33 PT 13.9 Sec. (12.2-14.9) 03/09/21 11:21 INR 1.01 (0.87-1.13) 03/09/21 11:21 APTT 34.2 Sec. (24.2-36.6) 03/09/21 11:21 Thrombin Time 20.6 Sec. (15.1-19.6) H 03/09/21 11:21 Sodium 138 mmol/L (137-145) 03/17/21 09:11 Potassium 4.0 mmol/L (3.6-5.0) D 03/17/21 09:11 Chloride 98.1 mmol/L (98-107) 03/17/21 09:11 Carbon Dioxide 24 mmol/L (22-30) 03/17/21 09:11 Anion Gap 20 mmol/L 03/17/21 09:11 BUN 44 mg/dL (7-17) H 03/17/21 09:11 Creatinine 5.6 mg/dL (0.6-1.2) H 03/17/21 09:11 Estimated GFR 10 ml/min 03/17/21 09:11 BUN/Creatinine Ratio 8 % 03/17/21 09:11 Glucose 82 mg/dL (65-100) 03/17/21 09:11 POC Glucose 93 mg/dL (70-105) 03/20/21 16:48 Calcium 10.6 mg/dL (8.4-10.2) H 03/17/21 09:11 Phosphorus 5.90 mg/dL (2.5-4.5) H 03/13/21 07:37 Total Bilirubin 0.20 mg/dL (0.1-1.2) 03/09/21 11:21 AST 29 units/L (5-40) 03/09/21 11:21 ALT 9 units/L (7-56) 03/09/21 11:21 Alkaline Phosphatase 157 units/L (35-129) H 03/09/21 11:21 Total Creatine Kinase 403 units/L (30-135) H 03/09/21 11:21 CK-MB (CK-2) 8.4 ng/mL (0.0-4.0) H 03/09/21 11:21 CK-MB (CK-2) Rel Index 2.0 (0-4) 03/09/21 11:21 Troponin T 0.473 ng/mL (0.00-0.029) H* 03/09/21 11:21 Total Protein 7.7 g/dL (6.3-8.2) 03/09/21 11:21 Albumin 3.7 g/dL (3.9-5) L 03/09/21 11:21 Albumin/Globulin Ratio 0.9 % 03/09/21 11:21 HCG, Qual Negative (Negative) 03/13/21 14:21 PTH Intact 19.00 pg/mL (15-65) 03/14/21 04:38 Urine Color [place] (Yellow) 03/09/21 11:50 Urine Turbidity Cloudy (Clear) 03/09/21 11:50 Urine pH 5.0 (5.0-7.0) 03/09/21 11:50 Ur Specific [place] 1.023 (1.003-1.030) 03/09/21 11:50 Urine Protein >500 mg/dL (Negative) 03/09/21 11:50 Urine Glucose (UA) Neg mg/dL (Negative) 03/09/21 11:50 Urine Ketones Tr mg/dL (Negative) 03/09/21 11:50 Urine Blood Mod (Negative) 03/09/21 11:50 Urine Nitrite Neg (Negative) 03/09/21 11:50 Ur Reducing Substances Not Reportable 03/09/21 11:50 Urine Bilirubin Neg (Negative) 03/09/21 11:50 Urine Ictotest Not Reportable 03/09/21 11:50 Urine Urobilinogen < 2.0 mg/dL (<2.0) 03/09/21 11:50 Ur Leukocyte Esterase Neg (Negative) 03/09/21 11:50 Urine WBC (Auto) 20.0 /HPF (0.0-6.0) H 03/09/21 11:50 Urine RBC (Auto) 9.0 /HPF (0.0-6.0) 03/09/21 11:50 U Epithel Cells (Auto) 2.0 /HPF (0-13.0) 03/09/21 11:50 Urine WBC Clumps 2+ /HPF 03/09/21 11:50 Urine Mucus Few /HPF 03/09/21 11:50 Urine Yeast (Budding) 3+ /HPF 03/09/21 11:50 Plasma/Serum Alcohol < 0.01 % (0-0.07) 03/09/21 11:21 Coronavirus (PCR) Negative (Negative) 03/13/21 08:30 Hepatitis A IgM Ab Non-reactive (NonReactive) 03/11/21 16:28 Hep Bs Antigen Reactive (Negative) 03/11/21 16:28 Hep B Core IgM Ab Non-reactive (NonReactive) 03/11/21 16:28 Hepatitis C Antibody Non-reactive (NonReactive) 03/11/21 16:28 Robertson/IV: Voiding Method Diaper Active Medications - Current Medications Current Medications: Generic Name Dose Route Start Last Admin Trade Name Freq PRN Reason Stop Dose Admin Acetaminophen 650 mg 03/09/21 14:52 03/14/21 22:04 Acetaminophen 325 Mg Tab PO 650 mg Q4H PRN Administration Pain, Mild (1-3) Acetaminophen/Butalbital/Caffeine 2 tab 03/09/21 14:28 03/22/21 21:52 Butalb/Acetaminophen/Caffeine Tab PO 2 tab Q8H PRN Administration Headache Lipase/Protease/Amylase 1 each 03/12/21 12:04 Lipase 10,500/Protease 25,000/Amylase 43,750 (Units) Dr Jesus BARNHARTTUBE PRN PRN For Clogged Feeding Tube Aspirin 81 mg 03/17/21 10:00 03/23/21 09:12 Aspirin 81 Mg Tab Chew PO 81 mg QDAY LEOLA Administration Atorvastatin Calcium 40 mg 03/09/21 22:00 03/22/21 21:55 Atorvastatin 40 Mg Tab PO 40 mg QHS LEOLA Administration Bisacodyl 10 mg 03/09/21 15:52 03/12/21 16:11 Bisacodyl 10 Mg Rect Supp AR 10 mg QDAY PRN Administration Constipation Clonidine HCl 0.2 mg 03/17/21 09:00 03/23/21 09:11 Clonidine 0.2 Mg Tab PO 0.2 mg TID LEOLA Administration Clopidogrel Bisulfate 75 mg 03/17/21 10:00 03/23/21 09:12 Clopidogrel 75 Mg Tab PO 75 mg QDAY LEOLA Administration Heparin Sodium (Porcine) 5,000 unit 03/09/21 22:00 03/23/21 09:13 Heparin 5,000 Unit/1 Ml Vial SUB-Q 5,000 unit Q12HR LEOLA Administration Heparin Sodium (Porcine) 2,000 unit 03/11/21 14:25 03/21/21 10:40 Heparin 10,000 Units/10 Ml Vial IV 2,000 unit JUAN C PRN Administration hemodialysis Hydralazine HCl 10 mg 03/16/21 05:41 03/17/21 06:04 Hydralazine 20 Mg/1 Ml Inj IV 10 mg Q6HR PRN Administration Hypertension Hydralazine HCl 50 mg 03/17/21 09:00 03/23/21 06:05 Hydralazine 25 Mg Tab PO 50 mg Q8HR LEOLA Administration Hydromorphone HCl 0.5 mg 03/09/21 14:52 03/16/21 16:09 Hydromorphone 1 Mg/1 Ml Inj IV 0.5 mg Q12H PRN Administration Pain , Severe (7-10) Sodium Chloride 100 mls @ 999 mls/hr 03/11/21 14:25 Nacl 0.9% IV JUAN C PRN Hypotension Levetiracetam 500 mg 03/15/21 13:00 03/23/21 09:12 Levetiracetam 500 Mg/5 Ml Oral Liqd PO 500 mg BID LEOLA Administration Lidocaine HCl 30 ml 03/09/21 14:28 Magic Mouthwash 30ml MM Q4H PRN Sore Throat Magnesium Hydroxide 30 ml 03/09/21 14:52 Magnesium Hydroxide (Mom) Oral Liqd Udc PO Q4H PRN Constipation Metoclopramide HCl 10 mg 03/09/21 14:52 Metoclopramide 10 Mg Tab PO Q6H PRN Nausea And Vomiting Metoprolol Tartrate 100 mg 03/13/21 18:00 03/23/21 09:12 Metoprolol Tartrate 100 Mg Tab PO 100 mg BID LEOLA Administration Nifedipine 60 mg 03/16/21 10:00 03/23/21 09:12 Nifedipine Xl 60 Mg Tab PO 60 mg DAILY LEOLA Administration Ondansetron HCl 4 mg 03/09/21 14:52 Ondansetron 4 Mg/2 Ml Inj IV Q8H PRN Nausea And Vomiting Prednisone 80 mg 03/14/21 10:00 03/23/21 09:12 Prednisone 20 Mg Tab PO 80 mg QDAY LEOLA Administration Promethazine HCl 25 mg 03/09/21 14:52 Promethazine 25 Mg Rect Supp AR Q6H PRN Nausea And Vomiting Simple Syrup 15 ml 03/12/21 12:04 03/14/21 05:38 Simple Syrup 15 Ml FEEDTUBE 15 ml PRN PRN Administration Hypoglycemia Simple Syrup 30 ml 03/12/21 12:04 Simple Syrup 15 Ml FEEDTUBE PRN PRN Hypoglycemia Sodium Bicarbonate 325 mg 03/12/21 12:04 Sodium Bicarbonate 325 Mg Tab FEEDTUBE PRN PRN For Clogged Feeding Tube Sodium Chloride 10 ml 03/09/21 14:52 03/22/21 21:55 Sodium Chloride 0.9% 10 Ml Flush Syringe IV 10 ml PRN PRN Administration LINE FLUSH Nutrition/Malnutrition Assess - Dietary Evaluation Nutrition/Malnutrition Findings: Nutrition Notes Start: 03/10/21 14:05 Freq: Status: Active Protocol: Document 03/19/21 15:39 JUSTICE (Rec: 03/19/21 15:40 JUSTICE [id number]) Nutrition Notes Initial or Follow up Brief Note Current Diet TF - Jevity 1.2 at 50ml/hr Subjective/Other Information Per RN, pt tolerating TF at goal rate. Nutrition Intervention Follow-Up By: 03/26/21 Additional Comments F/U: stable TF, wt
--- NOTE | 2021-03-23 11:47 | Progress Note ---
Assessment and Plan 1. ESRD: Patient on maintenance hemodialysis three times a week, outpatinet schedule, MWF. Meds dosage based on GFR. Hemodialysis: 03/11, 03/13, 03/15, 03/17, 03/19, 03/21. 2. FEN: Hypercalemia, low Ca bath with HD. Low PTH level. Monitor lytes and volume status. 3. Acute metabolic encephalopathy, POA: Improving. Monitor. 4. Acute CVA: Seen by Neuro. Per primary. 5. UTI, POA: S/p Abx. 6. Hypertensive urgency: Adjust meds. Monitor BP. 7. Dysphagia / Malnutrition / AFTT: S/p PEG tube. 8. Hypoglycemia: Improved. Await placement. Subjective: Patient was seen and examined at the bedside. General Appearance: General appearance: well-developed, appears stated age, appears emaciated, not in distress HEENT: ATNC, pupils equal Neck: trachea midline Respiratory: ctab Heart: regular, S1S2, no murmur Abdomen: soft, bowel sounds heard, not tender, PEG tube Integumentary: no rash, warm and dry Neurologic: alert, follows command, able to move extremities Ext: no edema Hemodialysis access: R IJ tunnel catheter Subjective Date of service: 03/23/21 Principal diagnosis: CVA Objective - Vital Signs Vital signs: Vital Signs - 12hr 03/23/21 03/23/21 03/23/21 01:00 04:14 06:05 Temperature 98.0 F Pulse Rate 65 69 69 Respiratory 18 Rate Blood Pressure 139/96 139/96 O2 Sat by Pulse 99 Oximetry 03/23/21 03/23/21 03/23/21 09:11 09:12 09:15 Temperature 97.8 F Pulse Rate 70 Respiratory Rate Blood Pressure 139/90 139/90 O2 Sat by Pulse Oximetry 03/23/21 10:00 Temperature Pulse Rate Respiratory 20 Rate Blood Pressure O2 Sat by Pulse 98 Oximetry - Lab 03/17/21 09:11 03/17/21 09:11 Most recent lab results Calcium 10.6 mg/dL (8.4-10.2) H 03/17/21 09:11 Phosphorus 5.90 mg/dL (2.5-4.5) H 03/13/21 07:37 Medications & Allergies - Medications Allergies/Adverse Reactions: Allergies No Known Allergies Allergy (Verified 03/09/21 13:06) Home Medications: Home Medications Medication Instructions Recorded Confirmed Last Taken Type predniSONE [Deltasone] 80 mg PO QDAY #20 tab 11/25/17 03/21/21 Unknown Rx levETIRAcetam [Keppra TAB] 500 mg PO BID #60 tablet 12/20/19 03/21/21 Unknown Rx oxyCODONE /ACETAMINOPHEN [Percocet 1 tab PO QHS PRN #7 tablet 12/20/19 03/21/21 Unknown Rx 5/325 mg] AtorvaSTATin [Lipitor] 40 mg PO QHS #30 tablet 03/16/21 Unknown Rx Butalb/Acetamin/Caff 50-325-40 2 tab PO Q8HR PRN #20 tablet 03/16/21 Unknown Rx [Fioricet 50-325-40] Metoclopramide [Reglan TAB] 10 mg PO Q6H PRN #14 tablet 03/16/21 Unknown Rx Metoprolol [Lopressor TAB] 100 mg PO BID #60 tablet 03/16/21 Unknown Rx NIFEdipine XL [Procardia Xl] 60 mg PO DAILY #30 tablet 03/16/21 Unknown Rx bisacodyL [Dulcolax suppos] 10 mg [place] QDAY PRN #10 supp.rect 03/16/21 Unknown Rx chlorproMAZINE [Thorazine] 25 mg PO Q4H PRN #10 03/16/21 Unknown Rx hydrALAZINE [Apresoline TAB] 50 mg PO Q8HR #90 tablet 03/16/21 Unknown Rx levETIRAcetam [Keppra] 500 mg PO BID 30 Days oral.liqd 03/16/21 Unknown Rx oxyCODONE /ACETAMINOPHEN [Percocet 1 tab PO Q6HR PRN #14 03/16/21 Unknown Rx 5/325 mg] Aspirin [Aspirin BABY CHEW TAB] 81 mg PO QDAY #30 tab.chew 03/17/21 Unknown Rx Clopidogrel [Plavix] 75 mg PO QDAY #30 tablet 03/17/21 Unknown Rx Hydralazine HCl 50 mg PO TID #90 tablet 03/17/21 Unknown Rx cloNIDine [Catapres] 0.2 mg PO TID #90 tablet 03/17/21 Unknown Rx Active Medications: Generic Name Dose Route Start Last Admin Trade Name Freq PRN Reason Stop Dose Admin Acetaminophen 650 mg 03/09/21 14:52 03/14/21 22:04 Acetaminophen 325 Mg Tab PO 650 mg Q4H PRN Administration Pain, Mild (1-3) Acetaminophen/Butalbital/Caffeine 2 tab 03/09/21 14:28 03/22/21 21:52 Butalb/Acetaminophen/Caffeine Tab PO 2 tab Q8H PRN Administration Headache Lipase/Protease/Amylase 1 each 03/12/21 12:04 Lipase 10,500/Protease 25,000/Amylase 43,750 (Units) Dr Lee FEEDTUBE PRN PRN For Clogged Feeding Tube Aspirin 81 mg 03/17/21 10:00 03/23/21 09:12 Aspirin 81 Mg Tab Chew PO 81 mg QDAY LEOLA Administration Atorvastatin Calcium 40 mg 03/09/21 22:00 03/22/21 21:55 Atorvastatin 40 Mg Tab PO 40 mg QHS LEOLA Administration Bisacodyl 10 mg 03/09/21 15:52 03/12/21 16:11 Bisacodyl 10 Mg Rect Supp [place] 10 mg QDAY PRN Administration Constipation Clonidine HCl 0.2 mg 03/17/21 09:00 03/23/21 09:11 Clonidine 0.2 Mg Tab PO 0.2 mg TID LEOLA Administration Clopidogrel Bisulfate 75 mg 03/17/21 10:00 03/23/21 09:12 Clopidogrel 75 Mg Tab PO 75 mg QDAY LEOLA Administration Heparin Sodium (Porcine) 5,000 unit 03/09/21 22:00 03/23/21 09:13 Heparin 5,000 Unit/1 Ml Vial SUB-Q 5,000 unit Q12HR LEOLA Administration Heparin Sodium (Porcine) 2,000 unit 03/11/21 14:25 03/21/21 10:40 Heparin 10,000 Units/10 Ml Vial IV 2,000 unit JUAN C PRN Administration hemodialysis Hydralazine HCl 10 mg 03/16/21 05:41 03/17/21 06:04 Hydralazine 20 Mg/1 Ml Inj IV 10 mg Q6HR PRN Administration Hypertension Hydralazine HCl 50 mg 03/17/21 09:00 03/23/21 06:05 Hydralazine 25 Mg Tab PO 50 mg Q8HR LEOLA Administration Hydromorphone HCl 0.5 mg 03/09/21 14:52 03/16/21 16:09 Hydromorphone 1 Mg/1 Ml Inj IV 0.5 mg Q12H PRN Administration Pain , Severe (7-10) Sodium Chloride 100 mls @ 999 mls/hr 03/11/21 14:25 Nacl 0.9% IV JUAN C PRN Hypotension Levetiracetam 500 mg 03/15/21 13:00 03/23/21 09:12 Levetiracetam 500 Mg/5 Ml Oral Liqd PO 500 mg BID LEOLA Administration Lidocaine HCl 30 ml 03/09/21 14:28 Magic Mouthwash 30ml MM Q4H PRN Sore Throat Magnesium Hydroxide 30 ml 03/09/21 14:52 Magnesium Hydroxide (Mom) Oral Liqd Udc PO Q4H PRN Constipation Metoclopramide HCl 10 mg 03/09/21 14:52 Metoclopramide 10 Mg Tab PO Q6H PRN Nausea And Vomiting Metoprolol Tartrate 100 mg 03/13/21 18:00 03/23/21 09:12 Metoprolol Tartrate 100 Mg Tab PO 100 mg BID LEOLA Administration Nifedipine 60 mg 03/16/21 10:00 03/23/21 09:12 Nifedipine Xl 60 Mg Tab PO 60 mg DAILY LEOLA Administration Ondansetron HCl 4 mg 03/09/21 14:52 Ondansetron 4 Mg/2 Ml Inj IV Q8H PRN Nausea And Vomiting Prednisone 80 mg 03/14/21 10:00 03/23/21 09:12 Prednisone 20 Mg Tab PO 80 mg QDAY LEOLA Administration Promethazine HCl 25 mg 03/09/21 14:52 Promethazine 25 Mg Rect Supp [place] Q6H PRN Nausea And Vomiting Simple Syrup 15 ml 03/12/21 12:04 03/14/21 05:38 Simple Syrup 15 Ml FEEDTUBE 15 ml PRN PRN Administration Hypoglycemia Simple Syrup 30 ml 03/12/21 12:04 Simple Syrup 15 Ml FEEDTUBE PRN PRN Hypoglycemia Sodium Bicarbonate 325 mg 03/12/21 12:04 Sodium Bicarbonate 325 Mg Tab FEEDTUBE PRN PRN For Clogged Feeding Tube Sodium Chloride 10 ml 03/09/21 14:52 03/22/21 21:55 Sodium Chloride 0.9% 10 Ml Flush Syringe IV 10 ml PRN PRN Administration LINE FLUSH
[2021-03-23] MEDS: ACETAMINOPHEN 325 MG TAB PO PRN (21:16)
[2021-03-24] MEDS: hydrALAZINE 25 MG TAB PO SCH ×3 (05:57→22:00)
--- NOTE | 2021-03-24 09:16 | Discharge Summary ---
Providers - Providers Date of Admission: 03/10/21 13:48 Attending physician: LAUREN CARTWRIGHT MD 03/09/21 14:52 Consult to Case Management [CONS] Routine Services Needed at Discharge: Mandolin Repairer Notified:: in am Additional Physician Instructions: D/C Planning/SNF Placement Occupational Therapy Evaluate and Treat [CONS] Routine Comment: Reason For Exam: Neuro deficits Physical Therapy Evaluation and Treat [CONS] Routine Comment: Reason For Exam: Neuro deficits 03/09/21 14:53 Speech Therapy Evaluation and Treat [CONS] Routine Reason For Exam: swallow eval 03/09/21 17:28 Consult to Physician [CONS] Routine Comment: Consulting Provider: SHRADDHA FRIAS Physician Instructions: Reason For Exam: esrd 03/12/21 12:04 Consult to Dietitian/Nutrition [CONS] Routine Physician Instructions: Assess nutrtn needs, initiate, modify, manage TF Reason For Exam: Reason for Consult: Write/Manage Tube Feeding Reason for Consult: Write/Manage Tube Feeding 03/12/21 12:05 Consult to Physician [CONS] Routine Comment: Consulting Provider: RICK GARNER Physician Instructions: Reason For Exam: dysphagia need PEG 03/12/21 12:26 Consult to Physician [CONS] Routine Comment: Consulting Provider: BOO LUU Physician Instructions: Reason For Exam: acute CVA 03/13/21 16:25 Consult to Dietitian/Nutrition [CONS] Routine Physician Instructions: Reason For Exam: Reason for Consult: post-peg 03/17/21 08:03 Consult to Dietitian/Nutrition [CONS] Routine Physician Instructions: Reason For Exam: Reason for Consult: Write/Manage Tube Feeding 03/19/21 09:58 Consult to Dietitian/Nutrition [CONS] Routine Physician Instructions: Assess nutrtn needs, initiate, modify, manage TF Reason For Exam: Reason for Consult: Write/Manage Tube Feeding Reason for Consult: Write/Manage Tube Feeding 03/19/21 10:26 Consult to Dietitian/Nutrition [CONS] Routine Physician Instructions: Assess nutrtn needs, initiate, modify, manage TF Reason For Exam: Reason for Consult: Write/Manage Tube Feeding Reason for Consult: Write/Manage Tube Feeding 03/20/21 09:00 Speech Therapy Evaluation and Treat [CONS] Urgent Reason For Exam: pt. is now aox2, speech appropriate, on TF Primary care physician: SAVINGS COUNSELOR Hospitalization Reason for admission: cva Condition: Stable Hospital course: The patient is a 45 YO female with history significant for HTN, Seizure Disorder, SLE, Nicotine Dependence, Malnutrition and ESRD on hemodialysis (MWF) who presented to [facility] ED 03/09 with increased confusion as well as 2 witnessed seizures while at home. A code stroke was called and the patient was found to have UTI, metabolic encephalopathy, end-stage renal disease, and accelerated hypertension. Patient was admitted to telemetry and initiated on stroke protocol. At present patient actively being hemodialyzed. Still evidence of increased confusion. Patient found to have urinary tract infection actively being treated. : Patient with significant aphasia/nonverbal, unable to move right side, wait for nephrology evaluation for hemodialysis, MRI pending, will initiate D10W at 42 mils per hour as patient with history of end-stage dialysis will minimize IV fluid. Ordered for speech PT OT eval. will consult neurology following MRI results. Patient is unable to swallow so we will change aspirin per rectal. 03/11/21: MRI showed L thalamus and L temporal area subacute infarct. pending speech eval. cont iv fluid, order for Tf and dobhoff if fails speech eval. neuro consult. continue supportive care. HD per renal. monitor BP -adjust meds, follow BMP/CBC 03/12/21: pending TF, noted neuro recommendation: initiate aspirin with plavix. cont MA aspirin till dobhoff/peg placemnet. CM working on placement. Updated daughter for details by phone. follow BMP. monitor vitals 03/13/2021 patient today actively receiving hemodialysis. Patient was nonverbal not answering any questions. Could not complete hemodialysis secondary to hypotension in which patient required a bolus. Patient is now planning on going down to receive PEG placement. Will update daughter after procedure complete. 03/14/2021. Patient remains nonverbal encephalopathic today. Does move all extremities. Tolerated PEG tube feedings well. 03/15/21 patient actively being dialyzed today. Remains encephalopathic. A bit more attentive today. Patient did follow me with eyes. PEG tube functioning well. 03/16: Continue supportive care, awaiting Hospice per family request as documented by case management, repeat BMP AND CBC 03/17: Patient seen and examined again this morning definitely appears older than stated age emaciated not following any commands still speaking but moves around. Discussed with nursing staff at bedside patient not interactive with them. I have resumed the aspirin and the Plavix that was probably held for PEG tube. My understanding is that the family would like to take the patient home with home health but per case management they have requested hospice. I have tried to call them to see if they understand that this needs no dialysis with tube feeds unless approved by the hospice but unfortunately unable to get either the daughter or the father. Nevertheless blood pressure has improved patient needs to be monitored closely on dialysis days to ensure no hypotension. Clinical con dition at this time is stable 03/18: Continue supportive care, no new complaints, awaiting discharge plan. Aspiration precautions. Patient answered some question for me today, moved ext. 03/19: Patient seen examined, tolerating tube feed. Continue supportive care. awaiting discharge home or placement. Family not coming for training, following up 03/20: Patient shows remarkable clinical improvement she is answering questions following commands. Speech reevaluated approved for regular diet with thin liquids. This has been ordered. Still cannot reach family for disposition Case management is following otherwise continue current management we will discontinue tube feeding at this time. 03/21: Continue supportive care awaiting placement. We will continue hemodialysis at this time. 03/22: Continune supportive care, she is quite interactive. Awaiting placement 03/23: Patient stable at this time, continued supportive care, awaiting placement 03/24: Patient seen and examined, continues to show good improvement, communicating, although still with bilateral lower ext weakness. Patient is pending placement. She is tolerating diet. PEG can be discontinued after 6 weeks to allow majority. - Acute CVA (cerebrovascular accident) Admitted with CVA protocol: CT head, CTA head, CTA neck, showed no acute process MRI showed L thalamus and L temporal area subacute infarct. 2d echo showed preserved EF, carotid doppler showed <50% ordered antiplatelet and statin therapy, physical therapy consulted, Occupational Therapy consulted, speech therapy consulted, telemetry neurology consulted in ED, s/p permissive hypertension overnight. Now could be more aggressive with BP. PT to evaluate for fdc facility --Dysphagia Patient unable to speak and has significant dysphagia clinically: placed on D10W S/P PEG tube No abdominal pain bowel sounds unremarkable. -- UTI (urinary tract infection) IV antibiotic therapy, resolved. Stable to go to nursing facility without antibiotics. --Seizure disorder Continue Keppra can change to p.o. now No active seizure. Increased risk secondary to CVA. --SIRS, with elevated white count, tachycardia and tachypnea cont to monitor for now, likely aspiration pneumonitis No evidence of sepsis at this time. Has resolved now. -- Metabolic encephalopathy Secondary to CVA continue neuro check, seizure precautions, supportive care. Remains encephalopathic at this time. Will follow with eyes not speaking. -- ESRD (end stage renal disease) Nephrology team consulted in ED. Patient actively being dialyzed today.. Was complicated by episode of hypotension requiring a bolus. -- Hypertensive urgency, malignant Should improve medical management once PEG tube has been placed we can use metoprolol through the tube. Remain suboptimal will advance metoprolol. Add amlodipine. After hemodialysis. -- Severe malnutrition Increase protein intake when awake and alert only, dietary supplementation D10W for now, consulted GI for PEG placement --Bacterial conjuctivitis: ordered erythromycin ointment Disposition: [id number]/[place]-[id number] SNF W [facility] CERT Final Discharge Diagnosis (Prints w/discharge instructions): cva Time spent for discharge: 35 mins Core Measure Documentation - Palliative Care Palliative Care/ Comfort Measures: Palliative Care/Comfort Measures - Core Measures Any of the following diagnoses?: none Exam - Physical Exam Narrative exam: General appearance: Present: no acute distress - EENT Eyes: PERRL, EOM intact - Respiratory Respiratory: bilateral: CTA - Breasts Breasts: normal - Cardiovascular Rhythm: regular Extremities: pulses intact, No edema, normal color, Full ROM - Gastrointestinal General gastrointestinal: Present: soft, non-tender, non-distended, normal bowel sounds, other (PEG tube) - Musculoskeletal Musculoskeletal: right sided weakness, generalized weakness - Neurologic Neurologic: Awake alert oriented following commands and answering questions - Constitutional Vitals: Temp Pulse Resp BP Pulse Ox 97.4 F L 58 L 18 157/93 100 03/24/21 08:40 03/24/21 08:40 03/24/21 08:40 03/24/21 08:40 03/24/21 08:40 Plan Activity: advance as tolerated, fall precautions Diet: renal Special Instructions: restrict fluid intake to (1000cc/day), record daily weights, record daily BP diary Follow up with: MINE GLOVER MD [Staff Physician] - 7 Days PRIMARY CAREMD [Primary Care Provider] - 7 Days SHRADDHA FRIAS MD [Staff Physician] - 7 Days YOANDY LEDEZMA MD [Staff Physician] - 7 Days Prescriptions: AtorvaSTATin [Lipitor] 40 mg PO QHS #30 tablet hydrALAZINE [Apresoline TAB] 50 mg PO Q8HR #90 tablet Aspirin [Aspirin BABY CHEW TAB] 81 mg PO QDAY #30 tab.chew cloNIDine [Catapres] 0.2 mg PO TID #90 tablet bisacodyL [Dulcolax suppos] 10 mg MA QDAY PRN #10 supp.rect PRN Reason: Constipation Butalb/Acetamin/Caff 50-325-40 [Fioricet 50-325-40] 2 tab PO Q8HR PRN #20 tablet PRN Reason: Headache Hydralazine HCl 50 mg PO TID #90 tablet levETIRAcetam [Keppra] 500 mg PO BID 30 Days oral.liqd Metoprolol [Lopressor TAB] 100 mg PO BID #60 tablet oxyCODONE /ACETAMINOPHEN [Percocet 5/325 mg] 1 tab PO Q6HR PRN #14 PRN Reason: Pain Clopidogrel [Plavix] 75 mg PO QDAY #30 tablet NIFEdipine XL [Procardia Xl] 60 mg PO DAILY #30 tablet Metoclopramide [Reglan TAB] 10 mg PO Q6H PRN #14 tablet PRN Reason: Nausea And Vomiting chlorproMAZINE [Thorazine] 25 mg PO Q4H PRN #10 PRN Reason: Itching
[2021-03-24] MEDS: ASPIRIN 81 MG TAB CHEW PO SCH (09:39)
[2021-03-24] MEDS: NIFEdipine XL 60 MG TAB PO SCH (09:39)
[2021-03-24] MEDS: predniSONE 20 MG TAB PO SCH (09:39)
[2021-03-24] MEDS: HEPARIN 5,000 UNIT/1 ML VIAL SUB-Q SCH ×2 (09:40→21:41)
[2021-03-24] MEDS: levETIRAcetam 500 MG/5 ML ORAL LIQD PO SCH ×2 (09:40→21:41)
[2021-03-24] MEDS: METOPROLOL TARTRATE 100 MG TAB PO SCH ×2 (09:40→22:00)
[2021-03-24] MEDS: CLOPIDOGREL 75 MG TAB PO SCH (09:40)
[2021-03-24] MEDS: cloNIDine 0.2 MG TAB PO SCH ×3 (09:40→20:00)
[2021-03-24] MEDS: ACETAMINOPHEN 325 MG TAB PO PRN ×2 (09:53→21:41)
--- NOTE | 2021-03-24 13:03 | Progress Note ---
Assessment and Plan 1. ESRD: Patient on maintenance hemodialysis three times a week, outpatinet schedule, MWF. Meds dosage based on GFR. Hemodialysis: 03/11, 03/13, 03/15, 03/17, 03/19, 03/21, 03/24. 2. FEN: Hypercalemia, low Ca bath with HD. Low PTH level. Monitor lytes and volume status. 3. Acute metabolic encephalopathy, POA: Improving. Monitor. 4. Acute CVA: Seen by Neuro. Per primary. 5. UTI, POA: S/p Abx. 6. Hypertensive urgency: Adjust meds. Monitor BP. 7. Dysphagia / Malnutrition / AFTT: S/p PEG tube. 8. Hypoglycemia: Improved. Await placement. Subjective: Patient was seen and examined at the bedside. General Appearance: General appearance: well-developed, appears stated age, appears emaciated, not in distress HEENT: ATNC, pupils equal Neck: trachea midline Respiratory: ctab Heart: regular, S1S2, no murmur Abdomen: soft, bowel sounds heard, not tender, PEG tube Integumentary: no rash, warm and dry Neurologic: alert, follows command, able to move extremities Ext: no edema Hemodialysis access: R IJ tunnel catheter Subjective Date of service: 03/24/21 Principal diagnosis: CVA Objective - Vital Signs Vital signs: Vital Signs - 12hr 03/24/21 03/24/21 03/24/21 04:27 05:57 08:40 Temperature 97.9 F 97.4 F L Pulse Rate 69 69 58 L Respiratory 18 18 Rate Blood Pressure 127/82 127/82 157/93 Blood Pressure [Left] O2 Sat by Pulse 99 100 Oximetry O2 Sat by Pulse Oximetry [ Anterior Bilateral Throughout] 03/24/21 03/24/21 03/24/21 10:00 10:23 10:30 Temperature 97.3 F L Pulse Rate 73 66 Respiratory 18 18 Rate Blood Pressure 147/100 163/106 Blood Pressure [Left] O2 Sat by Pulse 100 Oximetry O2 Sat by Pulse 99 Oximetry [ Anterior Bilateral Throughout] 03/24/21 03/24/21 03/24/21 10:45 11:00 11:15 Temperature Pulse Rate 87 86 107 H Respiratory Rate Blood Pressure 145/99 156/95 160/108 Blood Pressure [Left] O2 Sat by Pulse Oximetry O2 Sat by Pulse Oximetry [ Anterior Bilateral Throughout] 03/24/21 03/24/21 03/24/21 11:30 11:45 12:00 Temperature 97.4 F L Pulse Rate 89 88 69 Respiratory 18 Rate Blood Pressure 133/95 129/78 127/90 Blood Pressure 113/80 [Left] O2 Sat by Pulse 96 Oximetry O2 Sat by Pulse Oximetry [ Anterior Bilateral Throughout] 03/24/21 03/24/21 03/24/21 12:15 12:45 13:00 Temperature Pulse Rate 92 H 90 85 Respiratory Rate Blood Pressure 117/79 113/80 112/77 Blood Pressure [Left] O2 Sat by Pulse Oximetry O2 Sat by Pulse Oximetry [ Anterior Bilateral Throughout] - Lab 03/17/21 09:11 03/17/21 09:11 Most recent lab results Calcium 10.6 mg/dL (8.4-10.2) H 03/17/21 09:11 Phosphorus 5.90 mg/dL (2.5-4.5) H 03/13/21 07:37 Medications & Allergies - Medications Allergies/Adverse Reactions: Allergies No Known Allergies Allergy (Verified 03/09/21 13:06) Home Medications: Home Medications Medication Instructions Recorded Confirmed Last Taken Type predniSONE [Deltasone] 80 mg PO QDAY #20 tab 11/25/17 03/21/21 Unknown Rx levETIRAcetam [Keppra TAB] 500 mg PO BID #60 tablet 12/20/19 03/21/21 Unknown Rx oxyCODONE /ACETAMINOPHEN [Percocet 1 tab PO QHS PRN #7 tablet 12/20/19 03/21/21 Unknown Rx 5/325 mg] AtorvaSTATin [Lipitor] 40 mg PO QHS #30 tablet 03/16/21 Unknown Rx Butalb/Acetamin/Caff 50-325-40 2 tab PO Q8HR PRN #20 tablet 03/16/21 Unknown Rx [Fioricet 50-325-40] Metoclopramide [Reglan TAB] 10 mg PO Q6H PRN #14 tablet 03/16/21 Unknown Rx Metoprolol [Lopressor TAB] 100 mg PO BID #60 tablet 03/16/21 Unknown Rx NIFEdipine XL [Procardia Xl] 60 mg PO DAILY #30 tablet 03/16/21 Unknown Rx bisacodyL [Dulcolax suppos] 10 mg LA QDAY PRN #10 supp.rect 03/16/21 Unknown Rx chlorproMAZINE [Thorazine] 25 mg PO Q4H PRN #10 03/16/21 Unknown Rx hydrALAZINE [Apresoline TAB] 50 mg PO Q8HR #90 tablet 03/16/21 Unknown Rx levETIRAcetam [Keppra] 500 mg PO BID 30 Days oral.liqd 03/16/21 Unknown Rx oxyCODONE /ACETAMINOPHEN [Percocet 1 tab PO Q6HR PRN #14 03/16/21 Unknown Rx 5/325 mg] Aspirin [Aspirin BABY CHEW TAB] 81 mg PO QDAY #30 tab.chew 03/17/21 Unknown Rx Clopidogrel [Plavix] 75 mg PO QDAY #30 tablet 03/17/21 Unknown Rx Hydralazine HCl 50 mg PO TID #90 tablet 03/17/21 Unknown Rx cloNIDine [Catapres] 0.2 mg PO TID #90 tablet 03/17/21 Unknown Rx Active Medications: Generic Name Dose Route Start Last Admin Trade Name Rashiq PRN Reason Stop Dose Admin Acetaminophen 650 mg 03/09/21 14:52 03/24/21 09:53 Acetaminophen 325 Mg Tab PO 650 mg Q4H PRN Administration Pain, Mild (1-3) Acetaminophen/Butalbital/Caffeine 2 tab 03/09/21 14:28 03/22/21 21:52 Butalb/Acetaminophen/Caffeine Tab PO 2 tab Q8H PRN Administration Headache Lipase/Protease/Amylase 1 each 03/12/21 12:04 Lipase 10,500/Protease 25,000/Amylase 43,750 (Units) Dr Lee FEEDTUBE PRN PRN For Clogged Feeding Tube Aspirin 81 mg 03/17/21 10:00 03/24/21 09:39 Aspirin 81 Mg Tab Chew PO 81 mg QDAY LEOLA Administration Atorvastatin Calcium 40 mg 03/09/21 22:00 03/23/21 21:16 Atorvastatin 40 Mg Tab PO 40 mg QHS LEOLA Administration Bisacodyl 10 mg 03/09/21 15:52 03/12/21 16:11 Bisacodyl 10 Mg Rect Supp LA 10 mg QDAY PRN Administration Constipation Clonidine HCl 0.2 mg 03/17/21 09:00 03/24/21 09:40 Clonidine 0.2 Mg Tab PO 0.2 mg TID LEOLA Administration Clopidogrel Bisulfate 75 mg 03/17/21 10:00 03/24/21 09:40 Clopidogrel 75 Mg Tab PO 75 mg QDAY LEOLA Administration Heparin Sodium (Porcine) 5,000 unit 03/09/21 22:00 03/24/21 09:40 Heparin 5,000 Unit/1 Ml Vial SUB-Q 5,000 unit Q12HR LEOLA Administration Heparin Sodium (Porcine) 2,000 unit 03/11/21 14:25 03/21/21 10:40 Heparin 10,000 Units/10 Ml Vial IV 2,000 unit JUAN C PRN Administration hemodialysis Hydralazine HCl 10 mg 03/16/21 05:41 03/17/21 06:04 Hydralazine 20 Mg/1 Ml Inj IV 10 mg Q6HR PRN Administration Hypertension Hydralazine HCl 50 mg 03/17/21 09:00 03/24/21 05:57 Hydralazine 25 Mg Tab PO 50 mg Q8HR LEOLA Administration Hydromorphone HCl 0.5 mg 03/09/21 14:52 03/16/21 16:09 Hydromorphone 1 Mg/1 Ml Inj IV 0.5 mg Q12H PRN Administration Pain , Severe (7-10) Sodium Chloride 100 mls @ 999 mls/hr 03/11/21 14:25 Nacl 0.9% IV JUAN C PRN Hypotension Levetiracetam 500 mg 03/15/21 13:00 03/24/21 09:40 Levetiracetam 500 Mg/5 Ml Oral Liqd PO 500 mg BID LEOLA Administration Lidocaine HCl 30 ml 03/09/21 14:28 Magic Mouthwash 30ml MM Q4H PRN Sore Throat Magnesium Hydroxide 30 ml 03/09/21 14:52 Magnesium Hydroxide (Mom) Oral Liqd Udc PO Q4H PRN Constipation Metoclopramide HCl 10 mg 03/09/21 14:52 Metoclopramide 10 Mg Tab PO Q6H PRN Nausea And Vomiting Metoprolol Tartrate 100 mg 03/13/21 18:00 03/24/21 09:40 Metoprolol Tartrate 100 Mg Tab PO 100 mg BID LEOLA Administration Nifedipine 60 mg 03/16/21 10:00 03/24/21 09:39 Nifedipine Xl 60 Mg Tab PO 60 mg DAILY LEOLA Administration Ondansetron HCl 4 mg 03/09/21 14:52 Ondansetron 4 Mg/2 Ml Inj IV Q8H PRN Nausea And Vomiting Prednisone 80 mg 03/14/21 10:00 03/24/21 09:39 Prednisone 20 Mg Tab PO 80 mg QDAY LEOLA Administration Promethazine HCl 25 mg 03/09/21 14:52 Promethazine 25 Mg Rect Supp LA Q6H PRN Nausea And Vomiting Simple Syrup 15 ml 03/12/21 12:04 03/14/21 05:38 Simple Syrup 15 Ml FEEDTUBE 15 ml PRN PRN Administration Hypoglycemia Simple Syrup 30 ml 03/12/21 12:04 Simple Syrup 15 Ml FEEDTUBE PRN PRN Hypoglycemia Sodium Bicarbonate 325 mg 03/12/21 12:04 Sodium Bicarbonate 325 Mg Tab FEEDTUBE PRN PRN For Clogged Feeding Tube Sodium Chloride 10 ml 03/09/21 14:52 03/24/21 09:40 Sodium Chloride 0.9% 10 Ml Flush Syringe IV 10 ml PRN PRN Administration LINE FLUSH
[2021-03-25] MEDS: hydrALAZINE 25 MG TAB PO SCH ×3 (05:57→22:00)
[2021-03-25] MEDS: cloNIDine 0.2 MG TAB PO SCH ×3 (08:00→22:02)
[2021-03-25] MEDS: levETIRAcetam 500 MG/5 ML ORAL LIQD PO SCH ×2 (09:45→22:00)
[2021-03-25] MEDS: METOPROLOL TARTRATE 100 MG TAB PO SCH ×2 (09:45→22:01)
[2021-03-25] MEDS: predniSONE 20 MG TAB PO SCH (09:45)
[2021-03-25] MEDS: NIFEdipine XL 60 MG TAB PO SCH (09:45)
[2021-03-25] MEDS: ASPIRIN 81 MG TAB CHEW PO SCH (09:45)
[2021-03-25] MEDS: HEPARIN 5,000 UNIT/1 ML VIAL SUB-Q SCH ×2 (09:46→22:01)
[2021-03-25] MEDS: CLOPIDOGREL 75 MG TAB PO SCH (09:49)
--- NOTE | 2021-03-25 09:59 | Progress Note ---
Assessment and Plan Assessment and plan: The patient is a 45 YO female with history significant for HTN, Seizure Disorder, SLE, Nicotine Dependence, Malnutrition and ESRD on hemodialysis (MWF) who presented to [facility] ED 03/09 with increased confusion as well as 2 witnessed seizures while at home. A code stroke was called and the patient was found to have UTI, metabolic encephalopathy, end-stage renal disease, and accelerated hypertension. Patient was admitted to telemetry and initiated on stroke protocol. At present patient actively being hemodialyzed. Still evidence of increased confusion. Patient found to have urinary tract infection actively being treated. : Patient with significant aphasia/nonverbal, unable to move right side, wait for nephrology evaluation for hemodialysis, MRI pending, will initiate D10W at 42 mils per hour as patient with history of end-stage dialysis will minimize IV fluid. Ordered for speech PT OT eval. will consult neurology following MRI results. Patient is unable to swallow so we will change aspirin per rectal. 03/11/21: MRI showed L thalamus and L temporal area subacute infarct. pending s peech eval. cont iv fluid, order for Tf and dobhoff if fails speech eval. neuro consult. continue supportive care. HD per renal. monitor BP -adjust meds, follow BMP/CBC 03/12/21: pending TF, noted neuro recommendation: initiate aspirin with plavix. cont IA aspirin till dobhoff/peg placemnet. CM working on placement. Updated daughter for details by phone. follow BMP. monitor vitals 03/13/2021 patient today actively receiving hemodialysis. Patient was nonverbal not answering any questions. Could not complete hemodialysis secondary to hypotension in which patient required a bolus. Patient is now planning on going down to receive PEG placement. Will update daughter after procedure complete. 03/14/2021. Patient remains nonverbal encephalopathic today. Does move all extremities. Tolerated PEG tube feedings well. 03/15/21 patient actively being dialyzed today. Remains encephalopathic. A bit more attentive today. Patient did follow me with eyes. PEG tube functioning well. 03/16: Continue supportive care, awaiting Hospice per family request as documented by case management, repeat BMP AND CBC 03/17: Patient seen and examined again this morning definitely appears older than stated age emaciated not following any commands still speaking but moves around. Discussed with nursing staff at bedside patient not interactive with them. I have resumed the aspirin and the Plavix that was probably held for PEG tube. My understanding is that the family would like to take the patient home with home health but per case management they have requested hospice. I have tried to call them to see if they understand that this needs no dialysis with tube feeds unless approved by the hospice but unfortunately unable to get either the daughter or the father. Nevertheless blood pressure has improved patient needs to be monitored closely on dialysis days to ensure no hypotension. Clinical condition at this time is stable 03/18: Continue supportive care, no new complaints, awaiting discharge plan. Aspiration precautions. Patient answered some question for me today, moved ext. 03/19: Patient seen examined, tolerating tube feed. Continue supportive care. awaiting discharge home or placement. Family not coming for training, following up 03/20: Patient shows remarkable clinical improvement she is answering questions following commands. Speech reevaluated approved for regular diet with thin liquids. This has been ordered. Still cannot reach family for disposition Case management is following otherwise continue current management we will discontinue tube feeding at this time. 03/21: Continue supportive care awaiting placement. We will continue hemodialysis at this time. 03/22: Continune supportive care, she is quite interactive. Awaiting placement 03/23: Patient stable at this time, continued supportive care, awaiting placement 03/25; patient is stable and awaiting placement. - Acute CVA (cerebrovascular accident) Admitted with CVA protocol: CT head, CTA head, CTA neck, showed no acute process MRI showed L thalamus and L temporal area subacute infarct. 2d echo showed preserved EF, carotid doppler showed <50% ordered antiplatelet and statin therapy, physical therapy consulted, Occupational Therapy consulted, speech therapy consulted, telemetry neurology consulted in ED, s/p permissive hypertension overnight. Now could be more aggressive with BP. PT to evaluate for shelter facility --Dysphagia Patient unable to speak and has significant dysphagia clinically: placed on D10W Patient to receive PEG tube today. Patient tolerating PEG tube feedings well. No abdominal pain bowel sounds unremarkable. -- UTI (urinary tract infection) IV antibiotic therapy, resolved. Stable to go to nursing facility without antibiotics. --Seizure disorder Continue Keppra can change to p.o. now No active seizure. Increased risk secondary to CVA. --SIRS, with elevated white count, tachycardia and tachypnea cont to monitor for now, likely aspiration pneumonitis No evidence of sepsis at this time. Has resolved now. -- Metabolic encephalopathy Secondary to CVA continue neuro check, seizure precautions, supportive care. Remains encephalopathic at this time. Will follow with eyes not speaking. -- ESRD (end stage renal disease) Nephrology team consulted in ED. Patient actively being dialyzed today.. Was complicated by episode of hypotension requiring a bolus. -- Hypertensive urgency, malignant Should improve medical management once PEG tube has been placed we can use metoprolol through the tube. Remain suboptimal will advance metoprolol. Add amlodipine. After hemodialysis. -- Severe malnutrition Increase protein intake when awake and alert only, dietary supplementation D10W for now, consulted GI for PEG placement --bacterial conjuctivitis: ordered erythromycin ointment History Interval history: Patient was seen and evaluated this morning Patient was sleepy Hospitalist Physical - Physical exam Narrative exam: Not in cardiopulmonary distress. The patient appeared well nourished and normally developed. Vital signs as documented. Head exam is unremarkable. No scleral icterus . Neck is without jugular venous distension, thyromegaly, or carotid bruits. Lungs are clear to auscultation. Cardiac exam reveals regular rate and Rhythm. Abdominal exam nontender. Extremities are nonedematous and both femoral and pedal pulses are normal. 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 No focal weakness. - Constitutional Vitals: Temp Pulse Resp BP Pulse Ox 98.7 F 69 20 132/89 99 03/25/21 07:50 03/25/21 09:45 03/25/21 07:50 03/25/21 09:45 03/25/21 07:50 General appearance: Present: no acute distress HEART Score - HEART Score Troponin: Troponin T 0.473 ng/mL (0.00-0.029) H* 03/09/21 11:21 Results - Labs CBC & Chem 7: 03/17/21 09:11 03/17/21 09:11 Labs: Laboratory Last Values WBC 7.5 K/mm3 (4.5-11.0) 03/17/21 09:11 RBC 4.73 M/mm3 (3.65-5.03) 03/17/21 09:11 Hgb 12.4 gm/dl (10.1-14.3) 03/17/21 09:11 Hct 39.1 % (30.3-42.9) 03/17/21 09:11 MCV 83 fl (79-97) 03/17/21 09:11 MCH 26 pg (28-32) L 03/17/21 09:11 MCHC 32 % (30-34) 03/17/21 09:11 RDW 19.4 % (13.2-15.2) H 03/17/21 09:11 Plt Count 247 K/mm3 (140-440) 03/17/21 09:11 Add Manual Diff Complete 03/14/21 05:33 Total Counted 100 03/14/21 05:33 Seg Neuts % (Manual) 81.0 % (40.0-70.0) H 03/14/21 05:33 Band Neutrophils % 1.0 % 03/14/21 05:33 Lymphocytes % (Manual) 8.0 % (13.4-35.0) L 03/14/21 05:33 Monocytes % (Manual) 6.0 % (0.0-7.3) 03/14/21 05:33 Eosinophils % (Manual) 4.0 % (0.0-4.3) 03/14/21 05:33 Nucleated RBC % Not Reportable 03/14/21 05:33 Seg Neutrophils # Man 7.0 K/mm3 (1.8-7.7) 03/14/21 05:33 Band Neutrophils # 0.1 K/mm3 03/14/21 05:33 Lymphocytes # (Manual) 0.7 K/mm3 (1.2-5.4) L 03/14/21 05:33 Abs React Lymphs (Man) 0.0 K/mm3 03/14/21 05:33 Monocytes # (Manual) 0.5 K/mm3 (0.0-0.8) 03/14/21 05:33 Eosinophils # (Manual) 0.3 K/mm3 (0.0-0.4) 03/14/21 05:33 Basophils # (Manual) 0.0 K/mm3 (0.0-0.1) 03/14/21 05:33 Metamyelocytes # 0.0 K/mm3 03/14/21 05:33 Myelocytes # 0.0 K/mm3 03/14/21 05:33 Promyelocytes # 0.0 K/mm3 03/14/21 05:33 Blast Cells # 0.0 K/mm3 03/14/21 05:33 WBC Morphology Not Reportable 03/14/21 05:33 Hypersegmented Neuts Not Reportable 03/14/21 05:33 Hyposegmented Neuts Not Reportable 03/14/21 05:33 Hypogranular Neuts Not Reportable 03/14/21 05:33 Smudge Cells Not Reportable 03/14/21 05:33 Toxic Granulation 1+ 03/14/21 05:33 Toxic Vacuolation Not Reportable 03/14/21 05:33 Dohle Bodies Not Reportable 03/14/21 05:33 Pelger-Huet Anomaly Not Reportable 03/14/21 05:33 Kaela Rods Not Reportable 03/14/21 05:33 Platelet Estimate Consistent w auto 03/14/21 05:33 Clumped Platelets Not Reportable 03/14/21 05:33 Plt Clumps, EDTA Not Reportable 03/14/21 05:33 Large Platelets Not Reportable 03/14/21 05:33 Giant Platelets Not Reportable 03/14/21 05:33 Platelet Satelliting Not Reportable 03/14/21 05:33 Plt Morphology Comment Not Reportable 03/14/21 05:33 RBC Morphology Not Reportable 03/14/21 05:33 Dimorphic RBCs Not Reportable 03/14/21 05:33 Polychromasia Not Reportable 03/14/21 05:33 Hypochromasia 1+ 03/14/21 05:33 Poikilocytosis 1+ 03/14/21 05:33 Anisocytosis 1+ 03/14/21 05:33 Microcytosis Few 03/14/21 05:33 Macrocytosis Not Reportable 03/14/21 05:33 Spherocytes Not Reportable 03/14/21 05:33 Pappenheimer Bodies Not Reportable 03/14/21 05:33 Sickle Cells Not Reportable 03/14/21 05:33 Target Cells Not Reportable 03/14/21 05:33 Tear Drop Cells Not Reportable 03/14/21 05:33 Ovalocytes Not Reportable 03/14/21 05:33 Helmet Cells Not Reportable 03/14/21 05:33 Hernandez-[place] Bodies Not Reportable 03/14/21 05:33 [place] Rings Not Reportable 03/14/21 05:33 Kervin Cells Not Reportable 03/14/21 05:33 Bite Cells Not Reportable 03/14/21 05:33 Crenated Cell Not Reportable 03/14/21 05:33 Elliptocytes Not Reportable 03/14/21 05:33 Acanthocytes (Spur) Not Reportable 03/14/21 05:33 Rouleaux Not Reportable 03/14/21 05:33 Hemoglobin C Crystals Not Reportable 03/14/21 05:33 Schistocytes Not Reportable 03/14/21 05:33 Malaria parasites Not Reportable 03/14/21 05:33 Ignacio Bodies Not Reportable 03/14/21 05:33 Hem Pathologist Commnt No 03/14/21 05:33 PT 13.9 Sec. (12.2-14.9) 03/09/21 11:21 INR 1.01 (0.87-1.13) 03/09/21 11:21 APTT 34.2 Sec. (24.2-36.6) 03/09/21 11:21 Thrombin Time 20.6 Sec. (15.1-19.6) H 03/09/21 11:21 Sodium 138 mmol/L (137-145) 03/17/21 09:11 Potassium 4.0 mmol/L (3.6-5.0) D 03/17/21 09:11 Chloride 98.1 mmol/L (98-107) 03/17/21 09:11 Carbon Dioxide 24 mmol/L (22-30) 03/17/21 09:11 Anion Gap 20 mmol/L 03/17/21 09:11 BUN 44 mg/dL (7-17) H 03/17/21 09:11 Creatinine 5.6 mg/dL (0.6-1.2) H 03/17/21 09:11 Estimated GFR 10 ml/min 03/17/21 09:11 BUN/Creatinine Ratio 8 % 03/17/21 09:11 Glucose 82 mg/dL (65-100) 03/17/21 09:11 POC Glucose 219 mg/dL (70-105) H 03/24/21 17:31 Calcium 10.6 mg/dL (8.4-10.2) H 03/17/21 09:11 Phosphorus 5.90 mg/dL (2.5-4.5) H 03/13/21 07:37 Total Bilirubin 0.20 mg/dL (0.1-1.2) 03/09/21 11:21 AST 29 units/L (5-40) 03/09/21 11:21 ALT 9 units/L (7-56) 03/09/21 11:21 Alkaline Phosphatase 157 units/L (35-129) H 03/09/21 11:21 Total Creatine Kinase 403 units/L (30-135) H 03/09/21 11:21 CK-MB (CK-2) 8.4 ng/mL (0.0-4.0) H 03/09/21 11:21 CK-MB (CK-2) Rel Index 2.0 (0-4) 03/09/21 11:21 Troponin T 0.473 ng/mL (0.00-0.029) H* 03/09/21 11:21 Total Protein 7.7 g/dL (6.3-8.2) 03/09/21 11:21 Albumin 3.7 g/dL (3.9-5) L 03/09/21 11:21 Albumin/Globulin Ratio 0.9 % 03/09/21 11:21 HCG, Qual Negative (Negative) 03/13/21 14:21 PTH Intact 19.00 pg/mL (15-65) 03/14/21 04:38 Urine Color Farnaz (Yellow) 03/09/21 11:50 Urine Turbidity Cloudy (Clear) 03/09/21 11:50 Urine pH 5.0 (5.0-7.0) 03/09/21 11:50 Ur Specific [place] 1.023 (1.003-1.030) 03/09/21 11:50 Urine Protein >500 mg/dL (Negative) 03/09/21 11:50 Urine Glucose (UA) Neg mg/dL (Negative) 03/09/21 11:50 Urine Ketones Tr mg/dL (Negative) 03/09/21 11:50 Urine Blood Mod (Negative) 03/09/21 11:50 Urine Nitrite Neg (Negative) 03/09/21 11:50 Ur Reducing Substances Not Reportable 03/09/21 11:50 Urine Bilirubin Neg (Negative) 03/09/21 11:50 Urine Ictotest Not Reportable 03/09/21 11:50 Urine Urobilinogen < 2.0 mg/dL (<2.0) 03/09/21 11:50 Ur Leukocyte Esterase Neg (Negative) 03/09/21 11:50 Urine WBC (Auto) 20.0 /HPF (0.0-6.0) H 03/09/21 11:50 Urine RBC (Auto) 9.0 /HPF (0.0-6.0) 03/09/21 11:50 U Epithel Cells (Auto) 2.0 /HPF (0-13.0) 03/09/21 11:50 Urine WBC Clumps 2+ /HPF 03/09/21 11:50 Urine Mucus Few /HPF 03/09/21 11:50 Urine Yeast (Budding) 3+ /HPF 03/09/21 11:50 Plasma/Serum Alcohol < 0.01 % (0-0.07) 03/09/21 11:21 Coronavirus (PCR) Negative (Negative) 03/13/21 08:30 Hepatitis A IgM Ab Non-reactive (NonReactive) 03/11/21 16:28 Hep Bs Antigen Reactive (Negative) 03/11/21 16:28 Hep B Core IgM Ab Non-reactive (NonReactive) 03/11/21 16:28 Hepatitis C Antibody Non-reactive (NonReactive) 03/11/21 16:28 Robertson/IV: Voiding Method Diaper Active Medications - Current Medications Current Medications: Generic Name Dose Route Start Last Admin Trade Name Freq PRN Reason Stop Dose Admin Acetaminophen 650 mg 03/09/21 14:52 03/24/21 21:41 Acetaminophen 325 Mg Tab PO 650 mg Q4H PRN Administration Pain, Mild (1-3) Acetaminophen/Butalbital/Caffeine 2 tab 03/09/21 14:28 03/22/21 21:52 Butalb/Acetaminophen/Caffeine Tab PO 2 tab Q8H PRN Administration Headache Lipase/Protease/Amylase 1 each 03/12/21 12:04 Lipase 10,500/Protease 25,000/Amylase 43,750 (Units) Dr Lee FEEDTUBE PRN PRN For Clogged Feeding Tube Aspirin 81 mg 03/17/21 10:00 03/25/21 09:45 Aspirin 81 Mg Tab Chew PO 81 mg QDAY LEOLA Administration Atorvastatin Calcium 40 mg 03/09/21 22:00 03/24/21 21:41 Atorvastatin 40 Mg Tab PO 40 mg QHS LEOLA Administration Bisacodyl 10 mg 03/09/21 15:52 03/12/21 16:11 Bisacodyl 10 Mg Rect Supp IA 10 mg QDAY PRN Administration Constipation Clonidine HCl 0.2 mg 03/17/21 09:00 03/25/21 08:00 Clonidine 0.2 Mg Tab PO 0.2 mg TID LEOLA Administration Clopidogrel Bisulfate 75 mg 03/17/21 10:00 03/25/21 09:49 Clopidogrel 75 Mg Tab PO 75 mg QDAY LEOLA Administration Heparin Sodium (Porcine) 5,000 unit 03/09/21 22:00 03/25/21 09:46 Heparin 5,000 Unit/1 Ml Vial SUB-Q 5,000 unit Q12HR LEOLA Administration Heparin Sodium (Porcine) 2,000 unit 03/11/21 14:25 03/21/21 10:40 Heparin 10,000 Units/10 Ml Vial IV 2,000 unit JUAN C PRN Administration hemodialysis Hydralazine HCl 10 mg 03/16/21 05:41 03/17/21 06:04 Hydralazine 20 Mg/1 Ml Inj IV 10 mg Q6HR PRN Administration Hypertension Hydralazine HCl 50 mg 03/17/21 09:00 03/25/21 05:57 Hydralazine 25 Mg Tab PO 50 mg Q8HR LEOLA Administration Hydromorphone HCl 0.5 mg 03/09/21 14:52 03/16/21 16:09 Hydromorphone 1 Mg/1 Ml Inj IV 0.5 mg Q12H PRN Administration Pain , Severe (7-10) Sodium Chloride 100 mls @ 999 mls/hr 03/11/21 14:25 Nacl 0.9% IV JUAN C PRN Hypotension Levetiracetam 500 mg 03/15/21 13:00 03/25/21 09:45 Levetiracetam 500 Mg/5 Ml Oral Liqd PO 500 mg BID LEOLA Administration Lidocaine HCl 30 ml 03/09/21 14:28 Magic Mouthwash 30ml MM Q4H PRN Sore Throat Magnesium Hydroxide 30 ml 03/09/21 14:52 Magnesium Hydroxide (Mom) Oral Liqd Udc PO Q4H PRN Constipation Metoclopramide HCl 10 mg 03/09/21 14:52 Metoclopramide 10 Mg Tab PO Q6H PRN Nausea And Vomiting Metoprolol Tartrate 100 mg 03/13/21 18:00 03/25/21 09:45 Metoprolol Tartrate 100 Mg Tab PO 100 mg BID LEOLA Administration Nifedipine 60 mg 03/16/21 10:00 03/25/21 09:45 Nifedipine Xl 60 Mg Tab PO 60 mg DAILY LEOLA Administration Ondansetron HCl 4 mg 03/09/21 14:52 Ondansetron 4 Mg/2 Ml Inj IV Q8H PRN Nausea And Vomiting Prednisone 80 mg 03/14/21 10:00 03/25/21 09:45 Prednisone 20 Mg Tab PO 80 mg QDAY LEOLA Administration Promethazine HCl 25 mg 03/09/21 14:52 Promethazine 25 Mg Rect Supp IA Q6H PRN Nausea And Vomiting Simple Syrup 15 ml 03/12/21 12:04 03/14/21 05:38 Simple Syrup 15 Ml FEEDTUBE 15 ml PRN PRN Administration Hypoglycemia Simple Syrup 30 ml 03/12/21 12:04 Simple Syrup 15 Ml FEEDTUBE PRN PRN Hypoglycemia Sodium Bicarbonate 325 mg 03/12/21 12:04 Sodium Bicarbonate 325 Mg Tab FEEDTUBE PRN PRN For Clogged Feeding Tube Sodium Chloride 10 ml 03/09/21 14:52 03/25/21 09:46 Sodium Chloride 0.9% 10 Ml Flush Syringe IV 10 ml PRN PRN Administration LINE FLUSH Nutrition/Malnutrition Assess - Dietary Evaluation Nutrition/Malnutrition Findings: Nutrition Notes Start: 03/10/21 14:05 Freq: Status: Active Protocol: Document 03/19/21 15:39 JUSTICE (Rec: 03/19/21 15:40 JUSTICE [id number]) Nutrition Notes Initial or Follow up Brief Note Current Diet TF - Jevity 1.2 at 50ml/hr Subjective/Other Information Per RN, pt tolerating TF at goal rate. Nutrition Intervention Follow-Up By: 03/26/21 Additional Comments F/U: stable TF, wt
--- NOTE | 2021-03-25 13:39 | Progress Note ---
Assessment and Plan 1. ESRD: Patient on maintenance hemodialysis three times a week, outpatinet schedule, MWF. Meds dosage based on GFR. Hemodialysis: 03/11, 03/13, 03/15, 03/17, 03/19, 03/21, 03/24. 2. FEN: Hypercalemia, low Ca bath with HD. Monitor lytes and volume status. 3. Acute metabolic encephalopathy, POA: Improving. Monitor. 4. Acute CVA: Seen by Neuro. Per primary. 5. UTI, POA: S/p Abx. 6. Hypertensive urgency: Adjust meds. Monitor BP. 7. Dysphagia / Malnutrition / AFTT: S/p PEG tube. 8. Hypoglycemia: Improved. Await placement. Subjective: Patient was seen and examined at the bedside. General Appearance: General appearance: well-developed, appears stated age, appears emaciated, not in distress HEENT: ATNC, pupils equal Neck: trachea midline Respiratory: ctab Heart: regular, S1S2, no murmur Abdomen: soft, bowel sounds heard, not tender, PEG tube Integumentary: no rash, warm and dry Neurologic: alert, follows command, able to move extremities Ext: no edema Hemodialysis access: R IJ tunnel catheter Subjective Date of service: 03/25/21 Principal diagnosis: CVA Objective - Vital Signs Vital signs: Vital Signs - 12hr 03/25/21 03/25/21 03/25/21 03:45 05:57 07:50 Temperature 98.1 F 98.7 F Pulse Rate 75 86 92 H Pulse Rate [ Left Radial] Pulse Rate [ Right Radial] Respiratory 16 20 Rate Blood Pressure 132/78 113/73 131/85 O2 Sat by Pulse 98 99 Oximetry 03/25/21 03/25/21 03/25/21 09:45 10:00 12:00 Temperature 98.3 F Pulse Rate 69 78 Pulse Rate [ 92 H Left Radial] Pulse Rate [ 92 H Right Radial] Respiratory 19 20 Rate Blood Pressure 132/89 138/80 O2 Sat by Pulse 100 96 Oximetry 03/25/21 03/25/21 13:16 13:17 Temperature Pulse Rate 83 83 Pulse Rate [ Left Radial] Pulse Rate [ Right Radial] Respiratory Rate Blood Pressure 120/79 120/79 O2 Sat by Pulse Oximetry - Lab 03/17/21 09:11 03/17/21 09:11 Most recent lab results Calcium 10.6 mg/dL (8.4-10.2) H 03/17/21 09:11 Phosphorus 5.90 mg/dL (2.5-4.5) H 03/13/21 07:37 Medications & Allergies - Medications Allergies/Adverse Reactions: Allergies No Known Allergies Allergy (Verified 03/09/21 13:06) Home Medications: Home Medications Medication Instructions Recorded Confirmed Last Taken Type predniSONE [Deltasone] 80 mg PO QDAY #20 tab 11/25/17 03/21/21 Unknown Rx levETIRAcetam [Keppra TAB] 500 mg PO BID #60 tablet 12/20/19 03/21/21 Unknown Rx oxyCODONE /ACETAMINOPHEN [Percocet 1 tab PO QHS PRN #7 tablet 12/20/19 03/21/21 Unknown Rx 5/325 mg] AtorvaSTATin [Lipitor] 40 mg PO QHS #30 tablet 03/16/21 Unknown Rx Butalb/Acetamin/Caff 50-325-40 2 tab PO Q8HR PRN #20 tablet 03/16/21 Unknown Rx [Fioricet 50-325-40] Metoclopramide [Reglan TAB] 10 mg PO Q6H PRN #14 tablet 03/16/21 Unknown Rx Metoprolol [Lopressor TAB] 100 mg PO BID #60 tablet 03/16/21 Unknown Rx NIFEdipine XL [Procardia Xl] 60 mg PO DAILY #30 tablet 03/16/21 Unknown Rx bisacodyL [Dulcolax suppos] 10 mg UT QDAY PRN #10 supp.rect 03/16/21 Unknown Rx chlorproMAZINE [Thorazine] 25 mg PO Q4H PRN #10 03/16/21 Unknown Rx hydrALAZINE [Apresoline TAB] 50 mg PO Q8HR #90 tablet 03/16/21 Unknown Rx levETIRAcetam [Keppra] 500 mg PO BID 30 Days oral.liqd 03/16/21 Unknown Rx oxyCODONE /ACETAMINOPHEN [Percocet 1 tab PO Q6HR PRN #14 03/16/21 Unknown Rx 5/325 mg] Aspirin [Aspirin BABY CHEW TAB] 81 mg PO QDAY #30 tab.chew 03/17/21 Unknown Rx Clopidogrel [Plavix] 75 mg PO QDAY #30 tablet 03/17/21 Unknown Rx Hydralazine HCl 50 mg PO TID #90 tablet 03/17/21 Unknown Rx cloNIDine [Catapres] 0.2 mg PO TID #90 tablet 03/17/21 Unknown Rx Active Medications: Generic Name Dose Route Start Last Admin Trade Name Freq PRN Reason Stop Dose Admin Acetaminophen 650 mg 03/09/21 14:52 03/24/21 21:41 Acetaminophen 325 Mg Tab PO 650 mg Q4H PRN Administration Pain, Mild (1-3) Acetaminophen/Butalbital/Caffeine 2 tab 03/09/21 14:28 03/22/21 21:52 Butalb/Acetaminophen/Caffeine Tab PO 2 tab Q8H PRN Administration Headache Lipase/Protease/Amylase 1 each 03/12/21 12:04 Lipase 10,500/Protease 25,000/Amylase 43,750 (Units) Dr Lee FEEDTUBE PRN PRN For Clogged Feeding Tube Aspirin 81 mg 03/17/21 10:00 03/25/21 09:45 Aspirin 81 Mg Tab Chew PO 81 mg QDAY LEOLA Administration Atorvastatin Calcium 40 mg 03/09/21 22:00 03/24/21 21:41 Atorvastatin 40 Mg Tab PO 40 mg QHS LEOLA Administration Bisacodyl 10 mg 03/09/21 15:52 03/12/21 16:11 Bisacodyl 10 Mg Rect Supp [place] 10 mg QDAY PRN Administration Constipation Clonidine HCl 0.2 mg 03/17/21 09:00 03/25/21 13:17 Clonidine 0.2 Mg Tab PO 0.2 mg TID LEOLA Administration Clopidogrel Bisulfate 75 mg 03/17/21 10:00 03/25/21 09:49 Clopidogrel 75 Mg Tab PO 75 mg QDAY LEOLA Administration Heparin Sodium (Porcine) 5,000 unit 03/09/21 22:00 03/25/21 09:46 Heparin 5,000 Unit/1 Ml Vial SUB-Q 5,000 unit Q12HR LEOLA Administration Heparin Sodium (Porcine) 2,000 unit 03/11/21 14:25 03/21/21 10:40 Heparin 10,000 Units/10 Ml Vial IV 2,000 unit JUAN C PRN Administration hemodialysis Hydralazine HCl 10 mg 03/16/21 05:41 03/17/21 06:04 Hydralazine 20 Mg/1 Ml Inj IV 10 mg Q6HR PRN Administration Hypertension Hydralazine HCl 50 mg 03/17/21 09:00 03/25/21 13:16 Hydralazine 25 Mg Tab PO 50 mg Q8HR LEOLA Administration Hydromorphone HCl 0.5 mg 03/09/21 14:52 03/16/21 16:09 Hydromorphone 1 Mg/1 Ml Inj IV 0.5 mg Q12H PRN Administration Pain , Severe (7-10) Sodium Chloride 100 mls @ 999 mls/hr 03/11/21 14:25 Nacl 0.9% IV JUAN C PRN Hypotension Levetiracetam 500 mg 03/15/21 13:00 03/25/21 09:45 Levetiracetam 500 Mg/5 Ml Oral Liqd PO 500 mg BID LEOLA Administration Lidocaine HCl 30 ml 03/09/21 14:28 Magic Mouthwash 30ml MM Q4H PRN Sore Throat Magnesium Hydroxide 30 ml 03/09/21 14:52 Magnesium Hydroxide (Mom) Oral Liqd Udc PO Q4H PRN Constipation Metoclopramide HCl 10 mg 03/09/21 14:52 Metoclopramide 10 Mg Tab PO Q6H PRN Nausea And Vomiting Metoprolol Tartrate 100 mg 03/13/21 18:00 03/25/21 09:45 Metoprolol Tartrate 100 Mg Tab PO 100 mg BID LEOLA Administration Nifedipine 60 mg 03/16/21 10:00 03/25/21 09:45 Nifedipine Xl 60 Mg Tab PO 60 mg DAILY LEOLA Administration Ondansetron HCl 4 mg 03/09/21 14:52 Ondansetron 4 Mg/2 Ml Inj IV Q8H PRN Nausea And Vomiting Prednisone 80 mg 03/14/21 10:00 03/25/21 09:45 Prednisone 20 Mg Tab PO 80 mg QDAY LEOLA Administration Promethazine HCl 25 mg 03/09/21 14:52 Promethazine 25 Mg Rect Supp UT Q6H PRN Nausea And Vomiting Simple Syrup 15 ml 03/12/21 12:04 03/14/21 05:38 Simple Syrup 15 Ml FEEDTUBE 15 ml PRN PRN Administration Hypoglycemia Simple Syrup 30 ml 03/12/21 12:04 Simple Syrup 15 Ml FEEDTUBE PRN PRN Hypoglycemia Sodium Bicarbonate 325 mg 03/12/21 12:04 Sodium Bicarbonate 325 Mg Tab FEEDTUBE PRN PRN For Clogged Feeding Tube Sodium Chloride 10 ml 03/09/21 14:52 03/25/21 09:46 Sodium Chloride 0.9% 10 Ml Flush Syringe IV 10 ml PRN PRN Administration LINE FLUSH
[2021-03-26 05:20] LABS: Chol/HDL Ratio 1.67 %
[2021-03-26] MEDS: hydrALAZINE 25 MG TAB PO SCH ×3 (05:28→21:00)
[2021-03-26] MEDS: cloNIDine 0.2 MG TAB PO SCH ×3 (08:00→21:03)
[2021-03-26] MEDS: predniSONE 20 MG TAB PO SCH (09:42)
[2021-03-26] MEDS: ASPIRIN 81 MG TAB CHEW PO SCH (09:42)
[2021-03-26] MEDS: HEPARIN 5,000 UNIT/1 ML VIAL SUB-Q SCH ×2 (09:42→21:01)
[2021-03-26] MEDS: CLOPIDOGREL 75 MG TAB PO SCH (09:42)
[2021-03-26] MEDS: levETIRAcetam 500 MG/5 ML ORAL LIQD PO SCH ×2 (09:42→21:00)
--- NOTE | 2021-03-26 09:44 | Progress Note ---
Assessment and Plan Assessment and plan: The patient is a 45 YO female with history significant for HTN, Seizure Disorder, SLE, Nicotine Dependence, Malnutrition and ESRD on hemodialysis (MWF) who presented to [facility] ED 03/09 with increased confusion as well as 2 witnessed seizures while at home. A code stroke was called and the patient was found to have UTI, metabolic encephalopathy, end-stage renal disease, and accelerated hypertension. Patient was admitted to telemetry and initiated on stroke protocol. At present patient actively being hemodialyzed. Still evidence of increased confusion. Patient found to have urinary tract infection actively being treated. : Patient with significant aphasia/nonverbal, unable to move right side, wait for nephrology evaluation for hemodialysis, MRI pending, will initiate D10W at 42 mils per hour as patient with history of end-stage dialysis will minimize IV fluid. Ordered for speech PT OT eval. will consult neurology following MRI results. Patient is unable to swallow so we will change aspirin per rectal. 03/11/21: MRI showed L thalamus and L temporal area subacute infarct. pending s peech eval. cont iv fluid, order for Tf and dobhoff if fails speech eval. neuro consult. continue supportive care. HD per renal. monitor BP -adjust meds, follow BMP/CBC 03/12/21: pending TF, noted neuro recommendation: initiate aspirin with plavix. cont [place] aspirin till dobhoff/peg placemnet. CM working on placement. Updated daughter for details by phone. follow BMP. monitor vitals 03/13/2021 patient today actively receiving hemodialysis. Patient was nonverbal not answering any questions. Could not complete hemodialysis secondary to hypotension in which patient required a bolus. Patient is now planning on going down to receive PEG placement. Will update daughter after procedure complete. 03/14/2021. Patient remains nonverbal encephalopathic today. Does move all extremities. Tolerated PEG tube feedings well. 03/15/21 patient actively being dialyzed today. Remains encephalopathic. A bit more attentive today. Patient did follow me with eyes. PEG tube functioning well. 03/16: Continue supportive care, awaiting Hospice per family request as documented by case management, repeat BMP AND CBC 03/17: Patient seen and examined again this morning definitely appears older than stated age emaciated not following any commands still speaking but moves around. Discussed with nursing staff at bedside patient not interactive with them. I have resumed the aspirin and the Plavix that was probably held for PEG tube. My understanding is that the family would like to take the patient home with home health but per case management they have requested hospice. I have tried to call them to see if they understand that this needs no dialysis with tube feeds unless approved by the hospice but unfortunately unable to get either the daughter or the father. Nevertheless blood pressure has improved patient needs to be monitored closely on dialysis days to ensure no hypotension. Clinical condition at this time is stable 03/18: Continue supportive care, no new complaints, awaiting discharge plan. Aspiration precautions. Patient answered some question for me today, moved ext. 03/19: Patient seen examined, tolerating tube feed. Continue supportive care. awaiting discharge home or placement. Family not coming for training, following up 03/20: Patient shows remarkable clinical improvement she is answering questions following commands. Speech reevaluated approved for regular diet with thin liquids. This has been ordered. Still cannot reach family for disposition Case management is following otherwise continue current management we will discontinue tube feeding at this time. 03/21: Continue supportive care awaiting placement. We will continue hemodialysis at this time. 03/22: Continune supportive care, she is quite interactive. Awaiting placement 03/23: Patient stable at this time, continued supportive care, awaiting placement 03/25; patient is stable and awaiting placement. 03/26; awaiting placement. - Acute CVA (cerebrovascular accident) Admitted with CVA protocol: CT head, CTA head, CTA neck, showed no acute process MRI showed L thalamus and L temporal area subacute infarct. 2d echo showed preserved EF, carotid doppler showed <50% ordered antiplatelet and statin therapy, physical therapy consulted, Occupational Therapy consulted, speech therapy consulted, telemetry neurology consulted in ED, s/p permissive hypertension overnight. Now could be more aggressive with BP. PT to evaluate for jail facility --Dysphagia Patient unable to speak and has significant dysphagia clinically: placed on D10W Patient to receive PEG tube today. Patient tolerating PEG tube feedings well. No abdominal pain bowel sounds unremarkable. -- UTI (urinary tract infection) IV antibiotic therapy, resolved. Stable to go to nursing facility without antibiotics. --Seizure disorder Continue Keppra can change to p.o. now No active seizure. Increased risk secondary to CVA. --SIRS, with elevated white count, tachycardia and tachypnea cont to monitor for now, likely aspiration pneumonitis No evidence of sepsis at this time. Has resolved now. -- Metabolic encephalopathy Secondary to CVA continue neuro check, seizure precautions, supportive care. Remains encephalopathic at this time. Will follow with eyes not speaking. -- ESRD (end stage renal disease) Nephrology team consulted in ED. Patient actively being dialyzed today.. Was complicated by episode of hypotension requiring a bolus. -- Hypertensive urgency, malignant Should improve medical management once PEG tube has been placed we can use metoprolol through the tube. Remain suboptimal will advance metoprolol. Add amlodipine. After hemodialysis. -- Severe malnutrition Increase protein intake when awake and alert only, dietary supplementation D10W for now, consulted GI for PEG placement --bacterial conjuctivitis: ordered erythromycin ointment History Interval history: Patient was seen and evaluated this morning Patient was alert, but she was disoriented Hospitalist Physical - Physical exam Narrative exam: Not in cardiopulmonary distress. The patient appeared well nourished and normally developed. Vital signs as documented. Head exam is unremarkable. No scleral icterus . Neck is without jugular venous distension, thyromegaly, or carotid bruits. Lungs are clear to auscultation. Cardiac exam reveals regular rate and Rhythm. Abdominal exam nontender. Extremities are nonedematous and both femoral and pedal pulses are normal. HAZ TECH: Alert and cooperative, disoriented. No focal weakness. - Constitutional Vitals: Temp Pulse Resp BP Pulse Ox 98.0 F 68 18 172/100 100 03/26/21 04:40 03/26/21 04:40 03/26/21 04:40 03/26/21 04:40 03/26/21 04:40 General appearance: Present: no acute distress HEART Score - HEART Score Troponin: Troponin T 0.473 ng/mL (0.00-0.029) H* 03/09/21 11:21 Results - Labs CBC & Chem 7: 03/17/21 09:11 03/17/21 09:11 Labs: Laboratory Last Values WBC 7.5 K/mm3 (4.5-11.0) 03/17/21 09:11 RBC 4.73 M/mm3 (3.65-5.03) 03/17/21 09:11 Hgb 12.4 gm/dl (10.1-14.3) 03/17/21 09:11 Hct 39.1 % (30.3-42.9) 03/17/21 09:11 MCV 83 fl (79-97) 03/17/21 09:11 MCH 26 pg (28-32) L 03/17/21 09:11 MCHC 32 % (30-34) 03/17/21 09:11 RDW 19.4 % (13.2-15.2) H 03/17/21 09:11 Plt Count 247 K/mm3 (140-440) 03/17/21 09:11 Add Manual Diff Complete 03/14/21 05:33 Total Counted 100 03/14/21 05:33 Seg Neuts % (Manual) 81.0 % (40.0-70.0) H 03/14/21 05:33 Band Neutrophils % 1.0 % 03/14/21 05:33 Lymphocytes % (Manual) 8.0 % (13.4-35.0) L 03/14/21 05:33 Monocytes % (Manual) 6.0 % (0.0-7.3) 03/14/21 05:33 Eosinophils % (Manual) 4.0 % (0.0-4.3) 03/14/21 05:33 Nucleated RBC % Not Reportable 03/14/21 05:33 Seg Neutrophils # Man 7.0 K/mm3 (1.8-7.7) 03/14/21 05:33 Band Neutrophils # 0.1 K/mm3 03/14/21 05:33 Lymphocytes # (Manual) 0.7 K/mm3 (1.2-5.4) L 03/14/21 05:33 Abs React Lymphs (Man) 0.0 K/mm3 03/14/21 05:33 Monocytes # (Manual) 0.5 K/mm3 (0.0-0.8) 03/14/21 05:33 Eosinophils # (Manual) 0.3 K/mm3 (0.0-0.4) 03/14/21 05:33 Basophils # (Manual) 0.0 K/mm3 (0.0-0.1) 03/14/21 05:33 Metamyelocytes # 0.0 K/mm3 03/14/21 05:33 Myelocytes # 0.0 K/mm3 03/14/21 05:33 Promyelocytes # 0.0 K/mm3 03/14/21 05:33 Blast Cells # 0.0 K/mm3 03/14/21 05:33 WBC Morphology Not Reportable 03/14/21 05:33 Hypersegmented Neuts Not Reportable 03/14/21 05:33 Hyposegmented Neuts Not Reportable 03/14/21 05:33 Hypogranular Neuts Not Reportable 03/14/21 05:33 Smudge Cells Not Reportable 03/14/21 05:33 Toxic Granulation 1+ 03/14/21 05:33 Toxic Vacuolation Not Reportable 03/14/21 05:33 Dohle Bodies Not Reportable 03/14/21 05:33 Pelger-Huet Anomaly Not Reportable 03/14/21 05:33 Kaela Rods Not Reportable 03/14/21 05:33 Platelet Estimate Consistent w auto 03/14/21 05:33 Clumped Platelets Not Reportable 03/14/21 05:33 Plt Clumps, EDTA Not Reportable 03/14/21 05:33 Large Platelets Not Reportable 03/14/21 05:33 Giant Platelets Not Reportable 03/14/21 05:33 Platelet Satelliting Not Reportable 03/14/21 05:33 Plt Morphology Comment Not Reportable 03/14/21 05:33 RBC Morphology Not Reportable 03/14/21 05:33 Dimorphic RBCs Not Reportable 03/14/21 05:33 Polychromasia Not Reportable 03/14/21 05:33 Hypochromasia 1+ 03/14/21 05:33 Poikilocytosis 1+ 03/14/21 05:33 Anisocytosis 1+ 03/14/21 05:33 Microcytosis Few 03/14/21 05:33 Macrocytosis Not Reportable 03/14/21 05:33 Spherocytes Not Reportable 03/14/21 05:33 Pappenheimer Bodies Not Reportable 03/14/21 05:33 Sickle Cells Not Reportable 03/14/21 05:33 Target Cells Not Reportable 03/14/21 05:33 Tear Drop Cells Not Reportable 03/14/21 05:33 Ovalocytes Not Reportable 03/14/21 05:33 Helmet Cells Not Reportable 03/14/21 05:33 [place] Bodies Not Reportable 03/14/21 05:33 [place] Rings Not Reportable 03/14/21 05:33 Kervin Cells Not Reportable 03/14/21 05:33 Bite Cells Not Reportable 03/14/21 05:33 Crenated Cell Not Reportable 03/14/21 05:33 Elliptocytes Not Reportable 03/14/21 05:33 Acanthocytes (Spur) Not Reportable 03/14/21 05:33 Rouleaux Not Reportable 03/14/21 05:33 Hemoglobin C Crystals Not Reportable 03/14/21 05:33 Schistocytes Not Reportable 03/14/21 05:33 Malaria parasites Not Reportable 03/14/21 05:33 Ignacio Bodies Not Reportable 03/14/21 05:33 Hem Pathologist Commnt No 03/14/21 05:33 PT 13.9 Sec. (12.2-14.9) 03/09/21 11:21 INR 1.01 (0.87-1.13) 03/09/21 11:21 APTT 34.2 Sec. (24.2-36.6) 03/09/21 11:21 Thrombin Time 20.6 Sec. (15.1-19.6) H 03/09/21 11:21 Sodium 138 mmol/L (137-145) 03/17/21 09:11 Potassium 4.0 mmol/L (3.6-5.0) D 03/17/21 09:11 Chloride 98.1 mmol/L (98-107) 03/17/21 09:11 Carbon Dioxide 24 mmol/L (22-30) 03/17/21 09:11 Anion Gap 20 mmol/L 03/17/21 09:11 BUN 44 mg/dL (7-17) H 03/17/21 09:11 Creatinine 5.6 mg/dL (0.6-1.2) H 03/17/21 09:11 Estimated GFR 10 ml/min 03/17/21 09:11 BUN/Creatinine Ratio 8 % 03/17/21 09:11 Glucose 82 mg/dL (65-100) 03/17/21 09:11 POC Glucose 99 mg/dL (70-105) 03/25/21 12:03 Calcium 10.6 mg/dL (8.4-10.2) H 03/17/21 09:11 Phosphorus 5.90 mg/dL (2.5-4.5) H 03/13/21 07:37 Total Bilirubin 0.20 mg/dL (0.1-1.2) 03/09/21 11:21 AST 29 units/L (5-40) 03/09/21 11:21 ALT 9 units/L (7-56) 03/09/21 11:21 Alkaline Phosphatase 157 units/L (35-129) H 03/09/21 11:21 Total Creatine Kinase 403 units/L (30-135) H 03/09/21 11:21 CK-MB (CK-2) 8.4 ng/mL (0.0-4.0) H 03/09/21 11:21 CK-MB (CK-2) Rel Index 2.0 (0-4) 03/09/21 11:21 Troponin T 0.473 ng/mL (0.00-0.029) H* 03/09/21 11:21 Total Protein 7.7 g/dL (6.3-8.2) 03/09/21 11:21 Albumin 3.7 g/dL (3.9-5) L 03/09/21 11:21 Albumin/Globulin Ratio 0.9 % 03/09/21 11:21 Triglycerides 102 mg/dL (2-149) 03/26/21 04:06 Cholesterol 127 mg/dL (50-199) 03/26/21 04:06 LDL Cholesterol Direct 34 mg/dL (50-130) L 03/26/21 04:06 HDL Cholesterol 76 mg/dL (40-59) H 03/26/21 04:06 Cholesterol/HDL Ratio 1.67 % 03/26/21 04:06 HCG, Qual Negative (Negative) 03/13/21 14:21 PTH Intact 19.00 pg/mL (15-65) 03/14/21 04:38 Urine Color Farn[place] (Yellow) 03/09/21 11:50 Urine Turbidity Cloudy (Clear) 03/09/21 11:50 Urine pH 5.0 (5.0-7.0) 03/09/21 11:50 Ur Specific [place] 1.023 (1.003-1.030) 03/09/21 11:50 Urine Protein >500 mg/dL (Negative) 03/09/21 11:50 Urine Glucose (UA) Neg mg/dL (Negative) 03/09/21 11:50 Urine Ketones Tr mg/dL (Negative) 03/09/21 11:50 Urine Blood Mod (Negative) 03/09/21 11:50 Urine Nitrite Neg (Negative) 03/09/21 11:50 Ur Reducing Substances Not Reportable 03/09/21 11:50 Urine Bilirubin Neg (Negative) 03/09/21 11:50 Urine Ictotest Not Reportable 03/09/21 11:50 Urine Urobilinogen < 2.0 mg/dL (<2.0) 03/09/21 11:50 Ur Leukocyte Esterase Neg (Negative) 03/09/21 11:50 Urine WBC (Auto) 20.0 /HPF (0.0-6.0) H 03/09/21 11:50 Urine RBC (Auto) 9.0 /HPF (0.0-6.0) 03/09/21 11:50 U Epithel Cells (Auto) 2.0 /HPF (0-13.0) 03/09/21 11:50 Urine WBC Clumps 2+ /HPF 03/09/21 11:50 Urine Mucus Few /HPF 03/09/21 11:50 Urine Yeast (Budding) 3+ /HPF 03/09/21 11:50 Plasma/Serum Alcohol < 0.01 % (0-0.07) 03/09/21 11:21 Coronavirus (PCR) Negative (Negative) 03/25/21 08:55 Hepatitis A IgM Ab Non-reactive (NonReactive) 03/11/21 16:28 Hep Bs Antigen Reactive (Negative) 03/11/21 16:28 Hep B Core IgM Ab Non-reactive (NonReactive) 03/11/21 16:28 Hepatitis C Antibody Non-reactive (NonReactive) 03/11/21 16:28 Robertson/IV: Voiding Method Bedpan Active Medications - Current Medications Current Medications: Generic Name Dose Route Start Last Admin Trade Name Freq PRN Reason Stop Dose Admin Acetaminophen 650 mg 03/09/21 14:52 03/24/21 21:41 Acetaminophen 325 Mg Tab PO 650 mg Q4H PRN Administration Pain, Mild (1-3) Acetaminophen/Butalbital/Caffeine 2 tab 03/09/21 14:28 03/22/21 21:52 Butalb/Acetaminophen/Caffeine Tab PO 2 tab Q8H PRN Administration Headache Lipase/Protease/Amylase 1 each 03/12/21 12:04 Lipase 10,500/Protease 25,000/Amylase 43,750 (Units) Dr Lee FEEDTUBE PRN PRN For Clogged Feeding Tube Aspirin 81 mg 03/17/21 10:00 03/26/21 09:42 Aspirin 81 Mg Tab Chew PO 81 mg QDAY LEOLA Administration Atorvastatin Calcium 40 mg 03/09/21 22:00 03/25/21 22:01 Atorvastatin 40 Mg Tab PO 40 mg QHS LEOLA Administration Bisacodyl 10 mg 03/09/21 15:52 03/12/21 16:11 Bisacodyl 10 Mg Rect Supp [place] 10 mg QDAY PRN Administration Constipation Clonidine HCl 0.2 mg 03/17/21 09:00 03/25/21 22:02 Clonidine 0.2 Mg Tab PO 0.2 mg TID LEOLA Administration Clopidogrel Bisulfate 75 mg 03/17/21 10:00 03/26/21 09:42 Clopidogrel 75 Mg Tab PO 75 mg QDAY LEOLA Administration Heparin Sodium (Porcine) 5,000 unit 03/09/21 22:00 03/26/21 09:42 Heparin 5,000 Unit/1 Ml Vial SUB-Q 5,000 unit Q12HR LEOLA Administration Heparin Sodium (Porcine) 2,000 unit 03/11/21 14:25 03/21/21 10:40 Heparin 10,000 Units/10 Ml Vial IV 2,000 unit JUAN C PRN Administration hemodialysis Hydralazine HCl 10 mg 03/16/21 05:41 03/17/21 06:04 Hydralazine 20 Mg/1 Ml Inj IV 10 mg Q6HR PRN Administration Hypertension Hydralazine HCl 50 mg 03/17/21 09:00 03/26/21 05:28 Hydralazine 25 Mg Tab PO 50 mg Q8HR LEOLA Administration Hydromorphone HCl 0.5 mg 03/09/21 14:52 03/16/21 16:09 Hydromorphone 1 Mg/1 Ml Inj IV 0.5 mg Q12H PRN Administration Pain , Severe (7-10) Sodium Chloride 100 mls @ 999 mls/hr 03/11/21 14:25 Nacl 0.9% IV JUAN C PRN Hypotension Levetiracetam 500 mg 03/15/21 13:00 03/26/21 09:42 Levetiracetam 500 Mg/5 Ml Oral Liqd PO 500 mg BID LEOLA Administration Lidocaine HCl 30 ml 03/09/21 14:28 Magic Mouthwash 30ml MM Q4H PRN Sore Throat Magnesium Hydroxide 30 ml 03/09/21 14:52 Magnesium Hydroxide (Mom) Oral Liqd Udc PO Q4H PRN Constipation Metoclopramide HCl 10 mg 03/09/21 14:52 Metoclopramide 10 Mg Tab PO Q6H PRN Nausea And Vomiting Metoprolol Tartrate 100 mg 03/13/21 18:00 03/25/21 22:01 Metoprolol Tartrate 100 Mg Tab PO 100 mg BID LEOLA Administration Nifedipine 60 mg 03/16/21 10:00 03/25/21 09:45 Nifedipine Xl 60 Mg Tab PO 60 mg DAILY LEOLA Administration Ondansetron HCl 4 mg 03/09/21 14:52 Ondansetron 4 Mg/2 Ml Inj IV Q8H PRN Nausea And Vomiting Prednisone 80 mg 03/14/21 10:00 03/26/21 09:42 Prednisone 20 Mg Tab PO 80 mg QDAY LEOLA Administration Promethazine HCl 25 mg 03/09/21 14:52 Promethazine 25 Mg Rect Supp [place] Q6H PRN Nausea And Vomiting Simple Syrup 15 ml 03/12/21 12:04 03/14/21 05:38 Simple Syrup 15 Ml FEEDTUBE 15 ml PRN PRN Administration Hypoglycemia Simple Syrup 30 ml 03/12/21 12:04 Simple Syrup 15 Ml FEEDTUBE PRN PRN Hypoglycemia Sodium Bicarbonate 325 mg 03/12/21 12:04 Sodium Bicarbonate 325 Mg Tab FEEDTUBE PRN PRN For Clogged Feeding Tube Sodium Chloride 10 ml 03/09/21 14:52 03/25/21 09:46 Sodium Chloride 0.9% 10 Ml Flush Syringe IV 10 ml PRN PRN Administration LINE FLUSH Nutrition/Malnutrition Assess - Dietary Evaluation Nutrition/Malnutrition Findings: Nutrition Notes Start: 03/10/21 14:05 Freq: Status: Active Protocol: Document 03/19/21 15:39 JUSTICE (Rec: 03/19/21 15:40 JUSTICE [id number]) Nutrition Notes Initial or Follow up Brief Note Current Diet TF - Jevity 1.2 at 50ml/hr Subjective/Other Information Per RN, pt tolerating TF at goal rate. Nutrition Intervention Follow-Up By: 03/26/21 Additional Comments F/U: stable TF, wt
[2021-03-26] MEDS: METOPROLOL TARTRATE 100 MG TAB PO SCH ×2 (09:46→21:00)
[2021-03-26] MEDS: NIFEdipine XL 60 MG TAB PO SCH (09:46)
[2021-03-26] MEDS: ACETAMINOPHEN 325 MG TAB PO PRN (09:52)
--- NOTE | 2021-03-26 11:30 | Progress Note ---
Assessment and Plan 1. ESRD: Patient on maintenance hemodialysis three times a week, outpatinet schedule, MWF. Meds dosage based on GFR. Hemodialysis: 03/11, 03/13, 03/15, 03/17, 03/19, 03/21, 03/24, 03/26. 2. FEN: Hypercalemia, low Ca bath with HD. Monitor lytes and volume status. 3. Acute metabolic encephalopathy, POA: Improving. Monitor. 4. Acute CVA: Seen by Neuro. Per primary. 5. UTI, POA: S/p Abx. 6. Hypertensive urgency: Adjust meds. Monitor BP. 7. Dysphagia / Malnutrition / AFTT: S/p PEG tube. 8. Hypoglycemia: Improved. Await placement. Subjective: Patient was seen and examined at the bedside. General Appearance: General appearance: well-developed, appears stated age, appears emaciated, not in distress HEENT: ATNC, pupils equal Neck: trachea midline Respiratory: ctab Heart: regular, S1S2, no murmur Abdomen: soft, bowel sounds heard, not tender, PEG tube Integumentary: no rash, warm and dry Neurologic: alert, follows command, able to move extremities Ext: no edema Hemodialysis access: R IJ tunnel catheter Subjective Date of service: 03/26/21 Principal diagnosis: CVA Objective - Vital Signs Vital signs: Vital Signs - 12hr 03/26/21 04:40 Temperature 98.0 F Pulse Rate 68 Respiratory 18 Rate Blood Pressure 172/100 O2 Sat by Pulse 100 Oximetry - Lab 03/17/21 09:11 03/17/21 09:11 Most recent lab results Calcium 10.6 mg/dL (8.4-10.2) H 03/17/21 09:11 Phosphorus 5.90 mg/dL (2.5-4.5) H 03/13/21 07:37 Medications & Allergies - Medications Allergies/Adverse Reactions: Allergies No Known Allergies Allergy (Verified 03/09/21 13:06) Home Medications: Home Medications Medication Instructions Recorded Confirmed Last Taken Type predniSONE [Deltasone] 80 mg PO QDAY #20 tab 11/25/17 03/21/21 Unknown Rx levETIRAcetam [Keppra TAB] 500 mg PO BID #60 tablet 12/20/19 03/21/21 Unknown Rx oxyCODONE /ACETAMINOPHEN [Percocet 1 tab PO QHS PRN #7 tablet 12/20/19 03/21/21 Unknown Rx 5/325 mg] AtorvaSTATin [Lipitor] 40 mg PO QHS #30 tablet 03/16/21 Unknown Rx Butalb/Acetamin/Caff 50-325-40 2 tab PO Q8HR PRN #20 tablet 03/16/21 Unknown Rx [Fioricet 50-325-40] Metoclopramide [Reglan TAB] 10 mg PO Q6H PRN #14 tablet 03/16/21 Unknown Rx Metoprolol [Lopressor TAB] 100 mg PO BID #60 tablet 03/16/21 Unknown Rx NIFEdipine XL [Procardia Xl] 60 mg PO DAILY #30 tablet 03/16/21 Unknown Rx bisacodyL [Dulcolax suppos] 10 mg MD QDAY PRN #10 supp.rect 03/16/21 Unknown Rx chlorproMAZINE [Thorazine] 25 mg PO Q4H PRN #10 03/16/21 Unknown Rx hydrALAZINE [Apresoline TAB] 50 mg PO Q8HR #90 tablet 03/16/21 Unknown Rx levETIRAcetam [Keppra] 500 mg PO BID 30 Days oral.liqd 03/16/21 Unknown Rx oxyCODONE /ACETAMINOPHEN [Percocet 1 tab PO Q6HR PRN #14 03/16/21 Unknown Rx 5/325 mg] Aspirin [Aspirin BABY CHEW TAB] 81 mg PO QDAY #30 tab.chew 03/17/21 Unknown Rx Clopidogrel [Plavix] 75 mg PO QDAY #30 tablet 03/17/21 Unknown Rx Hydralazine HCl 50 mg PO TID #90 tablet 03/17/21 Unknown Rx cloNIDine [Catapres] 0.2 mg PO TID #90 tablet 03/17/21 Unknown Rx Active Medications: Generic Name Dose Route Start Last Admin Trade Name Freq PRN Reason Stop Dose Admin Acetaminophen 650 mg 03/09/21 14:52 03/26/21 09:52 Acetaminophen 325 Mg Tab PO 650 mg Q4H PRN Administration Pain, Mild (1-3) Acetaminophen/Butalbital/Caffeine 2 tab 03/09/21 14:28 03/22/21 21:52 Butalb/Acetaminophen/Caffeine Tab PO 2 tab Q8H PRN Administration Headache Lipase/Protease/Amylase 1 each 03/12/21 12:04 Lipase 10,500/Protease 25,000/Amylase 43,750 (Units) Dr Lee FEEDTUBE PRN PRN For Clogged Feeding Tube Aspirin 81 mg 03/17/21 10:00 03/26/21 09:42 Aspirin 81 Mg Tab Chew PO 81 mg QDAY LEOLA Administration Atorvastatin Calcium 40 mg 03/09/21 22:00 03/25/21 22:01 Atorvastatin 40 Mg Tab PO 40 mg QHS LEOLA Administration Bisacodyl 10 mg 03/09/21 15:52 03/12/21 16:11 Bisacodyl 10 Mg Rect Supp MD 10 mg QDAY PRN Administration Constipation Clonidine HCl 0.2 mg 03/17/21 09:00 03/26/21 08:00 Clonidine 0.2 Mg Tab PO Not Given TID [facility] Clopidogrel Bisulfate 75 mg 03/17/21 10:00 03/26/21 09:42 Clopidogrel 75 Mg Tab PO 75 mg QDAY LEOLA Administration Heparin Sodium (Porcine) 5,000 unit 03/09/21 22:00 03/26/21 09:42 Heparin 5,000 Unit/1 Ml Vial SUB-Q 5,000 unit Q12HR LEOLA Administration Heparin Sodium (Porcine) 2,000 unit 03/11/21 14:25 03/21/21 10:40 Heparin 10,000 Units/10 Ml Vial IV 2,000 unit JUAN C PRN Administration hemodialysis Hydralazine HCl 10 mg 03/16/21 05:41 03/17/21 06:04 Hydralazine 20 Mg/1 Ml Inj IV 10 mg Q6HR PRN Administration Hypertension Hydralazine HCl 50 mg 03/17/21 09:00 03/26/21 05:28 Hydralazine 25 Mg Tab PO 50 mg Q8HR LEOLA Administration Hydromorphone HCl 0.5 mg 03/09/21 14:52 03/16/21 16:09 Hydromorphone 1 Mg/1 Ml Inj IV 0.5 mg Q12H PRN Administration Pain , Severe (7-10) Sodium Chloride 100 mls @ 999 mls/hr 03/11/21 14:25 Nacl 0.9% IV JUAN C PRN Hypotension Levetiracetam 500 mg 03/15/21 13:00 03/26/21 09:42 Levetiracetam 500 Mg/5 Ml Oral Liqd PO 500 mg BID LEOLA Administration Lidocaine HCl 30 ml 03/09/21 14:28 Magic Mouthwash 30ml MM Q4H PRN Sore Throat Magnesium Hydroxide 30 ml 03/09/21 14:52 Magnesium Hydroxide (Mom) Oral Liqd Udc PO Q4H PRN Constipation Metoclopramide HCl 10 mg 03/09/21 14:52 Metoclopramide 10 Mg Tab PO Q6H PRN Nausea And Vomiting Metoprolol Tartrate 100 mg 03/13/21 18:00 03/26/21 09:46 Metoprolol Tartrate 100 Mg Tab PO Not Given BID [facility] Nifedipine 60 mg 03/16/21 10:00 03/26/21 09:46 Nifedipine Xl 60 Mg Tab PO Not Given DAILY [facility] Ondansetron HCl 4 mg 03/09/21 14:52 Ondansetron 4 Mg/2 Ml Inj IV Q8H PRN Nausea And Vomiting Prednisone 80 mg 03/14/21 10:00 03/26/21 09:42 Prednisone 20 Mg Tab PO 80 mg QDAY LEOLA Administration Promethazine HCl 25 mg 03/09/21 14:52 Promethazine 25 Mg Rect Supp MD Q6H PRN Nausea And Vomiting Simple Syrup 15 ml 03/12/21 12:04 03/14/21 05:38 Simple Syrup 15 Ml FEEDTUBE 15 ml PRN PRN Administration Hypoglycemia Simple Syrup 30 ml 03/12/21 12:04 Simple Syrup 15 Ml FEEDTUBE PRN PRN Hypoglycemia Sodium Bicarbonate 325 mg 03/12/21 12:04 Sodium Bicarbonate 325 Mg Tab FEEDTUBE PRN PRN For Clogged Feeding Tube Sodium Chloride 10 ml 03/09/21 14:52 03/25/21 09:46 Sodium Chloride 0.9% 10 Ml Flush Syringe IV 10 ml PRN PRN Administration LINE FLUSH
[2021-03-27] MEDS: hydrALAZINE 25 MG TAB PO SCH ×3 (06:03→22:35)
[2021-03-27] MEDS: cloNIDine 0.2 MG TAB PO SCH ×3 (08:40→22:30)
--- NOTE | 2021-03-27 09:26 | Progress Note ---
Assessment and Plan Assessment and plan: The patient is a 45 YO female with history significant for HTN, Seizure Disorder, SLE, Nicotine Dependence, Malnutrition and ESRD on hemodialysis (MWF) who presented to [facility] ED 03/09 with increased confusion as well as 2 witnessed seizures while at home. A code stroke was called and the patient was found to have UTI, metabolic encephalopathy, end-stage renal disease, and accelerated hypertension. Patient was admitted to telemetry and initiated on stroke protocol. At present patient actively being hemodialyzed. Still evidence of increased confusion. Patient found to have urinary tract infection actively being treated. : Patient with significant aphasia/nonverbal, unable to move right side, wait for nephrology evaluation for hemodialysis, MRI pending, will initiate D10W at 42 mils per hour as patient with history of end-stage dialysis will minimize IV fluid. Ordered for speech PT OT eval. will consult neurology following MRI results. Patient is unable to swallow so we will change aspirin per rectal. 03/11/21: MRI showed L thalamus and L temporal area subacute infarct. pending s peech eval. cont iv fluid, order for Tf and dobhoff if fails speech eval. neuro consult. continue supportive care. HD per renal. monitor BP -adjust meds, follow BMP/CBC 03/12/21: pending TF, noted neuro recommendation: initiate aspirin with plavix. cont ID aspirin till dobhoff/peg placemnet. CM working on placement. Updated daughter for details by phone. follow BMP. monitor vitals 03/13/2021 patient today actively receiving hemodialysis. Patient was nonverbal not answering any questions. Could not complete hemodialysis secondary to hypotension in which patient required a bolus. Patient is now planning on going down to receive PEG placement. Will update daughter after procedure complete. 03/14/2021. Patient remains nonverbal encephalopathic today. Does move all extremities. Tolerated PEG tube feedings well. 03/15/21 patient actively being dialyzed today. Remains encephalopathic. A bit more attentive today. Patient did follow me with eyes. PEG tube functioning well. 03/16: Continue supportive care, awaiting Hospice per family request as documented by case management, repeat BMP AND CBC 03/17: Patient seen and examined again this morning definitely appears older than stated age emaciated not following any commands still speaking but moves around. Discussed with nursing staff at bedside patient not interactive with them. I have resumed the aspirin and the Plavix that was probably held for PEG tube. My understanding is that the family would like to take the patient home with home health but per case management they have requested hospice. I have tried to call them to see if they understand that this needs no dialysis with tube feeds unless approved by the hospice but unfortunately unable to get either the daughter or the father. Nevertheless blood pressure has improved patient needs to be monitored closely on dialysis days to ensure no hypotension. Clinical condition at this time is stable 03/18: Continue supportive care, no new complaints, awaiting discharge plan. Aspiration precautions. Patient answered some question for me today, moved ext. 03/19: Patient seen examined, tolerating tube feed. Continue supportive care. awaiting discharge home or placement. Family not coming for training, following up 03/20: Patient shows remarkable clinical improvement she is answering questions following commands. Speech reevaluated approved for regular diet with thin liquids. This has been ordered. Still cannot reach family for disposition Case management is following otherwise continue current management we will discontinue tube feeding at this time. 03/21: Continue supportive care awaiting placement. We will continue hemodialysis at this time. 03/22: Continune supportive care, she is quite interactive. Awaiting placement 03/23: Patient stable at this time, continued supportive care, awaiting placement 03/25; patient is stable and awaiting placement. 03/26; awaiting placement. 03/27; awaiting placement. - Acute CVA (cerebrovascular accident) Admitted with CVA protocol: CT head, CTA head, CTA neck, showed no acute process MRI showed L thalamus and L temporal area subacute infarct. 2d echo showed preserved EF, carotid doppler showed <50% ordered antiplatelet and statin therapy, physical therapy consulted, Occupational Therapy consulted, speech therapy consulted, telemetry neurology consulted in ED, s/p permissive hypertension overnight. Now could be more aggressive with BP. PT to evaluate for assisted facility --Dysphagia Patient unable to speak and has significant dysphagia clinically: placed on D10W Patient to receive PEG tube today. Patient tolerating PEG tube feedings well. No abdominal pain bowel sounds unremarkable. -- UTI (urinary tract infection) IV antibiotic therapy, resolved. Stable to go to nursing facility without antibiotics. --Seizure disorder Continue Keppra can change to p.o. now No active seizure. Increased risk secondary to CVA. --SIRS, with elevated white count, tachycardia and tachypnea cont to monitor for now, likely aspiration pneumonitis No evidence of sepsis at this time. Has resolved now. -- Metabolic encephalopathy Secondary to CVA continue neuro check, seizure precautions, supportive care. Remains encephalopathic at this time. Will follow with eyes not speaking. -- ESRD (end stage renal disease) Nephrology team consulted in ED. Patient actively being dialyzed today.. Was complicated by episode of hypotension requiring a bolus. -- Hypertensive urgency, malignant Should improve medical management once PEG tube has been placed we can use metoprolol through the tube. Remain suboptimal will advance metoprolol. Add amlodipine. After hemodialysis. -- Severe malnutrition Increase protein intake when awake and alert only, dietary supplementation D10W for now, consulted GI for PEG placement --bacterial conjuctivitis: ordered erythromycin ointment History Interval history: Patient was seen and evaluated this morning Patient was alert, but she was disoriented Hospitalist Physical - Physical exam Narrative exam: Not in cardiopulmonary distress. The patient appeared well nourished and normally developed. Vital signs as documented. Head exam is unremarkable. No scleral icterus . Neck is without jugular venous distension, thyromegaly, or carotid bruits. Lungs are clear to auscultation. Cardiac exam reveals regular rate and Rhythm. Abdominal exam nontender. Extremities are nonedematous and both femoral and pedal pulses are normal. [employer]: Alert and cooperative, disoriented. No focal weakness. - Constitutional Vitals: Temp Pulse Resp BP Pulse Ox 98.7 F 85 18 133/97 97 03/27/21 07:56 03/27/21 07:56 03/27/21 07:56 03/27/21 08:40 03/27/21 07:56 General appearance: Present: no acute distress HEART Score - HEART Score Troponin: Troponin T 0.473 ng/mL (0.00-0.029) H* 03/09/21 11:21 Results - Labs CBC & Chem 7: 03/17/21 09:11 03/17/21 09:11 Labs: Laboratory Last Values WBC 7.5 K/mm3 (4.5-11.0) 03/17/21 09:11 RBC 4.73 M/mm3 (3.65-5.03) 03/17/21 09:11 Hgb 12.4 gm/dl (10.1-14.3) 03/17/21 09:11 Hct 39.1 % (30.3-42.9) 03/17/21 09:11 MCV 83 fl (79-97) 03/17/21 09:11 MCH 26 pg (28-32) L 03/17/21 09:11 MCHC 32 % (30-34) 03/17/21 09:11 RDW 19.4 % (13.2-15.2) H 03/17/21 09:11 Plt Count 247 K/mm3 (140-440) 03/17/21 09:11 Add Manual Diff Complete 03/14/21 05:33 Total Counted 100 03/14/21 05:33 Seg Neuts % (Manual) 81.0 % (40.0-70.0) H 03/14/21 05:33 Band Neutrophils % 1.0 % 03/14/21 05:33 Lymphocytes % (Manual) 8.0 % (13.4-35.0) L 03/14/21 05:33 Monocytes % (Manual) 6.0 % (0.0-7.3) 03/14/21 05:33 Eosinophils % (Manual) 4.0 % (0.0-4.3) 03/14/21 05:33 Nucleated RBC % Not Reportable 03/14/21 05:33 Seg Neutrophils # Man 7.0 K/mm3 (1.8-7.7) 03/14/21 05:33 Band Neutrophils # 0.1 K/mm3 03/14/21 05:33 Lymphocytes # (Manual) 0.7 K/mm3 (1.2-5.4) L 03/14/21 05:33 Abs React Lymphs (Man) 0.0 K/mm3 03/14/21 05:33 Monocytes # (Manual) 0.5 K/mm3 (0.0-0.8) 03/14/21 05:33 Eosinophils # (Manual) 0.3 K/mm3 (0.0-0.4) 03/14/21 05:33 Basophils # (Manual) 0.0 K/mm3 (0.0-0.1) 03/14/21 05:33 Metamyelocytes # 0.0 K/mm3 03/14/21 05:33 Myelocytes # 0.0 K/mm3 03/14/21 05:33 Promyelocytes # 0.0 K/mm3 03/14/21 05:33 Blast Cells # 0.0 K/mm3 03/14/21 05:33 WBC Morphology Not Reportable 03/14/21 05:33 Hypersegmented Neuts Not Reportable 03/14/21 05:33 Hyposegmented Neuts Not Reportable 03/14/21 05:33 Hypogranular Neuts Not Reportable 03/14/21 05:33 Smudge Cells Not Reportable 03/14/21 05:33 Toxic Granulation 1+ 03/14/21 05:33 Toxic Vacuolation Not Reportable 03/14/21 05:33 Dohle Bodies Not Reportable 03/14/21 05:33 Pelger-Huet Anomaly Not Reportable 03/14/21 05:33 Kaela Rods Not Reportable 03/14/21 05:33 Platelet Estimate Consistent w auto 03/14/21 05:33 Clumped Platelets Not Reportable 03/14/21 05:33 Plt Clumps, EDTA Not Reportable 03/14/21 05:33 Large Platelets Not Reportable 03/14/21 05:33 Giant Platelets Not Reportable 03/14/21 05:33 Platelet Satelliting Not Reportable 03/14/21 05:33 Plt Morphology Comment Not Reportable 03/14/21 05:33 RBC Morphology Not Reportable 03/14/21 05:33 Dimorphic RBCs Not Reportable 03/14/21 05:33 Polychromasia Not Reportable 03/14/21 05:33 Hypochromasia 1+ 03/14/21 05:33 Poikilocytosis 1+ 03/14/21 05:33 Anisocytosis 1+ 03/14/21 05:33 Microcytosis Few 03/14/21 05:33 Macrocytosis Not Reportable 03/14/21 05:33 Spherocytes Not Reportable 03/14/21 05:33 Pappenheimer Bodies Not Reportable 03/14/21 05:33 Sickle Cells Not Reportable 03/14/21 05:33 Target Cells Not Reportable 03/14/21 05:33 Tear Drop Cells Not Reportable 03/14/21 05:33 Ovalocytes Not Reportable 03/14/21 05:33 Helmet Cells Not Reportable 03/14/21 05:33 Hernandez-[place] Bodies Not Reportable 03/14/21 05:33 Haskell Rings Not Reportable 03/14/21 05:33 Kervin Cells Not Reportable 03/14/21 05:33 Bite Cells Not Reportable 03/14/21 05:33 Crenated Cell Not Reportable 03/14/21 05:33 Elliptocytes Not Reportable 03/14/21 05:33 Acanthocytes (Spur) Not Reportable 03/14/21 05:33 Rouleaux Not Reportable 03/14/21 05:33 Hemoglobin C Crystals Not Reportable 03/14/21 05:33 Schistocytes Not Reportable 03/14/21 05:33 Malaria parasites Not Reportable 03/14/21 05:33 Ignacio Bodies Not Reportable 03/14/21 05:33 Hem Pathologist Commnt No 03/14/21 05:33 PT 13.9 Sec. (12.2-14.9) 03/09/21 11:21 INR 1.01 (0.87-1.13) 03/09/21 11:21 APTT 34.2 Sec. (24.2-36.6) 03/09/21 11:21 Thrombin Time 20.6 Sec. (15.1-19.6) H 03/09/21 11:21 Sodium 138 mmol/L (137-145) 03/17/21 09:11 Potassium 4.0 mmol/L (3.6-5.0) D 03/17/21 09:11 Chloride 98.1 mmol/L (98-107) 03/17/21 09:11 Carbon Dioxide 24 mmol/L (22-30) 03/17/21 09:11 Anion Gap 20 mmol/L 03/17/21 09:11 BUN 44 mg/dL (7-17) H 03/17/21 09:11 Creatinine 5.6 mg/dL (0.6-1.2) H 03/17/21 09:11 Estimated GFR 10 ml/min 03/17/21 09:11 BUN/Creatinine Ratio 8 % 03/17/21 09:11 Glucose 82 mg/dL (65-100) 03/17/21 09:11 POC Glucose 99 mg/dL (70-105) 03/25/21 12:03 Calcium 10.6 mg/dL (8.4-10.2) H 03/17/21 09:11 Phosphorus 5.90 mg/dL (2.5-4.5) H 03/13/21 07:37 Total Bilirubin 0.20 mg/dL (0.1-1.2) 03/09/21 11:21 AST 29 units/L (5-40) 03/09/21 11:21 ALT 9 units/L (7-56) 03/09/21 11:21 Alkaline Phosphatase 157 units/L (35-129) H 03/09/21 11:21 Total Creatine Kinase 403 units/L (30-135) H 03/09/21 11:21 CK-MB (CK-2) 8.4 ng/mL (0.0-4.0) H 03/09/21 11:21 CK-MB (CK-2) Rel Index 2.0 (0-4) 03/09/21 11:21 Troponin T 0.473 ng/mL (0.00-0.029) H* 03/09/21 11:21 Total Protein 7.7 g/dL (6.3-8.2) 03/09/21 11:21 Albumin 3.7 g/dL (3.9-5) L 03/09/21 11:21 Albumin/Globulin Ratio 0.9 % 03/09/21 11:21 Triglycerides 102 mg/dL (2-149) 03/26/21 04:06 Cholesterol 127 mg/dL (50-199) 03/26/21 04:06 LDL Cholesterol Direct 34 mg/dL (50-130) L 03/26/21 04:06 HDL Cholesterol 76 mg/dL (40-59) H 03/26/21 04:06 Cholesterol/HDL Ratio 1.67 % 03/26/21 04:06 HCG, Qual Negative (Negative) 03/13/21 14:21 PTH Intact 19.00 pg/mL (15-65) 03/14/21 04:38 Urine Color Farnaz (Yellow) 03/09/21 11:50 Urine Turbidity Cloudy (Clear) 03/09/21 11:50 Urine pH 5.0 (5.0-7.0) 03/09/21 11:50 Ur Specific [place] 1.023 (1.003-1.030) 03/09/21 11:50 Urine Protein >500 mg/dL (Negative) 03/09/21 11:50 Urine Glucose (UA) Neg mg/dL (Negative) 03/09/21 11:50 Urine Ketones Tr mg/dL (Negative) 03/09/21 11:50 Urine Blood Mod (Negative) 03/09/21 11:50 Urine Nitrite Neg (Negative) 03/09/21 11:50 Ur Reducing Substances Not Reportable 03/09/21 11:50 Urine Bilirubin Neg (Negative) 03/09/21 11:50 Urine Ictotest Not Reportable 03/09/21 11:50 Urine Urobilinogen < 2.0 mg/dL (<2.0) 03/09/21 11:50 Ur Leukocyte Esterase Neg (Negative) 03/09/21 11:50 Urine WBC (Auto) 20.0 /HPF (0.0-6.0) H 03/09/21 11:50 Urine RBC (Auto) 9.0 /HPF (0.0-6.0) 03/09/21 11:50 U Epithel Cells (Auto) 2.0 /HPF (0-13.0) 03/09/21 11:50 Urine WBC Clumps 2+ /HPF 03/09/21 11:50 Urine Mucus Few /HPF 03/09/21 11:50 Urine Yeast (Budding) 3+ /HPF 03/09/21 11:50 Plasma/Serum Alcohol < 0.01 % (0-0.07) 03/09/21 11:21 Coronavirus (PCR) Negative (Negative) 03/25/21 08:55 Hepatitis A IgM Ab Non-reactive (NonReactive) 03/11/21 16:28 Hep Bs Antigen Reactive (Negative) 03/11/21 16:28 Hep B Core IgM Ab Non-reactive (NonReactive) 03/11/21 16:28 Hepatitis C Antibody Non-reactive (NonReactive) 03/11/21 16:28 Robertson/IV: Voiding Method Bedpan Active Medications - Current Medications Current Medications: Generic Name Dose Route Start Last Admin Trade Name Freq PRN Reason Stop Dose Admin Acetaminophen 650 mg 03/09/21 14:52 03/26/21 09:52 Acetaminophen 325 Mg Tab PO 650 mg Q4H PRN Administration Pain, Mild (1-3) Acetaminophen/Butalbital/Caffeine 2 tab 03/09/21 14:28 03/22/21 21:52 Butalb/Acetaminophen/Caffeine Tab PO 2 tab Q8H PRN Administration Headache Lipase/Protease/Amylase 1 each 03/12/21 12:04 Lipase 10,500/Protease 25,000/Amylase 43,750 (Units) Dr Jesus BARNHARTTUBE PRN PRN For Clogged Feeding Tube Aspirin 81 mg 03/17/21 10:00 03/26/21 09:42 Aspirin 81 Mg Tab Chew PO 81 mg QDAY LEOLA Administration Atorvastatin Calcium 40 mg 03/09/21 22:00 03/26/21 21:01 Atorvastatin 40 Mg Tab PO 40 mg QHS LEOLA Administration Bisacodyl 10 mg 03/09/21 15:52 03/12/21 16:11 Bisacodyl 10 Mg Rect Supp ID 10 mg QDAY PRN Administration Constipation Clonidine HCl 0.2 mg 03/17/21 09:00 03/27/21 08:40 Clonidine 0.2 Mg Tab PO 0.2 mg TID LEOLA Administration Clopidogrel Bisulfate 75 mg 03/17/21 10:00 03/26/21 09:42 Clopidogrel 75 Mg Tab PO 75 mg QDAY LEOLA Administration Heparin Sodium (Porcine) 5,000 unit 03/09/21 22:00 03/26/21 21:01 Heparin 5,000 Unit/1 Ml Vial SUB-Q 5,000 unit Q12HR LEOLA Administration Heparin Sodium (Porcine) 2,000 unit 03/11/21 14:25 03/21/21 10:40 Heparin 10,000 Units/10 Ml Vial IV 2,000 unit JUAN C PRN Administration hemodialysis Hydralazine HCl 10 mg 03/16/21 05:41 03/17/21 06:04 Hydralazine 20 Mg/1 Ml Inj IV 10 mg Q6HR PRN Administration Hypertension Hydralazine HCl 50 mg 03/17/21 09:00 03/27/21 06:03 Hydralazine 25 Mg Tab PO 50 mg Q8HR LEOLA Administration Hydromorphone HCl 0.5 mg 03/09/21 14:52 03/16/21 16:09 Hydromorphone 1 Mg/1 Ml Inj IV 0.5 mg Q12H PRN Administration Pain , Severe (7-10) Sodium Chloride 100 mls @ 999 mls/hr 03/11/21 14:25 Nacl 0.9% IV JUAN C PRN Hypotension Levetiracetam 500 mg 03/15/21 13:00 03/26/21 21:00 Levetiracetam 500 Mg/5 Ml Oral Liqd PO 500 mg BID LEOLA Administration Lidocaine HCl 30 ml 03/09/21 14:28 Magic Mouthwash 30ml MM Q4H PRN Sore Throat Magnesium Hydroxide 30 ml 03/09/21 14:52 Magnesium Hydroxide (Mom) Oral Liqd Udc PO Q4H PRN Constipation Metoclopramide HCl 10 mg 03/09/21 14:52 Metoclopramide 10 Mg Tab PO Q6H PRN Nausea And Vomiting Metoprolol Tartrate 100 mg 03/13/21 18:00 03/26/21 21:00 Metoprolol Tartrate 100 Mg Tab PO 100 mg BID LEOLA Administration Nifedipine 60 mg 03/16/21 10:00 03/26/21 09:46 Nifedipine Xl 60 Mg Tab PO Not Given DAILY LEOLA Ondansetron HCl 4 mg 03/09/21 14:52 Ondansetron 4 Mg/2 Ml Inj IV Q8H PRN Nausea And Vomiting Prednisone 80 mg 03/14/21 10:00 03/26/21 09:42 Prednisone 20 Mg Tab PO 80 mg QDAY LEOLA Administration Promethazine HCl 25 mg 03/09/21 14:52 Promethazine 25 Mg Rect Supp ID Q6H PRN Nausea And Vomiting Simple Syrup 15 ml 03/12/21 12:04 03/14/21 05:38 Simple Syrup 15 Ml FEEDTUBE 15 ml PRN PRN Administration Hypoglycemia Simple Syrup 30 ml 03/12/21 12:04 Simple Syrup 15 Ml FEEDTUBE PRN PRN Hypoglycemia Sodium Bicarbonate 325 mg 03/12/21 12:04 Sodium Bicarbonate 325 Mg Tab FEEDTUBE PRN PRN For Clogged Feeding Tube Sodium Chloride 10 ml 03/09/21 14:52 03/25/21 09:46 Sodium Chloride 0.9% 10 Ml Flush Syringe IV 10 ml PRN PRN Administration LINE FLUSH Nutrition/Malnutrition Assess - Dietary Evaluation Nutrition/Malnutrition Findings: Nutrition Notes Start: 03/10/21 14:05 Freq: Status: Active Protocol: Document 03/26/21 13:54 (Rec: 03/26/21 13:58 [id number]) Nutrition Notes Initial or Follow up Reassessment Current Diagnosis CKD (stage V CKD),Stroke Other Pertinent Diagnosis encephalopathy, SLE, seizure disorder, UTI Current Diet Renal Labs/Tests Reviewed Pertinent Medications Reviewed Height 5 ft 3 in Weight 46.8 kg [place] Body Weight (kg) 52.27 BMI 18.2 Weight change and time frame Wt flucuations Weight Status Underweight Subjective/Other Information Pt reports eating well when food is warm and not when it is cold. Percent of energy/protein needs met: 80%/71% Burn Absent Trauma Absent GI Symptoms None Current % PO Fair (50-74%) Minimum of two criteria No physical signs of malnutrition #1 Nutrition Diagnosis Inadequate oral intake As Evidenced by Signs and Symptoms pt eating an average of 50% of meals Diagnosis Progress(for reassessment Improved documentation) Is patient on ventilator? No Is Patient Ambulatory and/or Out of Bed No REE-([facility]-confined to bed) 1302.312 Calculation Used for Recommendations [facility] Additional Notes Protein: >1.2g/kg (>54g) Fluid: 1 ml/kcal or per MD Nutrition Intervention Change Diet Order: continue Add Supplement/Snack (indicate name/kcal Nepro daily /protein ) Provides kCal: 425 Provides Protein (gm) 19 Goal #1 Meet at least 75% of energy and protein needs via PO and ONS Anticipated Discharge Needs: renal Follow-Up By: 03/31/21 Additional Comments F/u: intakes and ONS tolerance
--- NOTE | 2021-03-27 09:33 | Progress Note ---
Assessment and Plan 1. ESRD: Patient on maintenance hemodialysis three times a week, outpatinet schedule, MWF. Meds dosage based on GFR. Hemodialysis: 03/11, 03/13, 03/15, 03/17, 03/19, 03/21, 03/24, 03/26. 2. FEN: Hypercalemia, low Ca bath with HD. Monitor lytes and volume status. 3. Acute metabolic encephalopathy, POA: MS is better. Monitor. 4. Acute CVA: Seen by Neuro. Per primary. 5. UTI, POA: S/p Abx. 6. Hypertensive urgency: Adjust meds. Monitor BP. 7. Dysphagia / Malnutrition / AFTT: S/p PEG tube. 8. Hypoglycemia: Improved. Await placement. Subjective: Patient was seen and examined at the bedside. General Appearance: General appearance: well-developed, appears stated age, appears emaciated, not in distress HEENT: ATNC, pupils equal Neck: trachea midline Respiratory: ctab Heart: regular, S1S2, no murmur Abdomen: soft, bowel sounds heard, not tender, PEG tube Integumentary: no rash, warm and dry Neurologic: alert, follows command, able to move extremities Ext: no edema Hemodialysis access: R IJ tunnel catheter Subjective Date of service: 03/27/21 Principal diagnosis: CVA Objective - Vital Signs Vital signs: Vital Signs - 12hr 03/26/21 03/26/21 03/27/21 22:00 23:10 04:22 Temperature 98.0 F 98.0 F Pulse Rate 79 80 Respiratory 18 18 Rate Blood Pressure 132/94 139/94 O2 Sat by Pulse 98 98 98 Oximetry 03/27/21 03/27/21 03/27/21 06:03 07:56 08:40 Temperature 98.7 F Pulse Rate 80 85 Respiratory 18 Rate Blood Pressure 139/94 133/97 133/97 O2 Sat by Pulse 97 Oximetry - Lab 03/17/21 09:11 03/17/21 09:11 Most recent lab results Calcium 10.6 mg/dL (8.4-10.2) H 03/17/21 09:11 Phosphorus 5.90 mg/dL (2.5-4.5) H 03/13/21 07:37 Medications & Allergies - Medications Allergies/Adverse Reactions: Allergies No Known Allergies Allergy (Verified 03/09/21 13:06) Home Medications: Home Medications Medication Instructions Recorded Confirmed Last Taken Type predniSONE [Deltasone] 80 mg PO QDAY #20 tab 11/25/17 03/21/21 Unknown Rx levETIRAcetam [Keppra TAB] 500 mg PO BID #60 tablet 12/20/19 03/21/21 Unknown Rx oxyCODONE /ACETAMINOPHEN [Percocet 1 tab PO QHS PRN #7 tablet 12/20/19 03/21/21 Unknown Rx 5/325 mg] AtorvaSTATin [Lipitor] 40 mg PO QHS #30 tablet 03/16/21 Unknown Rx Butalb/Acetamin/Caff 50-325-40 2 tab PO Q8HR PRN #20 tablet 03/16/21 Unknown Rx [Fioricet 50-325-40] Metoclopramide [Reglan TAB] 10 mg PO Q6H PRN #14 tablet 03/16/21 Unknown Rx Metoprolol [Lopressor TAB] 100 mg PO BID #60 tablet 03/16/21 Unknown Rx NIFEdipine XL [Procardia Xl] 60 mg PO DAILY #30 tablet 03/16/21 Unknown Rx bisacodyL [Dulcolax suppos] 10 mg [place] QDAY PRN #10 supp.rect 03/16/21 Unknown Rx chlorproMAZINE [Thorazine] 25 mg PO Q4H PRN #10 03/16/21 Unknown Rx hydrALAZINE [Apresoline TAB] 50 mg PO Q8HR #90 tablet 03/16/21 Unknown Rx levETIRAcetam [Keppra] 500 mg PO BID 30 Days oral.liqd 03/16/21 Unknown Rx oxyCODONE /ACETAMINOPHEN [Percocet 1 tab PO Q6HR PRN #14 03/16/21 Unknown Rx 5/325 mg] Aspirin [Aspirin BABY CHEW TAB] 81 mg PO QDAY #30 tab.chew 03/17/21 Unknown Rx Clopidogrel [Plavix] 75 mg PO QDAY #30 tablet 03/17/21 Unknown Rx Hydralazine HCl 50 mg PO TID #90 tablet 03/17/21 Unknown Rx cloNIDine [Catapres] 0.2 mg PO TID #90 tablet 03/17/21 Unknown Rx Active Medications: Generic Name Dose Route Start Last Admin Trade Name Freq PRN Reason Stop Dose Admin Acetaminophen 650 mg 03/09/21 14:52 03/26/21 09:52 Acetaminophen 325 Mg Tab PO 650 mg Q4H PRN Administration Pain, Mild (1-3) Acetaminophen/Butalbital/Caffeine 2 tab 03/09/21 14:28 03/22/21 21:52 Butalb/Acetaminophen/Caffeine Tab PO 2 tab Q8H PRN Administration Headache Lipase/Protease/Amylase 1 each 03/12/21 12:04 Lipase 10,500/Protease 25,000/Amylase 43,750 (Units) Dr Lee FEEDTUBE PRN PRN For Clogged Feeding Tube Aspirin 81 mg 03/17/21 10:00 03/26/21 09:42 Aspirin 81 Mg Tab Chew PO 81 mg QDAY LEOLA Administration Atorvastatin Calcium 40 mg 03/09/21 22:00 03/26/21 21:01 Atorvastatin 40 Mg Tab PO 40 mg QHS LEOLA Administration Bisacodyl 10 mg 03/09/21 15:52 03/12/21 16:11 Bisacodyl 10 Mg Rect Supp DE 10 mg QDAY PRN Administration Constipation Clonidine HCl 0.2 mg 03/17/21 09:00 03/27/21 08:40 Clonidine 0.2 Mg Tab PO 0.2 mg TID LEOLA Administration Clopidogrel Bisulfate 75 mg 03/17/21 10:00 03/26/21 09:42 Clopidogrel 75 Mg Tab PO 75 mg QDAY LEOLA Administration Heparin Sodium (Porcine) 5,000 unit 03/09/21 22:00 03/26/21 21:01 Heparin 5,000 Unit/1 Ml Vial SUB-Q 5,000 unit Q12HR LEOLA Administration Heparin Sodium (Porcine) 2,000 unit 03/11/21 14:25 03/21/21 10:40 Heparin 10,000 Units/10 Ml Vial IV 2,000 unit JUAN C PRN Administration hemodialysis Hydralazine HCl 10 mg 03/16/21 05:41 03/17/21 06:04 Hydralazine 20 Mg/1 Ml Inj IV 10 mg Q6HR PRN Administration Hypertension Hydralazine HCl 50 mg 03/17/21 09:00 03/27/21 06:03 Hydralazine 25 Mg Tab PO 50 mg Q8HR LEOLA Administration Hydromorphone HCl 0.5 mg 03/09/21 14:52 03/16/21 16:09 Hydromorphone 1 Mg/1 Ml Inj IV 0.5 mg Q12H PRN Administration Pain , Severe (7-10) Sodium Chloride 100 mls @ 999 mls/hr 03/11/21 14:25 Nacl 0.9% IV JUAN C PRN Hypotension Levetiracetam 500 mg 03/15/21 13:00 03/26/21 21:00 Levetiracetam 500 Mg/5 Ml Oral Liqd PO 500 mg BID LEOLA Administration Lidocaine HCl 30 ml 03/09/21 14:28 Magic Mouthwash 30ml MM Q4H PRN Sore Throat Magnesium Hydroxide 30 ml 03/09/21 14:52 Magnesium Hydroxide (Mom) Oral Liqd Udc PO Q4H PRN Constipation Metoclopramide HCl 10 mg 03/09/21 14:52 Metoclopramide 10 Mg Tab PO Q6H PRN Nausea And Vomiting Metoprolol Tartrate 100 mg 03/13/21 18:00 03/26/21 21:00 Metoprolol Tartrate 100 Mg Tab PO 100 mg BID LEOLA Administration Nifedipine 60 mg 03/16/21 10:00 03/26/21 09:46 Nifedipine Xl 60 Mg Tab PO Not Given DAILY [facility] Ondansetron HCl 4 mg 03/09/21 14:52 Ondansetron 4 Mg/2 Ml Inj IV Q8H PRN Nausea And Vomiting Prednisone 80 mg 03/14/21 10:00 03/26/21 09:42 Prednisone 20 Mg Tab PO 80 mg QDAY LEOLA Administration Promethazine HCl 25 mg 03/09/21 14:52 Promethazine 25 Mg Rect Supp DE Q6H PRN Nausea And Vomiting Simple Syrup 15 ml 03/12/21 12:04 03/14/21 05:38 Simple Syrup 15 Ml FEEDTUBE 15 ml PRN PRN Administration Hypoglycemia Simple Syrup 30 ml 03/12/21 12:04 Simple Syrup 15 Ml FEEDTUBE PRN PRN Hypoglycemia Sodium Bicarbonate 325 mg 03/12/21 12:04 Sodium Bicarbonate 325 Mg Tab FEEDTUBE PRN PRN For Clogged Feeding Tube Sodium Chloride 10 ml 03/09/21 14:52 03/25/21 09:46 Sodium Chloride 0.9% 10 Ml Flush Syringe IV 10 ml PRN PRN Administration LINE FLUSH
[2021-03-27] MEDS: predniSONE 20 MG TAB PO SCH (09:39)
[2021-03-27] MEDS: ASPIRIN 81 MG TAB CHEW PO SCH (09:39)
[2021-03-27] MEDS: CLOPIDOGREL 75 MG TAB PO SCH (09:40)
[2021-03-27] MEDS: HEPARIN 5,000 UNIT/1 ML VIAL SUB-Q SCH ×2 (09:40→21:39)
[2021-03-27] MEDS: NIFEdipine XL 60 MG TAB PO SCH (09:40)
[2021-03-27] MEDS: METOPROLOL TARTRATE 100 MG TAB PO SCH ×2 (09:40→23:24)
[2021-03-27] MEDS: levETIRAcetam 500 MG/5 ML ORAL LIQD PO SCH ×2 (09:40→21:38)
[2021-03-27] MEDS: ACETAMINOPHEN 325 MG TAB PO PRN ×2 (15:32→20:23)
[2021-03-27] MEDS: HYDROmorphone 1 MG/1 ML INJ IV PRN (23:25)
[2021-03-28] MEDS: hydrALAZINE 25 MG TAB PO SCH ×3 (06:58→22:35)
[2021-03-28] MEDS: cloNIDine 0.2 MG TAB PO SCH ×3 (08:30→22:35)
[2021-03-28] MEDS ORDERED: SODIUM CHLORIDE 0.9% 1000 ML 1,000 ML ONE (08:36)
[2021-03-28] MEDS: HYDROmorphone 1 MG/1 ML INJ IV PRN (09:29)
--- NOTE | 2021-03-28 09:32 | Progress Note ---
Assessment and Plan 1. ESRD: Patient on maintenance hemodialysis three times a week, outpatinet schedule, MWF. Meds dosage based on GFR. Hemodialysis: 03/11, 03/13, 03/15, 03/17, 03/19, 03/21, 03/24, 03/26, 03/28. 2. FEN: Hypercalemia, low Ca bath with HD. Monitor lytes and volume status. 3. Acute metabolic encephalopathy, POA: MS is better. Monitor. 4. Acute CVA: Seen by Neuro. Per primary. 5. UTI, POA: S/p Abx. 6. Hypertensive urgency: Adjust meds. Monitor BP. 7. Dysphagia / Malnutrition / AFTT: S/p PEG tube. 8. Hypoglycemia: Improved. Await placement. Subjective: Patient was seen and examined at the bedside while on HD. General Appearance: General appearance: well-developed, appears stated age, appears emaciated, not in distress HEENT: ATNC, pupils equal Neck: trachea midline Respiratory: ctab Heart: regular, S1S2, no murmur Abdomen: soft, bowel sounds heard, not tender, PEG tube Integumentary: no rash, warm and dry Neurologic: alert, follows command, able to move extremities Ext: no edema Hemodialysis access: R IJ tunnel catheter Subjective Date of service: 03/28/21 Principal diagnosis: CVA Objective - Vital Signs Vital signs: Vital Signs - 12hr 03/27/21 03/27/21 03/27/21 22:00 22:43 23:24 Temperature 98.0 F Pulse Rate 77 77 Respiratory 17 Rate Blood Pressure 148/97 148/97 O2 Sat by Pulse 98 97 Oximetry 03/28/21 03/28/21 03/28/21 04:20 06:58 07:52 Temperature 98.4 F 97.9 F Pulse Rate 83 83 79 Respiratory 18 18 Rate Blood Pressure 126/86 126/86 163/98 O2 Sat by Pulse 98 99 Oximetry 03/28/21 09:29 Temperature Pulse Rate Respiratory 20 Rate Blood Pressure O2 Sat by Pulse Oximetry - Lab 03/17/21 09:11 03/17/21 09:11 Most recent lab results Calcium 10.6 mg/dL (8.4-10.2) H 03/17/21 09:11 Phosphorus 5.90 mg/dL (2.5-4.5) H 03/13/21 07:37 Medications & Allergies - Medications Allergies/Adverse Reactions: Allergies No Known Allergies Allergy (Verified 03/09/21 13:06) Home Medications: Home Medications Medication Instructions Recorded Confirmed Last Taken Type predniSONE [Deltasone] 80 mg PO QDAY #20 tab 11/25/17 03/21/21 Unknown Rx levETIRAcetam [Keppra TAB] 500 mg PO BID #60 tablet 12/20/19 03/21/21 Unknown Rx oxyCODONE /ACETAMINOPHEN [Percocet 1 tab PO QHS PRN #7 tablet 12/20/19 03/21/21 Unknown Rx 5/325 mg] AtorvaSTATin [Lipitor] 40 mg PO QHS #30 tablet 03/16/21 Unknown Rx Butalb/Acetamin/Caff 50-325-40 2 tab PO Q8HR PRN #20 tablet 03/16/21 Unknown Rx [Fioricet 50-325-40] Metoclopramide [Reglan TAB] 10 mg PO Q6H PRN #14 tablet 03/16/21 Unknown Rx Metoprolol [Lopressor TAB] 100 mg PO BID #60 tablet 03/16/21 Unknown Rx NIFEdipine XL [Procardia Xl] 60 mg PO DAILY #30 tablet 03/16/21 Unknown Rx bisacodyL [Dulcolax suppos] 10 mg [place] QDAY PRN #10 supp.rect 03/16/21 Unknown Rx chlorproMAZINE [Thorazine] 25 mg PO Q4H PRN #10 03/16/21 Unknown Rx hydrALAZINE [Apresoline TAB] 50 mg PO Q8HR #90 tablet 03/16/21 Unknown Rx levETIRAcetam [Keppra] 500 mg PO BID 30 Days oral.liqd 03/16/21 Unknown Rx oxyCODONE /ACETAMINOPHEN [Percocet 1 tab PO Q6HR PRN #14 03/16/21 Unknown Rx 5/325 mg] Aspirin [Aspirin BABY CHEW TAB] 81 mg PO QDAY #30 tab.chew 03/17/21 Unknown Rx Clopidogrel [Plavix] 75 mg PO QDAY #30 tablet 03/17/21 Unknown Rx Hydralazine HCl 50 mg PO TID #90 tablet 03/17/21 Unknown Rx cloNIDine [Catapres] 0.2 mg PO TID #90 tablet 03/17/21 Unknown Rx Active Medications: Generic Name Dose Route Start Last Admin Trade Name Freq PRN Reason Stop Dose Admin Acetaminophen 650 mg 03/09/21 14:52 03/27/21 20:23 Acetaminophen 325 Mg Tab PO 650 mg Q4H PRN Administration Pain, Mild (1-3) Acetaminophen/Butalbital/Caffeine 2 tab 03/09/21 14:28 03/22/21 21:52 Butalb/Acetaminophen/Caffeine Tab PO 2 tab Q8H PRN Administration Headache Lipase/Protease/Amylase 1 each 03/12/21 12:04 Lipase 10,500/Protease 25,000/Amylase 43,750 (Units) Dr Lee FEEDTUBE PRN PRN For Clogged Feeding Tube Aspirin 81 mg 03/17/21 10:00 03/27/21 09:39 Aspirin 81 Mg Tab Chew PO 81 mg QDAY LEOLA Administration Atorvastatin Calcium 40 mg 03/09/21 22:00 03/27/21 21:39 Atorvastatin 40 Mg Tab PO 40 mg QHS LEOLA Administration Bisacodyl 10 mg 03/09/21 15:52 03/12/21 16:11 Bisacodyl 10 Mg Rect Supp [place] 10 mg QDAY PRN Administration Constipation Clonidine HCl 0.2 mg 03/17/21 09:00 03/28/21 08:30 Clonidine 0.2 Mg Tab PO Not Given TID LEOLA Clopidogrel Bisulfate 75 mg 03/17/21 10:00 03/27/21 09:40 Clopidogrel 75 Mg Tab PO 75 mg QDAY LEOLA Administration Heparin Sodium (Porcine) 5,000 unit 03/09/21 22:00 03/27/21 21:39 Heparin 5,000 Unit/1 Ml Vial SUB-Q 5,000 unit Q12HR LEOLA Administration Heparin Sodium (Porcine) 2,000 unit 03/11/21 14:25 03/21/21 10:40 Heparin 10,000 Units/10 Ml Vial IV 2,000 unit JUAN C PRN Administration hemodialysis Hydralazine HCl 10 mg 03/16/21 05:41 03/17/21 06:04 Hydralazine 20 Mg/1 Ml Inj IV 10 mg Q6HR PRN Administration Hypertension Hydralazine HCl 50 mg 03/17/21 09:00 03/28/21 06:58 Hydralazine 25 Mg Tab PO 50 mg Q8HR LEOLA Administration Hydromorphone HCl 0.5 mg 03/09/21 14:52 03/28/21 09:29 Hydromorphone 1 Mg/1 Ml Inj IV 0.5 mg Q12H PRN Administration Pain , Severe (7-10) Sodium Chloride 100 mls @ 999 mls/hr 03/11/21 14:25 Nacl 0.9% IV JUAN C PRN Hypotension Levetiracetam 500 mg 03/15/21 13:00 03/27/21 21:38 Levetiracetam 500 Mg/5 Ml Oral Liqd PO 500 mg BID LEOLA Administration Lidocaine HCl 30 ml 03/09/21 14:28 Magic Mouthwash 30ml MM Q4H PRN Sore Throat Magnesium Hydroxide 30 ml 03/09/21 14:52 Magnesium Hydroxide (Mom) Oral Liqd Udc PO Q4H PRN Constipation Metoclopramide HCl 10 mg 03/09/21 14:52 Metoclopramide 10 Mg Tab PO Q6H PRN Nausea And Vomiting Metoprolol Tartrate 100 mg 03/13/21 18:00 03/27/21 23:24 Metoprolol Tartrate 100 Mg Tab PO 100 mg BID LEOLA Administration Nifedipine 60 mg 03/16/21 10:00 03/27/21 09:40 Nifedipine Xl 60 Mg Tab PO 60 mg DAILY LEOLA Administration Ondansetron HCl 4 mg 03/09/21 14:52 Ondansetron 4 Mg/2 Ml Inj IV Q8H PRN Nausea And Vomiting Prednisone 80 mg 03/14/21 10:00 03/27/21 09:39 Prednisone 20 Mg Tab PO 80 mg QDAY LEOLA Administration Promethazine HCl 25 mg 03/09/21 14:52 Promethazine 25 Mg Rect Supp [place] Q6H PRN Nausea And Vomiting Simple Syrup 15 ml 03/12/21 12:04 03/14/21 05:38 Simple Syrup 15 Ml FEEDTUBE 15 ml PRN PRN Administration Hypoglycemia Simple Syrup 30 ml 03/12/21 12:04 Simple Syrup 15 Ml FEEDTUBE PRN PRN Hypoglycemia Sodium Bicarbonate 325 mg 03/12/21 12:04 Sodium Bicarbonate 325 Mg Tab FEEDTUBE PRN PRN For Clogged Feeding Tube Sodium Chloride 10 ml 03/09/21 14:52 03/25/21 09:46 Sodium Chloride 0.9% 10 Ml Flush Syringe IV 10 ml PRN PRN Administration LINE FLUSH
--- NOTE | 2021-03-28 09:44 | Discharge Summary ---
Providers - Providers Date of Admission: 03/10/21 13:48 Date of discharge: 03/28/21 Attending physician: ELIDIA NUNEZ MD 03/09/21 14:52 Consult to Case Management [CONS] Routine Services Needed at Discharge: Head Boys Golf Coach Notified:: in am Additional Physician Instructions: D/C Planning/SNF Placement Occupational Therapy Evaluate and Treat [CONS] Routine Comment: Reason For Exam: Neuro deficits Physical Therapy Evaluation and Treat [CONS] Routine Comment: Reason For Exam: Neuro deficits 03/09/21 14:53 Speech Therapy Evaluation and Treat [CONS] Routine Reason For Exam: swallow eval 03/09/21 17:28 Consult to Physician [CONS] Routine Comment: Consulting Provider: SHRADDHA FRIAS Physician Instructions: Reason For Exam: esrd 03/12/21 12:04 Consult to Dietitian/Nutrition [CONS] Routine Physician Instructions: Assess nutrtn needs, initiate, modify, manage TF Reason For Exam: Reason for Consult: Write/Manage Tube Feeding Reason for Consult: Write/Manage Tube Feeding 03/12/21 12:05 Consult to Physician [CONS] Routine Comment: Consulting Provider: RICK GARNER Physician Instructions: Reason For Exam: dysphagia need PEG 03/12/21 12:26 Consult to Physician [CONS] Routine Comment: Consulting Provider: BOO LUU Physician Instructions: Reason For Exam: acute CVA 03/13/21 16:25 Consult to Dietitian/Nutrition [CONS] Routine Physician Instructions: Reason For Exam: Reason for Consult: post-peg 03/17/21 08:03 Consult to Dietitian/Nutrition [CONS] Routine Physician Instructions: Reason For Exam: Reason for Consult: Write/Manage Tube Feeding 03/19/21 09:58 Consult to Dietitian/Nutrition [CONS] Routine Physician Instructions: Assess nutrtn needs, initiate, modify, manage TF Reason For Exam: Reason for Consult: Write/Manage Tube Feeding Reason for Consult: Write/Manage Tube Feeding 03/19/21 10:26 Consult to Dietitian/Nutrition [CONS] Routine Physician Instructions: Assess nutrtn needs, initiate, modify, manage TF Reason For Exam: Reason for Consult: Write/Manage Tube Feeding Reason for Consult: Write/Manage Tube Feeding 03/20/21 09:00 Speech Therapy Evaluation and Treat [CONS] Urgent Reason For Exam: pt. is now aox2, speech appropriate, on TF 03/26/21 11:39 Occupational Therapy Evaluate and Treat [CONS] Stat Comment: Reason For Exam: OT to re-eval and treat Physical Therapy Evaluation and Treat [CONS] Stat Comment: Reason For Exam: PT to re-mynor and treat Primary care physician: WEB UI DESIGNER Hospitalization Reason for admission: Acute CVA, acute metabolic encephalopathy, dysphagia, ESRD Condition: Stable Hospital course: The patient is a 45 YO female with history significant for HTN, Seizure D isorder, SLE, Nicotine Dependence, Malnutrition and ESRD on hemodialysis (MWF) who presented to [facility] ED 03/09 with increased confusion as well as 2 witnessed seizures while at home. A code stroke was called and the patient was found to have UTI, metabolic encephalopathy, end-stage renal disease, and accelerated hypertension. Patient was admitted to telemetry and initiated on stroke protocol. At present patient actively being hemodialyzed. Still evidence of increased confusion. Patient found to have urinary tract infection actively being treated. : Patient with significant aphasia/nonverbal, unable to move right side, wait for nephrology evaluation for hemodialysis, MRI pending, will initiate D10W at 42 mils per hour as patient with history of end-stage dialysis will minimize IV fluid. Ordered for speech PT OT eval. will consult neurology following MRI results. Patient is unable to swallow so we will change aspirin per rectal. 03/11/21: MRI showed L thalamus and L temporal area subacute infarct. pending speech eval. cont iv fluid, order for Tf and dobhoff if fails speech eval. neuro consult. continue supportive care. HD per renal. monitor BP -adjust meds, follow BMP/CBC 03/12/21: pending TF, noted neuro recommendation: initiate aspirin with plavix. cont [place] aspirin till dobhoff/peg placemnet. CM working on placement. Updated daughter for details by phone. follow BMP. monitor vitals 03/13/2021 patient today actively receiving hemodialysis. Patient was nonverbal not answering any questions. Could not complete hemodialysis secondary to hypotension in which patient required a bolus. Patient is now planning on going down to receive PEG placement. Will update daughter after procedure complete. 03/14/2021. Patient remains nonverbal encephalopathic today. Does move all extremities. Tolerated PEG tube feedings well. 03/15/21 patient actively being dialyzed today. Remains encephalopathic. A bit more attentive today. Patient did follow me with eyes. PEG tube functioning well. 03/16: Continue supportive care, awaiting Hospice per family request as documented by case management, repeat BMP AND CBC 03/17: Patient seen and examined again this morning definitely appears older than stated age emaciated not following any commands still speaking but moves around. Discussed with nursing staff at bedside patient not interactive with them. I have resumed the aspirin and the Plavix that was probably held for PEG tube. My understanding is that the family would like to take the patient home with home health but per case management they have requested hospice. I have tried to call them to see if they understand that this needs no dialysis with tube feeds unless approved by the hospice but unfortunately unable to get either the daughter or the father. Nevertheless blood pressure has improved patient needs to be monitored closely on dialysis days to ensure no hypotension. Clinical condition at this time is stable 03/18: Continue supportive care, no new complaints, awaiting discharge plan. Aspiration precautions. Patient answered some question for me today, moved ext. 03/19: Patient seen examined, tolerating tube feed. Continue supportive care. awaiting discharge home or placement. Family not coming for training, CM following up 03/20: Patient shows remarkable clinical improvement she is answering questions following commands. Speech reevaluated approved for regular diet with thin liquids. This has been ordered. Still cannot reach family for disposition Case management is following otherwise continue current management we will disconti nue tube feeding at this time. 03/21: Continue supportive care awaiting placement. We will continue hemodialysis at this time. 03/22: Continune supportive care, she is quite interactive. Awaiting placement 03/23: Patient stable at this time, continued supportive care, awaiting placement 03/24: Patient seen and examined, continues to show good improvement, communicating, although still with bilateral lower ext weakness. Patient is pending placement. She is tolerating diet. PEG can be discontinued after 6 weeks to allow majority. - Acute CVA (cerebrovascular accident) Admitted with CVA protocol: CT head, CTA head, CTA neck, showed no acute process MRI showed L thalamus and L temporal area subacute infarct. 2d echo showed preserved EF, carotid doppler showed <50% ordered antiplatelet and statin therapy, physical therapy consulted, Occupational Therapy consulted, speech therapy consulted, telemetry neurology consulted in ED, s/p permissive hypertension overnight. Now could be more aggressive with BP. PT to evaluate for senior care facility --Dysphagia Patient unable to speak and has significant dysphagia clinically: placed on D10W S/P PEG tube No abdominal pain bowel sounds unremarkable. -- UTI (urinary tract infection) IV antibiotic therapy, resolved. Stable to go to nursing facility without antibiotics. --Seizure disorder Continue Keppra can change to p.o. now No active seizure. Increased risk secondary to CVA. --SIRS, with elevated white count, tachycardia and tachypnea cont to monitor for now, likely aspiration pneumonitis No evidence of sepsis at this time. Has resolved now. -- Metabolic encephalopathy Secondary to CVA continue neuro check, seizure precautions, supportive care. Remains encephalopathic at this time. Will follow with eyes not speaking. -- ESRD (end stage renal disease) Nephrology team consulted in ED. Patient actively being dialyzed today.. Was complicated by episode of hypotension requiring a bolus. -- Hypertensive urgency, malignant Should improve medical management once PEG tube has been placed we can use metoprolol through the tube. Remain suboptimal will advance metoprolol. Add amlodipine. After hemodialysis. -- Severe malnutrition Increase protein intake when awake and alert only, dietary supplementation D10W for now, consulted GI for PEG placement --Bacterial conjuctivitis: ordered erythromycin ointment Patient stable for discharge. Disposition: 03 [facility] Final Discharge Diagnosis (Prints w/discharge instructions): Acute CVA. Acute metabolic encephalopathy. Dysphagia. UTI. Seizure disorder. ESRD on HD. Hypertension Time spent for discharge: 45-minutes - Discharge Diagnoses (1) Acute CVA (cerebrovascular accident) Status: Acute (2) ESRD (end stage renal disease) Status: Acute (3) Elevated troponin Status: Acute (4) Hypertensive urgency, malignant Status: Acute (5) Metabolic encephalopathy Status: Acute (6) Severe malnutrition Status: Acute (7) UTI (urinary tract infection) Status: Acute Qualifiers: Encounter type: initial encounter (8) SLE (systemic lupus erythematosus) Status: Acute Core Measure Documentation - Palliative Care Palliative Care/ Comfort Measures: Palliative Care/Comfort Measures - Core Measures Any of the following diagnoses?: stroke - Stroke Discharge Requirements Statin for LDL = or >70 mg/dl on DC: Yes Anticoag for atrial fib/atrial flutter: Not Applicable Antithrombotic for ischemic stroke: Yes Exam - Physical Exam Narrative exam: Not in cardiopulmonary distress. The patient appeared well nourished and normally developed. Vital signs as documented. Head exam is unremarkable. No scleral icterus . Neck is without jugular venous distension, thyromegaly, or carotid bruits. Lungs are clear to auscultation. Cardiac exam reveals regular rate and Rhythm. Abdominal exam nontender. Extremities are nonedematous and both femoral and pedal pulses are normal. RN MOBILE: Alert and cooperative, disoriented. No focal weakness. - Constitutional Vitals: Temp Pulse Resp BP Pulse Ox 97.9 F 79 20 163/98 99 03/28/21 07:52 03/28/21 07:52 03/28/21 09:29 03/28/21 07:52 03/28/21 07:52 Plan Activity: advance as tolerated Weight Bearing Status: Full Weight Bearing Diet: low cholesterol, low salt, renal Follow up with: MINE GLOVER MD [Staff Physician] - 7 Days PRIMARY CARE, [Primary Care Provider] - 7 Days SHRADDHA FRIAS MD [Staff Physician] - 7 Days YOANDY LEDEZMA MD [Staff Physician] - 7 Days Prescriptions: AtorvaSTATin [Lipitor] 40 mg PO QHS #30 tablet hydrALAZINE [Apresoline TAB] 50 mg PO Q8HR #90 tablet Aspirin [Aspirin BABY CHEW TAB] 81 mg PO QDAY #30 tab.chew cloNIDine [Catapres] 0.2 mg PO TID #90 tablet bisacodyL [Dulcolax suppos] 10 mg [place] QDAY PRN #10 supp.rect PRN Reason: Constipation Butalb/Acetamin/Caff 50-325-40 [Fioricet 50-325-40] 2 tab PO Q8HR PRN #20 tablet PRN Reason: Headache Hydralazine HCl 50 mg PO TID #90 tablet levETIRAcetam [Keppra] 500 mg PO BID 30 Days oral.liqd Metoprolol [Lopressor TAB] 100 mg PO BID #60 tablet oxyCODONE /ACETAMINOPHEN [Percocet 5/325 mg] 1 tab PO Q6HR PRN #14 PRN Reason: Pain Clopidogrel [Plavix] 75 mg PO QDAY #30 tablet NIFEdipine XL [Procardia Xl] 60 mg PO DAILY #30 tablet Metoclopramide [Reglan TAB] 10 mg PO Q6H PRN #14 tablet PRN Reason: Nausea And Vomiting chlorproMAZINE [Thorazine] 25 mg PO Q4H PRN #10 PRN Reason: Itching
[2021-03-28] MEDS: HEPARIN 5,000 UNIT/1 ML VIAL SUB-Q SCH ×2 (10:00→22:36)
[2021-03-28] MEDS: ASPIRIN 81 MG TAB CHEW PO SCH (15:31)
[2021-03-28] MEDS: predniSONE 20 MG TAB PO SCH (15:32)
[2021-03-28] MEDS: METOPROLOL TARTRATE 100 MG TAB PO SCH ×2 (15:32→22:35)
[2021-03-28] MEDS: levETIRAcetam 500 MG/5 ML ORAL LIQD PO SCH ×2 (15:32→22:35)
[2021-03-28] MEDS: CLOPIDOGREL 75 MG TAB PO SCH (15:33)
[2021-03-28] MEDS: NIFEdipine XL 60 MG TAB PO SCH (15:33)
[2021-03-29 05:20] VITALS: BP 120/82
[2021-03-29] MEDS: hydrALAZINE 25 MG TAB PO SCH (05:48)
--- NOTE | 2021-03-29 12:47 | Event Note ---
Date: 03/29/21 Patient left earlier this morning before I saw her. Patient was discharged yesterday to SNF.
== END 2021-03-29 08:37 | DRG 64 ==
LOC: ED 10:44 → 4A 15:22 → OBSVTOIN 03-10 13:48
PROVIDERS: ADMIT Internal Medicine; ATTEND Internal Medicine
PROC: 5A1D70Z Performance of Urinary Filtration, Intermittent, Less than 6 Hours Per Day (ICD-10-PCS; 2021-03-11)
PROC: 0DH63UZ Insertion of Feeding Device into Stomach, Percutaneous Approach (ICD-10-PCS; principal; 2021-03-13)
PROC: 5A1D70Z Performance of Urinary Filtration, Intermittent, Less than 6 Hours Per Day (ICD-10-PCS; 2021-03-13)
PROC: 5A1D70Z Performance of Urinary Filtration, Intermittent, Less than 6 Hours Per Day (ICD-10-PCS; 2021-03-15)
PROC: 5A1D70Z Performance of Urinary Filtration, Intermittent, Less than 6 Hours Per Day (ICD-10-PCS; 2021-03-17)
PROC: 5A1D70Z Performance of Urinary Filtration, Intermittent, Less than 6 Hours Per Day (ICD-10-PCS; 2021-03-19)
PROC: 5A1D70Z Performance of Urinary Filtration, Intermittent, Less than 6 Hours Per Day (ICD-10-PCS; 2021-03-21)
PROC: 5A1D70Z Performance of Urinary Filtration, Intermittent, Less than 6 Hours Per Day (ICD-10-PCS; 2021-03-24)
PROC: 5A1D70Z Performance of Urinary Filtration, Intermittent, Less than 6 Hours Per Day (ICD-10-PCS; 2021-03-26)
PROC: 5A1D70Z Performance of Urinary Filtration, Intermittent, Less than 6 Hours Per Day (ICD-10-PCS; 2021-03-28)
DX: I63.9 Cerebral infarction, unspecified (principal); G93.41 Metabolic encephalopathy; N18.6 End stage renal disease; E43 Unspecified severe protein-calorie malnutrition; J69.0 Pneumonitis due to inhalation of food and vomit; I16.0 Hypertensive urgency; N39.0 Urinary tract infection, site not specified; Z68.1 Body mass index [BMI] 19.9 or less, adult; N17.9 Acute kidney failure, unspecified; Z99.2 Dependence on renal dialysis; E83.52 Hypercalcemia; E16.2 Hypoglycemia, unspecified; R65.10 Systemic inflammatory response syndrome (SIRS) of non-infectious origin without acute organ dysfunction; H10.89 Other conjunctivitis; G40.909 Epilepsy, unspecified, not intractable, without status epilepticus; I12.0 Hypertensive chronic kidney disease with stage 5 chronic kidney disease or end stage renal disease; R29.722 NIHSS score 22; M32.9 Systemic lupus erythematosus, unspecified; R13.10 Dysphagia, unspecified; R47.01 Aphasia; K44.9 Diaphragmatic hernia without obstruction or gangrene; K29.70 Gastritis, unspecified, without bleeding; Z20.822 Contact with and (suspected) exposure to COVID-19
CPT/HCPCS: 36415; 70450; 70496; 70498; 70551; 71045; 74018; 80048; 80053; 80061; 80074; 80320; 81001; 82550; 82553; 82962; 83970; 84100; 84484; 84703; 85007; 85025; 85027; 85610; 85670; 85730; 87086; 93005; 93306; 93880; 96365; 96375; G0378; A9270-GY; G0480; J0360; J0696; J1165; J1170; J1644; J1953; J2060; J2704; J7030; J7050; J7512; Q9967; U0003

== ENCOUNTER 2021-06-12 15:36 | Observation (INO) | payer MEDICAID ==
--- NOTE | 2021-06-12 16:34 | Event Note ---
ED Screening Note Date of service: 06/12/21 Time: 16:30 ED Screening Note: 45 year old was brought to ED by dad. Both are poor historians. Dad report that patient was sent to ED for dialysis. She was suppose start dialysis at this new clinic today but the clinic needed paper work signed but when the dad went to sign the paper work they told him he could not sign it had to be her son. Both dad and patient unsure of patient regular dialysis schedule. They both cannot say who her survey rodman is. Dad reports that patient was just released from [facility] 2 days ago after being admitted for stroke. She had been hospitalized there for about 2 months. Dad reports patient has also hx of breast CA with ? of wether she is suppose to be getting tx; lupus; DM and HTN. Pt states she has been having cp and cough since released from [facility]. This initial assessment/diagnostic orders/clinical plan/treatment(s) is/are subject to change based on patients health status, clinical progression and re- assessment by fellow clinical providers in the ED. Further treatment and workup at subsequent clinical providers discretion. Patient/guardian urged not to elope from the ED as their condition may be serious if not clinically assessed and managed. Initial orders include: labs/cxr
--- NOTE | 2021-06-12 17:09 | XRay Report ---
CHEST 1 VIEW 06/12/2021 5:13 PM INDICATION / CLINICAL INFORMATION: cough/cp. COMPARISON: 03/13/2021 FINDINGS: SUPPORT DEVICES: Right IJ central venous catheter appears in stable position. HEART / MEDIASTINUM: No significant abnormality. LUNGS / PLEURA: No significant pulmonary or pleural abnormality. No pneumothorax. ADDITIONAL FINDINGS: Stable calcified left axillary nodes. IMPRESSION: 1. No acute findings. Signer Name: Carlitos Gillette MD Signed: 06/12/2021 5:05 PM Workstation Name: [id number]
[2021-06-12 18:02] LABS: Mean Corpuscular HGB Conc 29 % (30-34); Mean Corpuscular Volume 84 fl (79-97); Platelet Count 354 K/mm3 (140-440); Red Blood Count 3.33 M/mm3 (3.65-5.03); Red Cell Distribution Width 18.6 % (13.2-15.2)
[2021-06-12 18:03] LABS: Hematocrit 28.1 % (30.3-42.9); Hemoglobin 8.2 gm/dl (10.1-14.3)
--- NOTE | 2021-06-12 18:51 | Emergency Department Report ---
ED General Adult HPI - General Chief complaint: Weakness Stated complaint: GENERAL ILLNESS Time Seen by Provider: 06/12/21 16:20 Source: patient Mode of arrival: Wheelchair Limitations: No Limitations - History of Present Illness Initial comments: Patient is a 45-year-old F Cambodian female who has a past medical history of recent stroke and end-stage renal disease hypertension who is presenting with missed dialysis. Patient was to have dialysis set up at a new facility today however the paperwork was not there and she was turned away. Patient has not had dialysis in approximately 3 days. Patient complaining of generalized weakness some mild shortness of breath. Denies chest pain nausea vomiting diarrhea at this time. - Related Data Previous Rx's Medication Instructions Recorded Last Taken Type predniSONE [Deltasone] 80 mg PO QDAY #20 tab 11/25/17 Unknown Rx levETIRAcetam [Keppra TAB] 500 mg PO BID #60 tablet 12/20/19 Unknown Rx oxyCODONE /ACETAMINOPHEN [Percocet 1 tab PO QHS PRN #7 tablet 12/20/19 Unknown Rx 5/325 mg] AtorvaSTATin [Lipitor] 40 mg PO QHS #30 tablet 03/16/21 Unknown Rx Butalb/Acetamin/Caff 50-325-40 2 tab PO Q8HR PRN #20 tablet 03/16/21 Unknown Rx [Fioricet 50-325-40] Metoclopramide [Reglan TAB] 10 mg PO Q6H PRN #14 tablet 03/16/21 Unknown Rx Metoprolol [Lopressor TAB] 100 mg PO BID #60 tablet 03/16/21 Unknown Rx NIFEdipine XL [Procardia Xl] 60 mg PO DAILY #30 tablet 03/16/21 Unknown Rx bisacodyL [Dulcolax suppos] 10 mg [place] QDAY PRN #10 supp.rect 03/16/21 Unknown Rx chlorproMAZINE [Thorazine] 25 mg PO Q4H PRN #10 03/16/21 Unknown Rx hydrALAZINE [Apresoline TAB] 50 mg PO Q8HR #90 tablet 03/16/21 Unknown Rx levETIRAcetam [Keppra] 500 mg PO BID 30 Days oral.liqd 03/16/21 Unknown Rx oxyCODONE /ACETAMINOPHEN [Percocet 1 tab PO Q6HR PRN #14 03/16/21 Unknown Rx 5/325 mg] Aspirin [Aspirin BABY CHEW TAB] 81 mg PO QDAY #30 tab.chew 03/17/21 Unknown Rx Clopidogrel [Plavix] 75 mg PO QDAY #30 tablet 03/17/21 Unknown Rx Hydralazine HCl 50 mg PO TID #90 tablet 03/17/21 Unknown Rx cloNIDine [Catapres] 0.2 mg PO TID #90 tablet 03/17/21 Unknown Rx Allergies Allergy/AdvReac Type Severity Reaction Status Date / Time No Known Allergies Allergy Verified 03/09/21 13:06 ED Review of Systems ROS: Stated complaint: GENERAL ILLNESS Other details as noted in HPI Comment: All other systems reviewed and negative ED Past Medical Hx - Past Medical History Hx Hypertension: Yes Hx CVA: Yes Hx Diabetes: Yes Hx Renal Disease: Yes (SLE (lupus)) Hx Seizures: Yes Additional medical history: Fibroids, lupus - Surgical History Past Surgical History?: No - Social History Smoking Status: Unknown if ever smoked - Medications Home Medications: Home Medications Medication Instructions Recorded Confirmed Last Taken Type predniSONE [Deltasone] 80 mg PO QDAY #20 tab 11/25/17 03/21/21 Unknown Rx levETIRAcetam [Keppra TAB] 500 mg PO BID #60 tablet 12/20/19 03/21/21 Unknown Rx oxyCODONE /ACETAMINOPHEN [Percocet 1 tab PO QHS PRN #7 tablet 12/20/19 03/21/21 Unknown Rx 5/325 mg] AtorvaSTATin [Lipitor] 40 mg PO QHS #30 tablet 03/16/21 Unknown Rx Butalb/Acetamin/Caff 50-325-40 2 tab PO Q8HR PRN #20 tablet 03/16/21 Unknown Rx [Fioricet 50-325-40] Metoclopramide [Reglan TAB] 10 mg PO Q6H PRN #14 tablet 03/16/21 Unknown Rx Metoprolol [Lopressor TAB] 100 mg PO BID #60 tablet 03/16/21 Unknown Rx NIFEdipine XL [Procardia Xl] 60 mg PO DAILY #30 tablet 03/16/21 Unknown Rx bisacodyL [Dulcolax suppos] 10 mg [place] QDAY PRN #10 supp.rect 03/16/21 Unknown Rx chlorproMAZINE [Thorazine] 25 mg PO Q4H PRN #10 03/16/21 Unknown Rx hydrALAZINE [Apresoline TAB] 50 mg PO Q8HR #90 tablet 03/16/21 Unknown Rx levETIRAcetam [Keppra] 500 mg PO BID 30 Days oral.liqd 03/16/21 Unknown Rx oxyCODONE /ACETAMINOPHEN [Percocet 1 tab PO Q6HR PRN #14 03/16/21 Unknown Rx 5/325 mg] Aspirin [Aspirin BABY CHEW TAB] 81 mg PO QDAY #30 tab.chew 03/17/21 Unknown Rx Clopidogrel [Plavix] 75 mg PO QDAY #30 tablet 03/17/21 Unknown Rx Hydralazine HCl 50 mg PO TID #90 tablet 03/17/21 Unknown Rx cloNIDine [Catapres] 0.2 mg PO TID #90 tablet 03/17/21 Unknown Rx ED Physical Exam - General Limitations: No Limitations General appearance: alert, in no apparent distress - Head Head exam: Present: atraumatic, normocephalic - Eye Eye exam: Present: normal appearance - ENT ENT exam: Present: mucous membranes moist - Neck Neck exam: Present: normal inspection - Respiratory Respiratory exam: Present: normal lung sounds bilaterally. Absent: respiratory distress, wheezes, rales, rhonchi - Cardiovascular Cardiovascular Exam: Present: regular rate, normal rhythm, normal heart sounds. Absent: systolic murmur, diastolic murmur, rubs, gallop - GI/Abdominal GI/Abdominal exam: Present: soft, normal bowel sounds. Absent: distended, guarding - Extremities Exam Extremities exam: Present: normal inspection - Back Exam Back exam: Present: normal inspection - Neurological Exam Neurological exam: Present: alert, oriented X3 - Psychiatric Psychiatric exam: Present: normal affect, normal mood - Skin Skin exam: Present: warm, dry, intact, normal color. Absent: rash ED Course Vital Signs 06/12/21 15:51 Temperature 98 F Pulse Rate 92 H Respiratory 16 Rate Blood Pressure 133/86 [Left] O2 Sat by Pulse 98 Oximetry ED Medical Decision Making - Lab Data Result diagrams: 06/12/21 Unknown 06/12/21 Unknown Lab Results 06/12/21 06/12/21 Range/Units Unknown Unknown WBC 7.8 (4.5-11.0) K/mm3 RBC 3.33 L (3.65-5.03) M/mm3 Hgb 8.2 L (10.1-14.3) gm/dl Hct 28.1 L (30.3-42.9) % MCV 84 (79-97) fl MCH 25 L (28-32) pg MCHC 29 L (30-34) % RDW 18.6 H (13.2-15.2) % Plt Count 354 (140-440) K/mm3 Lymph % (Auto) Automatic Machines Supervisor [place] % (Auto) Automatic Machines Supervisor Eos % (Auto) Automatic Machines Supervisor [place] % (Auto) Automatic Machines Supervisor Lymph # (Auto) Automatic Machines Supervisor [place] # (Auto) Automatic Machines Supervisor Eos # (Auto) Automatic Machines Supervisor Baso # (Auto) Automatic Machines Supervisor Seg Neutrophils % Automatic Machines Supervisor Seg Neutrophils # Automatic Machines Supervisor Sodium 132 L (137-145) mmol/L Potassium 4.7 (3.6-5.0) mmol/L Chloride 91.3 L (98-107) mmol/L Carbon Dioxide 19 L (22-30) mmol/L Anion Gap 26 mmol/L BUN 78 H (7-17) mg/dL Creatinine 6.6 H (0.6-1.2) mg/dL Estimated GFR 8 ml/min BUN/Creatinine Ratio 12 % Glucose 120 H (65-100) mg/dL Calcium 12.0 H (8.4-10.2) mg/dL - Medical Decision Making Patient will be admitted for observation to get dialysis since she does not have outpatient facility completely set up. Primary care physician is working on getting her established dialysis center Critical care attestation.: If time is entered above; I have spent that time in minutes in the direct care of this critically ill patient, excluding procedure time. ED Disposition Clinical Impression: End-stage renal disease needing dialysis Disposition: ADMITTED INPATIENT Is pt being admited?: Yes Does the pt Need Aspirin: No Condition: Stable Time of Disposition: 18:51
[2021-06-12] MEDS ORDERED: ACETAMINOPHEN 325 MG TAB PO PRN (18:54)
[2021-06-12] MEDS ORDERED: oxyCODONE /ACETAMINOPHEN 5-325MG TAB PO PRN (18:54)
[2021-06-12] MEDS ORDERED: HYDROmorphone 1 MG/1 ML INJ IV PRN (18:54)
[2021-06-12] MEDS ORDERED: ONDANSETRON 4 MG/2 ML INJ IV PRN (18:54)
[2021-06-12] MEDS ORDERED: ALBUTEROL 2.5 MG/3 ML NEBU IH PRN (18:54)
--- NOTE | 2021-06-12 18:56 | History and Physical Report ---
History of Present Illness Chief complaint: I need dialysis History of present illness: 45 YO Female [facility] Facility Resident at [facility] with ESRD on HD(T,R,Sa), HTN, HLD, Seizure Disorder, SLE, Nicotine Dependence, Malnutrition presents to ED for evaluation. Patient states "I need dialysis". Patient states that she presented to her routine scheduled dialysis center today but was unable to undergo dialysis. Patient was directed to seek further care at [facility]. EMS was notified and upon arrival the patient was found to be in distress and subsequent transported to [facility] for further care and evaluation of the aforementioned symptoms. The patient was seen and evaluated in the emergency department. All lab and imaging studies reviewed. Patient found to have end-stage renal disease in need of dialysis. Nephrology team consulted in ED. Patient denies fever, chills, chest pain, palpitation, productive cough, skin rash, recent ill contacts, known exposure to COVID-19. Prior admission on 03/10/2021 reviewed . All medication listed at time of admission has been reconciled. Advanced care planning conducted in ED. Past History Past Medical History: ESRD, hypertension, stroke, other (See HPI) Past Surgical History: Other (Dialysis access) Social history: single. denies: smoking, alcohol abuse, prescription drug abuse Family history: diabetes, hypertension Medications and Allergies Allergies Allergy/AdvReac Type Severity Reaction Status Date / Time No Known Allergies Allergy Verified 03/09/21 13:06 Home Medications Medication Instructions Recorded Confirmed Last Taken Type predniSONE [Deltasone] 80 mg PO QDAY #20 tab 11/25/17 03/21/21 Unknown Rx levETIRAcetam [Keppra TAB] 500 mg PO BID #60 tablet 12/20/19 03/21/21 Unknown Rx oxyCODONE /ACETAMINOPHEN [Percocet 1 tab PO QHS PRN #7 tablet 12/20/19 03/21/21 Unknown Rx 5/325 mg] AtorvaSTATin [Lipitor] 40 mg PO QHS #30 tablet 03/16/21 Unknown Rx Butalb/Acetamin/Caff 50-325-40 2 tab PO Q8HR PRN #20 tablet 03/16/21 Unknown Rx [Fioricet 50-325-40] Metoclopramide [Reglan TAB] 10 mg PO Q6H PRN #14 tablet 03/16/21 Unknown Rx Metoprolol [Lopressor TAB] 100 mg PO BID #60 tablet 03/16/21 Unknown Rx NIFEdipine XL [Procardia Xl] 60 mg PO DAILY #30 tablet 03/16/21 Unknown Rx bisacodyL [Dulcolax suppos] 10 mg AL QDAY PRN #10 supp.rect 03/16/21 Unknown Rx chlorproMAZINE [Thorazine] 25 mg PO Q4H PRN #10 03/16/21 Unknown Rx hydrALAZINE [Apresoline TAB] 50 mg PO Q8HR #90 tablet 03/16/21 Unknown Rx levETIRAcetam [Keppra] 500 mg PO BID 30 Days oral.liqd 03/16/21 Unknown Rx oxyCODONE /ACETAMINOPHEN [Percocet 1 tab PO Q6HR PRN #14 03/16/21 Unknown Rx 5/325 mg] Aspirin [Aspirin BABY CHEW TAB] 81 mg PO QDAY #30 tab.chew 03/17/21 Unknown Rx Clopidogrel [Plavix] 75 mg PO QDAY #30 tablet 03/17/21 Unknown Rx Hydralazine HCl 50 mg PO TID #90 tablet 03/17/21 Unknown Rx cloNIDine [Catapres] 0.2 mg PO TID #90 tablet 03/17/21 Unknown Rx Active Meds: Active Medications Acetaminophen (Acetaminophen 325 Mg Tab) 650 mg PO Q4H PRN PRN Reason: Pain MILD(1-3)/Fever >100.5/ADEN Albuterol (Albuterol 2.5 Mg/3 Ml Nebu) 2.5 mg IH Q4HRT PRN PRN Reason: Shortness Of Breath Hydromorphone HCl (Hydromorphone 1 Mg/1 Ml Inj) 0.5 mg IV Q23H PRN PRN Reason: Pain , Severe (7-10) Ondansetron HCl (Ondansetron 4 Mg/2 Ml Inj) 4 mg IV Q8H PRN PRN Reason: Nausea And Vomiting Oxycodone/Acetaminophen (Oxycodone /Acetaminophen 5-325mg Tab) 1 tab PO Q16H PRN PRN Reason: Pain, Moderate (4-6) Sodium Chloride (Sodium Chloride 0.9% 10 Ml Flush Syringe) 10 ml IV BID LEOLA Sodium Chloride (Sodium Chloride 0.9% 10 Ml Flush Syringe) 10 ml IV PRN PRN PRN Reason: LINE FLUSH Review of Systems Constitutional: no weight loss, no weight gain, no chills, no sweats Ears, nose, mouth and throat: no ear pain, no decreased hearing, no nose pain, no nasal discharge Breasts: no change in shape, no mass Cardiovascular: no orthopnea, no rapid/irregular heart beat Respiratory: no cough with sputum, no hemoptysis Gastrointestinal: no nausea, no vomiting, no constipation, no change in bowel habits Genitourinary Female: no pelvic pain, no flank pain, no menorrhagia, no urinary frequency, no urgency Rectal: no pain, no incontinence Musculoskeletal: no neck stiffness, no neck pain, no arm numbness/tingling, no shooting leg pain Integumentary: no redness, no sores, no jaundice Neurological: no paralysis, no seizures, no tremors, no lack of coordination Psychiatric: no memory loss, no hypersomnia, no change in appetite, no suicidal ideation Endocrine: no cold intolerance, no polydipsia, no excessive sweating, no flushing Hematologic/Lymphatic: no easy bruising, no easy bleeding Allergic/Immunologic: no wheezing Exam - Constitutional Vitals: Temp Pulse Resp BP Pulse Ox 98 F 92 H 16 133/86 98 06/12/21 15:51 06/12/21 15:51 06/12/21 15:51 06/12/21 15:51 06/12/21 15:51 General appearance: Present: mild distress - EENT Eyes: Present: PERRL ENT: hearing intact, clear oral mucosa - Neck Neck: Present: supple, normal ROM - Respiratory Respiratory effort: normal Respiratory: bilateral: CTA - Cardiovascular Heart Sounds: Present: S1 & S2. Absent: rub, click - Extremities Extremities: pulses symmetrical, No edema Peripheral Pulses: within normal limits - Abdominal General gastrointestinal: Present: soft, non-tender, non-distended, normal bowel sounds Female genitourinary: Present: normal - Integumentary Integumentary: Present: clear, warm, dry - Musculoskeletal Musculoskeletal: gait normal, strength equal bilaterally - Psychiatric Psychiatric: appropriate mood/affect, intact judgment & insight - Neurologic Neurologic: CNII-XII intact, moves all extremities Results - Labs CBC & Chem 7: 06/12/21 Unknown 06/12/21 Unknown Labs: Abnormal lab results 06/12/21 06/12/21 Range/Units Unknown Unknown RBC 3.33 L (3.65-5.03) M/mm3 Hgb 8.2 L (10.1-14.3) gm/dl Hct 28.1 L (30.3-42.9) % MCH 25 L (28-32) pg MCHC 29 L (30-34) % RDW 18.6 H (13.2-15.2) % Sodium 132 L (137-145) mmol/L Chloride 91.3 L (98-107) mmol/L Carbon Dioxide 19 L (22-30) mmol/L BUN 78 H (7-17) mg/dL Creatinine 6.6 H (0.6-1.2) mg/dL Glucose 120 H (65-100) mg/dL Calcium 12.0 H (8.4-10.2) mg/dL Assessment and Plan - Patient Problems (1) ESRD (end stage renal disease) Current Visit: No Status: Acute Plan to address problem: Dialysis as per renal team. Discharge home after dialysis. (2) DVT prophylaxis Current Visit: No Status: Acute Plan to address problem: SCDs bilateral lower extremities while in bed, patient is amatory (3) Hypertension Current Visit: Yes Status: Acute Qualifiers: Hypertension type: primary hypertension Qualified Code(s): I10 - Essential (primary) hypertension Plan to address problem: Monitor blood pressure every shift, continue medical management (4) Hyperlipidemia Current Visit: Yes Status: Acute Plan to address problem: Statin therapy, low-cholesterol diet (5) Seizure disorder Current Visit: Yes Status: Acute Plan to address problem: Continue antiepileptic therapy, neuro check, supportive care.
[2021-06-12 23:27] LABS: Total Cells Counted 100
[2021-06-12 23:29] LABS: Anisocytosis 1+; Hypochromasia 1+; Platelet Estimate Consistent w Auto
--- NOTE | 2021-06-13 08:04 | Consultation ---
History of Present Illness - Reason for Consult Consult date: 06/13/21 end stage renal disease - History of Present Illness The patient is a 45 YO female with history significant for HTN, Seizure Disorder, SLE, CVA, Anemia, Encephalopathy, Malnutrition and ESRD on hemodialysis who presented to [facility] ED 06/13 after she missed hemodialysis. Patient is confused and is unable to provide history at the time my evaluation. Patient was recently discharged from [facility]. Patient was admitted for further evaluation. Labs and imaging reviewed. Nephrology was consulted for ESRD management. Past History Past Medical History: dialysis, ESRD, hypertension, stroke, other (See HPI) Past Surgical History: Other (Dialysis access) Social history: single. denies: smoking, alcohol abuse, prescription drug abuse Family history: diabetes, hypertension Medications and Allergies Allergies Allergy/AdvReac Type Severity Reaction Status Date / Time No Known Allergies Allergy Verified 03/09/21 13:06 Home Medications Medication Instructions Recorded Confirmed Last Taken Type predniSONE [Deltasone] 80 mg PO QDAY #20 tab 11/25/17 03/21/21 Unknown Rx levETIRAcetam [Keppra TAB] 500 mg PO BID #60 tablet 12/20/19 03/21/21 Unknown Rx oxyCODONE /ACETAMINOPHEN [Percocet 1 tab PO QHS PRN #7 tablet 12/20/19 03/21/21 Unknown Rx 5/325 mg] AtorvaSTATin [Lipitor] 40 mg PO QHS #30 tablet 03/16/21 Unknown Rx Butalb/Acetamin/Caff 50-325-40 2 tab PO Q8HR PRN #20 tablet 03/16/21 Unknown Rx [Fioricet 50-325-40] Metoclopramide [Reglan TAB] 10 mg PO Q6H PRN #14 tablet 03/16/21 Unknown Rx Metoprolol [Lopressor TAB] 100 mg PO BID #60 tablet 03/16/21 Unknown Rx NIFEdipine XL [Procardia Xl] 60 mg PO DAILY #30 tablet 03/16/21 Unknown Rx bisacodyL [Dulcolax suppos] [address] QDAY PRN #10 supp.rect 03/16/21 Unknown Rx chlorproMAZINE [Thorazine] 25 mg PO Q4H PRN #10 03/16/21 Unknown Rx hydrALAZINE [Apresoline TAB] 50 mg PO Q8HR #90 tablet 03/16/21 Unknown Rx levETIRAcetam [Keppra] 500 mg PO BID 30 Days oral.liqd 03/16/21 Unknown Rx oxyCODONE /ACETAMINOPHEN [Percocet 1 tab PO Q6HR PRN #14 03/16/21 Unknown Rx 5/325 mg] Aspirin [Aspirin BABY CHEW TAB] 81 mg PO QDAY #30 tab.chew 03/17/21 Unknown Rx Clopidogrel [Plavix] 75 mg PO QDAY #30 tablet 03/17/21 Unknown Rx Hydralazine HCl 50 mg PO TID #90 tablet 03/17/21 Unknown Rx cloNIDine [Catapres] 0.2 mg PO TID #90 tablet 03/17/21 Unknown Rx Active Meds: Active Medications Acetaminophen (Acetaminophen 325 Mg Tab) 650 mg PO Q4H PRN PRN Reason: Pain MILD(1-3)/Fever >100.5/ADEN Albuterol (Albuterol 2.5 Mg/3 Ml Nebu) 2.5 mg IH Q4HRT PRN PRN Reason: Shortness Of Breath Hydromorphone HCl (Hydromorphone 1 Mg/1 Ml Inj) 0.5 mg IV Q23H PRN PRN Reason: Pain , Severe (7-10) Last Admin: 06/12/21 19:34 Dose: 0.5 mg Documented by: Ondansetron HCl (Ondansetron 4 Mg/2 Ml Inj) 4 mg IV Q8H PRN PRN Reason: Nausea And Vomiting Oxycodone/Acetaminophen (Oxycodone /Acetaminophen 5-325mg Tab) 1 tab PO Q16H PRN PRN Reason: Pain, Moderate (4-6) Last Admin: 06/13/21 06:02 Dose: 1 tab Documented by: Sodium Chloride (Sodium Chloride 0.9% 10 Ml Flush Syringe) 10 ml IV BID LEOLA Last Admin: 06/12/21 22:30 Dose: 10 ml Documented by: Sodium Chloride (Sodium Chloride 0.9% 10 Ml Flush Syringe) 10 ml IV PRN PRN PRN Reason: LINE FLUSH Review of Systems ROS unobtainable: due to mental status Exam - Vital Signs Vital signs: Vital Signs Temp Pulse Resp BP Pulse Ox 98 F 92 H 16 133/86 98 06/12/21 15:51 06/12/21 15:51 06/12/21 15:51 06/12/21 15:51 06/12/21 15:51 Results - Lab Results 06/12/21 Unknown 06/12/21 Unknown Most recent lab results Calcium 12.0 mg/dL (8.4-10.2) H 06/12/21 Unknown Assessment and Plan 1. ESRD: Patient on maintenance hemodialysis three times a week. Recently discharged from [facility]. Not sure about outpatient HD unit. Meds dosage based on GFR. Hemodialysis: 06/13. 2. FEN: Chronic Hypercalemia, low Ca bath with HD. Low PTH level. Metabolic acidosis, HD today. Monitor lytes and volume status. 3. Chronic encephalopathy / cognitive decline: Monitor. 4. H/o CVA. 5. Hypertension: Adjust meds. Monitor BP. 6. Dysphagia: S/p PEG tube. Subjective: Patient was seen and examined at the bedside while on HD. General Appearance: General appearance: well-developed, appears stated age, appears emaciated, not in distress HEENT: ATNC, pupils equal Neck: trachea midline Respiratory: ctab Heart: regular, S1S2, no murmur Abdomen: soft, bowel sounds heard, not tender, PEG tube Integumentary: no rash, warm and dry Neurologic: alert, follows command, able to move extremities, confused Ext: no edema Hemodialysis access: R IJ tunnel catheter
[2021-06-13] MEDS ORDERED: SODIUM CHLORIDE 0.9% 100 ML IV PRN (08:06)
[2021-06-13] MEDS ORDERED: EPOETIN ALFA-EPBX 20,000 UNIT/1 ML VIAL SUB-Q PRN (08:06)
--- NOTE | 2021-06-13 10:58 | Event Note ---
Date: 06/13/21 Patient presented after missed hemodialysis. Agreed for hemodialysis.
[2021-06-13 11:40] LABS: Hepatitis C Virus Antibody Non-Reactive (NonReactive)
[2021-06-13 12:30] LABS: Hepatitis B Surface Antigen Nonreactive (Negative)
[2021-06-13 15:22] VITALS: BP 130/92
--- NOTE | 2021-06-13 15:27 | Discharge Summary ---
Providers - Providers Date of Admission: 06/12/21 18:54 Date of discharge: 06/13/21 Attending physician: NYASIA TROTTER MD 06/12/21 18:54 Consult to Physician [CONS] Routine Comment: Consulting Provider: SHRADDHA FRIAS Physician Instructions: Reason For Exam: esrd Primary care physician: JOSE MIGUEL FUENTES MD Hospitalization Reason for admission: Missed hemodialysis Condition: Stable Hospital course: 45-year-old female with history of ESRD on HD, hypertension, seizure disorder and lupus who presented from a longterm facility in need of dialysis. She presented to her new outpatient dialysis center but paperwork needed to be completed. She was admitted for hemodialysis. Nephrology was consulted. The patient was dialyzed. She remained stable and was discharged after dialysis. Disposition: [facility] Final Discharge Diagnosis (Prints w/discharge instructions): ESRD requiring dialysis Core Measure Documentation - Palliative Care Palliative Care/ Comfort Measures: Not Applicable - Core Measures Any of the following diagnoses?: none Exam - Physical Exam Narrative exam: GENERAL: Frail woman. position on a stretcher, in no acute distress. HEENT: Normocephalic. Atraumatic. CHEST/LUNGS: Permacath at right chest. CTAB on room air. HEART/CARDIOVASCULAR: RRR. No murmur, rubs or gallops appreciated. ABDOMEN: +BS. NT/ND. NEURO: No focal motor deficit. Follows all commands. EXTREMITIES: No cyanosis, clubbing or edema. PSYCH: Cooperative. - Constitutional Vitals: Temp Pulse Resp BP Pulse Ox 98.2 F 99 H 19 130/92 100 06/13/21 13:14 06/13/21 13:14 06/13/21 13:14 06/13/21 13:14 06/13/21 13:14 Plan Follow up with: JOSE MIGUEL FUENTES MD [Primary Care Provider] - 7 Days
== END 2021-06-13 17:35 ==
LOC: ED 15:36 → 3A 18:54
PROVIDERS: ADMIT Internal Medicine; ATTEND Student in an Organized Health Care Education/Training Program
DX: I12.0 Hypertensive chronic kidney disease with stage 5 chronic kidney disease or end stage renal disease (principal); N18.6 End stage renal disease; G40.909 Epilepsy, unspecified, not intractable, without status epilepticus; G93.40 Encephalopathy, unspecified; E78.5 Hyperlipidemia, unspecified; R13.10 Dysphagia, unspecified; Z86.73 Personal history of transient ischemic attack (TIA), and cerebral infarction without residual deficits; Z99.2 Dependence on renal dialysis; Z79.82 Long term (current) use of aspirin; Z79.899 Other long term (current) drug therapy
CPT/HCPCS: 36415; 71045; 80048; 80074; 85025; 96374; 99284; G0378; J0885; J1170; 85007